=== PATIENT | male | born 1960 | race Caucasian/White ===

== ENCOUNTER 2017-12-02 15:50 | Inpatient (IN) ==
[2017-12-02] MEDS ORDERED: methylPREDNISolone 125 MG/2 ML VIAL IVP ONE (16:17)
[2017-12-02] MEDS ORDERED: Ipratropium/Albuterol Neb 3 ML IH ONE (16:17)
--- NOTE | 2017-12-02 16:20 | Emergency Department Note ---
Disposition Clinical Impression: Acute exacerbation of chronic obstructive airways disease, Bronchitis Disposition: Admitted As Inpatient Condition: Fair Referrals: Heather Proctor MD [Primary Care Provider] - Forms: ED Satisfaction Letter Time of Disposition: 19:40 SOB HPI - General Chief Complaint: ED Shortness of Breath/Dyspnea Stated Complaint: DANNI Time Seen by Provider: 12/02/17 15:59 Source: patient Mode of arrival: ambulatory Limitations: no limitations Nursing Notes Reviewed: Yes Vital Signs Reviewed: Yes - History of Present Illness 57-year-old with a history of oxygen-dependent COPD. Patient continues to smoke. 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 Severity: moderate Consistency/Duration: constant Improves with: nothing Worsens with: exertion Known history of: COPD Associated symptoms: Reports: chest pain, cough Treatment prior to arrival: oxygen, bronchodilator - Related Data Home Medications Medication Instructions Recorded Confirmed Gabapentin [Neurontin] 300 mg PO TID 08/31/17 08/31/17 Isosorbide DInitrate [Isosorbide 30 mg PO DAILY 08/31/17 08/31/17 Dinitrate] Oxycodone HCl/Acetaminophen 10 mg PO TID 08/31/17 08/31/17 [Percocet 10-325 mg Tablet] Oxycodone HCl [Oxycontin] 15 mg PO Q12H 11/29/17 11/29/17 Allergies Allergy/AdvReac Type Severity Reaction Status Date / Time cephalexin [From Keflex] Allergy See Verified 12/02/17 15:56 Comments All systems ED: reviewed and negative except as stated. Cardiovascular: Reports: chest pain Respiratory: Reports: cough, dyspnea, wheezes Gastrointestinal: Denies: abdominal pain, nausea, vomiting, diarrhea, constipation, hematemesis, melena, hematochezia Genitourinary: Denies: urgency, dysuria, frequency, hematuria Musculoskeletal: Denies: back pain, neck pain, arthralgia, myalgia Integumentary: Denies: rash, abrasion, lesions Neurological: Denies: headache, weakness, numbness, paresthesias, confusion, abnormal gait, vertigo Psychiatric: Denies: anxiety, depression, suicidal thoughts, homicidal thoughts , auditory hallucinations, visual hallucinations Endocrine: Denies: fatigue Hematological/Lymphatic: Denies: easy bleeding, easy bruising Allergic/Immunologic: Denies: facial swelling, urticaria Past Medical History - Past Medical History Medical history: Reports: COPD, other - Social History Smoking Status: Current every day smoker Smokeless Tobacco Status: No Alcohol use: Reports: none Drug use: Reports: none Course - Reevaluation(s) Reevaluation #1: 57-year-old with severe COPD comes in with shortness of breath. Diffuse wheezes throughout. CTA of the chest was obtained that showed no pulmonary embolism with some bronchitis. Patient will be admitted. Time: 19:39 - Consultations Consultation #1: Discussed with Dr. Devine, admit. Time: 19:39 Vital Signs Temperature 99.3 F 12/02/17 15:53 Pulse Rate 77 12/02/17 15:53 Respiratory Rate 18 12/02/17 15:53 Blood Pressure 117/73 12/02/17 15:53 O2 Sat by Pulse Oximetry 94 12/02/17 15:53 Temperature 99.3 F 12/02/17 16:30 Pulse Rate 87 12/02/17 18:22 Respiratory Rate 18 12/02/17 18:22 Blood Pressure 139/80 12/02/17 18:22 O2 Sat by Pulse Oximetry 95 12/02/17 18:22 Oxygen Delivery Oxygen Delivery Room Air Shortness of Breath/Dyspnea - Lab Data Result diagrams: 12/02/17 16:53 12/02/17 16:53 Lab Results 12/02/17 12/02/17 12/02/17 Range/Units 16:53 16:53 16:53 WBC 15.9 H (4.3-11.1) K/mcL RBC 4.85 (4.19-5.50) M/mcL Hgb 13.3 (12.9-16.9) g/dL Hct 42.8 (37.5-50.1) % MCV 88.2 (83.0-100.0) fL MCH 27.4 L (28.0-33.3) pg MCHC 31.1 L (31.6-35.5) g/dL RDW 15.7 H (11.5-14.5) % Plt Count 241 (140-400) K/mcL MPV 9.8 (9.4-12.4) fL Immature Gran % 0.6 (0-4) % Seg Neutrophils % 55.4 % Lymphocytes % 35.8 % Monocytes % 6.1 % Eosinophils % 1.7 % Basophils % 0.4 % Neutrophils # 8.8 (1.6-8.9) K/mcL Lymphocytes # 5.7 H (0.6-4.6) K/mcL Monocytes # 1.0 (0.0-1.3) K/mcL Eosinophils # 0.3 (0.0-0.6) K/mcL Basophils # 0.1 (0.0-0.2) K/mcL D-Dimer (0-500) ng/mLFEU Sodium 138 (136-145) mEq/L Potassium 3.7 (3.5-5.1) mEq/L Chloride 99 (98-107) mEq/L Carbon Dioxide 34 H (23-29) mEq/L BUN 18 (6-20) mg/dL Creatinine 0.69 L (0.70-1.30) mg/dL Est GFR ( Amer) > 60 (> 60) Est GFR (Non-Af Amer) > 60 (> 60) BUN/Creatinine Ratio 26 (6-26) Glucose 88 (70-105) mg/dL Calculated Osmolality 287 (280-300) Lactic Acid 1.0 (0.5-2.2) mmol/L Calcium 8.9 (8.6-10.3) mg/dL Troponin I < 0.03 (< 0.04) ng/mL B-Natriuretic Peptide (Less than 100) pg/mL 12/02/17 12/02/17 Range/Units 16:53 16:53 WBC (4.3-11.1) K/mcL RBC (4.19-5.50) M/mcL Hgb (12.9-16.9) g/dL Hct (37.5-50.1) % MCV (83.0-100.0) fL MCH (28.0-33.3) pg MCHC (31.6-35.5) g/dL RDW (11.5-14.5) % Plt Count (140-400) K/mcL MPV (9.4-12.4) fL Immature Gran % (0-4) % Seg Neutrophils % % Lymphocytes % % Monocytes % % Eosinophils % % Basophils % % Neutrophils # (1.6-8.9) K/mcL Lymphocytes # (0.6-4.6) K/mcL Monocytes # (0.0-1.3) K/mcL Eosinophils # (0.0-0.6) K/mcL Basophils # (0.0-0.2) K/mcL D-Dimer 667 H (0-500) ng/mLFEU Sodium (136-145) mEq/L Potassium (3.5-5.1) mEq/L Chloride (98-107) mEq/L Carbon Dioxide (23-29) mEq/L BUN (6-20) mg/dL Creatinine (0.70-1.30) mg/dL Est GFR ( Amer) (> 60) Est GFR (Non-Af Amer) (> 60) BUN/Creatinine Ratio (6-26) Glucose (70-105) mg/dL Calculated Osmolality (280-300) Lactic Acid (0.5-2.2) mmol/L Calcium (8.6-10.3) mg/dL Troponin I (< 0.04) ng/mL B-Natriuretic Peptide 16 (Less than 100) pg/mL - EKG Data EKG attestation: Yes I reviewed and interpreted this EKG. EKG shows normal: Reports: sinus rhythm Rate: Reports: normal Rhythm: Reports: NSR When compared to previous EKG there are: no significant changes Interpretation: Reports: no acute changes
[2017-12-02 17:09] LABS: Basophils # 0.1 K/mcL (0.0-0.2); Basophils % 0.4 %; Eosinophils # 0.3 K/mcL (0.0-0.6); Eosinophils % 1.7 %; Hematocrit 42.8 % (37.5-50.1); Hemoglobin 13.3 g/dL (12.9-16.9); Immature Granulocytes % 0.6 % (0-4); Lymphocytes # 5.7 K/mcL (0.6-4.6); Lymphocytes % 35.8 %; Mean Corpuscular HGB Conc 31.1 g/dL (31.6-35.5); Mean Corpuscular Hemoglobin 27.4 pg (28.0-33.3); Mean Corpuscular Volume 88.2 fL (83.0-100.0); Mean Platelet Volume 9.8 fL (9.4-12.4); Monocytes % 6.1 %; Neutrophils # 8.8 K/mcL (1.6-8.9); Platelet Count 241 K/mcL (140-400); Red Blood Count 4.85 M/mcL (4.19-5.50); Red Cell Distribution Width 15.7 % (11.5-14.5); Segmented Neutrophils % 55.4 %
[2017-12-02 17:30] LABS: BUN/Creatinine Ratio 26 (6-26); Blood Urea Nitrogen 18 mg/dL (6-20); Calcium 8.9 mg/dL (8.6-10.3); Carbon Dioxide 34 mEq/L (23-29); Chloride 99 mEq/L (98-107); Glucose 88 mg/dL (70-105); Osmolality,Calculated 287 (280-300); Potassium 3.7 mEq/L (3.5-5.1); Sodium 138 mEq/L (136-145); Troponin I < 0.03 ng/mL (< 0.04); eGFR For African Americans > 60 (> 60); eGFR For Non-African Americans > 60 (> 60)
[2017-12-02] MEDS ORDERED: Isovue-370 500 ML INFUS..BTL IV ONE (17:55)
[2017-12-02] MEDS ORDERED: Naloxone 0.4 MG/ML INJ IVP PRN ×2 (19:41→19:42)
[2017-12-02] MEDS ORDERED: Acetaminophen 325 MG TABLET PO PRN (19:42)
--- NOTE | 2017-12-02 19:45 | Internal Med History&Physical ---
Date of Encounter: 12/03/17 Time of Encounter: 19:43 Internal Medicine - H&P: HPI Chief complaint: Shortness of breath Admitted From: Emergency Dept Plans for Post Hospital Care: Home History of present illness: Mr. Olguin is a 57 year old male with history of PE he is to be on Coumadin and finish treatment for 2 years and was taken off by hematology, COPD chronically on 3-4 L, CHF, tobacco abuse who presents with shortness of breath and increased cough with occasional sputum for the last 3 days or so. He is becoming dyspneic easily with any exertion. He says he feels like he is "in a bubble and is having a hard time getting her into the bubble". He sees Dr. Fuentes in the outpatient setting and recently finished pulmonary rehabilitation about a week ago. When he presented to the ED he was in significant distress and was noted to be wheezing. Laboratory workup was remarkable for elevated D dimers and given his history of PE a CTA was done which ruled out a PE. It showed bronchitis. WBC count 15.9 He was given IV steroids and nebulizers with mild improvement in his symptoms. The patient had an EKG that was sinus rhythm with no ST or T-wave changes. Chest x-ray with no infiltrates. The patient denies any fever, chills, nausea, vomiting, headache, diarrhea, constipation, abdominal pain, urinary symptoms, or neurological symptoms. Past Med Surg Social Fam HX - Past Medical History Medical history: COPD, other Additional medical history: O2 per n/c - Social History Smoking Status: Current every day smoker Smokeless Tobacco Status: No Alcohol use: none Drug use: none - Family History Father Name: Charli Olguin Living Status: Age at : 57 Cause of : Complications to surgery Hx Family Cardiac Disorders: Yes (x4 bipass surgery) Internal Medicine - H&P: Meds Gabapentin [Neurontin] 300 mg PO TID 08/31/17 [History] Isosorbide DInitrate [Isosorbide Dinitrate] 30 mg PO DAILY 08/31/17 [History] Oxycodone HCl/Acetaminophen [Percocet 10-325 mg Tablet] 10 mg PO TID 08/31/17 [ History] Oxycodone HCl [Oxycontin] 15 mg PO Q12H 11/29/17 [History] Bumetanide 2 mg PO BID 12/02/17 [History] Buspirone HCl [Buspar] 10 mg PO BID 12/02/17 [History] DULoxetine [Cymbalta] 60 mg PO DAILY 12/02/17 [History] 3 Allergy/AdvReac Type Severity Reaction Status Date / Time cephalexin [From Keflex] Allergy See Verified 12/02/17 15:56 Comments All Systems PM: A 10-system review of systems was performed and is negative for pertinent findings except as documented above in the HPI. Review of systems: All systems reviewed are negative except for as mentioned above - Constitutional Vitals: Temp Pulse Resp BP Pulse Ox 99.3 F 90 17 130/61 93 12/02/17 16:30 12/02/17 19:37 12/02/17 19:37 12/02/17 19:37 12/02/17 19:37 Exam: GEN: NAD HEENT: AT, NC, No cyanosis, oral mucosa is moist, No JVD Lymphatics: No lymphadenoapthy Eyes: Extrocular muscles intact, anicteric CVS:RRR. S1, S2, No m/r/g RESP: Severely Diminished with expiratory wheezes posteriorly ABD: Soft, NT, ND, +BS EXT: No edema, No rashes, 2+ DP NEURO: Nonfocal, CN II-XII intact, No focal motor or sensory deficits Psych: Cooperative, Not anxious or depressed Internal Med - H&P Results - Labs CBC & Chem 7: 12/03/17 03:46 12/02/17 16:53 Labs: Short CBC 12/02/17 Range/Units 16:53 WBC 15.9 H (4.3-11.1) K/mcL Hgb 13.3 (12.9-16.9) g/dL Hct 42.8 (37.5-50.1) % Plt Count 241 (140-400) K/mcL Neutrophils # 8.8 (1.6-8.9) K/mcL BMP 12/02/17 16:53 Sodium 138 Potassium 3.7 Chloride 99 Carbon Dioxide 34 H BUN 18 Creatinine 0.69 L Glucose 88 Calcium 8.9 Cardiac Enzymes 12/02/17 Range/Units 16:53 Troponin I < 0.03 (< 0.04) ng/mL - Impressions ITS Impressions Chest X-Ray 12/02/17 16:17 IMPRESSION: Chronic appearing interstitial opacities in the lungs are noted. Acute on chronic lung disease should be considered in the appropriate clinical setting. D/ / Nii Hernandez / Nii Hernandez Interpreting Provider: Nii Hernandez Chest CTA 12/02/17 17:55 IMPRESSION: No evidence of pulmonary embolism. Bronchial wall thickening and bronchiectasis of the bilateral lower lobe bronchi suggesting bronchitis. Moderate to severe centrilobular emphysema. D/ / Shaun Og MD / Shaun Og MD Interpreting Provider: Shaun Og MD - Assessment and plan (1) Acute exacerbation of chronic obstructive airways disease Current Visit: Yes Status: Acute Assessment and plan: Will place the patient on IV solumedrol Q8hrs, scheduled nebs. Wean O2 as tolerated. Levaquin added. (2) Bronchitis Current Visit: Yes Status: Acute Assessment and plan: Started on IV levaquin. check sputum cx. nebs. O2 support. (3) Hx pulmonary embolism Current Visit: Yes Status: Acute Assessment and plan: Used to be on Coumadin. Finished 2 years of it. No longer on anticoag (4) CHF (congestive heart failure) Current Visit: Yes Status: Acute Assessment and plan: Patient is not in exacerbation. We will resume his home cardiac meds was verified. Qualifiers: Heart failure type: unspecified Heart failure chronicity: unspecified Qualified Code(s): I50.9 - Heart failure, unspecified (5) Tobacco abuse Current Visit: Yes Status: Acute Assessment and plan: Nicotine patch (6) DVT prophylaxis Current Visit: Yes Status: Acute Assessment and plan: heparin SQ - Time Spent With Patient Total time spent is greater than 50% in coordination of care (as documented) at patient's floor/unit and/or counseling patient:
[2017-12-02] MEDS: Nicotine 21 MG PATCH.TD24 TD SCH (21:09)
[2017-12-02] MEDS: Levofloxacin 750 MG/150 ML 750 MG/150 ML BAG IVPB SCH (21:11)
[2017-12-02] MEDS: Ipratropium/Albuterol Neb 3 ML IH SCH (21:14)
[2017-12-02] MEDS: *HR* Heparin 5,000 UNIT/ML VIAL SQ SCH (21:18)
[2017-12-02] MEDS ORDERED: Melatonin 3 MG TABLET PO PRN (22:05)
[2017-12-02] MEDS: *HR* OxyCODONE/APAP 10/325 TABLET PO PRN (22:50)
[2017-12-02] MEDS: methylPREDNISolone 125 MG/2 ML VIAL IVP SCH (22:53)
[2017-12-03] MEDS: Ipratropium/Albuterol Neb 3 ML IH SCH ×4 (04:04→22:03)
[2017-12-03 04:37] LABS: Basophils % 0.1 %; Hematocrit 43.2 % (37.5-50.1); Hemoglobin 13.4 g/dL (12.9-16.9); Lymphocytes # 1.1 K/mcL (0.6-4.6); Lymphocytes % 7.8 %; Mean Corpuscular Hemoglobin 27.2 pg (28.0-33.3); Mean Corpuscular Volume 87.8 fL (83.0-100.0); Mean Platelet Volume 10.3 fL (9.4-12.4); Monocytes # 0.1 K/mcL (0.0-1.3); Monocytes % 0.6 %; Platelet Count 270 K/mcL (140-400); Red Blood Count 4.92 M/mcL (4.19-5.50); Red Cell Distribution Width 15.8 % (11.5-14.5); Segmented Neutrophils % 89.5 %
[2017-12-03 04:57] LABS: BUN/Creatinine Ratio 28 (6-26); Blood Urea Nitrogen 22 mg/dL (6-20); Calcium 8.9 mg/dL (8.6-10.3); Carbon Dioxide 30 mEq/L (23-29); Chloride 100 mEq/L (98-107); Glucose 303 mg/dL (70-105); Magnesium 2.1 mg/dL (1.6-2.6); Osmolality,Calculated 301 (280-300); Sodium 138 mEq/L (136-145); eGFR For African Americans > 60 (> 60); eGFR For Non-African Americans > 60 (> 60)
--- NOTE | 2017-12-03 04:58 | Event Note ---
Date of Encounter: 12/03/17 Time of Encounter: 04:51 Patient had runs of wide complex tachycardia, asymptomatic (Vfib, possibly torsades). Vitals are stable. BP 137/77. HR 95. Afebrile. Will c/s cardiology. Awaiting mag and potassium
[2017-12-03] MEDS: *HR* OxyCODONE ER (12 HR) 20 MG TABLET PO SCH ×2 (05:45→17:11)
[2017-12-03] MEDS: *HR* Heparin 5,000 UNIT/ML VIAL SQ SCH ×3 (05:45→21:47)
[2017-12-03] MEDS ORDERED: *HR* OxyCODONE ER (12 HR) 20 MG TABLET PO SCH (08:00)
[2017-12-03] MEDS ORDERED: Bumetanide 1 MG TABLET PO ONE (09:00)
[2017-12-03] MEDS ORDERED: NON-FORMULARY MEDICATION 1 EACH EACH (Buspirone Hcl [Buspar] 10 MG) PO SCH (09:00)
--- NOTE | 2017-12-03 09:02 | Cardiology Consult Note ---
<Wayne Guerrero - Last Filed: 12/03/17 10:33> Date of Encounter: 12/03/17 Time of Encounter: 09:00 Assessment and Plan (1) Irregular heart rhythm Current Visit: Yes Status: Suspected - On telemetry last evening. Appears to be Vtach however suspect more likely artifact as QRS complexes can be seen - Previous cardiac workup obtained from [facility] on 05/09/2016: LHC shows 1) minor luminal irregularities in RCA, otherwise normal right dominant coronary circulation 2) Normal LVEDP (~15). - Echo pending - Pt's symptoms possibly secondary to GERD/PUD and severe emphysema Plan - Will obtain repeat echo to evaluate for structural disease - Unlikely ischemic disease due to atypical presentation and normal LHC <2 years ago - Continue to monitor and further recommendations pending results of echo (2) Chest pain Current Visit: Yes Status: Acute - Reports intermittent chronic chest pain located in epigastric and low substernal that is dull -Unlikely cardiac related. Recent ischemic workup of LHC reviewed from 2016 - Trop <0.03, EKG NSR. Telemetry strips likely artifact as above - More likely GERD/PUD - Obtain echo, monitor Qualifiers: Chest pain type: other chest pain Qualified Code(s): R07.89 - Other chest pain; R07.8 - Other chest pain (3) Acute exacerbation of chronic obstructive airways disease Current Visit: Yes Status: Acute - Per primary team (4) Bronchitis Current Visit: Yes Status: Acute (5) Hx pulmonary embolism Current Visit: Yes Status: Chronic not on AC (6) DVT prophylaxis Current Visit: Yes Status: Acute (7) Tobacco abuse Current Visit: Yes Status: Acute Encouraged cessation (8) CHF (congestive heart failure) Current Visit: Yes Status: Chronic History of, not in current exacerbation Echo pending, no previous in EMR Qualifiers: Heart failure type: unspecified Heart failure chronicity: unspecified Qualified Code(s): I50.9 - Heart failure, unspecified Discussion w patient/family: The assessment and plan as outlined above was discussed with the patient and/or family members who expressed understanding and agreement. All questions were answered. Thank you for involving us in the care of your patient. Please call with any questions. History of Present Illness Consult date: 12/03/17 Requesting physician: Osama M Alhajjar Consult reason: Runs of Vtach Chief complaint: SOB History of present illness: Mr. Olguin is a 57 year old male with a PMHx of COPD, CHF, brain aneurym, pulmonary embolism no longer on AC presented to ED with a complaint of SOB. He is currently being treated for COPD exacerbation. Cardiology was consulted for a run of sustained ventricular tachycardia on telemetry lasting approximately 50 seconds. Patient was asymptomatic at that time and vital signs were otherwise stable. He has no history of heart disease and no cardiac workup in this medical record. He does report previous stress tests, echocardiogram in the past and believes they were normal. He states it was years ago at [facility]. 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 He Is unable to exert himself due to this. He does admit to intermittent chest pain located in the low substernal/ epigastric region and describes it as dull in nature. States it is usually brought on by increased stress at home and sometimes relieved by rolaids. He denies palpitations, nausea , vomiting, fever, chills. Admits to some LE swelling at baseline. Past Med Surg Social Fam HX - Past Medical History Medical history: COPD, other Additional medical history: O2 per n/c Psychiatric history: anxiety, depression - Past Surgical History Surgical History: no surgical history Additional surgical history: "Nose surgery" - Social History Smoking Status: Current every day smoker Smokeless Tobacco Status: No Alcohol use: none Drug use: none - Family History Father Name: Charli Olguin Living Status: Age at : 57 Cause of : Complications to surgery Hx Family Cardiac Disorders: Yes (x4 bipass surgery) Medications and Allergies Gabapentin [Neurontin] 300 mg PO TID 08/31/17 [History] Bumetanide 2 mg PO BID 12/02/17 [History] Buspirone HCl [Buspar] 10 mg PO BID 12/02/17 [History] DULoxetine [Cymbalta] 60 mg PO DAILY 12/02/17 [History] ARIPiprazole [Abilify] 10 mg PO DAILY 12/03/17 [History] Albuterol Sulfate [Proair Hfa] 2 puff IH Q4-6H PRN 12/03/17 [History] Fluticasone/Vilanterol [Breo Ellipta 100-25 Mcg INH] 1 puff IH DAILY 12/03/17 [ History] Isosorbide MONOnitrate (24 HR) [Imdur] 30 mg PO DAILY 12/03/17 [History] [place] Carbonate 300 mg PO TID 12/03/17 [History] OxyCODONE ER (12 HR) [OxyCONTIN] 20 mg PO Q12HR 12/03/17 [History] OxyCODONE Immed Rel [Roxicodone 10 MG] 10 mg PO TID PRN 12/03/17 [History] Tiotropium [Spiriva] 18 mcg IH QPM 12/03/17 [History] 3 Allergy/AdvReac Type Severity Reaction Status Date / Time cephalexin [From Keflex] Allergy See Verified 12/02/17 15:56 Comments All Systems Review: The remainder of the systems were reviewed and are negative - Constitutional Constitutional: no chills, no fatigue, no fever(s), no lethargy - Cardiovascular Cardiovascular: chest pain at rest, dyspnea on exertion, no chest pain with exertion, no diaphoresis, no lightheadedness, no orthopnea, no palpitations, no syncope - Respiratory Respiratory: dyspnea, no cough, no hemoptysis - Gastrointestinal Gastrointestinal: no abdominal pain, no nausea Physical Examination Vital Signs, Last 4 Hours Temp Pulse Resp BP Pulse Ox 12/03/17 07:32 94 12/03/17 06:52 98.1 F 95 17 126/70 94 General: Conversant, No Apparent Distress HEENT: Atraumatic, Normocephaly, Mucus Membranes Moist Neck: No JVD, Normal carotid pulses Cardiac: Reg Rate and Rhythm, Normal S1 and S2, No Murmur Lungs: Normal Breath Sounds, Other (minimal expiratory wheeze) Neuro: Alert and responsive, No focal deficits noted Abdomen: Soft, Non-Tender Skin: No rashes noted on visualized skin Musculoskeletal: No Chest Wall Tenderness Extremities: No Clubbing, No Cyanosis, Normal Pulses, Other (minimal LE edema) Results 12/03/17 03:46 12/03/17 03:46 Lab Results 12/03/17 12/03/17 03:46 03:46 WBC 14.5 H Hgb 13.4 Hct 43.2 Plt Count 270 Sodium 138 Potassium 4.0 Chloride 100 Carbon Dioxide 30 H BUN 22 H Creatinine 0.80 Glucose 303 H Calcium 8.9 Magnesium 2.1 Consult Discharge Plan - Plan Referrals: Heather Proctor MD [Primary Care Provider] - <Dillon Doyle - Last Filed: 12/03/17 19:22> Date of Encounter: 12/03/17 - Attending Attestation I examined this patient and my medical decision-making was reviewed with the Resident Physician. I agree with the documented findings, disposition and treatment plan as described except to the extent set forth below. 57-year-old male with atypical type chest pain complains of shortness of breath likely COPD exacerbation Negative cardiac enzymes and a BNP of 16 Recent left heart catheter April 2016 at outside hospital with luminal irregularities and RCA only ECHO pending , no further cardiac testing likely noncardiac chest pain Assessment and Plan Discussion w patient/family: The assessment and plan as outlined above was discussed with the patient and/or family members who expressed understanding and agreement. All questions were answered. Thank you for involving us in the care of your patient. Please call with any questions. History of Present Illness History of present illness: Mr. Olguin is a 57 year old male All Systems Review: The remainder of the systems were reviewed and are negative Physical Examination Vital Signs, Last 4 Hours Temp Pulse Resp BP Pulse Ox 12/03/17 19:18 97.8 F 96 16 122/69 92 12/03/17 15:45 12 90 Results 12/03/17 03:46 12/03/17 03:46 Lab Results 12/03/17 12/03/17 03:46 03:46 WBC 14.5 H Hgb 13.4 Hct 43.2 Plt Count 270 Sodium 138 Potassium 4.0 Chloride 100 Carbon Dioxide 30 H BUN 22 H Creatinine 0.80 Glucose 303 H Calcium 8.9 Magnesium 2.1
--- NOTE | 2017-12-03 10:03 | Electrocardiograph Report ---
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
--- NOTE | 2017-12-03 10:09 | Electrocardiograph Report ---
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
[2017-12-03] MEDS: methylPREDNISolone 125 MG/2 ML VIAL IVP SCH ×2 (10:23→15:54)
[2017-12-03] MEDS: Gabapentin 300 MG CAPSULE PO SCH ×3 (10:23→21:47)
[2017-12-03] MEDS: *HR* OxyCODONE/APAP 10/325 TABLET PO PRN ×3 (10:24→21:47)
[2017-12-03] MEDS: Bumetanide 1 MG TABLET PO SCH ×2 (10:24→21:47)
[2017-12-03] MEDS: Nicotine 21 MG PATCH.TD24 TD SCH (10:25)
--- NOTE | 2017-12-03 17:22 | Internal Med Progress Note ---
Date of Encounter: 12/03/17 Time of Encounter: 12:15 - Assessment and plan (1) Acute exacerbation of chronic obstructive airways disease Current Visit: Yes Status: Acute Assessment and plan: Mild acute exacerbation. Patient is requiring supplemental oxygen to maintain sats. Patient with diminished lung sounds and wheezing and posterior bases Continue IV steroids, scheduled nebulizers O2 as needed to maintain sats greater than 92% Continue IV Levaquin. (2) Bronchitis Current Visit: Yes Status: Acute Assessment and plan: Plan as above. Chest X-Ray 12/02/17 16:17 IMPRESSION: Chronic appearing interstitial opacities in the lungs are noted. Acute on chronic lung disease should be considered in the appropriate clinical setting. D/ / Nii Hernandez / Nii Hernandez Interpreting Provider: Nii Hernandez Chest CTA 12/02/17 17:55 IMPRESSION: No evidence of pulmonary embolism. Bronchial wall thickening and bronchiectasis of the bilateral lower lobe bronchi suggesting bronchitis. Moderate to severe centrilobular emphysema. D/ / Shaun Og MD / Shaun Og MD Interpreting Provider: Shaun Og MD (3) Hx pulmonary embolism Current Visit: Yes Status: Chronic Assessment and plan: Recently finished 2 year course of warfarin for history of PE. No longer on anticoag (4) DVT prophylaxis Current Visit: Yes Status: Acute Assessment and plan: Heparin SQ BID (5) Tobacco abuse Current Visit: Yes Status: Acute Assessment and plan: Nicotine patch ordered. Pt did not want to discuss smoking cessation. (6) CHF (congestive heart failure) Current Visit: Yes Status: Chronic Assessment and plan: No acute exacerbation. Patient appears to be euvolemic. No Rales heard, wheezing due to COPD exacerbation. Patient has no peripheral edema. Echocardiogram today shows LVEF of 65%, mild LV DD, no significant valvular dysfunction. Chest x-ray shows chronic appearing interstitial pacer disease in the lungs, acute on chronic lung disease should be considered in the appropriate clinical setting. Chest CTA showed bronchial wall thickening and bronchiectasis of the bilateral lower lobe bronchi suggesting bronchitis. And moderate to severe centrilobular emphysema Continue telemetry Continue Bumex 2 mg by mouth twice a day Continue I and 0, Daily weights. Qualifiers: Heart failure type: unspecified Heart failure chronicity: unspecified Qualified Code(s): I50.9 - Heart failure, unspecified (7) Irregular heart rhythm Current Visit: Yes Status: Suspected Assessment and plan: Patient has been evaluated by cardiology. They suspect artifact. They have reviewed old records from [facility] dated 05/09/16 Echo as above Cardiology feels symptoms possibly secondary to GERD/PUD and severe emphysema. Cardiology will follow along and will see patient tomorrow. Continue telemetry (8) Chest pain Current Visit: Yes Status: Acute Assessment and plan: Patient reports intermittent, chronic chest pain and epigastric area. He states it as dull, intermittent. He denies associated shortness of breath, nausea, vomiting, or radiation of pain. Recent ischemic workup negative from [facility] in 2016. Troponins are negative, chest x-ray is negative Per cardiology note this is most likely GERD/PUD She denies chest pain during assessment today pain is not reproducible. Continue telemetry Qualifiers: Chest pain type: other chest pain Qualified Code(s): R07.89 - Other chest pain; R07.8 - Other chest pain - Time Spent With Patient Total time spent is greater than 50% in coordination of care (as documented) at patient's floor/unit and/or counseling patient: less than 15 minutes - Subjective Interval history: Patient was seen and assessed at bedside 12:15. Child and at bedside. All questions were answered. Patient denies any chest pain, does report shortness of breath. He denies abdominal pain, nausea, vomiting, diarrhea or peripheral edema. She is aware that he will beefier for a couple of days to finish treatment, he states that he is not ready to go home at this time. - Constitutional Vitals: Temp Pulse Resp BP Pulse Ox 98.6 F 98 12 136/52 90 12/03/17 14:10 12/03/17 14:10 12/03/17 15:45 12/03/17 14:10 12/03/17 15:45 General appearance: Present: cooperative, A&O X 3, morbidly obese, no acute distress, answers questions appropriately - Head Head exam: Present: atraumatic, normal inspection, normocephalic - Eye Eye exam: Present: normal appearance, conjuntiva pink, sclera anicteric - Neck Neck exam general surgery: Present: supple, trachea midline. Absent: lymphadenopathy, tenderness - Respiratory Respiratory exam: Present: decreased breath sounds, CTAB. Absent: accessory muscle use, chest wall tenderness, rales, respiratory distress, rhonchi, wheezes - Cardiovascular Cardiovascular exam: Present: RRR, +S1, +S2. Absent: diastolic murmur, gallop, rubs, systolic murmur - GI/Abdominal GI/Abdominal exam: Present: distended, normal bowel sounds, soft. Absent: hepatomegaly, tenderness - Extremities Exam Extremities exam: Present: normal capillary refill, normal inspection, warm, radial pulses palpable and symmetrical. Absent: calf tenderness, cyanotic, pedal edema, tenderness - Neurological Exam Neurological exam: Present: alert, oriented X3, no focal deficits. Absent: facial droop, speech deficit - Skin Skin exam: Present: dry, intact, normal color, warm. Absent: rash Internal Medicine: Result - Labs CBC & Chem 7: 12/03/17 03:46 12/03/17 03:46 Labs: Short CBC 12/03/17 Range/Units 03:46 WBC 14.5 H (4.3-11.1) K/mcL Hgb 13.4 (12.9-16.9) g/dL Hct 43.2 (37.5-50.1) % Plt Count 270 (140-400) K/mcL Neutrophils # 13.0 H (1.6-8.9) K/mcL BMP 12/03/17 03:46 Sodium 138 Potassium 4.0 Chloride 100 Carbon Dioxide 30 H BUN 22 H Creatinine 0.80 Glucose 303 H Calcium 8.9 - ABG Interpretation ABG results: PT/INR, D-dimer D-Dimer 667 ng/mLFEU (0-500) H 12/02/17 16:53 - Impressions Impressions Echocardiogram 12/03/17 04:53 Impressions: LVEF 65%. Normal LV chamber size, wall thickness and function. Mild left ventricular diastolic dysfunction. Normal right ventricular structure and function. Unable to estimate RVSP due to lack of TR jet. No significant valvular dysfunction. Left Ventricular Wall Motion: Rest Echo Findings All wall segments showed normal motion. Findings: Study Quality * Technically adequate exam. ECG Findings * Normal sinus rhythm. Left Ventricle * LVEF 65%. * Normal LV chamber size, wall thickness and function. * Mild left ventricular diastolic dysfunction. Right Ventricle * Normal right ventricular structure and function. Left Atrium * Mildly dilated left atrium. Right Atrium * Mildly dilated right atrium. Aortic Valve * Trileaflet aortic valve with normal function. * No aortic regurgitation. * No aortic stenosis. Mitral Valve * Normal mitral valve structure and function. * No mitral regurgitation. * No mitral stenosis. Tricuspid Valve * Normal tricuspid valve structure and function. * No tricuspid regurgitation. * Unable to estimate RVSP due to lack of TR jet. Pulmonic Valve * Pulmonic valve not well visualized. Aorta * Normally sized aortic root. Pericardium * The pericardium appears normal. IVC * Normal IVC dimensions and inspiratory collapse. Pulmonary Artery * Normal visualized portions of the main pulmonary artery. Consult Discharge Plan - Plan Referrals: Heather Proctor MD [Primary Care Provider] -
[2017-12-03] MEDS ORDERED: *HR* OxyCODONE/APAP 10/325 TABLET PO SCH (21:00)
[2017-12-03] MEDS: Levofloxacin 750 MG/150 ML 750 MG/150 ML BAG IVPB SCH (21:48)
[2017-12-03] MEDS: Melatonin 3 MG TABLET PO PRN (21:48)
[2017-12-03] MEDS ORDERED: *HR* OxyCODONE ER (12 HR) 10 MG TABLET PO SCH (22:17)
[2017-12-04] MEDS: methylPREDNISolone 125 MG/2 ML VIAL IVP SCH ×2 (00:38→08:45)
[2017-12-04] MEDS: Ipratropium/Albuterol Neb 3 ML IH SCH ×4 (04:21→22:40)
[2017-12-04 04:53] LABS: Basophils % 0.1 %; Hemoglobin 13.3 g/dL (12.9-16.9); Immature Granulocytes % 2.2 % (0-4); Lymphocytes # 1.5 K/mcL (0.6-4.6); Lymphocytes % 5.4 %; Mean Corpuscular HGB Conc 31.7 g/dL (31.6-35.5); Mean Corpuscular Hemoglobin 27.5 pg (28.0-33.3); Mean Platelet Volume 9.9 fL (9.4-12.4); Monocytes # 0.4 K/mcL (0.0-1.3); Monocytes % 1.6 %; Platelet Count 276 K/mcL (140-400); Red Blood Count 4.83 M/mcL (4.19-5.50); Red Cell Distribution Width 15.9 % (11.5-14.5); Segmented Neutrophils % 90.7 %
[2017-12-04] MEDS: *HR* Heparin 5,000 UNIT/ML VIAL SQ SCH ×3 (05:03→20:48)
[2017-12-04] MEDS: *HR* OxyCODONE ER (12 HR) 20 MG TABLET PO SCH ×2 (05:03→17:04)
[2017-12-04 05:08] LABS: BUN/Creatinine Ratio 28 (6-26); Blood Urea Nitrogen 22 mg/dL (6-20); Calcium 8.8 mg/dL (8.6-10.3); Carbon Dioxide 30 mEq/L (23-29); Chloride 99 mEq/L (98-107); Glucose 156 mg/dL (70-105); Osmolality,Calculated 293 (280-300); Potassium 4.2 mEq/L (3.5-5.1); Sodium 138 mEq/L (136-145); eGFR For African Americans > 60 (> 60); eGFR For Non-African Americans > 60 (> 60)
[2017-12-04 05:20] LABS: Platelet Estimate Normal (Normal); Toxic Granulation Present (Not Present)
[2017-12-04] MEDS: Bumetanide 1 MG TABLET PO SCH ×2 (08:46→20:49)
[2017-12-04] MEDS: Nicotine 21 MG PATCH.TD24 TD SCH (08:46)
[2017-12-04] MEDS: Gabapentin 300 MG CAPSULE PO SCH ×3 (08:46→20:49)
[2017-12-04] MEDS: *HR* OxyCODONE/APAP 10/325 TABLET PO PRN ×2 (09:02→20:49)
--- NOTE | 2017-12-04 09:22 | Cardiology Progress Note ---
<Wayne Guerrero - Last Filed: 12/04/17 09:57> Date of Encounter: 12/04/17 Time of Encounter: 09:22 Assessment and Plan (1) Irregular heart rhythm Current Visit: Yes Status: Suspected - On telemetry last evening. Appears to be Vtach however suspect more likely artifact as QRS complexes can be seen - Previous cardiac workup obtained from [facility] on 05/09/2016: LHC shows 1) minor luminal irregularities in RCA, otherwise normal right dominant coronary circulation 2) Normal LVEDP (~15). - Repeat echocardiogram on 12/03/17 shows ejection fraction of 65% with mild diastolic dysfunction and no significant valvular dysfunction - Pt's symptoms possibly secondary to GERD/PUD and severe emphysema Plan - No significant change on echocardiogram as well as likely artifact on telemetry - Unlikely ischemic disease due to atypical presentation and normal LHC <2 years ago - Thank you for allowing us to participate in this consult. Cardiology will sign off at this time. Please reconsult as needed. Follow up with cardiology has been arranged (2) Chest pain Current Visit: Yes Status: Acute - Reports intermittent chronic chest pain located in epigastric and low substernal that is dull -Unlikely cardiac related. Recent ischemic workup of [facility] reviewed from 2016 - Trop <0.03, EKG NSR. Telemetry strips likely artifact as above - More likely GERD/PUD - as above Qualifiers: Chest pain type: other chest pain Qualified Code(s): R07.89 - Other chest pain; R07.8 - Other chest pain (3) Acute exacerbation of chronic obstructive airways disease Current Visit: Yes Status: Acute - Per primary team (4) Bronchitis Current Visit: Yes Status: Acute (5) Hx pulmonary embolism Current Visit: Yes Status: Chronic not on AC (6) DVT prophylaxis Current Visit: Yes Status: Acute (7) Tobacco abuse Current Visit: Yes Status: Acute Encouraged cessation (8) CHF (congestive heart failure) Current Visit: Yes Status: Chronic History of, not in current exacerbation Qualifiers: Heart failure type: diastolic Heart failure chronicity: chronic Qualified Code(s): I50.32 - Chronic diastolic (congestive) heart failure Discussion w patient/family: The assessment and plan as outlined above was discussed with the patient and/or family members who expressed understanding and agreement. All questions were answered. Thank you for involving us in the care of your patient. Please call with any questions. Subjective Principal diagnosis: COPD exacerbation Interval history: Patient seen and examined at bedside this point. Patient states that he continues to have no symptoms of chest pain, shortness of breath is markedly improved, no palpitations, nausea, vomiting. Patient states that he is nearing baseline and is ready for discharge on this time. No overnight events. No further telemetry events Objective Vital Signs, Last 4 Hours Temp Pulse Resp BP Pulse Ox 12/04/17 07:14 98.0 F 97 18 152/67 93 General: Conversant, No Apparent Distress HEENT: Atraumatic, Normocephaly, Mucus Membranes Moist Neck: No JVD, Normal carotid pulses Cardiac: Reg Rate and Rhythm, Normal S1 and S2, No Murmur Lungs: Normal Breath Sounds, No Wheeze, Rales, Rhonchi Neuro: Alert and responsive, No focal deficits noted Skin: No rashes noted on visualized skin Musculoskeletal: No Chest Wall Tenderness Extremities: No Clubbing, No Cyanosis, No Edema (Minimal), Normal Pulses Results 12/04/17 04:26 12/04/17 04:26 Lab Results 12/04/17 12/04/17 04:26 04:26 WBC 27.6 H D Hgb 13.3 Hct 42.0 Plt Count 276 Sodium 138 Potassium 4.2 Chloride 99 Carbon Dioxide 30 H BUN 22 H Creatinine 0.79 Glucose 156 H Calcium 8.8 Consult Discharge Plan - Plan Referrals: Heather Proctor MD [Primary Care Provider] - 12/10/17 2:00 pm <Dillon Doyle - Last Filed: 12/04/17 13:19> Date of Encounter: 12/04/17 Assessment and Plan (1) Chest pain Current Visit: Yes Status: Resolved - Reports intermittent chronic chest pain located in epigastric and low substernal that is dull -Unlikely cardiac related. Recent ischemic workup of [facility] reviewed from 2016 - Trop <0.03, EKG NSR. Telemetry strips likely artifact as above - More likely GERD/PUD - as above I examined this patient and my medical decision-making was reviewed with the Resident Physician. I agree with the documented findings, disposition and treatment plan as described except to the extent set forth below. 57-year-old male with atypical chest pain negative cardiac markers and recent left heart cath and unremarkable coronary artery disease No EKG changes no further complaints of chest pain. V. tach and V. fib strips likely artifact She would benefit from outpatient stress test Qualifiers: Chest pain type: other chest pain Qualified Code(s): R07.89 - Other chest pain; R07.8 - Other chest pain Discussion w patient/family: The assessment and plan as outlined above was discussed with the patient and/or family members who expressed understanding and agreement. All questions were answered. Thank you for involving us in the care of your patient. Please call with any questions. Objective Vital Signs, Last 4 Hours Temp Pulse Resp BP Pulse Ox 12/04/17 11:15 98.2 F 95 17 120/57 92 12/04/17 09:38 18 90 Results 12/04/17 04:26 12/04/17 04:26 Lab Results 12/04/17 12/04/17 04:26 04:26 WBC 27.6 H D Hgb 13.3 Hct 42.0 Plt Count 276 Sodium 138 Potassium 4.2 Chloride 99 Carbon Dioxide 30 H BUN 22 H Creatinine 0.79 Glucose 156 H Calcium 8.8
--- NOTE | 2017-12-04 10:38 | Discharge Summary ---
- NOTES TO OUTPATIENT PROVIDER Notes to Outpatient Provider: Follow up for COPD exacerbation; treated with Levaquin, steroids; discharged on baseline O2. Orders not resulted at time of discharge: Pending orders 12/05/17 04:00 Basic Metabolic Panel AM 0400 Complete Blood Count [HEME] AM 0400 12/06/17 04:00 Basic Metabolic Panel AM 0400 Complete Blood Count [HEME] AM 0400 Date of Encounter: 12/04/17 Time of Encounter: 08:45 - Discharge Diagnosis (1) Acute exacerbation of chronic obstructive airways disease Priority: Primary Status: Acute (2) Bronchitis Priority: Secondary Status: Acute (3) Hx pulmonary embolism Priority: Secondary Status: Chronic (4) DVT prophylaxis Priority: Secondary Status: Acute (5) Tobacco abuse Priority: Secondary Status: Chronic (6) CHF (congestive heart failure) Priority: Secondary Status: Chronic Qualifiers: Heart failure type: diastolic Heart failure chronicity: chronic Qualified Code(s): I50.32 - Chronic diastolic (congestive) heart failure (7) Irregular heart rhythm Priority: Secondary Status: Ruled-out (8) Chest pain Priority: Secondary Status: Resolved Qualifiers: Chest pain type: other chest pain Qualified Code(s): R07.89 - Other chest pain; R07.8 - Other chest pain Hospital course: Mr. Olguin is a 57 year old male - Time Spent with Patient Total time spent providing and/or coordinating discharge services: - Discharge Medications Home Medications: Gabapentin [Neurontin] 300 mg PO TID 08/31/17 [History] Bumetanide 2 mg PO BID 12/02/17 [History] Buspirone HCl [Buspar] 10 mg PO BID 12/02/17 [History] DULoxetine [Cymbalta] 60 mg PO DAILY 12/02/17 [History] ARIPiprazole [Abilify] 10 mg PO DAILY 12/03/17 [History] Albuterol Sulfate [Proair Hfa] 2 puff IH Q4-6H PRN 12/03/17 [History] Fluticasone/Vilanterol [Breo Ellipta 100-25 Mcg INH] 1 puff IH DAILY 12/03/17 [ History] Isosorbide MONOnitrate (24 HR) [Imdur] 30 mg PO DAILY 12/03/17 [History] [place] Carbonate 300 mg PO TID 12/03/17 [History] OxyCODONE ER (12 HR) [OxyCONTIN] 20 mg PO Q12HR 12/03/17 [History] OxyCODONE Immed Rel [Roxicodone 10 MG] 10 mg PO TID PRN 12/03/17 [History] Tiotropium [Spiriva] 18 mcg IH QPM 12/03/17 [History] Allergies/Adverse Reactions: 3 Allergy/AdvReac Type Severity Reaction Status Date / Time cephalexin [From Keflex] Allergy See Verified 12/02/17 15:56 Comments Date of admission: 12/02/17 20:07 Primary care physician: Heather Proctor MD Consults: 12/03/17 04:52 Consult to Cardiology [CONS] Routine Comment: Consulting Provider: Cardiology [place] Reason for Consult: arrhythmias on monitor. wide complex tachy Call Completed: No Discharging clinician: Uzair Bar Anticipated date of discharge: 12/04/17 - Constitutional Vitals: Temp Pulse Resp BP Pulse Ox 98.0 F 97 18 152/67 90 12/04/17 07:14 12/04/17 07:14 12/04/17 09:38 12/04/17 07:14 12/04/17 09:38 General appearance: Present: cooperative, A&O X 3, morbidly obese, no acute distress, answers questions appropriately - Patient Status Disposition: Home, Self-Care Condition: Fair Functional capacity at discharge: independent ambulation Overall status at discharge: patient is progressing back to baseline - Discharge Instructions Follow Up With: Heather Proctor MD [Primary Care Provider] - 12/10/17 2:00 pm - Diet and Activity Activity: resume usual activities as tolerated, wear oxygen at all times Diet: low salt diet
[2017-12-04] MEDS: Lithium Carbonate 300 MG CAPSULE PO SCH ×2 (14:08→20:49)
[2017-12-04] MEDS: MethylPREDNISolone 40 MG/ML VIAL IVP SCH (17:04)
--- NOTE | 2017-12-04 18:13 | Internal Med Progress Note ---
<Emil Martinez - Last Filed: 12/04/17 18:10> Date of Encounter: 12/04/17 Time of Encounter: 08:45 - Assessment and plan (1) Acute exacerbation of chronic obstructive airways disease Current Visit: Yes Status: Acute Assessment and plan: Acute exacerbation, improving. Supplemental oxygen has returned to baseline of 3L. Decreasing IV steroids dose/frequency today to see how patient does. Continue IV Levaquin. Will likely be discharge to complete PO antibiotics and PO steroids. (2) Bronchitis Current Visit: Yes Status: Acute Assessment and plan: Plan as above. Chest X-Ray 12/02/17 16:17 IMPRESSION: Chronic appearing interstitial opacities in the lungs are noted. Acute on chronic lung disease should be considered in the appropriate clinical setting. D/ / Nii Hernandez / Nii Hernandez Interpreting Provider: Nii Hernandez Chest CTA 12/02/17 17:55 IMPRESSION: No evidence of pulmonary embolism. Bronchial wall thickening and bronchiectasis of the bilateral lower lobe bronchi suggesting bronchitis. Moderate to severe centrilobular emphysema. D/ / Shaun Og MD / Shaun Og MD Interpreting Provider: Shaun Og MD (3) Hx pulmonary embolism Current Visit: Yes Status: Chronic Assessment and plan: Recently finished 2 year course of warfarin for history of PE. No longer on anticoag (4) Tobacco abuse Current Visit: Yes Status: Chronic Assessment and plan: Nicotine patch ordered. Pt did not want to discuss smoking cessation. (5) CHF (congestive heart failure) Current Visit: Yes Status: Chronic Assessment and plan: No acute exacerbation. Patient appears to be euvolemic. No Rales heard, wheezing due to COPD exacerbation. Patient has no peripheral edema. Echocardiogram shows LVEF of 65%, mild LV DD, no significant valvular dysfunction. Chest x-ray shows chronic appearing interstitial pacer disease in the lungs, acute on chronic lung disease should be considered in the appropriate clinical setting. Chest CTA showed bronchial wall thickening and bronchiectasis of the bilateral lower lobe bronchi suggesting bronchitis. And moderate to severe centrilobular emphysema Continue Bumex 2 mg by mouth twice a day Continue I/0, Daily weights. Qualifiers: Heart failure type: diastolic Heart failure chronicity: chronic Qualified Code(s): I50.32 - Chronic diastolic (congestive) heart failure (6) Irregular heart rhythm Current Visit: Yes Status: Ruled-out Assessment and plan: Patient has been evaluated by cardiology. They suspect artifact. They have reviewed old records from [facility] dated 05/09/16 Echo as above Cardiology feels symptoms possibly secondary to GERD/PUD and severe emphysema. Cardiology has signed off. (7) DVT prophylaxis Current Visit: Yes Status: Acute Assessment and plan: Heparin SQ BID (8) Chest pain Current Visit: Yes Status: Resolved Assessment and plan: Patient reports intermittent, chronic chest pain and epigastric area. He states it as dull, intermittent. He denies associated shortness of breath, nausea, vomiting, or radiation of pain. Recent ischemic workup negative from [facility] in 2016. Troponins are negative, chest x-ray is negative Per cardiology note this is most likely GERD/PUD Cardiology signed off. Update: denies chest pain on examination today. Qualifiers: Chest pain type: other chest pain Qualified Code(s): R07.89 - Other chest pain; R07.8 - Other chest pain - Time Spent With Patient Total time spent is greater than 50% in coordination of care (as documented) at patient's floor/unit and/or counseling patient: - Subjective Interval history: Patient seen and examined while sitting in bed, denies acute distress, notes continued wheezing. This AM patient was wanting to go home has the bed and BiPAP he noted made it difficult to sleep in the hospital. Currently saturating well on 3L which is his baseline. Denies chest pain, nausea, vomiting. With further discussion with attending, patient decided to wait another day to return home as we discussed the IV medications we were currently treating him with. - Constitutional Vitals: Temp Pulse Resp BP Pulse Ox 98.1 F 105 16 135/67 92 12/04/17 14:26 12/04/17 14:26 12/04/17 15:34 12/04/17 14:26 12/04/17 15:34 General appearance: Present: cooperative, A&O X 3, morbidly obese, no acute distress, answers questions appropriately - Head Head exam: Present: atraumatic, normal inspection, normocephalic - Eye Eye exam: Present: EOMI, normal appearance, sclera anicteric - ENT ENT exam: Present: mucous membranes moist - Neck Neck exam general surgery: Present: full ROM, normal inspection - Respiratory Respiratory exam: Present: wheezes (coarse breath sounds with wheezing throughout. Good air movement.). Absent: respiratory distress, rhonchi, stridor - Cardiovascular Cardiovascular exam: Present: RRR, +S1, +S2. Absent: gallop, rubs - GI/Abdominal GI/Abdominal exam: Present: normal bowel sounds, soft. Absent: guarding, tenderness - Extremities Exam Extremities exam: Present: warm. Absent: cyanotic, pedal edema, tenderness - Neurological Exam Neurological exam: Present: alert, oriented X3, no focal deficits. Absent: speech deficit - Psychiatric Psychiatric exam: Present: normal affect, normal mood - Skin Skin exam: Present: dry, intact, normal color, warm. Absent: cyanosis, rash Internal Medicine: Result - Labs CBC & Chem 7: 12/04/17 04:26 12/04/17 04:26 Labs: Short CBC 12/04/17 Range/Units 04:26 WBC 27.6 H D (4.3-11.1) K/mcL Hgb 13.3 (12.9-16.9) g/dL Hct 42.0 (37.5-50.1) % Plt Count 276 (140-400) K/mcL Neutrophils # 25.0 H (1.6-8.9) K/mcL BMP 12/04/17 04:26 Sodium 138 Potassium 4.2 Chloride 99 Carbon Dioxide 30 H BUN 22 H Creatinine 0.79 Glucose 156 H Calcium 8.8 - ABG Interpretation ABG results: PT/INR, D-dimer D-Dimer 667 ng/mLFEU (0-500) H 12/02/17 16:53 Consult Discharge Plan - Plan Referrals: Heather Proctor MD [Primary Care Provider] - 12/10/17 2:00 pm <Uzair Bar - Last Filed: 12/04/17 18:34> Date of Encounter: 12/04/17 - Assessment and plan (1) Acute exacerbation of chronic obstructive airways disease Current Visit: Yes Status: Acute (2) Bronchitis Current Visit: Yes Status: Acute (3) Hx pulmonary embolism Current Visit: Yes Status: Chronic (4) DVT prophylaxis Current Visit: Yes Status: Acute (5) Tobacco abuse Current Visit: Yes Status: Chronic (6) CHF (congestive heart failure) Current Visit: Yes Status: Chronic Qualifiers: Heart failure type: diastolic Heart failure chronicity: chronic Qualified Code(s): I50.32 - Chronic diastolic (congestive) heart failure (7) Irregular heart rhythm Current Visit: Yes Status: Ruled-out (8) Chest pain Current Visit: Yes Status: Resolved Qualifiers: Chest pain type: other chest pain Qualified Code(s): R07.89 - Other chest pain; R07.8 - Other chest pain - Time Spent With Patient Total time spent is greater than 50% in coordination of care (as documented) at patient's floor/unit and/or counseling patient: - Constitutional Vitals: Temp Pulse Resp BP Pulse Ox 98.1 F 105 16 135/67 92 12/04/17 14:26 12/04/17 14:26 12/04/17 15:34 12/04/17 14:26 12/04/17 15:34 Internal Medicine: Result - Labs CBC & Chem 7: 12/04/17 04:26 12/04/17 04:26 Labs: Short CBC 12/04/17 Range/Units 04:26 WBC 27.6 H D (4.3-11.1) K/mcL Hgb 13.3 (12.9-16.9) g/dL Hct 42.0 (37.5-50.1) % Plt Count 276 (140-400) K/mcL Neutrophils # 25.0 H (1.6-8.9) K/mcL BMP 12/04/17 04:26 Sodium 138 Potassium 4.2 Chloride 99 Carbon Dioxide 30 H BUN 22 H Creatinine 0.79 Glucose 156 H Calcium 8.8 - ABG Interpretation ABG results: PT/INR, D-dimer D-Dimer 667 ng/mLFEU (0-500) H 12/02/17 16:53 - Attending Attestation I examined this patient and my medical decision-making was reviewed with the Resident Physician Dr. Thomas. I agree with the documented findings, disposition and treatment plan as described except to the extent set forth below. Mr. Olguin is a 57 y/o M admitted with acute COPD exacerbation and bronchitis. Pt states he is feeling little better. Wanted to go home today. Still has moderate SOB and KURTZ. Gen: A, A, O x 3 Chest: Moderate wheezing Heart: S1S2 + RRR a/p 1. Acute COPD exacerbation 2. Acute bronchitis - mostly bacterial cont empirical abx levaquin Cont tapering steroids
[2017-12-04] MEDS: Melatonin 3 MG TABLET PO PRN (20:49)
[2017-12-04] MEDS: Levofloxacin 750 MG/150 ML 750 MG/150 ML BAG IVPB SCH (20:50)
[2017-12-05] MEDS: Ipratropium/Albuterol Neb 3 ML IH SCH ×2 (04:14→10:10)
[2017-12-05 04:36] LABS: Basophils # 0.1 K/mcL (0.0-0.2); Basophils % 0.2 %; Hematocrit 42.3 % (37.5-50.1); Hemoglobin 13.4 g/dL (12.9-16.9); Immature Granulocytes % 2.2 % (0-4); Lymphocytes # 2.4 K/mcL (0.6-4.6); Lymphocytes % 10.1 %; Mean Corpuscular HGB Conc 31.7 g/dL (31.6-35.5); Mean Corpuscular Hemoglobin 27.3 pg (28.0-33.3); Mean Corpuscular Volume 86.2 fL (83.0-100.0); Mean Platelet Volume 9.7 fL (9.4-12.4); Monocytes # 0.8 K/mcL (0.0-1.3); Monocytes % 3.5 %; Neutrophils # 20.2 K/mcL (1.6-8.9); Platelet Count 291 K/mcL (140-400); Red Blood Count 4.91 M/mcL (4.19-5.50); Red Cell Distribution Width 16.3 % (11.5-14.5)
[2017-12-05 04:49] LABS: BUN/Creatinine Ratio 37 (6-26); Blood Urea Nitrogen 26 mg/dL (6-20); Calcium 8.5 mg/dL (8.6-10.3); Carbon Dioxide 33 mEq/L (23-29); Chloride 98 mEq/L (98-107); Glucose 144 mg/dL (70-105); Osmolality,Calculated 291 (280-300); Potassium 4.1 mEq/L (3.5-5.1); Sodium 137 mEq/L (136-145); eGFR For African Americans > 60 (> 60); eGFR For Non-African Americans > 60 (> 60)
[2017-12-05] MEDS: MethylPREDNISolone 40 MG/ML VIAL IVP SCH (05:16)
[2017-12-05] MEDS: *HR* OxyCODONE ER (12 HR) 20 MG TABLET PO SCH (05:17)
[2017-12-05] MEDS: *HR* Heparin 5,000 UNIT/ML VIAL SQ SCH (05:17)
[2017-12-05] MEDS: Lithium Carbonate 300 MG CAPSULE PO SCH (09:00)
[2017-12-05] MEDS ORDERED: Bumetanide 1 MG TABLET PO SCH (09:00)
[2017-12-05] MEDS: Bumetanide 1 MG TABLET PO SCH (09:00)
[2017-12-05] MEDS: Gabapentin 300 MG CAPSULE PO SCH (09:00)
[2017-12-05] MEDS: Nicotine 21 MG PATCH.TD24 TD SCH (09:01)
[2017-12-05] MEDS: *HR* OxyCODONE/APAP 10/325 TABLET PO PRN (09:14)
[2017-12-05] MEDS ORDERED: levoFLOXacin 750 MG TABLET PO ONE (09:51)
[2017-12-05] MEDS ORDERED: predniSONE 20 MG TABLET PO ONE (09:52)
--- NOTE | 2017-12-05 10:31 | Discharge Summary ---
<Gabe Mitchell - Last Filed: 12/05/17 10:28> Orders not resulted at time of discharge: Pending orders 12/06/17 04:00 Basic Metabolic Panel AM 0400 Complete Blood Count [HEME] AM 0400 Date of Encounter: 12/05/17 Time of Encounter: 10:28 - Discharge Diagnosis (1) Acute exacerbation of chronic obstructive airways disease Priority: Primary Status: Acute (2) Bronchitis Priority: Primary Status: Acute (3) Hx pulmonary embolism Priority: Secondary Status: Chronic (4) Tobacco abuse Priority: Secondary Status: Chronic (5) CHF (congestive heart failure) Priority: Secondary Status: Chronic Qualifiers: Heart failure type: diastolic Heart failure chronicity: chronic Qualified Code(s): I50.32 - Chronic diastolic (congestive) heart failure (6) Irregular heart rhythm Priority: Secondary Status: Ruled-out (7) Chest pain Priority: Secondary Status: Resolved Qualifiers: Chest pain type: other chest pain Qualified Code(s): R07.89 - Other chest pain; R07.8 - Other chest pain Hospital course: Mr. Olguin is a 57 year old male with history of COPD, chronic pain, bipolar disorder presented with cough, shortness of breath, increased sputum production. Patient underwent CTA that showed evidence of bronchitis. Patient was placed on IV steroids and antibiotics. Patient gradually improved over his hospital stay. This morning the patient stated that he feels much improved and states he is ready to go home. Patient will be discharged home in stable condition. He will continue his home oxygen at his current dose. Discharge discussed with: patient, nurse - Time Spent with Patient Total time spent providing and/or coordinating discharge services: Greater than 30 minutes - Discharge Medications Prescriptions: levoFLOXacin [Levaquin] 750 mg PO DAILY #1 tablet predniSONE [PredniSONE] 40 mg PO DAILY 1 Days #2 tablet Home Medications: Gabapentin [Neurontin] 300 mg PO TID 08/31/17 [History] Bumetanide 2 mg PO BID 12/02/17 [History] Buspirone HCl [Buspar] 10 mg PO BID 12/02/17 [History] DULoxetine [Cymbalta] 60 mg PO DAILY 12/02/17 [History] ARIPiprazole [Abilify] 10 mg PO DAILY 12/03/17 [History] Albuterol Sulfate [Proair Hfa] 2 puff IH Q4-6H PRN 12/03/17 [History] Fluticasone/Vilanterol [Breo Ellipta 100-25 Mcg INH] 1 puff IH DAILY 12/03/17 [ History] Isosorbide MONOnitrate (24 HR) [Imdur] 30 mg PO DAILY 12/03/17 [History] [place] Carbonate 300 mg PO TID 12/03/17 [History] OxyCODONE ER (12 HR) [OxyCONTIN] 20 mg PO Q12HR 12/03/17 [History] OxyCODONE Immed Rel [Roxicodone 10 MG] 10 mg PO TID PRN 12/03/17 [History] Tiotropium [Spiriva] 18 mcg IH QPM 12/03/17 [History] levoFLOXacin [Levaquin] 750 mg PO DAILY #1 tablet 12/05/17 [Rx] predniSONE [PredniSONE] 40 mg PO DAILY 1 Days #2 tablet 12/05/17 [Rx] Allergies/Adverse Reactions: 3 Allergy/AdvReac Type Severity Reaction Status Date / Time cephalexin [From Keflex] Allergy See Verified 12/02/17 15:56 Comments Date of admission: 12/02/17 20:07 Primary care physician: Heather Proctor MD Consults: 12/03/17 04:52 Consult to Cardiology [CONS] Routine Comment: Consulting Provider: Card[facility] [place] Reason for Consult: arrhythmias on monitor. wide complex tachy Call Completed: No Discharging clinician: Gabe Mitchell Anticipated date of discharge: 12/05/17 - Constitutional Vitals: Temp Pulse Resp BP Pulse Ox 98 F 78 18 118/69 95 12/05/17 07:02 12/05/17 07:02 12/05/17 07:02 12/05/17 07:02 12/05/17 07:02 General appearance: Present: cooperative, A&O X 3, morbidly obese, no acute distress, answers questions appropriately - Respiratory Respiratory exam: Present: wheezes (rare scattered). Absent: rales, rhonchi - GI/Abdominal GI/Abdominal exam: Present: normal bowel sounds, soft. Absent: distended, tenderness - Extremities Exam Extremities exam: Present: pedal edema (trace LE), warm. Absent: tenderness - Neurological Exam Neurological exam: Present: alert, CN II-XII intact, oriented X3, no focal deficits - Patient Status Disposition: Home, Self-Care Condition: Fair - Discharge Instructions Follow Up With: Heather Proctor MD [Primary Care Provider] - 12/10/17 2:00 pm Additional Instructions: Please follow up with you PCP within 1 week. Please complete your antibiotic and prednisone tomorrow December 06 Please resume your home inhalers Please return for new or worsening symptoms - Diet and Activity Activity: increase activity as tolerated Diet: advance to your usual diet <Uzair Bar - Last Filed: 12/05/17 13:56> Date of Encounter: 12/05/17 - Discharge Diagnosis (1) Acute exacerbation of chronic obstructive airways disease Status: Acute (2) Bronchitis Status: Acute (3) Hx pulmonary embolism Status: Chronic (4) Tobacco abuse Status: Chronic (5) CHF (congestive heart failure) Status: Chronic Qualifiers: Heart failure type: diastolic Heart failure chronicity: chronic Qualified Code(s): I50.32 - Chronic diastolic (congestive) heart failure (6) Irregular heart rhythm Status: Ruled-out (7) Chest pain Status: Resolved Qualifiers: Chest pain type: other chest pain Qualified Code(s): R07.89 - Other chest pain; R07.8 - Other chest pain Hospital course: Mr. Olguin is a 57 year old male - Time Spent with Patient Total time spent providing and/or coordinating discharge services: Date of admission: 12/02/17 20:07 Primary care physician: Heather Proctor MD Consults: 12/03/17 04:52 Consult to Cardiology [CONS] Routine Comment: Consulting Provider: [facility] [place] Reason for Consult: arrhythmias on monitor. wide complex tachy Call Completed: No - Constitutional Vitals: Temp Pulse Resp BP Pulse Ox 97.8 F 94 18 124/68 94 12/05/17 10:50 12/05/17 10:50 12/05/17 10:50 12/05/17 10:50 12/05/17 10:50 - Attending Attestation I examined this patient and my medical decision-making was reviewed with the Resident Physician Dr. Thomas. I agree with the documented findings, disposition and treatment plan as described except to the extent set forth below. Mr. Olguin is a 57 y/o M admitted with acute COPD exacerbation and bronchitis. Pt states he is feeling lot better. . When I went to see him he is shaving his lawrence. Denied any SOB / KURTZ. Wanted to go home today a/p 1. Acute COPD exacerbation 2. Acute bronchitis - mostly bacterial WBC trending down Leukocytosis due to steroid induced medically stable to d/c home today with Po abx and Po steroids
[2017-12-05 10:55] VITALS: BP 124/68
== END 2017-12-05 12:01 | disposition home or self-care (01) | DRG 191 ==
LOC: 3ANU 15:50 → EMEROO 15:50 → 3ANU 20:35
PROVIDERS: ADMIT Internal Medicine; ATTEND Internal Medicine

== ENCOUNTER 2018-02-01 16:46 | Inpatient (IN) ==
--- NOTE | 2018-02-01 17:02 | Emergency Department Note ---
Disposition Clinical Impression: Community acquired pneumonia, Acute exacerbation of chronic obstructive airways disease Disposition: Admitted As Inpatient Condition: Fair General Adult HPI - General Chief complaint: ED Shortness of Breath/Dyspnea Stated complaint: DANNI Time Seen by Provider: 02/01/18 16:58 Source: patient, family Limitations: no limitations - History of Present Illness Pain Scale: 7 - Related Data Home Medications Medication Instructions Recorded Confirmed Gabapentin [Neurontin] 300 mg PO TID 08/31/17 02/01/18 Bumetanide 2 mg PO BID 12/02/17 02/01/18 Buspirone HCl [Buspar] 10 mg PO BID 12/02/17 02/01/18 DULoxetine [Cymbalta] 60 mg PO DAILY 12/02/17 02/01/18 ARIPiprazole [Abilify] 10 mg PO DAILY 12/03/17 02/01/18 Albuterol Sulfate [Proair Hfa] 2 puff IH Q4-6H PRN 12/03/17 02/01/18 Fluticasone/Vilanterol [Breo 1 puff IH DAILY 12/03/17 02/01/18 Ellipta 100-25 Mcg INH] Isosorbide MONOnitrate (24 HR) 30 mg PO DAILY 12/03/17 02/01/18 [Imdur] OxyCODONE Immed Rel [Roxicodone 10 10 mg PO TID PRN 12/03/17 02/01/18 MG] Nicotine Patch [Nicoderm] 21 mg TD DAILY 12/31/17 02/01/18 OxyCODONE ER (12 HR) [OxyCONTIN] 20 mg PO BID 02/01/18 02/01/18 Allergies Allergy/AdvReac Type Severity Reaction Status Date / Time cephalexin [From Keflex] Allergy Hives Verified 02/01/18 17:57 Past Medical History - Past Medical History Medical history: Reports: CHF, COPD, pulmonary embolus Surgical history: Reports: no surgical history Psychiatric history: Reports: anxiety, depression - Social History Smoking Status: Current every day smoker Smokeless Tobacco Status: No Alcohol use: Reports: none Drug use: Reports: none Physical Exam - General Limitations: no limitations General appearance: alert, in no apparent distress Course Vital Signs Temperature 97.9 F 02/01/18 16:47 Pulse Rate 76 02/01/18 16:47 Respiratory Rate 20 02/01/18 16:47 Blood Pressure 117/64 02/01/18 16:47 O2 Sat by Pulse Oximetry 95 02/01/18 16:47 Temperature 98.1 F 02/02/18 16:28 Pulse Rate 86 02/02/18 16:28 Respiratory Rate 16 02/02/18 16:28 Blood Pressure 126/73 02/02/18 16:28 O2 Sat by Pulse Oximetry 92 02/02/18 16:28 Oxygen Delivery Oxygen Delivery Nasal Cannula Medical Decision Making - Lab Data Result diagrams: 02/02/18 04:33 02/02/18 04:33 Lab Results 02/01/18 02/01/18 02/01/18 Range/Units 17:14 17:14 17:14 WBC 11.5 H (4.3-11.1) K/mcL RBC 4.66 (4.19-5.50) M/mcL Hgb 13.1 (12.9-16.9) g/dL Hct 41.3 (37.5-50.1) % MCV 88.6 (83.0-100.0) fL MCH 28.1 (28.0-33.3) pg MCHC 31.7 (31.6-35.5) g/dL RDW 16.5 H (11.5-14.5) % Plt Count 235 (140-400) K/mcL MPV 10.0 (9.4-12.4) fL Immature Gran % 0.4 (0-4) % Seg Neutrophils % 71.7 % Lymphocytes % 20.2 % Monocytes % 5.3 % Eosinophils % 2.0 % Basophils % 0.4 % Neutrophils # 8.2 (1.6-8.9) K/mcL Lymphocytes # 2.3 (0.6-4.6) K/mcL Monocytes # 0.6 (0.0-1.3) K/mcL Eosinophils # 0.2 (0.0-0.6) K/mcL Basophils # 0.1 (0.0-0.2) K/mcL Sodium 138 (136-145) mEq/L Potassium 3.9 (3.5-5.1) mEq/L Chloride 101 (98-107) mEq/L Carbon Dioxide 32 H (23-29) mEq/L BUN 16 (6-20) mg/dL Creatinine 0.70 (0.70-1.30) mg/dL Est GFR ( Amer) > 60 (> 60) Est GFR (Non-Af Amer) > 60 (> 60) BUN/Creatinine Ratio 23 (6-26) Glucose 131 H (70-105) mg/dL Calculated Osmolality 289 (280-300) Lactic Acid 1.6 (0.5-2.2) mmol/L Calcium 8.8 (8.6-10.3) mg/dL Magnesium (1.6-2.6) mg/dL Troponin I < 0.03 (< 0.04) ng/mL B-Natriuretic Peptide (Less than 100) pg/mL 02/01/18 02/02/18 02/02/18 Range/Units 17:14 04:33 04:33 WBC 12.4 H (4.3-11.1) K/mcL RBC 4.84 (4.19-5.50) M/mcL Hgb 13.2 (12.9-16.9) g/dL Hct 41.8 (37.5-50.1) % MCV 86.4 (83.0-100.0) fL MCH 27.3 L (28.0-33.3) pg MCHC 31.6 (31.6-35.5) g/dL RDW 16.4 H (11.5-14.5) % Plt Count 263 (140-400) K/mcL MPV 10.1 (9.4-12.4) fL Immature Gran % 2.1 (0-4) % Seg Neutrophils % 87.1 % Lymphocytes % 10.0 % Monocytes % 0.6 % Eosinophils % 0.0 % Basophils % 0.2 % Neutrophils # 10.8 H (1.6-8.9) K/mcL Lymphocytes # 1.2 (0.6-4.6) K/mcL Monocytes # 0.1 (0.0-1.3) K/mcL Eosinophils # 0.0 (0.0-0.6) K/mcL Basophils # 0.0 (0.0-0.2) K/mcL Sodium 138 (136-145) mEq/L Potassium 4.0 (3.5-5.1) mEq/L Chloride 99 (98-107) mEq/L Carbon Dioxide 30 H (23-29) mEq/L BUN 20 (6-20) mg/dL Creatinine 0.86 (0.70-1.30) mg/dL Est GFR ( Amer) > 60 (> 60) Est GFR (Non-Af Amer) > 60 (> 60) BUN/Creatinine Ratio 23 (6-26) Glucose 225 H (70-105) mg/dL Calculated Osmolality 296 (280-300) Lactic Acid (0.5-2.2) mmol/L Calcium 9.0 (8.6-10.3) mg/dL Magnesium 2.0 (1.6-2.6) mg/dL Troponin I (< 0.04) ng/mL B-Natriuretic Peptide 31 (Less than 100) pg/mL Attestation Statement - Attestation Attestation: I examined this patient and my medical decision-making was reviewed with the Resident Physician. I agree with the documented findings, disposition and treatment plan as described except to the extent set forth below. [id number] time provided Patient presents with a nonproductive cough and concern for pneumonia. He does have an active course cough at the time of exam. Appears in no acute respiratory distress. Triage note and vitals reviewed by me. Patient evaluated in conjunction with the resident physician Dr. Taylor.
[2018-02-01] MEDS ORDERED: Levofloxacin 750 MG/150 ML 750 MG/150 ML BAG IVPB ONE (17:03)
[2018-02-01] MEDS ORDERED: Ipratropium/Albuterol Neb 3 ML IH ONE (17:09)
[2018-02-01] MEDS ORDERED: methylPREDNISolone 125 MG/2 ML VIAL IVP ONE (17:09)
--- NOTE | 2018-02-01 17:10 | Emergency Department Note ---
Disposition Clinical Impression: Acute exacerbation of chronic obstructive airways disease Community acquired pneumonia Qualifiers: Laterality: unspecified laterality Qualified Code(s): J18.9 - Pneumonia, unspecified organism Disposition: Admitted As Inpatient Condition: Fair Referrals: Heather Proctor MD [Primary Care Provider] - Forms: ED Satisfaction Letter Time of Disposition: 18:51 SOB HPI - General Chief Complaint: ED Shortness of Breath/Dyspnea Stated Complaint: DANNI Time Seen by Provider: 02/01/18 16:58 Source: patient, family Limitations: no limitations Nursing Notes Reviewed: Yes Vital Signs Reviewed: Yes - History of Present Illness Patient is a 57-year-old male who presents to [facility] ED with a chief complaint of difficulty breathing. States his symptoms started 5 days ago and have worsened. Past medical history significant for COPD. Patient is on 4 L of O2 at baseline but has been turning it up to 6 L to compensate. Patient was seen at the urgent care today where a chest x-ray was done showing a pneumonia. Patient denies any nausea, vomiting, chest pain, abdominal pain, problems with urination or bowel movements. Patient had a fever yesterday of 102 degrees. Pt Subjective Complaint: shortness of breath Onset (ago): day(s) (5) Context: recent illness Severity: moderate Consistency/Duration: gradually worsening Improves with: nothing Worsens with: exertion Known history of: COPD Associated symptoms: Reports: cough, wheezing. Denies: chest pain, fever Treatment prior to arrival: oxygen, bronchodilator Cough present: Yes - Related Data Home oxygen amount: 4 liters Home Medications Medication Instructions Recorded Confirmed Gabapentin [Neurontin] 300 mg PO TID 08/31/17 02/01/18 Bumetanide 2 mg PO BID 12/02/17 02/01/18 Buspirone HCl [Buspar] 10 mg PO BID 12/02/17 02/01/18 DULoxetine [Cymbalta] 60 mg PO DAILY 12/02/17 02/01/18 ARIPiprazole [Abilify] 10 mg PO DAILY 12/03/17 02/01/18 Albuterol Sulfate [Proair Hfa] 2 puff IH Q4-6H PRN 12/03/17 02/01/18 Fluticasone/Vilanterol [Breo 1 puff IH DAILY 12/03/17 02/01/18 Ellipta 100-25 Mcg INH] Isosorbide MONOnitrate (24 HR) 30 mg PO DAILY 12/03/17 02/01/18 [Imdur] OxyCODONE Immed Rel [Roxicodone 10 10 mg PO TID PRN 12/03/17 02/01/18 MG] Nicotine Patch [Nicoderm] 21 mg TD DAILY 12/31/17 02/01/18 OxyCODONE ER (12 HR) [OxyCONTIN] 20 mg PO BID 02/01/18 02/01/18 Allergies Allergy/AdvReac Type Severity Reaction Status Date / Time cephalexin [From Keflex] Allergy Hives Verified 02/01/18 17:57 All systems ED: reviewed and negative except as stated. Past Medical History - Past Medical History Attestation: Yes The following information was validated with the patient. Source: patient Medical history: Reports: CHF, COPD, pulmonary embolus Surgical history: Reports: no surgical history Psychiatric history: Reports: anxiety, depression - Social History Smoking Status: Current every day smoker Smokeless Tobacco Status: No Alcohol use: Reports: none Drug use: Reports: none Physical Exam - General Limitations: no limitations General appearance: alert, in no apparent distress - Head Head exam: atraumatic, normocephalic, normal inspection - Eye Eye exam: Present: EOMI - ENT ENT exam: normal exam, normal oropharynx, mucous membranes moist - Neck Neck exam: Present: normal inspection, full ROM, trachea midline - Chest Chest inspection: Present: normal inspection, symmetric chest wall rise - Respiratory Respiratory exam: Present: wheezes (Diffusely right greater than left) - Cardiovascular Cardiovascular exam: Present: regular rate, normal rhythm, normal heart sounds - Abdominal Exam Abdominal exam: Present: soft, Non-Tender. Absent: tenderness, distention, guarding, rebound, rigidity - Extremities Exam Extremities exam: Present: normal inspection, full ROM. Absent: tenderness, pedal edema - Neurological Exam Neurological exam: Present: alert, oriented X3 - Psychiatric Psychiatric exam: Present: normal affect, normal mood - Skin Skin exam: Present: warm, dry, intact, normal color Course Course Narrative: Patient seen and examined. Difficulty breathing. Two-view chest x-ray at the urgent care showed signs of pneumonia on the lateral view. We will go ahead and treat with Levaquin. He has not been recently hospitalized. Has a history of COPD. We will go ahead and give a triple DuoNeb as well as Solu-Medrol. He has diffuse wheezes bilaterally. Cardiopulmonary workup initiated. - Reevaluation(s) Reevaluation #1: Labwork unremarkable. Patient still sounds very wheezy diffusely. We will admit for COPD exacerbation/community acquired pneumonia. Time: 18:26 Vital Signs Temperature 97.9 F 02/01/18 16:47 Pulse Rate 76 02/01/18 16:47 Respiratory Rate 20 02/01/18 16:47 Blood Pressure 117/64 02/01/18 16:47 O2 Sat by Pulse Oximetry 95 02/01/18 16:47 Temperature 97.9 F 02/01/18 16:52 Pulse Rate 72 02/01/18 17:49 Respiratory Rate 18 02/01/18 17:49 Blood Pressure 127/78 02/01/18 17:49 O2 Sat by Pulse Oximetry 98 02/01/18 17:49 Oxygen Delivery Oxygen Delivery Aerosol Mask Shortness of Breath/Dyspnea - Medical Records Medical records reviewed: Yes I reviewed the patient's medical records. - Lab Data Lab results reviewed: Yes I reviewed the patient's lab results. Result diagrams: 02/01/18 17:14 02/01/18 17:14 Lab Results 02/01/18 02/01/18 02/01/18 Range/Units 17:14 17:14 17:14 WBC 11.5 H (4.3-11.1) K/mcL RBC 4.66 (4.19-5.50) M/mcL Hgb 13.1 (12.9-16.9) g/dL Hct 41.3 (37.5-50.1) % MCV 88.6 (83.0-100.0) fL MCH 28.1 (28.0-33.3) pg MCHC 31.7 (31.6-35.5) g/dL RDW 16.5 H (11.5-14.5) % Plt Count 235 (140-400) K/mcL MPV 10.0 (9.4-12.4) fL Immature Gran % 0.4 (0-4) % Seg Neutrophils % 71.7 % Lymphocytes % 20.2 % Monocytes % 5.3 % Eosinophils % 2.0 % Basophils % 0.4 % Neutrophils # 8.2 (1.6-8.9) K/mcL Lymphocytes # 2.3 (0.6-4.6) K/mcL Monocytes # 0.6 (0.0-1.3) K/mcL Eosinophils # 0.2 (0.0-0.6) K/mcL Basophils # 0.1 (0.0-0.2) K/mcL Sodium 138 (136-145) mEq/L Potassium 3.9 (3.5-5.1) mEq/L Chloride 101 (98-107) mEq/L Carbon Dioxide 32 H (23-29) mEq/L BUN 16 (6-20) mg/dL Creatinine 0.70 (0.70-1.30) mg/dL Est GFR ( Amer) > 60 (> 60) Est GFR (Non-Af Amer) > 60 (> 60) BUN/Creatinine Ratio 23 (6-26) Glucose 131 H (70-105) mg/dL Calculated Osmolality 289 (280-300) Lactic Acid 1.6 (0.5-2.2) mmol/L Calcium 8.8 (8.6-10.3) mg/dL Troponin I < 0.03 (< 0.04) ng/mL B-Natriuretic Peptide (Less than 100) pg/mL 02/01/18 Range/Units 17:14 WBC (4.3-11.1) K/mcL RBC (4.19-5.50) M/mcL Hgb (12.9-16.9) g/dL Hct (37.5-50.1) % MCV (83.0-100.0) fL MCH (28.0-33.3) pg MCHC (31.6-35.5) g/dL RDW (11.5-14.5) % Plt Count (140-400) K/mcL MPV (9.4-12.4) fL Immature Gran % (0-4) % Seg Neutrophils % % Lymphocytes % % Monocytes % % Eosinophils % % Basophils % % Neutrophils # (1.6-8.9) K/mcL Lymphocytes # (0.6-4.6) K/mcL Monocytes # (0.0-1.3) K/mcL Eosinophils # (0.0-0.6) K/mcL Basophils # (0.0-0.2) K/mcL Sodium (136-145) mEq/L Potassium (3.5-5.1) mEq/L Chloride (98-107) mEq/L Carbon Dioxide (23-29) mEq/L BUN (6-20) mg/dL Creatinine (0.70-1.30) mg/dL Est GFR ( Amer) (> 60) Est GFR (Non-Af Amer) (> 60) BUN/Creatinine Ratio (6-26) Glucose (70-105) mg/dL Calculated Osmolality (280-300) Lactic Acid (0.5-2.2) mmol/L Calcium (8.6-10.3) mg/dL Troponin I (< 0.04) ng/mL B-Natriuretic Peptide 31 (Less than 100) pg/mL - Radiology Data Radiology results reviewed: Yes I reviewed the patient's radiology results. Chest X-Ray 02/01/18 14:52 IMPRESSION: 1. Emphysema. 2. Bandlike density overlying the lower spine on the lateral view. In the proper clinical setting, finding is compatible with pneumonia. Recommend follow-up chest radiograph 6-8 weeks post completion of treatment to ensure resolution. If finding persists at that time, CT of the chest would be recommended. Chest X-Ray 02/01/18 17:03 IMPRESSION: No acute findings. Chronic lung disease. D/ / Ashok Garcia MD / Ashok Garcia MD Interpreting Provider: Ashok Garcia MD - EKG Data EKG attestation: Yes I reviewed and interpreted this EKG. EKG results narrative: EKG done at 1656 shows normal sinus rhythm with a rate of [address] elevation or depression. Normal axis.
[2018-02-01 17:25] LABS: Basophils # 0.1 K/mcL (0.0-0.2); Basophils % 0.4 %; Eosinophils # 0.2 K/mcL (0.0-0.6); Hematocrit 41.3 % (37.5-50.1); Hemoglobin 13.1 g/dL (12.9-16.9); Immature Granulocytes % 0.4 % (0-4); Lymphocytes # 2.3 K/mcL (0.6-4.6); Lymphocytes % 20.2 %; Mean Corpuscular HGB Conc 31.7 g/dL (31.6-35.5); Mean Corpuscular Hemoglobin 28.1 pg (28.0-33.3); Mean Corpuscular Volume 88.6 fL (83.0-100.0); Monocytes # 0.6 K/mcL (0.0-1.3); Monocytes % 5.3 %; Neutrophils # 8.2 K/mcL (1.6-8.9); Platelet Count 235 K/mcL (140-400); Red Blood Count 4.66 M/mcL (4.19-5.50); Red Cell Distribution Width 16.5 % (11.5-14.5); Segmented Neutrophils % 71.7 %
[2018-02-01 17:50] LABS: Troponin I < 0.03 ng/mL (< 0.04)
[2018-02-01 17:51] LABS: BUN/Creatinine Ratio 23 (6-26); Blood Urea Nitrogen 16 mg/dL (6-20); Calcium 8.8 mg/dL (8.6-10.3); Carbon Dioxide 32 mEq/L (23-29); Chloride 101 mEq/L (98-107); Glucose 131 mg/dL (70-105); Osmolality,Calculated 289 (280-300); Potassium 3.9 mEq/L (3.5-5.1); Sodium 138 mEq/L (136-145); eGFR For Non-African Americans > 60 (> 60)
--- NOTE | 2018-02-01 20:00 | Internal Med History&Physical ---
<Dennis Charles P - Last Filed: 02/01/18 19:51> Date of Encounter: 02/01/18 Time of Encounter: 19:45 Internal Medicine - H&P: HPI Chief complaint: Shortness of breath Admitted From: Home Plans for Post Hospital Care: Home History of present illness: Mr. Olguin is a 57 year old male presents today from urgent care following 5 day history of shortness of breath and cough getting progressively worse. Chest xray was performed at urgent care which showed possible pneumonia and was advised to come to ER. States cough was originally non productive but over last two days has been productive with yellow sputum. States his shortness of breath is exacerbated with activity and relieved with home breathing treatments and with rest. Normally wears 4lpm oxygen at home, but recently has intermittently increased to 6lpm. Past Med Surg Social Fam HX - Past Medical History Medical history: CHF, COPD, pulmonary embolus Additional medical history: O2 per n/c Psychiatric history: anxiety, depression - Past Surgical History Surgical History: no surgical history Additional surgical history: "Nose surgery". Left Knee - Social History Smoking Status: Current every day smoker Smokeless Tobacco Status: No Alcohol use: none Drug use: none - Family History Father Living Status: Hx Family Cardiac Disorders: Yes (x4 bipass surgery) Internal Medicine - H&P: Meds Gabapentin [Neurontin] 300 mg PO TID 08/31/17 [History] Bumetanide 2 mg PO BID 12/02/17 [History] Buspirone HCl [Buspar] 10 mg PO BID 12/02/17 [History] DULoxetine [Cymbalta] 60 mg PO DAILY 12/02/17 [History] ARIPiprazole [Abilify] 10 mg PO DAILY 12/03/17 [History] Albuterol Sulfate [Proair Hfa] 2 puff IH Q4-6H PRN 12/03/17 [History] Fluticasone/Vilanterol [Breo Ellipta 100-25 Mcg INH] 1 puff IH DAILY 12/03/17 [ History] Isosorbide MONOnitrate (24 HR) [Imdur] 30 mg PO DAILY 12/03/17 [History] OxyCODONE Immed Rel [Roxicodone 10 MG] 10 mg PO TID PRN 12/03/17 [History] Nicotine Patch [Nicoderm] 21 mg TD DAILY 12/31/17 [History] OxyCODONE ER (12 HR) [OxyCONTIN] 20 mg PO BID 02/01/18 [History] 3 Allergy/AdvReac Type Severity Reaction Status Date / Time cephalexin [From Keflex] Allergy Hives Verified 02/01/18 17:57 All Systems PM: A 10-system review of systems was performed and is negative for pertinent findings except as documented above in the HPI. Review of systems: A 10 system review of systems was performed and is negative for pertinent findings except as documented above in HPI. - Constitutional Vitals: Temp Pulse Resp BP Pulse Ox 97.9 F 72 18 119/69 98 02/01/18 16:52 02/01/18 17:49 02/01/18 19:46 02/01/18 19:46 02/01/18 17:49 Exam: General: Alert and oriented, appears to be in no acute distress. Skin:Normal color, no rash, no lesions. HEENT:EOM, pupils equal, round and reactive. Cardiovascular:Normal S1 & S2, no rubs, murmurs or gallops. No JVD. Pulse regular. Lungs:Breath sounds diminished throughout with wheezing noted. Abdomen:Soft, non-tender, no rigidity. Extremities:Bilateral non pitting lower extremity edema noted. Neurological:Normal cognition and motor skills. Pulses:Carotid and radial pulses normal +2. Rest of the physical exam is non contributory Internal Med - H&P Results - Labs CBC & Chem 7: 02/01/18 17:14 02/01/18 17:14 - Assessment and plan (1) Acute exacerbation of chronic obstructive airways disease Current Visit: Yes Status: Acute Assessment and plan: Will schedule IV steroids. Continue 6lpm nasal canula, wean to home oxygen 4lpm nasal canula. (2) Community acquired pneumonia Current Visit: Yes Status: Acute Assessment and plan: Continue IV antibiotics. Qualifiers: Laterality: unspecified laterality Qualified Code(s): J18.9 - Pneumonia, unspecified organism (3) Acute and chronic respiratory failure Current Visit: Yes Status: Acute Assessment and plan: Will continue breathing treatments. Will continue 6lpm nasal canula. - Time Spent With Patient Total time spent is greater than 50% in coordination of care (as documented) at patient's floor/unit and/or counseling patient: <Jarret Jimenez S - Last Filed: 02/01/18 20:29> Date of Encounter: 02/01/18 Internal Medicine - H&P: HPI History of present illness: Mr. Olguin is a 57 year old male All Systems PM: A 10-system review of systems was performed and is negative for pertinent findings except as documented above in the HPI. - Constitutional Vitals: Temp Pulse Resp BP Pulse Ox 98.7 F 85 18 148/80 90 02/01/18 20:11 02/01/18 20:11 02/01/18 20:11 02/01/18 20:11 02/01/18 20:11 Internal Med - H&P Results - Labs CBC & Chem 7: 02/01/18 17:14 02/01/18 17:14 - Attending Attestation I have seen and examined the patient with Lukasz Charles CNP and agree with his/ her assessment and plan. 57-year-old male with oxygen dependent COPD, who was recently treated for the same complaint back in November 2017, presented to the emergency department for shortness of breath and fever. Initially went to urgent care where CXR was found to show questionable pneumonia. He was sent to the ER where the repeat x-ray was done and did not show any evidence of pneumonia at this time. However he was febrile on presentation and was requiring 6 L of oxygen which was increased from his baseline 4L. Otherwise he was hemodynamically stable. Had leukocytosis of 11.5 with negative troponin and lactic acid. Part of this problem seems to be related to his anxiety as well as during the time of interview he was not having any trouble speaking in long sentences without feeling short of breath. We will treat with IV Levaquin , steroids, and bronchodilators. Smoking cessation again emphasized and will start NRT. Jarret Jimenez MD - Assessment and plan (1) Acute exacerbation of chronic obstructive airways disease Current Visit: Yes Status: Acute (2) Community acquired pneumonia Current Visit: Yes Status: Acute Qualifiers: Laterality: unspecified laterality Qualified Code(s): J18.9 - Pneumonia, unspecified organism (3) Acute and chronic respiratory failure Current Visit: Yes Status: Acute - Time Spent With Patient Total time spent is greater than 50% in coordination of care (as documented) at patient's floor/unit and/or counseling patient:
[2018-02-01] MEDS ORDERED: Ipratropium/Albuterol Neb 3 ML IH PRN (20:31)
[2018-02-01] MEDS ORDERED: Naloxone 0.4 MG/ML INJ IVP PRN (20:35)
[2018-02-01] MEDS: Gabapentin 300 MG CAPSULE PO SCH (21:20)
[2018-02-01] MEDS: *HR* OxyCODONE ER (12 HR) 10 MG TABLET PO SCH (21:21)
[2018-02-01] MEDS: Bumetanide 1 MG TABLET PO SCH (21:21)
[2018-02-01] MEDS: *HR* OxyCODONE Immed Rel 5 MG TABLET PO PRN (23:57)
[2018-02-01] MEDS: MethylPREDNISolone 40 MG/ML VIAL IVP SCH (23:57)
[2018-02-02] MEDS: Ipratropium/Albuterol Neb 3 ML IH SCH ×7 (00:29→23:21)
[2018-02-02 05:04] LABS: Basophils % 0.2 %; Hematocrit 41.8 % (37.5-50.1); Hemoglobin 13.2 g/dL (12.9-16.9); Immature Granulocytes % 2.1 % (0-4); Lymphocytes # 1.2 K/mcL (0.6-4.6); Mean Corpuscular HGB Conc 31.6 g/dL (31.6-35.5); Mean Corpuscular Hemoglobin 27.3 pg (28.0-33.3); Mean Corpuscular Volume 86.4 fL (83.0-100.0); Mean Platelet Volume 10.1 fL (9.4-12.4); Monocytes # 0.1 K/mcL (0.0-1.3); Monocytes % 0.6 %; Neutrophils # 10.8 K/mcL (1.6-8.9); Platelet Count 263 K/mcL (140-400); Red Blood Count 4.84 M/mcL (4.19-5.50); Red Cell Distribution Width 16.4 % (11.5-14.5); Segmented Neutrophils % 87.1 %
[2018-02-02] MEDS: MethylPREDNISolone 40 MG/ML VIAL IVP SCH ×3 (05:09→17:17)
[2018-02-02 05:24] LABS: BUN/Creatinine Ratio 23 (6-26); Blood Urea Nitrogen 20 mg/dL (6-20); Carbon Dioxide 30 mEq/L (23-29); Chloride 99 mEq/L (98-107); Glucose 225 mg/dL (70-105); Osmolality,Calculated 296 (280-300); Sodium 138 mEq/L (136-145); eGFR For Non-African Americans > 60 (> 60)
[2018-02-02] MEDS: GuaiFENesin/Codeine Oral Soln 5 ML UDC PO PRN ×3 (05:36→23:24)
[2018-02-02] MEDS: Budesonide/Formoterol 80/4.5 MDI IH SCH (07:42)
[2018-02-02] MEDS: Isosorbide MONOnitrate (24 HR) 30 MG TAB.ER.24H PO SCH (08:31)
[2018-02-02] MEDS: *HR* OxyCODONE ER (12 HR) 10 MG TABLET PO SCH ×2 (08:31→20:53)
[2018-02-02] MEDS: Bumetanide 1 MG TABLET PO SCH ×2 (08:31→17:17)
[2018-02-02] MEDS: Gabapentin 300 MG CAPSULE PO SCH ×3 (08:31→20:53)
[2018-02-02] MEDS: ARIPiprazole 10 MG TABLET PO SCH (08:32)
[2018-02-02] MEDS: Nicotine 21 MG PATCH.TD24 TD SCH (08:32)
[2018-02-02] MEDS: *HR* OxyCODONE Immed Rel 5 MG TABLET PO PRN ×3 (11:29→23:24)
--- NOTE | 2018-02-02 12:00 | Internal Med Progress Note ---
Hospitalist Progress Note - Encounter Date of Encounter: 02/02/18 Time of Encounter: 11:56 - Subjective Interval History: Patient seen and examined at bedside. Patient had no overnight events. Patient states that he feels slightly improved since admission but still coughing significantly and now starting to produce a significant amount of sputum. Patient states that he has not had any fevers or chills. Patient denies any chest pain but states that he is having discomfort with deep inhalation. Denies any nausea, vomiting, diarrhea. Patient states that his lower extremity swelling is improved from his baseline. Patient chronically on 4 L of oxygen continuously at home. Patient with history of pulmonary embolism 3 years ago treated with anticoagulation for 3-6 months per patient. - Exam Vitals: Temp Pulse Resp BP Pulse Ox 98.7 F 84 18 121/61 91 02/02/18 11:21 02/02/18 11:21 02/02/18 11:21 02/02/18 11:21 02/02/18 11:21 Exam: Constitutional: No acute distress, Alert, lying in bed and appears comfortable Psych: AAO x 3 HEENT: NCAT, EOMI Neck: supple, no JVD Cardio: regular rate and rhythm, +s1s2, no murmurs/rubs/gallops, no JVD Resp: Patient with decreased breath sounds with faint expiratory wheezes , slightly rhonchorous in bases Abd: soft, non tender/non distended, positive bowel sounds Extremities: 1+ pitting edema in the lower extremities Neuro: no focal deficits appreciated - Assessment and Plan (1) Acute exacerbation of chronic obstructive airways disease Current Visit: Yes Status: Acute Assessment and Plan: Patient with acute exacerbation of COPD with superimposed pneumonia -Continue IV steroids wean Solu-Medrol from 40 mg every 6 hours to 40 mg twice a day -Continue duo nebs -Ordered incentive spirometer and I instructed patient on how to use incentive spirometer -Sputum culture ordered -Continue IV Levaquin for pneumonia -Maintain pulse ox between 88-92% via nasal cannula supplementation (2) Community acquired pneumonia Current Visit: Yes Status: Acute Assessment and Plan: Patient with community-acquired pneumonia with COPD exacerbation -Continue IV Levaquin increase to 750 mg daily -Insulin spirometer ordered and patient educated on its use -Blood cultures pending and sputum culture ordered (3) Chronic respiratory failure Current Visit: Yes Status: Acute Assessment and Plan: Patient with chronic respiratory failure secondary to COPD requiring 4 L of continuous oxygen use via nasal cannula at home -Continue oxygen supplementation and treat COPD exacerbation and pneumonia as above (4) Congestive heart disease Current Visit: Yes Status: Acute Assessment and Plan: Patient with chronic compensated congestive heart failure with preserved ejection fraction/diastolic dysfunction -No acute exacerbation -Maintain home diuretic Bumex 2 mg twice a day -Continue current Medications (5) Tobacco abuse Current Visit: No Status: Chronic Assessment and Plan: Counseled on tobacco cessation (6) Pulmonary embolus Current Visit: No Status: Chronic Assessment and Plan: Patient with a history of pulmonary embolism 3 years ago treated with anticoagulation for 3-6 months per patient -Do not suspect pulmonary embolism at this time - Time Spent with Patient Total time spent is greater than 50% in coordination of care (as documented) at patient's floor/unit and/or counseling patient: 25 - 35 minutes Plan of Care Discussed with: patient Internal Medicine: Result - Labs CBC & Chem 7: 02/02/18 04:33 02/02/18 04:33 Labs: Short CBC 02/02/18 Range/Units 04:33 WBC 12.4 H (4.3-11.1) K/mcL Hgb 13.2 (12.9-16.9) g/dL Hct 41.8 (37.5-50.1) % Plt Count 263 (140-400) K/mcL Neutrophils # 10.8 H (1.6-8.9) K/mcL BMP 02/02/18 04:33 Sodium 138 Potassium 4.0 Chloride 99 Carbon Dioxide 30 H BUN 20 Creatinine 0.86 Glucose 225 H Calcium 9.0 Consult Discharge Plan - Plan Referrals: Heather Proctor MD [Primary Care Provider] - (2) Community acquired pneumonia Qualifiers: Laterality: unspecified laterality Qualified Code(s): J18.9 - Pneumonia, unspecified organism (3) Chronic respiratory failure Qualifiers: Respiratory failure complication: hypoxia and hypercapnia Qualified Code(s): J96.11 - Chronic respiratory failure with hypoxia; J96.12 - Chronic respiratory failure with hypercapnia (4) Congestive heart disease Qualifiers: Heart failure type: diastolic Heart failure chronicity: chronic Qualified Code(s): I50.32 - Chronic diastolic (congestive) heart failure (6) Pulmonary embolus Qualifiers: Pulmonary embolism type: other Chronicity: unspecified Acute cor pulmonale presence: without acute cor pulmonale Qualified Code(s): I26.99 - Other pulmonary embolism without acute cor pulmonale
[2018-02-02] MEDS ORDERED: Levofloxacin 500 MG/100 ML 500 MG/100 ML BAG IVPB SCH (17:00)
[2018-02-02] MEDS: Levofloxacin 750 MG/150 ML 750 MG/150 ML BAG IVPB SCH (17:17)
[2018-02-02] MEDS: *HR* Heparin 5,000 UNIT/ML VIAL SQ SCH (20:54)
[2018-02-03] MEDS: Ipratropium/Albuterol Neb 3 ML IH SCH ×5 (04:01→20:26)
[2018-02-03] MEDS: MethylPREDNISolone 40 MG/ML VIAL IVP SCH ×2 (05:14→17:00)
[2018-02-03] MEDS: *HR* Heparin 5,000 UNIT/ML VIAL SQ SCH ×3 (05:16→21:16)
[2018-02-03 05:25] LABS: Mean Corpuscular HGB Conc 31.7 g/dL (31.6-35.5); Mean Platelet Volume 9.9 fL (9.4-12.4); Segmented Neutrophils % 84.4 %
[2018-02-03 05:27] LABS: Basophils % 0.1 %; Hematocrit 39.1 % (37.5-50.1); Hemoglobin 12.4 g/dL (12.9-16.9); Immature Granulocytes % 1.9 % (0-4); Lymphocytes # 2.5 K/mcL (0.6-4.6); Lymphocytes % 9.7 %; Mean Corpuscular Hemoglobin 27.7 pg (28.0-33.3); Mean Corpuscular Volume 87.3 fL (83.0-100.0); Monocytes % 3.9 %; Platelet Count 257 K/mcL (140-400); Red Blood Count 4.48 M/mcL (4.19-5.50); Red Cell Distribution Width 16.2 % (11.5-14.5)
[2018-02-03 05:46] LABS: BUN/Creatinine Ratio 30 (6-26); Blood Urea Nitrogen 23 mg/dL (6-20); Calcium 8.4 mg/dL (8.6-10.3); Carbon Dioxide 38 mEq/L (23-29); Chloride 96 mEq/L (98-107); Glucose 143 mg/dL (70-105); Osmolality,Calculated 292 (280-300); Potassium 3.9 mEq/L (3.5-5.1); Sodium 138 mEq/L (136-145); eGFR For Non-African Americans > 60 (> 60)
[2018-02-03 05:49] LABS: Platelet Estimate Normal (Normal)
[2018-02-03] MEDS: *HR* OxyCODONE Immed Rel 5 MG TABLET PO PRN ×3 (07:22→23:19)
[2018-02-03] MEDS: Budesonide/Formoterol 80/4.5 MDI IH SCH (07:37)
--- NOTE | 2018-02-03 08:40 | Internal Med Progress Note ---
Hospitalist Progress Note - Encounter Date of Encounter: 02/03/18 Time of Encounter: 08:38 - Subjective Interval History: Patient seen and examined at bedside. Patient had no acute overnight events. He states that he feels similar to yesterday. Patient still having significant coughing episodes. Patient states his sputum continues to be dark and thick. Encouraged patient to put sputum and sample cup that is at bedside. Patient denies any chest pain but continues to have shortness of breath and coughing. Denies any abdominal pain, nausea, vomiting. Patient states his edema in his lower extremities is similar to baseline. Patient chronically on 4 L of oxygen continuously at home. Patient with history of pulmonary embolism 3 years ago treated with anticoagulation for 3-6 months per patient. - Exam Vitals: Temp Pulse Resp BP Pulse Ox 97.8 F 84 18 135/82 90 02/03/18 07:17 02/03/18 07:17 02/03/18 07:17 02/03/18 07:17 02/03/18 07:31 Exam: Constitutional: No acute distress, Alert Psych: AAO x 3 Neck: supple Cardio: regular rate and rhythm, +s1s2 Resp: Continues to have diminished breath sounds throughout with inspiratory and expiratory wheezing and rhonchorous breath sounds in bases; unchanged from yesterday Abd: soft, non tender/non distended, positive bowel sounds, no gaurding/reboud/ ridgitity Extremities: 1+ edema in lower extremities Neuro: no focal deficits appreciated - Assessment and Plan (1) Acute exacerbation of chronic obstructive airways disease Current Visit: Yes Status: Acute Assessment and Plan: Patient with acute exacerbation of COPD with superimposed pneumonia -Continue IV steroids Solu-Medrol 40 mg twice a day -Continue duo nebs -Continue inspirometer use -Sputum culture ordered; coverage patient to produce a sample -Continue IV Levaquin for pneumonia -Maintain pulse ox between 88-92% via nasal cannula supplementation (2) Community acquired pneumonia Current Visit: Yes Status: Acute Assessment and Plan: Patient with community-acquired pneumonia with COPD exacerbation -Continue IV Levaquin 750 mg daily -Insulin spirometer ordered and patient educated on its use -Blood cultures pending -sputum culture ordered -Leukocytosis increased from 12.4-26.1 today; suspect some component from steroids; however it continues to increase and the patient does not improve may need to expand antibiotic coverage soon (3) Chronic respiratory failure Current Visit: Yes Status: Acute Assessment and Plan: Patient with chronic respiratory failure secondary to COPD requiring 4 L of continuous oxygen use via nasal cannula at home -Continue oxygen supplementation and treat COPD exacerbation and pneumonia as above (4) Congestive heart disease Current Visit: Yes Status: Acute Assessment and Plan: Patient with chronic compensated congestive heart failure with preserved ejection fraction/diastolic dysfunction -No acute exacerbation -Maintain home diuretic Bumex 2 mg twice a day -Continue current Medications (5) Tobacco abuse Current Visit: No Status: Chronic Assessment and Plan: Counseled on tobacco cessation (6) Pulmonary embolus Current Visit: No Status: Chronic Assessment and Plan: Patient with a history of pulmonary embolism 3 years ago treated with anticoagulation for 3-6 months per patient -Do not suspect pulmonary embolism at this time DVT Prophylaxis: Heparin sq4 - Summary of Assessment and Plan Summary of Assessment and Plan: Patient continues to have worsening shortness of breath from baseline severe coughing episodes. Leukocytosis worsened today. Continue IV Levaquin and IV steroids. May need to expand antibiotic coverage soon if no improvement. Trying to obtain sputum sample. - Time Spent with Patient Total time spent is greater than 50% in coordination of care (as documented) at patient's floor/unit and/or counseling patient: less than 15 minutes Plan of Care Discussed with: patient Internal Medicine: Result - Labs CBC & Chem 7: 02/03/18 04:56 02/03/18 04:56 Labs: Short CBC 02/03/18 Range/Units 04:56 WBC 26.1 H D (4.3-11.1) K/mcL Hgb 12.4 L (12.9-16.9) g/dL Hct 39.1 (37.5-50.1) % Plt Count 257 (140-400) K/mcL Neutrophils # 22.0 H (1.6-8.9) K/mcL BMP 02/03/18 04:56 Sodium 138 Potassium 3.9 Chloride 96 L Carbon Dioxide 38 H BUN 23 H Creatinine 0.77 Glucose 143 H Calcium 8.4 L Consult Discharge Plan - Plan Referrals: Heather Proctor MD [Primary Care Provider] - (2) Community acquired pneumonia Qualifiers: Laterality: unspecified laterality Qualified Code(s): J18.9 - Pneumonia, unspecified organism (3) Chronic respiratory failure Qualifiers: Respiratory failure complication: hypoxia and hypercapnia Qualified Code(s): J96.11 - Chronic respiratory failure with hypoxia; J96.12 - Chronic respiratory failure with hypercapnia (4) Congestive heart disease Qualifiers: Heart failure type: diastolic Heart failure chronicity: chronic Qualified Code(s): I50.32 - Chronic diastolic (congestive) heart failure (6) Pulmonary embolus Qualifiers: Pulmonary embolism type: other Chronicity: unspecified Acute cor pulmonale presence: without acute cor pulmonale Qualified Code(s): I26.99 - Other pulmonary embolism without acute cor pulmonale
[2018-02-03] MEDS: Bumetanide 1 MG TABLET PO SCH ×2 (08:56→17:00)
[2018-02-03] MEDS: ARIPiprazole 10 MG TABLET PO SCH (08:57)
[2018-02-03] MEDS: *HR* OxyCODONE ER (12 HR) 10 MG TABLET PO SCH ×2 (08:57→21:14)
[2018-02-03] MEDS: Nicotine 21 MG PATCH.TD24 TD SCH (08:57)
[2018-02-03] MEDS: Isosorbide MONOnitrate (24 HR) 30 MG TAB.ER.24H PO SCH (08:57)
[2018-02-03] MEDS: Gabapentin 300 MG CAPSULE PO SCH ×3 (08:57→21:14)
[2018-02-03] MEDS: Levofloxacin 750 MG/150 ML 750 MG/150 ML BAG IVPB SCH (17:00)
[2018-02-03] MEDS: GuaiFENesin/Codeine Oral Soln 5 ML UDC PO PRN (23:19)
[2018-02-04] MEDS: Ipratropium/Albuterol Neb 3 ML IH SCH ×8 (00:01→23:30)
[2018-02-04 05:17] LABS: Basophils # 0.1 K/mcL (0.0-0.2); Basophils % 0.3 %; Hematocrit 40.8 % (37.5-50.1); Hemoglobin 12.9 g/dL (12.9-16.9); Immature Granulocytes % 2.4 % (0-4); Lymphocytes # 2.8 K/mcL (0.6-4.6); Lymphocytes % 14.1 %; Mean Corpuscular HGB Conc 31.6 g/dL (31.6-35.5); Mean Corpuscular Hemoglobin 27.7 pg (28.0-33.3); Mean Corpuscular Volume 87.7 fL (83.0-100.0); Mean Platelet Volume 9.7 fL (9.4-12.4); Monocytes # 0.9 K/mcL (0.0-1.3); Monocytes % 4.5 %; Neutrophils # 15.7 K/mcL (1.6-8.9); Platelet Count 258 K/mcL (140-400); Red Blood Count 4.65 M/mcL (4.19-5.50); Red Cell Distribution Width 16.5 % (11.5-14.5); Segmented Neutrophils % 78.7 %
[2018-02-04] MEDS: *HR* Heparin 5,000 UNIT/ML VIAL SQ SCH ×3 (05:32→22:41)
[2018-02-04] MEDS: MethylPREDNISolone 40 MG/ML VIAL IVP SCH ×2 (05:33→17:16)
[2018-02-04 05:44] LABS: BUN/Creatinine Ratio 33 (6-26); Blood Urea Nitrogen 27 mg/dL (6-20); Carbon Dioxide 37 mEq/L (23-29); Chloride 95 mEq/L (98-107); Glucose 141 mg/dL (70-105); Osmolality,Calculated 291 (280-300); Potassium 3.6 mEq/L (3.5-5.1); Sodium 137 mEq/L (136-145); eGFR For Non-African Americans > 60 (> 60)
[2018-02-04] MEDS: Budesonide/Formoterol 80/4.5 MDI IH SCH (07:36)
[2018-02-04] MEDS: Bumetanide 1 MG TABLET PO SCH ×2 (09:52→15:36)
[2018-02-04] MEDS: Isosorbide MONOnitrate (24 HR) 30 MG TAB.ER.24H PO SCH (09:52)
[2018-02-04] MEDS: *HR* OxyCODONE ER (12 HR) 10 MG TABLET PO SCH ×2 (09:52→20:13)
[2018-02-04] MEDS: Gabapentin 300 MG CAPSULE PO SCH ×3 (09:52→20:13)
[2018-02-04] MEDS: Nicotine 21 MG PATCH.TD24 TD SCH (09:52)
[2018-02-04] MEDS: ARIPiprazole 10 MG TABLET PO SCH (09:52)
--- NOTE | 2018-02-04 10:19 | Internal Med Progress Note ---
<Leonides Velez R - Last Filed: 02/04/18 13:05> Hospitalist Progress Note - Encounter Date of Encounter: 02/04/18 Time of Encounter: 09:30 - Subjective Interval History: Pt seen and examined. No overnight events. Reports that his breathing is mildly improved but not back to normal yet. On home O2 dose (4L) at rest. Continues to cough and feel congested in his chest, but the pain and tightness has resolved. Still denies producing much sputum. Denies fevers, chills, chest pain, abdominal pain, change in bowels, or dysuria. LE edema is at baseline. - Exam Vitals: Temp Pulse Resp BP Pulse Ox 97.9 F 76 18 133/75 97 02/04/18 07:09 02/04/18 07:09 02/04/18 07:39 02/04/18 07:09 02/04/18 07:39 Exam: GEN: No acute distress, A&O3 HEAD: Atraumatic, normocephalic EYES: Pupils symmetric, sclera white, conjunctiva pink HEART: RRR, normal S1 and S2, no murmurs LUNGS: Diminished bilaterally, expiratory wheezes and rhonchi bilaterally ABD: Soft, nontender, nondistended, bowel sounds present EXT: +1 pitting edema bilaterally, pulses 2/4 NEURO: No focal deficits, cooperative with exam - Assessment and Plan (1) Acute exacerbation of chronic obstructive airways disease Current Visit: Yes Status: Acute Assessment and Plan: Acute COPD exacerabtion with pneumonia Continue IV solu-medrol 40mg BID today - decrease as able Continue duonebs, incentive spirometer Sputum sample did not meet criteria for culture Continue IV Levaquin (day #3) - continue for 5 day course Maintain O2 sat 88-92% Encourage ambulation today (2) Community acquired pneumonia Current Visit: Yes Status: Acute Assessment and Plan: Continue IV levaquin (day #3) and respiratory support - complete 5 day course of antibiotics Sputum sample did not meet criteria for culture Blood cultures 02/01/18 with NGTD Leukocytosis improving - down to 19.9 from 26.1 - steroids likely contributing to some degree, continue to monitor (3) Chronic respiratory failure Current Visit: Yes Status: Acute Assessment and Plan: Chronic supplemental O2 at 4L at home secondary to COPD (4) Congestive heart disease Current Visit: Yes Status: Acute Assessment and Plan: CHF with preserved EF without acute exacerbation Continue home Bumex and current medications (5) Tobacco abuse Current Visit: No Status: Chronic Assessment and Plan: Encouraged smoking cessation - continue nicotine replacement (6) Pulmonary embolus Current Visit: No Status: Chronic Assessment and Plan: Hx of PE 3 years ago and treated with anticoagulation for 3-6 months at that time Do not suspect PE currently DVT Prophylaxis: Subq heparin - Time Spent with Patient Total time spent is greater than 50% in coordination of care (as documented) at patient's floor/unit and/or counseling patient: Internal Medicine: Result - Labs CBC & Chem 7: 02/04/18 04:38 02/04/18 04:38 Labs: Short CBC 02/04/18 Range/Units 04:38 WBC 19.9 H (4.3-11.1) K/mcL Hgb 12.9 (12.9-16.9) g/dL Hct 40.8 (37.5-50.1) % Plt Count 258 (140-400) K/mcL Neutrophils # 15.7 H (1.6-8.9) K/mcL BMP 02/04/18 04:38 Sodium 137 Potassium 3.6 Chloride 95 L Carbon Dioxide 37 H BUN 27 H Creatinine 0.83 Glucose 141 H Calcium 8.0 L Consult Discharge Plan - Plan Referrals: Heather Proctor MD [Primary Care Provider] - <Uzair Bar - Last Filed: 02/04/18 16:11> Hospitalist Progress Note - Encounter Date of Encounter: 02/04/18 - Exam Vitals: Temp Pulse Resp BP Pulse Ox 98.5 F 79 18 126/74 94 02/04/18 11:05 02/04/18 11:05 02/04/18 15:50 02/04/18 11:05 02/04/18 15:50 - Assessment and Plan (1) Pulmonary embolus Current Visit: No Status: Chronic (2) Acute exacerbation of chronic obstructive airways disease Current Visit: Yes Status: Acute (3) Tobacco abuse Current Visit: No Status: Chronic (4) Community acquired pneumonia Current Visit: Yes Status: Acute (5) Chronic respiratory failure Current Visit: Yes Status: Acute (6) Congestive heart disease Current Visit: Yes Status: Acute - Time Spent with Patient Total time spent is greater than 50% in coordination of care (as documented) at patient's floor/unit and/or counseling patient: Internal Medicine: Result - Labs CBC & Chem 7: 02/04/18 04:38 02/04/18 04:38 Labs: Short CBC 02/04/18 Range/Units 04:38 WBC 19.9 H (4.3-11.1) K/mcL Hgb 12.9 (12.9-16.9) g/dL Hct 40.8 (37.5-50.1) % Plt Count 258 (140-400) K/mcL Neutrophils # 15.7 H (1.6-8.9) K/mcL BMP 02/04/18 04:38 Sodium 137 Potassium 3.6 Chloride 95 L Carbon Dioxide 37 H BUN 27 H Creatinine 0.83 Glucose 141 H Calcium 8.0 L - Attending Attestation I examined this patient and my medical decision-making was reviewed with the Resident Physician Dr. Velez. I agree with the documented findings, disposition and treatment plan as described except to the extent set forth below. Mr. Olguin is a 57 y/o M known COPD, JOANA, chronic hypoxic resp failure, morbidly obese pt admitted here for pneumonia and COPD exacerbation. Pt is currnetly on 4 lit O2. Still has moderate SOB and KURTZ. Denied any fever / chills. gen: A, A, O x 3 Chest: Diminished BS B/l, No crackles, moderate wheezing Heart: S1S2+ RRR No murmurs a/p 1. Acute CAP 2. Acute COPD exacerbation 3. Acute on chronic hypoxic resp failure 4. JOANA WBC trending down cont Duoneb start tapering steroids cont broad spec abx ok to use home CAPAP <Leonides Velez R - Last Filed: 02/04/18 13:05> (2) Community acquired pneumonia Qualifiers: Laterality: unspecified laterality Qualified Code(s): J18.9 - Pneumonia, unspecified organism (3) Chronic respiratory failure Qualifiers: Respiratory failure complication: hypoxia and hypercapnia Qualified Code(s): J96.11 - Chronic respiratory failure with hypoxia; J96.12 - Chronic respiratory failure with hypercapnia (4) Congestive heart disease Qualifiers: Heart failure type: diastolic Heart failure chronicity: chronic Qualified Code(s): I50.32 - Chronic diastolic (congestive) heart failure (6) Pulmonary embolus Qualifiers: Pulmonary embolism type: other Chronicity: unspecified Acute cor pulmonale presence: without acute cor pulmonale Qualified Code(s): I26.99 - Other pulmonary embolism without acute cor pulmonale <Uzair Bar - Last Filed: 02/04/18 16:11> (1) Pulmonary embolus Qualifiers: Pulmonary embolism type: other Chronicity: unspecified Acute cor pulmonale presence: without acute cor pulmonale Qualified Code(s): I26.99 - Other pulmonary embolism without acute cor pulmonale (4) Community acquired pneumonia Qualifiers: Laterality: unspecified laterality Qualified Code(s): J18.9 - Pneumonia, unspecified organism (5) Chronic respiratory failure Qualifiers: Respiratory failure complication: hypoxia and hypercapnia Qualified Code(s): J96.11 - Chronic respiratory failure with hypoxia; J96.12 - Chronic respiratory failure with hypercapnia (6) Congestive heart disease Qualifiers: Heart failure type: diastolic Heart failure chronicity: chronic Qualified Code(s): I50.32 - Chronic diastolic (congestive) heart failure
[2018-02-04] MEDS: Budesonide/Formoterol 160/4.5 MDI IH SCH ×2 (11:39→19:30)
[2018-02-04] MEDS ORDERED: *HR* Acetylcysteine 20% 600 MG/3 ML ORAL SYRINGE PO SCH (13:00)
[2018-02-04] MEDS: *HR* OxyCODONE Immed Rel 5 MG TABLET PO PRN ×2 (15:35→22:41)
[2018-02-04] MEDS: Levofloxacin 750 MG/150 ML 750 MG/150 ML BAG IVPB SCH (15:36)
--- NOTE | 2018-02-04 16:35 | Electrocardiograph Report ---
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
[2018-02-04] MEDS: Acetylcysteine 10% 2 ML INHSOL IH SCH (19:30)
[2018-02-05] MEDS: Ipratropium/Albuterol Neb 3 ML IH SCH ×4 (03:42→15:57)
[2018-02-05] MEDS: Acetylcysteine 10% 2 ML INHSOL IH SCH ×2 (03:42→07:44)
[2018-02-05] MEDS: *HR* OxyCODONE Immed Rel 5 MG TABLET PO PRN ×2 (04:17→14:22)
[2018-02-05 04:52] LABS: Basophils # 0.1 K/mcL (0.0-0.2); Basophils % 0.4 %; Eosinophils % 0.1 %; Hematocrit 41.9 % (37.5-50.1); Hemoglobin 13.5 g/dL (12.9-16.9); Lymphocytes % 16.9 %; Mean Corpuscular HGB Conc 32.2 g/dL (31.6-35.5); Mean Corpuscular Hemoglobin 28.2 pg (28.0-33.3); Mean Corpuscular Volume 87.5 fL (83.0-100.0); Mean Platelet Volume 9.9 fL (9.4-12.4); Monocytes % 5.9 %; Platelet Count 275 K/mcL (140-400); Red Blood Count 4.79 M/mcL (4.19-5.50); Red Cell Distribution Width 16.4 % (11.5-14.5); Segmented Neutrophils % 73.7 %
[2018-02-05] MEDS: *HR* Heparin 5,000 UNIT/ML VIAL SQ SCH ×2 (05:07→14:18)
[2018-02-05] MEDS: MethylPREDNISolone 40 MG/ML VIAL IVP SCH (05:07)
[2018-02-05 05:16] LABS: BUN/Creatinine Ratio 25 (6-26); Blood Urea Nitrogen 22 mg/dL (6-20); Calcium 7.8 mg/dL (8.6-10.3); Carbon Dioxide 36 mEq/L (23-29); Chloride 94 mEq/L (98-107); Glucose 126 mg/dL (70-105); Osmolality,Calculated 287 (280-300); Potassium 3.6 mEq/L (3.5-5.1); Sodium 136 mEq/L (136-145); eGFR For Non-African Americans > 60 (> 60)
[2018-02-05] MEDS: Budesonide/Formoterol 160/4.5 MDI IH SCH (07:44)
[2018-02-05] MEDS: ARIPiprazole 10 MG TABLET PO SCH (08:29)
[2018-02-05] MEDS: Bumetanide 1 MG TABLET PO SCH (08:29)
[2018-02-05] MEDS: Gabapentin 300 MG CAPSULE PO SCH ×2 (08:29→14:22)
[2018-02-05] MEDS: *HR* OxyCODONE ER (12 HR) 10 MG TABLET PO SCH (08:29)
[2018-02-05] MEDS: Nicotine 21 MG PATCH.TD24 TD SCH (08:29)
[2018-02-05] MEDS: Isosorbide MONOnitrate (24 HR) 30 MG TAB.ER.24H PO SCH (08:29)
--- NOTE | 2018-02-05 08:43 | Internal Med Progress Note ---
<Leonides Velez R - Last Filed: 02/05/18 11:40> Hospitalist Progress Note - Encounter Date of Encounter: 02/05/18 Time of Encounter: 08:40 - Subjective Interval History: Here for COPD exacerbation and pneumonia. Pt seen and examined. No overnight events. Again his breathing is mildly improved but not back to normal yet. On home O2 dose (4L) at rest. Continues to cough and feel congested in his chest. He has not ambulated much, and only has gotten up around his room and to go to the bathroom. Still denies producing much sputum. Denies fevers, chills, chest pain, abdominal pain, change in bowels , or dysuria. LE edema is at baseline. - Exam Vitals: Temp Pulse Resp BP Pulse Ox 98.2 F 82 18 129/73 94 02/05/18 07:03 02/05/18 07:03 02/05/18 07:03 02/05/18 07:03 02/05/18 07:03 Exam: GEN: No acute distress, A&O3 HEAD: Atraumatic, normocephalic EYES: Pupils symmetric, sclera white, conjunctiva pink HEART: RRR, normal S1 and S2, no murmurs LUNGS: Diminished bilaterally, expiratory wheezes and rhonchi bilaterally improving compared to yesterday ABD: Soft, nontender, nondistended, bowel sounds present EXT: +1 pitting edema bilaterally, pulses 2/4 NEURO: No focal deficits, cooperative with exam - Assessment and Plan (1) Acute exacerbation of chronic obstructive airways disease Status: Acute Assessment and Plan: Acute COPD exacerbation with pneumonia Taper steroids, discontinue Solu-Medrol - start 40 mg prednisone daily Continue duo nebs and incentive spirometer Sputum sample to number not criteria for culture Continue IV Levaquin - day #4 of 5 day course Maintain O2 sat 88-92% Spot mucomyst Encourage ambulation today Consult PT/OT (2) Community acquired pneumonia Status: Acute Assessment and Plan: Continue IV Levaquin - day #4 of 5 day course Continue respiratory support Sputum sample does not make criteria for culture Blood cultures 02/01/18 with NGTD Leukocytosis improving, down to 17.6 (3) Chronic respiratory failure Status: Acute Assessment and Plan: Currently on home O2 to dose 3-4L at rest Secondary to COPD Encourage ambulation today (4) Congestive heart disease Status: Acute Assessment and Plan: CHF with preserved EF without acute exacerbation Continue home Bumex and current medication (5) Tobacco abuse Status: Chronic Assessment and Plan: Encourage smoking cessation. Continue nicotine replacement (6) Pulmonary embolus Status: Chronic Assessment and Plan: History of PE 3 years ago and treated with anticoagulation for 3-6 months Do not suspect PE this time DVT Prophylaxis: Subq heparin - Summary of Assessment and Plan Summary of Assessment and Plan: Patient continues to make mild improvements. Continue IV Levaquin. Taper steroids. Encourage ambulation. Pt does not feel ready to go home today. - Time Spent with Patient Total time spent is greater than 50% in coordination of care (as documented) at patient's floor/unit and/or counseling patient: Internal Medicine: Result - Labs CBC & Chem 7: 02/05/18 04:10 02/05/18 04:10 Labs: Short CBC 02/05/18 Range/Units 04:10 WBC 17.6 H (4.3-11.1) K/mcL Hgb 13.5 (12.9-16.9) g/dL Hct 41.9 (37.5-50.1) % Plt Count 275 (140-400) K/mcL Neutrophils # 13.0 H (1.6-8.9) K/mcL BMP 02/05/18 04:10 Sodium 136 Potassium 3.6 Chloride 94 L Carbon Dioxide 36 H BUN 22 H Creatinine 0.88 Glucose 126 H Calcium 7.8 L Consult Discharge Plan - Plan Additional Instructions: Continue Levaquin for 1 more day Continue to use oxygen Taper Steroids: 60 mg for 2 days, 40 mg for 2 days, then 20 mg for 2 days, then stop Follow-up with primary care provider Please return to the hospital appear symptoms return or worsen Referrals: Heather Proctor MD [Primary Care Provider] - 02/12/18 10:00 am (Please follow up as schedule...) Prescriptions: Levofloxacin [Levaquin] 750 mg PO DAILY #1 tablet predniSONE [PredniSONE] See Taper PO DAILY #12 tablet <Michoacano Juares - Last Filed: 02/09/18 16:38> Hospitalist Progress Note - Encounter Date of Encounter: 02/09/18 - Exam Vitals: Temp Pulse Resp BP Pulse Ox 98.0 F 90 18 127/75 93 02/05/18 15:52 02/05/18 15:52 02/05/18 15:52 02/05/18 15:52 02/05/18 15:52 - Assessment and Plan (1) Pulmonary embolus Status: Chronic (2) Acute exacerbation of chronic obstructive airways disease Status: Acute (3) Tobacco abuse Status: Chronic (4) Community acquired pneumonia Status: Acute (5) Chronic respiratory failure Status: Acute (6) Congestive heart disease Status: Acute - Time Spent with Patient Total time spent is greater than 50% in coordination of care (as documented) at patient's floor/unit and/or counseling patient: Internal Medicine: Result - Labs CBC & Chem 7: 02/05/18 04:10 02/05/18 04:10 - Attending Attestation I examined this patient and my medical decision-making was reviewed with the Resident Physician Dr. Velez. I agree with the documented findings, disposition and treatment plan as described except to the extent set forth below. <Leonides Velez - Last Filed: 02/05/18 11:40> (2) Community acquired pneumonia Qualifiers: Laterality: unspecified laterality Qualified Code(s): J18.9 - Pneumonia, unspecified organism (3) Chronic respiratory failure Qualifiers: Respiratory failure complication: hypoxia and hypercapnia Qualified Code(s): J96.11 - Chronic respiratory failure with hypoxia; J96.12 - Chronic respiratory failure with hypercapnia (4) Congestive heart disease Qualifiers: Heart failure type: diastolic Heart failure chronicity: chronic Qualified Code(s): I50.32 - Chronic diastolic (congestive) heart failure (6) Pulmonary embolus Qualifiers: Pulmonary embolism type: other Chronicity: unspecified Acute cor pulmonale presence: without acute cor pulmonale Qualified Code(s): I26.99 - Other pulmonary embolism without acute cor pulmonale <Michoacano Juares - Last Filed: 02/09/18 16:38> (1) Pulmonary embolus Qualifiers: Pulmonary embolism type: other Chronicity: unspecified Acute cor pulmonale presence: without acute cor pulmonale Qualified Code(s): I26.99 - Other pulmonary embolism without acute cor pulmonale (4) Community acquired pneumonia Qualifiers: Laterality: unspecified laterality Qualified Code(s): J18.9 - Pneumonia, unspecified organism (5) Chronic respiratory failure Qualifiers: Respiratory failure complication: hypoxia and hypercapnia Qualified Code(s): J96.11 - Chronic respiratory failure with hypoxia; J96.12 - Chronic respiratory failure with hypercapnia (6) Congestive heart disease Qualifiers: Heart failure type: diastolic Heart failure chronicity: chronic Qualified Code(s): I50.32 - Chronic diastolic (congestive) heart failure
--- NOTE | 2018-02-05 14:51 | Discharge Summary ---
<Leonides Velez R - Last Filed: 02/05/18 15:57> - NOTES TO OUTPATIENT PROVIDER Notes to Outpatient Provider: To continue Levaquin for 1 more day upon discharge. Taper prednisone: 60 mg for 2 days, 40 mg for 2 days, then 20 mg for 2 days Orders not resulted at time of discharge: Pending orders 02/06/18 04:00 BMP [Basic Metabolic Panel] AM 0400 Complete Blood Count [HEME] AM 0400 Date of Encounter: 02/05/18 Time of Encounter: 14:46 - Discharge Diagnosis (1) Acute exacerbation of chronic obstructive airways disease Priority: Primary Status: Acute (2) Community acquired pneumonia Priority: Secondary Status: Acute Qualifiers: Laterality: unspecified laterality Qualified Code(s): J18.9 - Pneumonia, unspecified organism (3) Chronic respiratory failure Priority: Secondary Status: Acute Qualifiers: Respiratory failure complication: hypoxia and hypercapnia Qualified Code(s) : J96.11 - Chronic respiratory failure with hypoxia; J96.12 - Chronic respiratory failure with hypercapnia (4) Congestive heart disease Priority: Secondary Status: Acute Qualifiers: Heart failure type: diastolic Heart failure chronicity: chronic Qualified Code(s): I50.32 - Chronic diastolic (congestive) heart failure (5) Tobacco abuse Priority: Secondary Status: Chronic (6) Pulmonary embolus Priority: Secondary Status: Chronic Qualifiers: Pulmonary embolism type: other Chronicity: unspecified Acute cor pulmonale presence: without acute cor pulmonale Qualified Code(s): I26.99 - Other pulmonary embolism without acute cor pulmonale Hospital course: Mr. Olguin is a 57 year old male with PMH of CHF, COPD, chronic respiratory failure on home O2, PE, and tobacco use, admitted on 02/01/18 with COPD exacerbation and pneumonia. He received a two-view chest x-ray at urgent care prior to coming to our facility that showed signs of pneumonia on the lateral view. He was treated with steroids, respiratory support, and Levaquin. Sputum sample did not meet criteria for culture, and blood cultures were negative. Throughout the course of his stay his breathing continued to improve. His leukocytosis was trending downward. Per patient he is usually on 3-4 L of oxygen, and he has been on this dose for the past 2 days in the hospital. Upon day of discharge his breathing is much improved. He was able to ambulate the hallways on 4 L of O2. He is to finish a steroid taper. He is hemodynamically stable be discharged home. - Time Spent with Patient Total time spent providing and/or coordinating discharge services: - Discharge Medications Prescriptions: Levofloxacin [Levaquin] 750 mg PO DAILY #1 tablet predniSONE [PredniSONE] See Taper PO DAILY #12 tablet Home Medications: Gabapentin [Neurontin] 300 mg PO TID 08/31/17 [History] Bumetanide 2 mg PO BID 12/02/17 [History] Buspirone HCl [Buspar] 10 mg PO BID 12/02/17 [History] DULoxetine [Cymbalta] 60 mg PO DAILY 12/02/17 [History] ARIPiprazole [Abilify] 10 mg PO DAILY 12/03/17 [History] Albuterol Sulfate [Proair Hfa] 2 puff IH Q4-6H PRN 12/03/17 [History] Fluticasone/Vilanterol [Breo Ellipta 100-25 Mcg INH] 1 puff IH DAILY 12/03/17 [ History] Isosorbide MONOnitrate (24 HR) [Imdur] 30 mg PO DAILY 12/03/17 [History] OxyCODONE Immed Rel [Roxicodone 10 MG] 10 mg PO TID PRN 12/03/17 [History] Nicotine Patch [Nicoderm] 21 mg TD DAILY 12/31/17 [History] OxyCODONE ER (12 HR) [OxyCONTIN] 20 mg PO BID 02/01/18 [History] Levofloxacin [Levaquin] 750 mg PO DAILY #1 tablet 02/05/18 [Rx] predniSONE [PredniSONE] See Taper PO DAILY #12 tablet 02/05/18 [Rx] Allergies/Adverse Reactions: 3 Allergy/AdvReac Type Severity Reaction Status Date / Time cephalexin [From Keflex] Allergy Hives Verified 02/01/18 17:57 Date of admission: 02/02/18 17:55 Primary care physician: Heather Proctor MD Consults: 02/05/18 08:31 Consult to Physical Therapy [CONS] Routine Comment: Evaluate, develop and implement POC Reason for Consult: Pt with COPD exacerbation on home O2. Has not ambulated much since his admission 4 days ago. Does patient have active BEDREST order?: No Is patient medically & hemodynamically stable?: Yes Discharging clinician: Leonides Velez Anticipated date of discharge: 02/05/18 - Constitutional Vitals: Temp Pulse Resp BP Pulse Ox 97.6 F 91 18 104/61 92 02/05/18 11:16 02/05/18 11:16 02/05/18 11:18 02/05/18 11:16 02/05/18 14:08 Exam: GEN: No acute distress, A&O3 HEAD: Atraumatic, normocephalic EYES: Pupils symmetric, sclera white, conjunctiva pink HEART: RRR, normal S1 and S2, no murmurs LUNGS: Diminished bilaterally, improving compared to yesterday ABD: Soft, nontender, nondistended, bowel sounds present EXT: +1 pitting edema bilaterally, pulses 2/4 NEURO: No focal deficits, cooperative with exam - Patient Status Disposition: Home, Self-Care Condition: Fair Functional capacity at discharge: independent ambulation Overall status at discharge: patient is progressing back to baseline - Discharge Instructions Follow Up With: Heather Proctor MD [Primary Care Provider] - 02/12/18 10:00 am (Please follow up as schedule...) Additional Instructions: Continue Levaquin for 1 more day Continue to use oxygen Taper Steroids: 60 mg for 2 days, 40 mg for 2 days, then 20 mg for 2 days, then stop Follow-up with primary care provider Please return to the hospital appear symptoms return or worsen - Diet and Activity Activity: increase activity as tolerated Diet: low salt diet <Michoacano Juares - Last Filed: 02/05/18 17:15> Date of Encounter: 02/05/18 - Discharge Diagnosis (1) Pulmonary embolus Status: Chronic Qualifiers: Pulmonary embolism type: other Chronicity: unspecified Acute cor pulmonale presence: without acute cor pulmonale Qualified Code(s): I26.99 - Other pulmonary embolism without acute cor pulmonale (2) Acute exacerbation of chronic obstructive airways disease Status: Acute (3) Tobacco abuse Status: Chronic (4) Community acquired pneumonia Status: Acute Qualifiers: Laterality: unspecified laterality Qualified Code(s): J18.9 - Pneumonia, unspecified organism (5) Chronic respiratory failure Status: Acute Qualifiers: Respiratory failure complication: hypoxia and hypercapnia Qualified Code(s) : J96.11 - Chronic respiratory failure with hypoxia; J96.12 - Chronic respiratory failure with hypercapnia (6) Congestive heart disease Status: Acute Qualifiers: Heart failure type: diastolic Heart failure chronicity: chronic Qualified Code(s): I50.32 - Chronic diastolic (congestive) heart failure Hospital course: Mr. Olguin is a 57 year old male - Time Spent with Patient Total time spent providing and/or coordinating discharge services: Date of admission: 02/02/18 17:55 Primary care physician: Heather Proctor MD Consults: 02/05/18 08:31 Consult to Physical Therapy [CONS] Routine Comment: Evaluate, develop and implement POC Reason for Consult: Pt with COPD exacerbation on home O2. Has not ambulated much since his admission 4 days ago. Does patient have active BEDREST order?: No Is patient medically & hemodynamically stable?: Yes - Constitutional Vitals: Temp Pulse Resp BP Pulse Ox 98.0 F 90 18 127/75 93 02/05/18 15:52 02/05/18 15:52 02/05/18 15:52 02/05/18 15:52 02/05/18 15:52 - Attending Attestation I examined this patient and my medical decision-making was reviewed with the Resident Physician Dr. Velez. I agree with the documented findings, disposition and treatment plan as described except to the extent set forth below.
[2018-02-05 15:53] VITALS: BP 127/75
[2018-02-06] MEDS ORDERED: predniSONE 20 MG TABLET PO SCH (09:00)
== END 2018-02-05 16:41 | disposition home or self-care (01) | DRG 190 ==
LOC: 2ANU 16:46 → EMEROO 16:46 → 2ANU 20:00
PROVIDERS: ADMIT Family Medicine; ATTEND Family Medicine

== ENCOUNTER 2018-06-08 10:18 | Inpatient (IN) ==
[2018-06-08] MEDS ORDERED: Isovue-370 500 ML INFUS..BTL IV ONE (10:42)
[2018-06-08] MEDS ORDERED: Ipratropium/Albuterol Neb 3 ML IH ONE ×2 (10:43→12:00)
--- NOTE | 2018-06-08 10:50 | Emergency Department Note ---
Disposition Clinical Impression: Hypoxia, Respiratory distress Pulmonary embolism Qualifiers: Pulmonary embolism type: unspecified Chronicity: unspecified Acute cor pulmonale presence: without acute cor pulmonale Qualified Code(s): I26.99 - Other pulmonary embolism without acute cor pulmonale Pneumonia Qualifiers: Pneumonia type: due to unspecified organism Laterality: bilateral Lung location: unspecified part of lung Qualified Code(s): J18.9 - Pneumonia, unspecified organism Disposition: Admitted As Inpatient Condition: Serious Referrals: Heather Proctor MD [Primary Care Provider] - Forms: ED Satisfaction Letter Time of Disposition: 12:44 General Adult HPI - General Chief complaint: ED Upper Respiratory Infection Stated complaint: cough, lung pain Time Seen by Provider: 06/08/18 10:30 Source: patient, family Limitations: no limitations Vital Signs Reviewed: Yes - History of Present Illness HPI Narrative: Patient is a 57-year-old male with a history of COPD, CHF, and prior PE presenting for 1 day history of left-sided chest pain. The pain is sharp in nature and worse with inhalation. Patient does state that it feels as though the pain is radiating to the right side. Patient has also had a 4 week history of cough, that is sometimes productive of yellow sputum. Patient states this cough is worse than his normal COPD. states that he is saturating in the low 90s on 4 L of oxygen at home. On presentation to the emergency department patient was saturating around 88% on room air. This increased to 92% on 6 L of oxygen. Patient also has a history of pneumonia in the past but has required hospitalization. He also has CHF as well and takes his Lasix intermittently. Patient was reportedly evaluated in the emergency department last week, diagnosed with bronchitis, and [facility] Patient has been taking his antibiotic as prescribed and states that his symptoms initially improved but last 2 days has cough and short of breath worsened. Patient denies any recent fevers or chills, but states that he was diaphoretic when he woke up this morning. Denies any substernal chest pain. Pain Scale: 7 - Related Data Home Medications Medication Instructions Recorded Confirmed Bumetanide 2 mg PO BID 12/02/17 02/01/18 DULoxetine [Cymbalta] 60 mg PO DAILY 12/02/17 02/01/18 ARIPiprazole [Abilify] 10 mg PO DAILY 12/03/17 02/01/18 Albuterol Sulfate [Proair Hfa] 2 puff IH Q4-6H PRN 12/03/17 02/01/18 Fluticasone/Vilanterol [Breo 1 puff IH DAILY 12/03/17 02/01/18 Ellipta 100-25 Mcg INH] Isosorbide MONOnitrate (24 HR) 30 mg PO DAILY 12/03/17 02/01/18 [Imdur] OxyCODONE Immed Rel [Roxicodone 10 10 mg PO TID PRN 12/03/17 02/01/18 MG] Nicotine Patch [Nicoderm] 21 mg TD DAILY 12/31/17 02/01/18 OxyCODONE ER (12 HR) [OxyCONTIN] 20 mg PO BID 02/01/18 02/01/18 Buspirone HCl [Buspar] 30 mg PO BID 06/08/18 Gabapentin [Neurontin] 600 mg PO TID 06/08/18 Allergies Allergy/AdvReac Type Severity Reaction Status Date / Time cephalexin [From Keflex] Allergy Hives Verified 06/08/18 10:25 Constitutional: Denies: fever, chills Cardiovascular: Reports: chest pain Respiratory: Reports: dyspnea, wheezes, sputum production Gastrointestinal: Denies: abdominal pain, nausea, vomiting Genitourinary: Denies: dysuria Integumentary: Denies: rash Past Medical History - Past Medical History Medical history: Reports: CHF, COPD, pulmonary embolus Surgical history: Reports: no surgical history Psychiatric history: Reports: anxiety, depression - Social History Smoking Status: Current every day smoker Smokeless Tobacco Status: No Alcohol use: Reports: none Drug use: Reports: none Physical Exam - General Limitations: no limitations General appearance: alert, in no apparent distress - Head Head exam: atraumatic, normocephalic - Eye Eye exam: Present: normal appearance - ENT ENT exam: normal exam - Neck Neck exam: Present: normal inspection, trachea midline - Chest Chest inspection: Present: symmetric chest wall rise, other (Labored breathing, borderline tachypneic, shallow breaths). Absent: tenderness - Respiratory Respiratory exam: Present: other (Diffuse mild wheezes present bilaterally in all lung granados.) - Cardiovascular Cardiovascular exam: Present: regular rate, normal rhythm, +S1, +S2 - Abdominal Exam Abdominal exam: Present: soft, Non-Tender. Absent: guarding, rigidity - Extremities Exam Extremities exam: Present: pedal edema - Neurological Exam Neurological exam: Present: alert, oriented X3 - Psychiatric Psychiatric exam: Present: normal affect, normal mood - Skin Skin exam: Present: warm, dry, intact Course Course Narrative: 10:52 We will perform complete chest pain workup including CBC, BMP, troponin, BNP, chest x-ray, and EKG. Due to patient's history of COPD and pneumonia as well also obtain lactic acid and blood cultures. Patient has a history of PE and has pleuritic chest pain, hypoxia, tachypnea on presentation, will obtain a CT angiogram of the chest. 12:30 Received call from radiology, they stated that the CT scan was a poor study however there may be some evidence for bilateral lower lobe PEs and evidence for pneumonia as well. Given patient's prior history of PE, increased short of breath, tachypnea, pain in deep inspiration, and portal and tachycardia we will start him on heparin. Called hospitalist and the hospitalist accepted the ad mission. Recommend repeating CT angiogram to confirm PE during patient's hospital stay. Also start patient on vancomycin, patient has allergy to cephalexin therefore will hold Zosyn at this time. Vital Signs Temperature 98.1 F 06/08/18 10:23 Pulse Rate 98 06/08/18 10:23 Respiratory Rate 20 06/08/18 10:23 Blood Pressure 110/67 06/08/18 10:23 O2 Sat by Pulse Oximetry 87 06/08/18 10:23 Temperature 98.1 F 06/08/18 10:28 Pulse Rate 92 06/08/18 12:37 Respiratory Rate 18 06/08/18 12:37 Blood Pressure 129/75 06/08/18 12:37 O2 Sat by Pulse Oximetry 91 06/08/18 12:37 Oxygen Delivery Oxygen Delivery Nasal Cannula Medical Decision Making - Lab Data Result diagrams: 06/08/18 10:37 06/08/18 10:37 Lab Results 06/08/18 06/08/18 06/08/18 Range/Units 10:37 10:37 10:37 WBC 20.8 H (4.3-11.1) K/mcL RBC 4.82 (4.19-5.50) M/mcL Hgb 13.0 (12.9-16.9) g/dL Hct 41.9 (37.5-50.1) % MCV 86.9 (83.0-100.0) fL MCH 27.0 L (28.0-33.3) pg MCHC 31.0 L (31.6-35.5) g/dL RDW 16.1 H (11.5-14.5) % Plt Count 225 (140-400) K/mcL MPV 9.8 (9.4-12.4) fL Immature Gran % 0.8 (0-4) % Seg Neutrophils % 79.2 % Lymphocytes % 13.8 % Monocytes % 5.3 % Eosinophils % 0.7 % Basophils % 0.2 % Neutrophils # 16.5 H (1.6-8.9) K/mcL Lymphocytes # 2.9 (0.6-4.6) K/mcL Monocytes # 1.1 (0.0-1.3) K/mcL Eosinophils # 0.2 (0.0-0.6) K/mcL Basophils # 0.0 (0.0-0.2) K/mcL Sodium 136 (136-145) mEq/L Potassium 3.4 L (3.5-5.1) mEq/L Chloride 93 L (98-107) mEq/L Carbon Dioxide 40 H* (23-29) mEq/L BUN 16 (6-20) mg/dL Creatinine 0.76 (0.70-1.30) mg/dL Est GFR ( Amer) > 60 (> 60) Est GFR (Non-Af Amer) > 60 (> 60) BUN/Creatinine Ratio 21 (6-26) Glucose 111 H (70-105) mg/dL Calculated Osmolality 284 (280-300) Lactic Acid (0.5-2.2) mmol/L Calcium 8.8 (8.6-10.3) mg/dL Troponin I < 0.03 (< 0.04) ng/mL B-Natriuretic Peptide 45 (Less than 100) pg/mL 06/08/18 Range/Units 10:37 WBC (4.3-11.1) K/mcL RBC (4.19-5.50) M/mcL Hgb (12.9-16.9) g/dL Hct (37.5-50.1) % MCV (83.0-100.0) fL MCH (28.0-33.3) pg MCHC (31.6-35.5) g/dL RDW (11.5-14.5) % Plt Count (140-400) K/mcL MPV (9.4-12.4) fL Immature Gran % (0-4) % Seg Neutrophils % % Lymphocytes % % Monocytes % % Eosinophils % % Basophils % % Neutrophils # (1.6-8.9) K/mcL Lymphocytes # (0.6-4.6) K/mcL Monocytes # (0.0-1.3) K/mcL Eosinophils # (0.0-0.6) K/mcL Basophils # (0.0-0.2) K/mcL Sodium (136-145) mEq/L Potassium (3.5-5.1) mEq/L Chloride (98-107) mEq/L Carbon Dioxide (23-29) mEq/L BUN (6-20) mg/dL Creatinine (0.70-1.30) mg/dL Est GFR ( Amer) (> 60) Est GFR (Non-Af Amer) (> 60) BUN/Creatinine Ratio (6-26) Glucose (70-105) mg/dL Calculated Osmolality (280-300) Lactic Acid 1.3 (0.5-2.2) mmol/L Calcium (8.6-10.3) mg/dL Troponin I (< 0.04) ng/mL B-Natriuretic Peptide (Less than 100) pg/mL - EKG Data EKG #1 EKG attestation: Yes I reviewed and interpreted this EKG. EKG results narrative: EKG shows sinus rhythm with heart rate 92. Normal axis, early artery progressi on. Normal WI and QT intervals. No acute ST elevations or depressions present. Sinus rhythm and normal EKG. Critical Care Time Critical Care Time: Yes Total Critical Care Time: 35 Attestation: Critical care time 35 minutes managing patient's PE and pneumonia. Attestation Statement - Attestation Attestation: Patient was seen with resident physician. I reviewed the history, physical, assessment and plan, and agree with the findings. I also personally evaluated this patient and had [id number] time with this patient. 57-year-old male presents emergency Department chief complaint of chest pain or short of breath. Patient is a history of COPD CHF and recent bronchitis or pneumonia for which she is been treated with Levaquin. He says he was feeling better for a while but then over the last 24-48 hours is progressively got worse he developed this left-sided sharp chest pain and some sputum production with h is cough. His shortness of breath is also increased. Ultimately this prompted his visit to the emergency department. He denies long car trips but his acknowledges that he stays in bed almost 24 hours a day with very little physical activity, and that he only takes 2 of his for prescribed breathing treatments per day. Review of systems as above remainder negative. Physical exam vital signs are stable. ENT is unremarkable. Heart regular rhythm and rate. Lungs diffuse wheezing with increased work of breathing. Abdomen is soft and nontender. Extremities are unremarkable without swelling or posterior calf pain. Neurologically intact. Skin no rashes. Psych normal. ED course I we will do a workup for cardiac and pulmonary causes. We will scan his chest because of the history of PEs. I anticipate patient will be admitted to the hospitalist service for chest pain and shortness of breath. CT scan confirmed atypical pneumonia with possible PE as well. Patient was started on heparin and IV antibiotics. Hospitalist service was notified and agreed to accept the patient for additional inpatient management. Patient remained hemodynamically stable while in the emergency department. I agree with resident physician assessment and plan.
[2018-06-08 10:52] LABS: Basophils % 0.2 %; Eosinophils # 0.2 K/mcL (0.0-0.6); Eosinophils % 0.7 %; Hematocrit 41.9 % (37.5-50.1); Immature Granulocytes % 0.8 % (0-4); Lymphocytes # 2.9 K/mcL (0.6-4.6); Lymphocytes % 13.8 %; Mean Corpuscular Volume 86.9 fL (83.0-100.0); Mean Platelet Volume 9.8 fL (9.4-12.4); Monocytes # 1.1 K/mcL (0.0-1.3); Monocytes % 5.3 %; Neutrophils # 16.5 K/mcL (1.6-8.9); Platelet Count 225 K/mcL (140-400); Red Blood Count 4.82 M/mcL (4.19-5.50); Red Cell Distribution Width 16.1 % (11.5-14.5); Segmented Neutrophils % 79.2 %
[2018-06-08 11:18] LABS: BUN/Creatinine Ratio 21 (6-26); Blood Urea Nitrogen 16 mg/dL (6-20); Calcium 8.8 mg/dL (8.6-10.3); Carbon Dioxide 40 mEq/L (23-29); Chloride 93 mEq/L (98-107); Glucose 111 mg/dL (70-105); Osmolality,Calculated 284 (280-300); Potassium 3.4 mEq/L (3.5-5.1); Sodium 136 mEq/L (136-145); Troponin I < 0.03 ng/mL (< 0.04); eGFR For Non-African Americans > 60 (> 60)
[2018-06-08] MEDS ORDERED: *HR* Heparin 5,000 UNIT/ML VIAL IVP ONE (12:29)
[2018-06-08] MEDS ORDERED: *HR* Heparin 5,000 UNIT/ML VIAL IVP PRN ×2 (12:29)
[2018-06-08 13:30] LABS: Heparin anti-factor XA UFH 0.02 IU/mL (0.30-0.70)
[2018-06-08 13:31] LABS: Prothrombin Time 11.5 Seconds (9.4-12.1)
[2018-06-08 13:32] LABS: Activated Partial Thrombo Time 31.5 Seconds (26.0-36.0)
[2018-06-08] MEDS ORDERED: Naloxone 0.4 MG/ML INJ IVP PRN ×2 (13:56→13:57)
[2018-06-08] MEDS ORDERED: traMADol 50 MG TABLET PO PRN (13:57)
[2018-06-08] MEDS ORDERED: Acetaminophen 325 MG TABLET PO PRN (13:57)
[2018-06-08] MEDS ORDERED: Ipratropium/Albuterol Neb 3 ML IH PRN (14:00)
--- NOTE | 2018-06-08 14:05 | Internal Med History&Physical ---
Date of Encounter: 06/08/18 Time of Encounter: 14:03 Internal Medicine - H&P: HPI Admitted From: Home Plans for Post Hospital Care: Home History of present illness: Mr. Olguin is a 57 year old male with a history of COPD, CHF, and prior PE presenting for 1 day history of left-sided chest pain. The pain is sharp in nature and worse with inhalation. Patient does state that it feels as though the pain is radiating to the right side. Patient has also had a 4 week history of cough, that is sometimes productive of yellow sputum. Patient states this cough is worse than his normal COPD. states that he is saturating in the low 90s on 4 L of oxygen at home. On presentation to the emergency department patient was saturating around 88% on room air. This increased to 92% on 6 L of oxygen. Patient also has a history of pneumonia in the past but has required hospitalization. He also has CHF as well and takes his Lasix intermittently. Patient was reportedly evaluated in the emergency department last week, diagnosed with bronchitis, and discharged home with Levaquin. Patient has been taking his antibiotic as prescribed and states that his symptoms initially improved but last 2 days has cough and short of breath worsened. Patient denies any recent fevers or chills, but states that he was diaphoretic when he woke up this morning. Denies any substernal chest pain. At the ED, Pt vital signs were stable. Labs showed elevated WBC, D-dimer, and serum CO2. CTA chest showed PNA and possible PE. He will be admitted for further management. Past Med Surg Social Fam HX - Past Medical History Medical history: CHF, COPD, pulmonary embolus Additional medical history: herinated disks x6 Psychiatric history: anxiety, depression - Past Surgical History Surgical History: no surgical history Additional surgical history: nose surgery, hernia repair, left knee surgery - Social History Smoking Status: Current every day smoker Smokeless Tobacco Status: No Alcohol use: none Drug use: none - Family History Father Living Status: Hx Family Cardiac Disorders: Yes (x4 bipass surgery) Brother Hx Family Cardiac Disorders: Yes Internal Medicine - H&P: Meds Bumetanide 2 mg PO BID 12/02/17 [History] DULoxetine [Cymbalta] 60 mg PO DAILY 12/02/17 [History] ARIPiprazole [Abilify] 10 mg PO DAILY 12/03/17 [History] Albuterol Sulfate [Proair Hfa] 2 puff IH Q4-6H PRN 12/03/17 [History] Fluticasone/Vilanterol [Breo Ellipta 100-25 Mcg INH] 1 puff IH DAILY 12/03/17 [History] Isosorbide MONOnitrate (24 HR) [Imdur] 30 mg PO DAILY 12/03/17 [History] OxyCODONE Immed Rel [Roxicodone 10 MG] 10 mg PO TID PRN 12/03/17 [History] Nicotine Patch [Nicoderm] 21 mg TD DAILY 12/31/17 [History] OxyCODONE ER (12 HR) [OxyCONTIN] 20 mg PO BID 02/01/18 [History] Buspirone HCl [Buspar] 30 mg PO BID 06/08/18 [History] Gabapentin [Neurontin] 600 mg PO TID 06/08/18 [History] Allergy/AdvReac Type Severity Reaction Status Date / Time cephalexin [From Keflex] Allergy Hives Verified 06/08/18 10:25 All Systems PM: A 10-system review of systems was performed and is negative for pertinent findings except as documented above in the HPI. Review of systems: REVIEW OF SYSTEMS: CONSTITUTIONAL: No weight loss, fever, chills, weakness or fatigue. HEENT: Eyes: No visual loss, blurred vision, double vision or yellow sclerae. Ears, Nose, Throat: No hearing loss, sneezing, congestion, runny nose or sore throat. SKIN: No rash or itching. CARDIOVASCULAR: No chest pain, chest pressure or chest discomfort. No palpitati ons or edema. RESPIRATORY: see HPI. GASTROINTESTINAL: No anorexia, nausea, vomiting or diarrhea. No abdominal pain or blood. GENITOURINARY: No dysuria, urgency, or frequency. NEUROLOGICAL: No headache, dizziness, syncope, paralysis, ataxia, numbness or tingling in the extremities. No change in bowel or bladder control. MUSCULOSKELETAL: No muscle, back pain, joint pain or stiffness. HEMATOLOGIC: No anemia, bleeding or bruising. LYMPHATICS: No enlarged nodes. No history of splenectomy. PSYCHIATRIC: No history of depression or anxiety. ENDOCRINOLOGIC: No reports of sweating, cold or heat intolerance. No polyuria or polydipsia. - Constitutional Vitals: Temp Pulse Resp BP Pulse Ox 98.1 F 92 18 129/75 91 06/08/18 10:28 06/08/18 12:37 06/08/18 12:37 06/08/18 12:37 06/08/18 12:37 General appearance: Present: cooperative, A&O X 3, answers questions appropriately Exam: PHYSICAL EXAMINATION: GENERAL APPEARANCE: The patient is alert, oriented and in no acute distress. HEENT: Head is normocephalic. The sinuses are nontender. Pupils are equal and reactive. The nares are patent. Oropharynx clear without lesions. NECK: Supple without lymphadenopathy. HEART: Regular rate and rhythm. LUNGS: bilateral wheezes are heard. ABDOMEN: Soft, nontender, nondistended with good bowel sounds heard. Inguinal area is normal. EXTREMITIES: Without cyanosis, clubbing or edema. NEUROLOGICAL: Gross nonfocal. SKIN: Warm and dry without any rash. Internal Med - H&P Results - Labs CBC & Chem 7: 06/08/18 10:37 06/08/18 10:37 Labs: Short CBC 06/08/18 Range/Units 10:37 WBC 20.8 H (4.3-11.1) K/mcL Hgb 13.0 (12.9-16.9) g/dL Hct 41.9 (37.5-50.1) % Plt Count 225 (140-400) K/mcL Neutrophils # 16.5 H (1.6-8.9) K/mcL BMP 06/08/18 10:37 Sodium 136 Potassium 3.4 L Chloride 93 L Carbon Dioxide 40 H* BUN 16 Creatinine 0.76 Glucose 111 H Calcium 8.8 Cardiac Enzymes 06/08/18 Range/Units 10:37 Troponin I < 0.03 (< 0.04) ng/mL - Impressions ITS Impressions Chest X-Ray 06/08/18 10:32 IMPRESSION: Worsening, bilateral interstitial thickening and patchy bibasilar airspace opacities may reflect interstitial edema or atypical pneumonia, superimposed on chronic lung disease. Possible, trace bilateral pleural effusions. D/ / 06/08/2018 12:49:19 Almaz Villanueva MD / [email or web address] Interpreting Provider: Almaz Villanueva MD Chest CTA 06/08/18 10:42 IMPRESSION: 1. The exam is nondiagnostic for acute pulmonary embolism due to very poor enhancement of pulmonary arteries at time of scanning, nonetheless there are findings in bilateral lower lobes which are concerning for possible pulmonary emboli. I would recommend repeating the exam with better scanning technique unless there are contraindications to have an additional contrast. 2. Bilateral posterior lower lobe airspace disease left greater than right suggestive of pneumonia. 3. Nonspecific scattered mediastinal lymph nodes some of the larger ones which include a cluster of subcarinal nodes measuring 1.6 x 2.5 cm and a low right paratracheal 1.4 cm lymph node. 4. Centrilobular emphysema with some fibrotic changes at the lung bases. Findings were discussed with Rosio Rhoades at 12:25 pm on 06/08/2018. D/ / Rafael Caal MD / Rafael Caal MD Interpreting Provider: Rafael Caal MD - Assessment and plan (1) Pneumonia Current Visit: Yes Status: Acute Assessment and plan: 57-year-old male with past medical history of CHF, COPD, and PE presented with left-sided chest pain, associated with cough and shortness of breath. Labs revealed leukocytosis, elevated d-dimer, and elevated CO2. CTA chest revealed bilateral pneumonia, PE was also suspicious. - He recently was seen at the ED, we will treat the pneumonia as healthcare associated with IV vancomycin and Zosyn. - Pending blood and sputum culture. Qualifiers: Pneumonia type: due to unspecified organism Laterality: bilateral Lung l ocation: unspecified part of lung Qualified Code(s): J18.9 - Pneumonia, unspecified organism (2) Pulmonary embolus Current Visit: Yes Status: Chronic Assessment and plan: Patient has a history of PE, d-dimer was also elevated, however CTA chest is non-diagnostic due to the suboptimal timing of the IV contrast. Because a definite diagnosis of PE is critical for the treatment plan, is a lifelong anticoagulation or no anticoagulation, we will repeat CTA tomorrow. Continue heparin drip for now. Qualifiers: Pulmonary embolism type: unspecified Chronicity: unspecified Acute cor pulmonale presence: without acute cor pulmonale Qualified Code(s): I26.99 - Other pulmonary embolism without acute cor pulmonale (3) COPD exacerbation Current Visit: Yes Status: Acute Assessment and plan: Patient also has hypoxia and elevated CO2, we will treated as COPD exacerbation with bronchodilators and IV steroids. (4) CHF (congestive heart failure) Current Visit: No Status: Chronic Assessment and plan: Continue home medications including diuretics. Qualifiers: Heart failure type: diastolic Heart failure chronicity: chronic Qualified Code(s): I50.32 - Chronic diastolic (congestive) heart failure (5) Hx pulmonary embolism Current Visit: No Status: Chronic Assessment and plan: Same as above. (6) DVT prophylaxis Current Visit: Yes Status: Acute Assessment and plan: Heparin drip. - Time Spent With Patient Total time spent is greater than 50% in coordination of care (as documented) at patient's floor/unit and/or counseling patient: Greater than 35 minutes
[2018-06-08] MEDS: Heparin 25,000 UNIT/500 ML D5W 25,000 UNIT/500 ML BAG IVC SCH (14:49)
[2018-06-08] MEDS: Ipratropium/Albuterol Neb 3 ML IH SCH ×3 (16:23→23:09)
[2018-06-08] MEDS: Piperacillin/Tazobactam 3.375 GM in 0.9 % Sodium Chloride Mini Bag 100 ML IVPB SCH ×2 (16:44→22:35)
[2018-06-08] MEDS: Bumetanide 1 MG TABLET PO SCH ×2 (16:45→16:55)
[2018-06-08] MEDS: MethylPREDNISolone 40 MG/ML VIAL IVP SCH (16:45)
[2018-06-08] MEDS: *HR* OxyCODONE Immed Rel 5 MG TABLET PO PRN (18:43)
[2018-06-08] MEDS: Budesonide/Formoterol 160/4.5 1 PUFF INH IH SCH (19:56)
[2018-06-08] MEDS: *HR* OxyCODONE ER (12 HR) 10 MG TABLET PO SCH (22:33)
[2018-06-09] MEDS: MethylPREDNISolone 40 MG/ML VIAL IVP SCH ×3 (00:28→16:56)
[2018-06-09] MEDS: Ipratropium/Albuterol Neb 3 ML IH SCH ×6 (03:56→23:19)
[2018-06-09] MEDS: Piperacillin/Tazobactam 3.375 GM in 0.9 % Sodium Chloride Mini Bag 100 ML IVPB SCH ×3 (05:43→21:22)
[2018-06-09 05:51] LABS: Basophils % 0.2 %; Eosinophils % 0.1 %; Hematocrit 40.5 % (37.5-50.1); Hemoglobin 12.3 g/dL (12.9-16.9); Immature Granulocytes % 1.2 % (0-4); Lymphocytes # 1.1 K/mcL (0.6-4.6); Lymphocytes % 6.5 %; Mean Corpuscular HGB Conc 30.4 g/dL (31.6-35.5); Mean Corpuscular Hemoglobin 26.3 pg (28.0-33.3); Mean Corpuscular Volume 86.7 fL (83.0-100.0); Monocytes # 0.2 K/mcL (0.0-1.3); Neutrophils # 15.2 K/mcL (1.6-8.9); Platelet Count 236 K/mcL (140-400); Red Blood Count 4.67 M/mcL (4.19-5.50); Red Cell Distribution Width 15.9 % (11.5-14.5)
[2018-06-09 06:10] LABS: BUN/Creatinine Ratio 19 (6-26); Blood Urea Nitrogen 13 mg/dL (6-20); Calcium 8.5 mg/dL (8.6-10.3); Carbon Dioxide 35 mEq/L (23-29); Chloride 95 mEq/L (98-107); Glucose 220 mg/dL (70-105); Osmolality,Calculated 285 (280-300); Potassium 4.1 mEq/L (3.5-5.1); Sodium 134 mEq/L (136-145); eGFR For Non-African Americans > 60 (> 60)
[2018-06-09] MEDS: Budesonide/Formoterol 160/4.5 1 PUFF INH IH SCH ×2 (07:38→19:32)
[2018-06-09] MEDS: *HR* OxyCODONE ER (12 HR) 10 MG TABLET PO SCH ×2 (09:09→21:21)
[2018-06-09] MEDS: Bumetanide 1 MG TABLET PO SCH ×2 (09:09→16:55)
[2018-06-09] MEDS: Gabapentin 300 MG CAPSULE PO SCH ×3 (09:10→21:21)
[2018-06-09] MEDS: Isosorbide MONOnitrate (24 HR) 30 MG TAB.ER.24H PO SCH (09:10)
[2018-06-09] MEDS: Heparin 25,000 UNIT/500 ML D5W 25,000 UNIT/500 ML BAG IVC SCH (09:25)
--- NOTE | 2018-06-09 11:29 | Internal Med Progress Note ---
Hospitalist Progress Note - Encounter Date of Encounter: 06/09/18 Time of Encounter: 11:26 - Subjective Interval History: Cough and chest pain improved. - Exam Vitals: Temp Pulse Resp BP Pulse Ox 97.4 F L 72 16 108/55 91 06/09/18 07:34 06/09/18 07:34 06/09/18 11:21 06/09/18 07:34 06/09/18 11:21 Exam: PHYSICAL EXAMINATION: GENERAL APPEARANCE: The patient is alert, oriented and in no acute distress. HEENT: Head is normocephalic. The sinuses are nontender. Pupils are equal and reactive. The nares are patent. Oropharynx clear without lesions. NECK: Supple without lymphadenopathy. HEART: Regular rate and rhythm. LUNGS: bilateral wheezes are heard. ABDOMEN: Soft, nontender, nondistended with good bowel sounds heard. Inguinal area is normal. EXTREMITIES: Without cyanosis, clubbing or edema. NEUROLOGICAL: Gross nonfocal. SKIN: Warm and dry without any rash. - Assessment and Plan (1) Pneumonia Current Visit: Yes Status: Acute Assessment and Plan: 06/08 57-year-old male with past medical history of CHF, COPD, and PE presented with left-sided chest pain, associated with cough and shortness of breath. Labs revealed leukocytosis, elevated d-dimer, and elevated CO2. CTA chest revealed bilateral pneumonia, PE was also suspicious. - He recently was seen at the ED, we will treat the pneumonia as healthcare associated with IV vancomycin and Zosyn. - Pending blood and sputum culture. 06/09 pending cx, continue current treatment with abx. (2) Pulmonary embolus Current Visit: Yes Status: Suspected Assessment and Plan: 06/08 Patient has a history of PE, d-dimer was also elevated, however CTA chest is non-diagnostic due to the suboptimal timing of the IV contrast. Because a definite diagnosis of PE is critical for the treatment plan, is a lifelong anticoagulation or no anticoagulation, we will repeat CTA tomorrow. Continue heparin drip for now. 06/09 Continue heparin gtt for now. CTA today to confirm PE. (3) COPD exacerbation Current Visit: Yes Status: Acute Assessment and Plan: 06/08 Patient also has hypoxia and elevated CO2, we will treated as COPD exacerbation with bronchodilators and IV steroids. 06/09 improved breathing, continue current treatment. (4) CHF (congestive heart failure) Current Visit: No Status: Chronic Assessment and Plan: Continue home medications including diuretics. (5) Hx pulmonary embolism Current Visit: No Status: Chronic Assessment and Plan: Same as above. (6) DVT prophylaxis Current Visit: Yes Status: Acute Assessment and Plan: Heparin drip. - Time Spent with Patient Total time spent is greater than 50% in coordination of care (as documented) at patient's floor/unit and/or counseling patient: Greater than 35 minutes Plan of Care Discussed with: patient Internal Medicine: Result - Labs CBC & Chem 7: 06/09/18 04:54 06/09/18 04:54 Labs: Short CBC 06/09/18 Range/Units 04:54 WBC 16.7 H (4.3-11.1) K/mcL Hgb 12.3 L (12.9-16.9) g/dL Hct 40.5 (37.5-50.1) % Plt Count 236 (140-400) K/mcL Neutrophils # 15.2 H (1.6-8.9) K/mcL BMP 06/09/18 04:54 Sodium 134 L Potassium 4.1 Chloride 95 L Carbon Dioxide 35 H BUN 13 Creatinine 0.70 Glucose 220 H Calcium 8.5 L Cardiac Enzymes 06/08/18 06/08/18 Range/Units 16:20 22:09 Troponin I < 0.03 < 0.03 (< 0.04) ng/mL - ABG Interpretation ABG results: PT/INR, D-dimer PT 11.5 Seconds (9.4-12.1) 06/08/18 13:08 D-Dimer 997 ng/mLFEU (0-500) H 06/08/18 13:08 - Impressions Impressions Chest X-Ray 06/08/18 10:32 IMPRESSION: Worsening, bilateral interstitial thickening and patchy bibasilar airspace opacities may reflect interstitial edema or atypical pneumonia, superimposed on chronic lung disease. Possible, trace bilateral pleural effusions. D/ / 06/08/2018 12:49:19 Almaz Villanueva MD / [email or web address] Interpreting Provider: Almaz Villanueva MD Chest CTA 06/08/18 10:42 IMPRESSION: 1. The exam is nondiagnostic for acute pulmonary embolism due to very poor enhancement of pulmonary arteries at time of scanning, nonetheless there are findings in bilateral lower lobes which are concerning for possible pulmonary emboli. I would recommend repeating the exam with better scanning technique unless there are contraindications to have an additional contrast. 2. Bilateral posterior lower lobe airspace disease left greater than right suggestive of pneumonia. 3. Nonspecific scattered mediastinal lymph nodes some of the larger ones which include a cluster of subcarinal nodes measuring 1.6 x 2.5 cm and a low right paratracheal 1.4 cm lymph node. 4. Centrilobular emphysema with some fibrotic changes at the lung bases. Findings were discussed with Rosio Rhoades at 12:25 pm on 06/08/2018. D/ / Rafael Caal MD / Rafael Caal MD Interpreting Provider: Rafael Caal MD Consult Discharge Plan - Plan Referrals: Heather Proctor MD [Primary Care Provider] - ____ (1) Pneumonia Qualifiers: Pneumonia type: due to unspecified organism Laterality: bilateral Lung location: unspecified part of lung Qualified Code(s): J18.9 - Pneumonia, unspecified organism (2) Pulmonary embolus Qualifiers: Pulmonary embolism type: unspecified Chronicity: unspecified Acute cor pulmonale presence: without acute cor pulmonale Qualified Code(s): I26.99 - Other pulmonary embolism without acute cor pulmonale (4) CHF (congestive heart failure) Qualifiers: Heart failure type: diastolic Heart failure chronicity: chronic Qualified Code(s): I50.32 - Chronic diastolic (congestive) heart failure
[2018-06-09] MEDS ORDERED: Isovue-370 500 ML INFUS..BTL IV ONE (11:30)
[2018-06-09] MEDS: Nicotine 21 MG PATCH.TD24 TD SCH (12:06)
[2018-06-09] MEDS: *HR* OxyCODONE Immed Rel 5 MG TABLET PO PRN (14:27)
[2018-06-09] MEDS ORDERED: Isovue-370 500 ML INFUS..BTL IVP ONE (15:05)
[2018-06-09] MEDS: Melatonin 3 MG TABLET PO SCH (21:21)
[2018-06-10] MEDS: MethylPREDNISolone 40 MG/ML VIAL IVP SCH ×4 (00:07→23:14)
[2018-06-10] MEDS: Ipratropium/Albuterol Neb 3 ML IH SCH ×6 (03:41→23:36)
[2018-06-10 04:32] LABS: Basophils % 0.1 %; Mean Corpuscular Hemoglobin 26.8 pg (28.0-33.3); Mean Platelet Volume 10.2 fL (9.4-12.4); Red Cell Distribution Width 15.9 % (11.5-14.5)
[2018-06-10 04:33] LABS: Hematocrit 39.8 % (37.5-50.1); Hemoglobin 12.4 g/dL (12.9-16.9); Immature Granulocytes % 1.9 % (0-4); Lymphocytes # 1.5 K/mcL (0.6-4.6); Mean Corpuscular HGB Conc 31.2 g/dL (31.6-35.5); Mean Corpuscular Volume 86.1 fL (83.0-100.0); Monocytes # 0.8 K/mcL (0.0-1.3); Monocytes % 2.7 %; Neutrophils # 26.4 K/mcL (1.6-8.9); Platelet Count 272 K/mcL (140-400); Red Blood Count 4.62 M/mcL (4.19-5.50); Segmented Neutrophils % 90.3 %
[2018-06-10 04:49] LABS: BUN/Creatinine Ratio 22 (6-26); Blood Urea Nitrogen 19 mg/dL (6-20); Calcium 8.2 mg/dL (8.6-10.3); Carbon Dioxide 39 mEq/L (23-29); Chloride 91 mEq/L (98-107); Glucose 268 mg/dL (70-105); Osmolality,Calculated 292 (280-300); Potassium 3.7 mEq/L (3.5-5.1); Sodium 135 mEq/L (136-145); eGFR For Non-African Americans > 60 (> 60)
[2018-06-10 05:09] LABS: Platelet Estimate Normal (Normal)
[2018-06-10] MEDS: *HR* Heparin 5,000 UNIT/ML VIAL SQ SCH ×2 (05:45→18:03)
[2018-06-10] MEDS: Piperacillin/Tazobactam 3.375 GM in 0.9 % Sodium Chloride Mini Bag 100 ML IVPB SCH ×3 (05:46→23:03)
[2018-06-10] MEDS: *HR* OxyCODONE Immed Rel 5 MG TABLET PO PRN (05:46)
[2018-06-10] MEDS: Budesonide/Formoterol 160/4.5 1 PUFF INH IH SCH ×3 (07:41→23:36)
[2018-06-10] MEDS: Nicotine 21 MG PATCH.TD24 TD SCH (09:01)
[2018-06-10] MEDS: Gabapentin 300 MG CAPSULE PO SCH ×3 (09:02→20:19)
[2018-06-10] MEDS: Isosorbide MONOnitrate (24 HR) 30 MG TAB.ER.24H PO SCH (09:02)
[2018-06-10] MEDS: *HR* OxyCODONE ER (12 HR) 10 MG TABLET PO SCH ×2 (09:02→20:19)
[2018-06-10] MEDS: Bumetanide 1 MG TABLET PO SCH ×2 (09:02→18:03)
--- NOTE | 2018-06-10 10:18 | Internal Med Progress Note ---
Hospitalist Progress Note - Encounter Date of Encounter: 06/10/18 Time of Encounter: 10:14 - Subjective Interval History: Cough and chest pain improved. - Exam Vitals: Temp Pulse Resp BP Pulse Ox 97.7 F 83 15 107/78 91 06/10/18 08:22 06/10/18 08:22 06/10/18 04:33 06/10/18 08:22 06/10/18 08:22 Exam: PHYSICAL EXAMINATION: GENERAL APPEARANCE: The patient is alert, oriented and in no acute distress. HEENT: Head is normocephalic. The sinuses are nontender. Pupils are equal and reactive. The nares are patent. Oropharynx clear without lesions. NECK: Supple without lymphadenopathy. HEART: Regular rate and rhythm. LUNGS: bilateral wheezes are heard. ABDOMEN: Soft, nontender, nondistended with good bowel sounds heard. Inguinal area is normal. EXTREMITIES: Without cyanosis, clubbing or edema. NEUROLOGICAL: Gross nonfocal. SKIN: Warm and dry without any rash. - Assessment and Plan (1) Pneumonia Current Visit: Yes Status: Acute Assessment and Plan: 06/08 57-year-old male with past medical history of CHF, COPD, and PE presented with left-sided chest pain, associated with cough and shortness of breath. Labs revealed leukocytosis, elevated d-dimer, and elevated CO2. CTA chest revealed bilateral pneumonia, PE was also suspicious. - He recently was seen at the ED, we will treat the pneumonia as healthcare associated with IV vancomycin and Zosyn. - Pending blood and sputum culture. 06/09 pending cx, continue current treatment with abx. 06/10 Respiratory symptoms improved. WBC trended up, likely due to steroid use. Repeat CTA has no PE. continue current treatment. (2) Pulmonary embolus Current Visit: Yes Status: Ruled-out Assessment and Plan: 06/08 Patient has a history of PE, d-dimer was also elevated, however CTA chest is non-diagnostic due to the suboptimal timing of the IV contrast. Because a definite diagnosis of PE is critical for the treatment plan, is a lifelong anticoagulation or no anticoagulation, we will repeat CTA tomorrow. Continue heparin drip for now. 06/09 Continue heparin gtt for now. CTA today to confirm PE. 06/10 Repeat CTA o PE. Heparin gtt mn'ed. (3) COPD exacerbation Current Visit: Yes Status: Acute Assessment and Plan: 06/08 Patient also has hypoxia and elevated CO2, we will treated as COPD exacerbation with bronchodilators and IV steroids. 06/09 improved breathing, continue current treatment. 06/10 Respiratory symptoms improved. Worsening leukocytosis likely due to recent started on IV steroid. Continue current treatment, may taper steroid tomorrow. (4) CHF (congestive heart failure) Current Visit: No Status: Chronic Assessment and Plan: Continue home medications including diuretics. (5) Hx pulmonary embolism Current Visit: No Status: Chronic Assessment and Plan: Same as above. (6) DVT prophylaxis Current Visit: Yes Status: Acute Assessment and Plan: SCDs and ambulate. - Time Spent with Patient Total time spent is greater than 50% in coordination of care (as documented) at patient's floor/unit and/or counseling patient: Greater than 35 minutes Plan of Care Discussed with: patient Internal Medicine: Result - Labs CBC & Chem 7: 06/10/18 05:26 06/10/18 03:37 Labs: Short CBC 06/10/18 06/10/18 Range/Units 03:37 05:26 WBC 29.2 H D 28.8 H (4.3-11.1) K/mcL Hgb 12.4 L (12.9-16.9) g/dL Hct 39.8 (37.5-50.1) % Plt Count 272 (140-400) K/mcL Neutrophils # 26.4 H (1.6-8.9) K/mcL BMP 06/10/18 03:37 Sodium 135 L Potassium 3.7 Chloride 91 L Carbon Dioxide 39 H BUN 19 Creatinine 0.85 Glucose 268 H Calcium 8.2 L - ABG Interpretation ABG results: PT/INR, D-dimer PT 11.5 Seconds (9.4-12.1) 06/08/18 13:08 D-Dimer 997 ng/mLFEU (0-500) H 06/08/18 13:08 - Impressions Impressions Chest CTA 06/09/18 11:30 IMPRESSION: Suboptimal study. No convincing evidence for central or proximal segmental embolism. Bilateral lower lobe airspace opacities, favoring infectious/inflammatory process versus atelectasis. Small bilateral pleural effusions. Centrilobular and paraseptal emphysematous changes. Enlarged right hilar lymph node measuring 1.6 cm in short axis. D/ / Nikos Lamb MD / Nikos Lamb MD Interpreting Provider: Nikos Lamb MD Consult Discharge Plan - Plan Referrals: Heather Proctor MD [Primary Care Provider] - (1) Pneumonia Qualifiers: Pneumonia type: due to unspecified organism Laterality: bilateral Lung location: unspecified part of lung Qualified Code(s): J18.9 - Pneumonia, unspecified organism (2) Pulmonary embolus Qualifiers: Pulmonary embolism type: unspecified Chronicity: unspecified Acute cor pulmonale presence: without acute cor pulmonale Qualified Code(s): I26.99 - Other pulmonary embolism without acute cor pulmonale (4) CHF (congestive heart failure) Qualifiers: Heart failure type: diastolic Heart failure chronicity: chronic Qualified Code(s): I50.32 - Chronic diastolic (congestive) heart failure
[2018-06-10] MEDS: Melatonin 3 MG TABLET PO SCH (20:20)
[2018-06-11] MEDS: Ipratropium/Albuterol Neb 3 ML IH SCH ×6 (04:07→23:05)
[2018-06-11 04:35] LABS: Basophils # 0.1 K/mcL (0.0-0.2); Basophils % 0.2 %; Hematocrit 39.9 % (37.5-50.1); Hemoglobin 12.6 g/dL (12.9-16.9); Immature Granulocytes % 3.2 % (0-4); Lymphocytes # 1.5 K/mcL (0.6-4.6); Mean Corpuscular HGB Conc 31.6 g/dL (31.6-35.5); Mean Corpuscular Hemoglobin 26.7 pg (28.0-33.3); Mean Corpuscular Volume 84.5 fL (83.0-100.0); Mean Platelet Volume 9.9 fL (9.4-12.4); Monocytes # 0.6 K/mcL (0.0-1.3); Monocytes % 2.3 %; Neutrophils # 21.4 K/mcL (1.6-8.9); Platelet Count 293 K/mcL (140-400); Red Blood Count 4.72 M/mcL (4.19-5.50); Red Cell Distribution Width 15.9 % (11.5-14.5); Segmented Neutrophils % 88.3 %
[2018-06-11 04:42] LABS: BUN/Creatinine Ratio 29 (6-26); Blood Urea Nitrogen 22 mg/dL (6-20); Calcium 8.3 mg/dL (8.6-10.3); Carbon Dioxide 37 mEq/L (23-29); Chloride 93 mEq/L (98-107); Glucose 212 mg/dL (70-105); Osmolality,Calculated 290 (280-300); Potassium 4.1 mEq/L (3.5-5.1); Sodium 135 mEq/L (136-145); eGFR For Non-African Americans > 60 (> 60)
[2018-06-11 06:16] LABS: Platelet Estimate Normal (Normal)
[2018-06-11] MEDS: *HR* Heparin 5,000 UNIT/ML VIAL SQ SCH ×2 (06:16→17:22)
[2018-06-11] MEDS: *HR* OxyCODONE Immed Rel 5 MG TABLET PO PRN (06:25)
[2018-06-11] MEDS: Budesonide/Formoterol 160/4.5 1 PUFF INH IH SCH ×2 (07:36→19:18)
[2018-06-11] MEDS: Piperacillin/Tazobactam 3.375 GM in 0.9 % Sodium Chloride Mini Bag 100 ML IVPB SCH ×2 (09:57→16:07)
[2018-06-11] MEDS: Gabapentin 300 MG CAPSULE PO SCH ×3 (09:59→21:56)
[2018-06-11] MEDS: Isosorbide MONOnitrate (24 HR) 30 MG TAB.ER.24H PO SCH (09:59)
[2018-06-11] MEDS: MethylPREDNISolone 40 MG/ML VIAL IVP SCH ×2 (09:59→16:04)
[2018-06-11] MEDS: Nicotine 21 MG PATCH.TD24 TD SCH (10:00)
[2018-06-11] MEDS: Bumetanide 1 MG TABLET PO SCH ×2 (10:00→16:04)
[2018-06-11] MEDS: *HR* OxyCODONE ER (12 HR) 10 MG TABLET PO SCH ×2 (10:00→21:57)
[2018-06-11] MEDS: Melatonin 3 MG TABLET PO SCH (21:56)
--- NOTE | 2018-06-11 22:31 | Internal Med Progress Note ---
Hospitalist Progress Note - Encounter Date of Encounter: 06/11/18 Time of Encounter: 19:00 - Subjective Interval History: SUBJECTIVE: The patient feels progressively better. He denies resting dyspnea; on 4 L/min nasal cannula oxygen (his baseline). He does have mild cough but not wheezing. Denies chest pain. Denies abdominal pain, nausea and vomiting. He makes fair amounts of urine. OBJECTIVE: Skin: Free of rash and discoloration. ENMT: Oral/pharyngeal mucosa is normal in appearance. Eyes: Sclera is white. There is no discharge from eyes. Respiratory: Normal breath sounds; no crackles or wheezes. CV: Heart is regular; no gallop or murmur. GI: Abdomen is soft and not tender. There is no palpable mass or visceromegaly. Neuro: There is no focal deficits. ADDITIONAL DATA: Hemoglobin is 12.6 with a WBC of 24.2 thousand; 28.8 thousand yesterday. He has normal sodium and potassium. His bicarb is 37; 40 at admission. Creatinine is 0.76. Fasting glucose by BMP is 212. I am ordering chest x-ray. ASSESSMENT AND PLAN: Pneumonia. COPD exacerbation. Chronic diastolic heart failure. Chronic hypoxic and hypercapnic respiratory failure. To continue IV Zosyn. We will switch him from IV Solu-Medrol to oral prednisone. He is on nebulizer treatments with DuoNeb. He is on twice a day Bumex. Deconditioning. The patient has not been moving out of bed for the last 4 days. We will ask physical therapy for help with ambulation. We ruled out pulmonary embolism. He has history of PE. DISPOSITION: I am hoping to discharge him home in 1-2 days. He may also need to go to [facility] to get rehabilitation. - Exam Vitals: Temp Pulse Resp BP Pulse Ox 97.8 F 88 14 118/76 92 06/11/18 15:42 06/11/18 15:42 06/11/18 19:20 06/11/18 15:42 06/11/18 19:20 Exam: xx - Assessment and Plan (1) Pneumonia Current Visit: Yes Status: Acute (2) COPD exacerbation Current Visit: Yes Status: Acute (3) CHF (congestive heart failure) Current Visit: No Status: Chronic (4) Chronic respiratory failure with hypoxia and hypercapnia Current Visit: Yes Status: Acute (5) Physical deconditioning Current Visit: Yes Status: Acute (6) Pulmonary embolus Current Visit: Yes Status: Ruled-out (7) Hx pulmonary embolism Current Visit: No Status: Chronic - Time Spent with Patient Total time spent is greater than 50% in coordination of care (as documented) at patient's floor/unit and/or counseling patient: 25 - 35 minutes Plan of Care Discussed with: patient Internal Medicine: Result - Labs CBC & Chem 7: 06/11/18 03:14 06/11/18 03:14 Labs: Short CBC 06/11/18 Range/Units 03:14 WBC 24.2 H (4.3-11.1) K/mcL Hgb 12.6 L (12.9-16.9) g/dL Hct 39.9 (37.5-50.1) % Plt Count 293 (140-400) K/mcL Neutrophils # 21.4 H (1.6-8.9) K/mcL BMP 06/11/18 03:14 Sodium 135 L Potassium 4.1 Chloride 93 L Carbon Dioxide 37 H BUN 22 H Creatinine 0.76 Glucose 212 H Calcium 8.3 L - ABG Interpretation ABG results: PT/INR, D-dimer PT 11.5 Seconds (9.4-12.1) 06/08/18 13:08 D-Dimer 997 ng/mLFEU (0-500) H 06/08/18 13:08 - Impressions Impressions Chest X-Ray 06/11/18 15:34 IMPRESSION: Persistent lower lobe consolidation with small pleural effusions. D/ / Ashok Garcia MD / Ashok Garcia MD Interpreting Provider: Ashok Garcia MD Consult Discharge Plan - Plan Referrals: Heather Proctor MD [Primary Care Provider] - (1) Pneumonia Qualifiers: Pneumonia type: due to unspecified organism Laterality: bilateral Lung location: unspecified part of lung Qualified Code(s): J18.9 - Pneumonia, unspecified organism (3) CHF (congestive heart failure) Qualifiers: Heart failure type: diastolic Heart failure chronicity: chronic Qualified Code(s): I50.32 - Chronic diastolic (congestive) heart failure (6) Pulmonary embolus Qualifiers: Pulmonary embolism type: unspecified Chronicity: unspecified Acute cor pulmonale presence: without acute cor pulmonale Qualified Code(s): I26.99 - Other pulmonary embolism without acute cor pulmonale
[2018-06-12] MEDS: Piperacillin/Tazobactam 3.375 GM in 0.9 % Sodium Chloride Mini Bag 100 ML IVPB SCH ×2 (00:27→08:53)
[2018-06-12] MEDS: Ipratropium/Albuterol Neb 3 ML IH SCH ×4 (04:16→15:31)
[2018-06-12] MEDS: *HR* Heparin 5,000 UNIT/ML VIAL SQ SCH (06:40)
[2018-06-12 07:54] VITALS: BP 133/87
[2018-06-12] MEDS: Gabapentin 300 MG CAPSULE PO SCH ×2 (08:51→16:08)
[2018-06-12] MEDS: *HR* OxyCODONE ER (12 HR) 10 MG TABLET PO SCH (08:52)
[2018-06-12] MEDS: Bumetanide 1 MG TABLET PO SCH (08:52)
[2018-06-12] MEDS: Nicotine 21 MG PATCH.TD24 TD SCH (08:52)
[2018-06-12] MEDS: Isosorbide MONOnitrate (24 HR) 30 MG TAB.ER.24H PO SCH (08:55)
[2018-06-12] MEDS ORDERED: predniSONE 20 MG TABLET PO SCH (09:00)
[2018-06-12] MEDS: Budesonide/Formoterol 160/4.5 1 PUFF INH IH SCH (10:41)
--- NOTE | 2018-06-12 16:18 | Discharge Summary ---
Orders not resulted at time of discharge: Pending orders 06/08/18 10:32 ECG 12 lead ECG [ECG] Stat 06/08/18 10:50 Culture,Blood [BC] Stat Date of Encounter: 06/12/18 Time of Encounter: 16:16 - Discharge Diagnosis (1) Pneumonia Priority: Primary Status: Acute Qualifiers: Pneumonia type: due to unspecified organism Laterality: bilateral Lung location: unspecified part of lung Qualified Code(s): J18.9 - Pneumonia, unspecified organism (2) COPD exacerbation Priority: Primary Status: Acute (3) CHF (congestive heart failure) Priority: Secondary Status: Chronic Qualifiers: Heart failure type: diastolic Heart failure chronicity: chronic Qualified Code(s): I50.32 - Chronic diastolic (congestive) heart failure (4) Chronic respiratory failure with hypoxia and hypercapnia Priority: Primary Status: Acute (5) Physical deconditioning Priority: Secondary Status: Acute (6) Pulmonary embolus Priority: Secondary Status: Ruled-out Qualifiers: Pulmonary embolism type: unspecified Chronicity: unspecified Acute cor pulmonale presence: without acute cor pulmonale Qualified Code(s): I26.99 - Other pulmonary embolism without acute cor pulmonale (7) Hx pulmonary embolism Priority: Secondary Status: Chronic Hospital course: Mr. Olguin is a 57 year old male Discharge discussed with: patient, family, case management - Time Spent with Patient Total time spent providing and/or coordinating discharge services: Greater than 30 minutes (45 minutes..) - Discharge Medications Prescriptions: Amoxicillin/Clavulanate [Augmentin] 875 mg PO BIDWM 5 Days #10 tablet predniSONE [PredniSONE] 20 mg PO QAM 5 Days #5 tablet Home Medications: Bumetanide 2 mg PO BID PRN 12/02/17 [History] DULoxetine [Cymbalta] 60 mg PO DAILY 12/02/17 [History] Albuterol Sulfate [Proair Hfa] 2 puff IH Q4-6H PRN 12/03/17 [History] Fluticasone/Vilanterol [Breo Ellipta 100-25 Mcg INH] 1 puff IH DAILY 12/03/17 [History] Isosorbide MONOnitrate (24 HR) [Imdur] 30 mg PO DAILY 12/03/17 [History] OxyCODONE Immed Rel [Roxicodone 10 MG] 10 mg PO TID PRN 12/03/17 [History] OxyCODONE ER (12 HR) [OxyCONTIN] 20 mg PO BID 02/01/18 [History] Atorvastatin [Lipitor] 40 mg PO HS 06/08/18 [History] Buspirone HCl [Buspar] 15 mg PO BID 06/08/18 [History] Gabapentin [Neurontin] 600 mg PO TID 06/08/18 [History] Lisinopril [Zestril] 10 mg PO DAILY 06/08/18 [History] Melatonin 5 mg PO HS 06/08/18 [History] Amoxicillin/Clavulanate [Augmentin] 875 mg PO BIDWM 5 Days #10 tablet 06/12/18 [Rx] predniSONE [PredniSONE] 20 mg PO QAM 5 Days #5 tablet 06/12/18 [Rx] Allergies/Adverse Reactions: Allergy/AdvReac Type Severity Reaction Status Date / Time cephalexin [From Keflex] Allergy Hives Verified 06/08/18 10:25 Date of admission: 06/09/18 16:53 Primary care physician: Heather Proctor MD Consults: 06/11/18 15:30 Consult to Physical Therapy [CONS] Routine Comment: Evaluate, develop and implement POC Reason for Consult: PNA/deconditioning. Hasn't walked for the last 4 days.. Does patient have active BEDREST order?: No Is patient medically & hemodynamically stable?: Yes Patient assessed for mobility or mobilized this visit?: No Discharging clinician: Teddy Hernandez Anticipated date of discharge: 06/12/18 - Constitutional Vitals: Temp Pulse Resp BP Pulse Ox 96.6 F L 80 19 133/87 93 06/12/18 06:50 06/12/18 06:50 06/12/18 06:50 06/12/18 06:50 06/12/18 06:50 General appearance: Present: cooperative, A&O X 3, answers questions appropriately Exam: xx - Patient Status Disposition: Home, Self-Care Condition: Fair Functional capacity at discharge: independent ambulation Overall status at discharge: patient is progressing back to baseline - Discharge Instructions Instructions: Chronic Obstructive Pulmonary Disease (DC), Hypoxia (GEN), Pneumonia (DC) Follow Up With: Heather Proctor MD [Primary Care Provider] - 06/26/18 10:40 am (Dr Proctor is out all next week the earliest appt time was follow up time listed) Additional Instructions: THE PT IS TO USE OXYGEN AT 4 L/MIN -- ALL THE TIME.. CPAP -- WHEN SLEEPING.. - Diet and Activity Activity: increase activity as tolerated Diet: low fat, low cholesterol - VTE Deep Vein Thrombosis/Pulmonary Embolism Present on Admission: No
== END 2018-06-12 17:05 | disposition home or self-care (01) | DRG 190 ==
LOC: EMEROOARM 10:18 → 2NENU 10:18 → SUATTDRO 06-09 16:53
PROVIDERS: ADMIT Internal Medicine; ATTEND Internal Medicine

== ENCOUNTER 2019-01-23 15:58 | Inpatient (IN) ==
[2019-01-23 17:03] LABS: Basophils # 0.1 K/mcL (0.0-0.2); Basophils % 0.3 %; Hematocrit 39.6 % (37.5-50.1); Hemoglobin 12.5 g/dL (12.9-16.9); Lymphocytes # 2.2 K/mcL (0.6-4.6); Lymphocytes % 8.8 %; Mean Corpuscular HGB Conc 31.6 g/dL (31.6-35.5); Mean Corpuscular Volume 88.8 fL (83.0-100.0); Mean Platelet Volume 10.5 fL (9.4-12.4); Monocytes # 1.6 K/mcL (0.0-1.3); Monocytes % 6.3 %; Neutrophils # 20.8 K/mcL (1.6-8.9); Platelet Count 262 K/mcL (140-400); Red Blood Count 4.46 M/mcL (4.19-5.50); Red Cell Distribution Width 15.2 % (11.5-14.5); Segmented Neutrophils % 83.6 %; White Blood Count 24.9 K/mcL (4.3-11.1)
[2019-01-23 17:14] LABS: INR 1.3; Prothrombin Time 14.4 Seconds (9.4-12.1)
[2019-01-23 17:17] LABS: Activated Partial Thrombo Time 33.8 Seconds (26.0-36.0)
[2019-01-23 17:36] LABS: BUN/Creatinine Ratio 12 (6-26); Blood Urea Nitrogen 9 mg/dL (6-20); Calcium 8.6 mg/dL (8.6-10.3); Carbon Dioxide 33 mEq/L (23-29); Chloride 93 mEq/L (98-107); Glucose 134 mg/dL (70-105); Osmolality,Calculated 285 (280-300); Potassium 3.9 mEq/L (3.5-5.1); Sodium 137 mEq/L (136-145); Troponin I < 0.03 ng/mL (< 0.04); eGFR For African Americans > 60 (> 60); eGFR For Non-African Americans > 60 (> 60)
[2019-01-23] MEDS: Isovue-370 500 ML BOTTLE IVP ONE (18:10)
[2019-01-23] MEDS ORDERED: Azithromycin 500 MG in D5% in Water 250 ML IVPB ONE (18:12)
[2019-01-23] MEDS ORDERED: Bumetanide 1 MG TABLET PO PRN (21:22)
[2019-01-23] MEDS ORDERED: Vancomycin (wt based) 1,000 MG VIAL IVPB SCH (22:00)
[2019-01-24] MEDS ORDERED: Melatonin 3 MG TABLET PO ONE (00:14)
[2019-01-24] MEDS ORDERED: Acetaminophen 325 MG TABLET PO PRN (00:16)
[2019-01-24] MEDS: Piperacillin/Tazobactam 3.375 GM in 0.9 % Sodium Chloride Mini Bag 100 ML IVPB SCH ×4 (00:46→21:28)
[2019-01-24 00:47] LABS: Basophils # 0.1 K/mcL (0.0-0.2); Basophils % 0.3 %; Eosinophils # 0.1 K/mcL (0.0-0.6); Eosinophils % 0.3 %; Hematocrit 37.9 % (37.5-50.1); Hemoglobin 11.8 g/dL (12.9-16.9); Immature Granulocytes % 1.1 % (0-4); Lymphocytes # 2.9 K/mcL (0.6-4.6); Lymphocytes % 12.3 %; Mean Corpuscular HGB Conc 31.1 g/dL (31.6-35.5); Mean Corpuscular Volume 89.8 fL (83.0-100.0); Mean Platelet Volume 10.5 fL (9.4-12.4); Monocytes # 1.5 K/mcL (0.0-1.3); Monocytes % 6.5 %; Neutrophils # 18.7 K/mcL (1.6-8.9); Platelet Count 260 K/mcL (140-400); Red Blood Count 4.22 M/mcL (4.19-5.50); Red Cell Distribution Width 15.5 % (11.5-14.5); Segmented Neutrophils % 79.5 %; White Blood Count 23.5 K/mcL (4.3-11.1)
[2019-01-24] MEDS: *HR* Heparin 5,000 UNIT/ML VIAL SQ SCH ×4 (00:50→21:36)
[2019-01-24 01:05] LABS: Alanine Aminotransferase 19 Units/L (7-52); Albumin 3.3 g/dL (3.5-5.7); Albumin/Globulin Ratio 0.9 (1.1-2.2); Alkaline Phosphatase 88 Units/L (34-104); Aspartate Amino Transferase 18 Units/L (13-39); BUN/Creatinine Ratio 13 (6-26); Bilirubin,Total 0.3 mg/dL (0.3-1.0); Blood Urea Nitrogen 10 mg/dL (6-20); Calcium 8.1 mg/dL (8.6-10.3); Carbon Dioxide 34 mEq/L (23-29); Chloride 97 mEq/L (98-107); Globulin 3.5 g/dL (2.4-3.5); Glucose 112 mg/dL (70-105); Osmolality,Calculated 280 (280-300); Potassium 3.9 mEq/L (3.5-5.1); Sodium 135 mEq/L (136-145); Total Protein 6.8 g/dL (6.4-8.9); eGFR For African Americans > 60 (> 60); eGFR For Non-African Americans > 60 (> 60)
[2019-01-24] MEDS: Ipratropium/Albuterol Neb 3 ML IH SCH ×7 (03:56→23:13)
[2019-01-24] MEDS: Melatonin 3 MG TABLET PO SCH ×2 (05:13→21:35)
[2019-01-24] MEDS: Gabapentin 300 MG CAPSULE PO SCH ×3 (09:12→21:36)
[2019-01-24] MEDS: *HR* OxyCODONE ER (12 HR) 20 MG TABLET PO SCH ×2 (09:12→21:35)
[2019-01-24] MEDS: Budesonide/Formoterol 160/4.5 1 PUFF INH IH SCH ×2 (11:39→19:59)
[2019-01-24] MEDS: *HR* OxyCODONE Immed Rel 5 MG TABLET PO PRN (14:20)
[2019-01-24] MEDS: Azithromycin 500 MG in D5% in Water 250 ML IVPB SCH (18:36)
[2019-01-24] MEDS: QUEtiapine Fumarate 25 MG TABLET PO SCH (21:35)
[2019-01-25] MEDS: Ipratropium/Albuterol Neb 3 ML IH SCH ×5 (03:15→19:59)
[2019-01-25 04:51] LABS: ABG Base Excess 4 mEq/L (-2 to 3); ABG HCO3 33 mEq/L (21-27); ABG Oxygen Saturation 88 % (95-98); ABG PCO2 68 mmHg (35-45); ABG PO2 63 mmHg (85-104); ABG TCO2 35 mEq/L (20-26)
[2019-01-25 06:20] LABS: Basophils # 0.1 K/mcL (0.0-0.2); Basophils % 0.3 %; Eosinophils # 0.3 K/mcL (0.0-0.6); Eosinophils % 1.5 %; Hematocrit 36.6 % (37.5-50.1); Hemoglobin 11.2 g/dL (12.9-16.9); Immature Granulocytes % 1.4 % (0-4); Lymphocytes # 2.3 K/mcL (0.6-4.6); Lymphocytes % 12.4 %; Mean Corpuscular HGB Conc 30.6 g/dL (31.6-35.5); Mean Corpuscular Hemoglobin 28.1 pg (28.0-33.3); Mean Corpuscular Volume 91.7 fL (83.0-100.0); Mean Platelet Volume 10.3 fL (9.4-12.4); Monocytes # 1.4 K/mcL (0.0-1.3); Monocytes % 7.4 %; Platelet Count 259 K/mcL (140-400); Red Blood Count 3.99 M/mcL (4.19-5.50); Red Cell Distribution Width 15.9 % (11.5-14.5); White Blood Count 18.2 K/mcL (4.3-11.1)
[2019-01-25] MEDS: Piperacillin/Tazobactam 3.375 GM in 0.9 % Sodium Chloride Mini Bag 100 ML IVPB SCH ×2 (06:30→17:09)
[2019-01-25] MEDS: *HR* Heparin 5,000 UNIT/ML VIAL SQ SCH ×3 (06:34→20:23)
[2019-01-25 06:35] LABS: Calcium 7.8 mg/dL (8.6-10.3); Potassium 3.6 mEq/L (3.5-5.1)
[2019-01-25] MEDS: Budesonide/Formoterol 160/4.5 1 PUFF INH IH SCH ×2 (08:08→19:58)
[2019-01-25] MEDS: Gabapentin 300 MG CAPSULE PO SCH ×3 (09:40→19:13)
[2019-01-25] MEDS: *HR* OxyCODONE ER (12 HR) 20 MG TABLET PO SCH ×2 (09:41→19:54)
[2019-01-25] MEDS: *HR* OxyCODONE Immed Rel 5 MG TABLET PO PRN (11:11)
[2019-01-25] MEDS: QUEtiapine Fumarate 25 MG TABLET PO SCH (19:56)
[2019-01-25] MEDS: Melatonin 3 MG TABLET PO SCH (19:56)
[2019-01-25] MEDS: Azithromycin 500 MG in D5% in Water 250 ML IVPB SCH (21:04)
[2019-01-25] MEDS ORDERED: 0.9 % Sodium Chloride 500 ML IVC ONE (22:45)
[2019-01-25] MEDS ORDERED: 0.9 % Sodium Chloride 500 ML ONE (22:46)
[2019-01-25 23:09] LABS: ABG Base Excess 1 mEq/L (-2 to 3); ABG HCO3 30 mEq/L (21-27); ABG Oxygen Saturation 94 % (95-98); ABG PCO2 72 mmHg (35-45); ABG PH 7.24 pH Units (7.32-7.45); ABG PO2 84 mmHg (85-104); ABG TCO2 33 mEq/L (20-26); Blood Gas Modality ST; Blood Gas Pressure Support 8 cm H2O
[2019-01-26] MEDS: Ipratropium/Albuterol Neb 3 ML IH SCH ×7 (00:02→23:22)
[2019-01-26 00:40] LABS: Calcium 7.4 mg/dL (8.6-10.3); Potassium 4.6 mEq/L (3.5-5.1)
[2019-01-26 01:11] LABS: ABG Base Excess 1 mEq/L (-2 to 3); ABG HCO3 31 mEq/L (21-27); ABG Oxygen Saturation 94 % (95-98); ABG PCO2 77 mmHg (35-45); ABG PH 7.21 pH Units (7.32-7.45); ABG PO2 87 mmHg (85-104); ABG TCO2 33 mEq/L (20-26); Blood Gas Modality AVAPS; Blood Gas Pressure Support 5 cm H2O; Blood Gas VT 550 cc
[2019-01-26] MEDS: Naloxone 0.4 MG/ML INJ IVP PRN ×2 (01:33→08:37)
[2019-01-26 02:10] LABS: Basophils # 0.1 K/mcL (0.0-0.2); Basophils % 0.5 %; Eosinophils # 0.3 K/mcL (0.0-0.6); Eosinophils % 1.9 %; Hemoglobin 10.3 g/dL (12.9-16.9); Immature Granulocytes % 2.3 % (0-4); Lymphocytes # 2.2 K/mcL (0.6-4.6); Lymphocytes % 13.5 %; Mean Corpuscular HGB Conc 29.4 g/dL (31.6-35.5); Mean Corpuscular Hemoglobin 27.4 pg (28.0-33.3); Mean Corpuscular Volume 93.1 fL (83.0-100.0); Mean Platelet Volume 10.3 fL (9.4-12.4); Monocytes # 1.2 K/mcL (0.0-1.3); Monocytes % 7.1 %; Neutrophils # 12.3 K/mcL (1.6-8.9); Platelet Count 279 K/mcL (140-400); Red Blood Count 3.76 M/mcL (4.19-5.50); Red Cell Distribution Width 16.7 % (11.5-14.5); Segmented Neutrophils % 74.7 %; White Blood Count 16.4 K/mcL (4.3-11.1)
[2019-01-26 02:18] LABS: Calcium 7.4 mg/dL (8.6-10.3); Potassium 4.5 mEq/L (3.5-5.1)
[2019-01-26] MEDS: Piperacillin/Tazobactam 3.375 GM in 0.9 % Sodium Chloride Mini Bag 100 ML IVPB SCH ×2 (05:11→16:45)
[2019-01-26] MEDS: *HR* Heparin 5,000 UNIT/ML VIAL SQ SCH ×3 (05:11→21:06)
[2019-01-26 06:32] LABS: ABG Base Excess 0 mEq/L (-2 to 3); ABG HCO3 32 mEq/L (21-27); ABG Oxygen Saturation 93 % (95-98); ABG PCO2 98 mmHg (35-45); ABG PH 7.12 pH Units (7.32-7.45); ABG PO2 93 mmHg (85-104); ABG TCO2 35 mEq/L (20-26); Blood Gas Modality avaps; Blood Gas Pressure Support 12 cm H2O; Blood Gas VT 550 cc
[2019-01-26 07:57] LABS: ABG Base Excess 0 mEq/L (-2 to 3); ABG HCO3 30 mEq/L (21-27); ABG Oxygen Saturation 90 % (95-98); ABG PCO2 85 mmHg (35-45); ABG PH 7.16 pH Units (7.32-7.45); ABG PO2 77 mmHg (85-104); ABG TCO2 33 mEq/L (20-26); Blood Gas Modality NIV; Blood Gas VT 550 cc
[2019-01-26] MEDS: Budesonide/Formoterol 160/4.5 1 PUFF INH IH SCH ×2 (08:05→19:42)
[2019-01-26] MEDS: Gabapentin 300 MG CAPSULE PO SCH ×3 (09:25→21:00)
[2019-01-26] MEDS ORDERED: Propofol 500 MG/50 ML INFUS..BTL ONE (10:04)
[2019-01-26] MEDS ORDERED: *HR* Etomidate 40 MG/20 ML VIAL IVP ONE (10:38)
[2019-01-26] MEDS ORDERED: *HR* Propofol 200 MG/20 ML VIAL IVP ONE (10:38)
[2019-01-26] MEDS ORDERED: *HR* Midazolam HCl 5 MG/5 ML VIAL IVP ONE (10:38)
[2019-01-26] MEDS ORDERED: *HR* Midazolam HCl 2 MG/2 ML VIAL IV ONE (10:38)
[2019-01-26] MEDS: Norepinephrine 4 MG in D5% in Water 250 ML IVC SCH (10:40)
[2019-01-26] MEDS ORDERED: *HR* FentaNYL (PF) 100 MCG/2 ML VIAL ONE (10:45)
[2019-01-26] MEDS ORDERED: Artificial Tears SOLN 15 ML BOTTLE BOTH EYES PRN (11:07)
[2019-01-26] MEDS ORDERED: *HR* Metoprolol 5 MG/5 ML VIAL IVP ONE ×2 (11:10→11:11)
[2019-01-26] MEDS: FentaNYL (PF) 1,000 MCG in 0.9 % Sodium Chloride 80 ML IVC SCH ×2 (11:30→21:58)
[2019-01-26 11:46] LABS: ABG Base Excess -1 mEq/L (-2 to 3); ABG HCO3 29 mEq/L (21-27); ABG Oxygen Saturation 98 % (95-98); ABG PCO2 75 mmHg (35-45); ABG PH 7.19 pH Units (7.32-7.45); ABG PO2 129 mmHg (85-104); ABG TCO2 31 mEq/L (20-26); Blood Gas VT 500 cc
[2019-01-26] MEDS: Phenylephrine 10 MG in D5% in Water 250 ML IVC SCH ×2 (12:05→14:05)
[2019-01-26] MEDS ORDERED: Amiodarone Premix 360 MG/200 ML BAG IVC ONE (12:15)
[2019-01-26] MEDS ORDERED: Amiodarone Premix 150 MG/100 ML BAG IVPB ONE (12:15)
[2019-01-26 12:37] LABS: ABG Base Excess -1 mEq/L (-2 to 3); ABG HCO3 26 mEq/L (21-27); ABG Oxygen Saturation 99 % (95-98); ABG PCO2 51 mmHg (35-45); ABG PH 7.31 pH Units (7.32-7.45); ABG PO2 159 mmHg (85-104); ABG TCO2 27 mEq/L (20-26); Blood Gas VT 500 cc
[2019-01-26] MEDS: Chlorhexidine Rinse 15 ML MOUTHWASH MM SCH ×2 (13:21→21:06)
[2019-01-26] MEDS: Artificial Tears SOLN 15 ML BOTTLE BOTH EYES SCH ×3 (13:21→20:59)
[2019-01-26] MEDS: Phenylephrine 50 MG in D5% in Water 250 ML IVC SCH ×2 (15:59→20:50)
[2019-01-26] MEDS: methylPREDNISolone 125 MG/2 ML VIAL IVP SCH (16:46)
[2019-01-26] MEDS: Azithromycin 500 MG in D5% in Water 250 ML IVPB SCH (16:46)
[2019-01-26 18:41] LABS: Albumin 2.8 g/dL (3.5-5.7); Calcium 7.5 mg/dL (8.6-10.3); Phosphorous 4.9 mg/dL (2.7-4.5); Potassium 4.1 mEq/L (3.5-5.1)
[2019-01-26] MEDS: Amiodarone Premix 360 MG/200 ML BAG IVC SCH (19:45)
[2019-01-26] MEDS: Melatonin 3 MG TABLET PO SCH (21:00)
[2019-01-27] MEDS: Artificial Tears SOLN 15 ML BOTTLE BOTH EYES SCH ×7 (00:28→23:17)
[2019-01-27] MEDS: Phenylephrine 50 MG in D5% in Water 250 ML IVC SCH ×2 (02:10→16:22)
[2019-01-27] MEDS: Ipratropium/Albuterol Neb 3 ML IH SCH ×6 (03:39→23:06)
[2019-01-27 03:57] LABS: Hematocrit 35.6 % (37.5-50.1); Mean Corpuscular HGB Conc 30.9 g/dL (31.6-35.5); Mean Corpuscular Hemoglobin 28.4 pg (28.0-33.3); Mean Corpuscular Volume 91.8 fL (83.0-100.0); Platelet Count 366 K/mcL (140-400); Red Blood Count 3.88 M/mcL (4.19-5.50); Red Cell Distribution Width 16.3 % (11.5-14.5); White Blood Count 19.3 K/mcL (4.3-11.1)
[2019-01-27 04:08] LABS: Albumin 2.8 g/dL (3.5-5.7); Albumin/Globulin Ratio 0.8 (1.1-2.2); Bilirubin,Total 0.2 mg/dL (0.3-1.0); Calcium 7.3 mg/dL (8.6-10.3); Globulin 3.7 g/dL (2.4-3.5); Magnesium 1.9 mg/dL (1.6-2.6); Phosphorous 5.3 mg/dL (2.7-4.5); Potassium 4.6 mEq/L (3.5-5.1); Total Protein 6.5 g/dL (6.4-8.9)
[2019-01-27 04:37] LABS: ABG Base Excess -2 mEq/L (-2 to 3); ABG HCO3 25 mEq/L (21-27); ABG Oxygen Saturation 93 % (95-98); ABG PCO2 56 mmHg (35-45); ABG PH 7.26 pH Units (7.32-7.45); ABG PO2 80 mmHg (85-104); ABG TCO2 27 mEq/L (20-26); Blood Gas Modality VC; Blood Gas VT 500 cc
[2019-01-27] MEDS: Piperacillin/Tazobactam 3.375 GM in 0.9 % Sodium Chloride Mini Bag 100 ML IVPB SCH ×3 (05:02→22:02)
[2019-01-27] MEDS: *HR* Heparin 5,000 UNIT/ML VIAL SQ SCH ×2 (05:03→14:29)
[2019-01-27] MEDS: methylPREDNISolone 125 MG/2 ML VIAL IVP SCH ×2 (05:04→18:23)
[2019-01-27] MEDS: Amiodarone Premix 360 MG/200 ML BAG IVC SCH ×2 (06:09→19:38)
[2019-01-27] MEDS: Budesonide/Formoterol 160/4.5 1 PUFF INH IH SCH ×2 (07:45→20:22)
[2019-01-27] MEDS: Gabapentin 300 MG CAPSULE PO SCH ×2 (07:54→22:02)
[2019-01-27] MEDS: Chlorhexidine Rinse 15 ML MOUTHWASH MM SCH ×2 (07:54→21:34)
[2019-01-27] MEDS: Pantoprazole 40 MG VIAL IVP SCH (07:54)
[2019-01-27] MEDS ORDERED: Aminoglycoside Consult 1 EACH MC ONE (09:29)
[2019-01-27] MEDS: FentaNYL (PF) 1,000 MCG in 0.9 % Sodium Chloride 80 ML IVC SCH (10:15)
[2019-01-27] MEDS ORDERED: *HR* Heparin 5,000 UNIT/ML VIAL ONE ×2 (11:41→20:31)
[2019-01-27] MEDS: Norepinephrine 4 MG in D5% in Water 250 ML IVC SCH (12:22)
[2019-01-27] MEDS ORDERED: *HR* Heparin 5,000 UNIT/ML VIAL IV PRN (12:26)
[2019-01-27] MEDS ORDERED: *HR* Alteplase (Cathflo) 2 MG VIAL IVP PRN (12:26)
[2019-01-27] MEDS ORDERED: 0.9 % Sodium Chloride 1,000 ML PRIME ONE (12:26)
[2019-01-27] MEDS ORDERED: 0.9 % Sodium Chloride 1,000 ML PRIME SCH (12:30)
[2019-01-27] MEDS: 0.9 % Sodium Chloride 1,000 ML PRIME ONE ×2 (14:27→21:26)
[2019-01-27] MEDS: PrismaSATE BGK 4/2.5 5,000 ML CRRT SCH ×9 (14:28→22:22)
[2019-01-27] MEDS ORDERED: *HR* Heparin 5,000 UNIT/ML VIAL IVP PRN ×2 (19:19)
[2019-01-27 20:36] LABS: Hematocrit 35.4 % (37.5-50.1); Hemoglobin 11.3 g/dL (12.9-16.9); Mean Corpuscular HGB Conc 31.9 g/dL (31.6-35.5); Mean Corpuscular Hemoglobin 27.8 pg (28.0-33.3); Mean Corpuscular Volume 87.2 fL (83.0-100.0); Mean Platelet Volume 10.1 fL (9.4-12.4); Platelet Count 303 K/mcL (140-400); Red Blood Count 4.06 M/mcL (4.19-5.50); Red Cell Distribution Width 16.3 % (11.5-14.5); White Blood Count 22.5 K/mcL (4.3-11.1)
[2019-01-27] MEDS ORDERED: 0.9 % Sodium Chloride 1,000 ML ONE (20:42)
[2019-01-27 20:54] LABS: Heparin anti-factor XA UFH 0.02 IU/mL (0.30-0.70)
[2019-01-27 20:55] LABS: Prothrombin Time 11.2 Seconds (9.4-12.1)
[2019-01-27] MEDS: Heparin 25,000 UNIT/250 ML D5W 25,000 UNIT/250 ML IV.SOLN IVC SCH (21:06)
[2019-01-27] MEDS: Melatonin 3 MG TABLET PO SCH (22:02)
[2019-01-28] MEDS: *HR* OxyCODONE Immed Rel 5 MG TABLET PO PRN ×3 (01:06→23:28)
[2019-01-28] MEDS ORDERED: *HR* Heparin 5,000 UNIT/ML VIAL ONE (01:34)
[2019-01-28] MEDS: Artificial Tears SOLN 15 ML BOTTLE BOTH EYES SCH ×2 (03:46→08:15)
[2019-01-28] MEDS: Ipratropium/Albuterol Neb 3 ML IH SCH ×5 (03:47→20:16)
[2019-01-28 05:38] LABS: Basophils % 0.2 %; Hematocrit 31.4 % (37.5-50.1); Immature Granulocytes % 2.6 % (0-4); Lymphocytes # 1.1 K/mcL (0.6-4.6); Lymphocytes % 5.2 %; Mean Corpuscular HGB Conc 31.8 g/dL (31.6-35.5); Mean Corpuscular Hemoglobin 27.5 pg (28.0-33.3); Mean Corpuscular Volume 86.5 fL (83.0-100.0); Monocytes # 0.9 K/mcL (0.0-1.3); Neutrophils # 19.5 K/mcL (1.6-8.9); Platelet Count 277 K/mcL (140-400); Red Blood Count 3.63 M/mcL (4.19-5.50); Red Cell Distribution Width 16.1 % (11.5-14.5); White Blood Count 22.1 K/mcL (4.3-11.1)
[2019-01-28 05:47] LABS: Potassium 4.5 mEq/L (3.5-5.1)
[2019-01-28] MEDS: methylPREDNISolone 125 MG/2 ML VIAL IVP SCH ×2 (06:49→16:56)
[2019-01-28] MEDS: Piperacillin/Tazobactam 3.375 GM in 0.9 % Sodium Chloride Mini Bag 100 ML IVPB SCH (06:49)
[2019-01-28] MEDS: Amiodarone Premix 360 MG/200 ML BAG IVC SCH (08:13)
[2019-01-28] MEDS: Pantoprazole 40 MG VIAL IVP SCH (08:15)
[2019-01-28] MEDS: Chlorhexidine Rinse 15 ML MOUTHWASH MM SCH (08:15)
[2019-01-28] MEDS: Gabapentin 300 MG CAPSULE PO SCH ×2 (08:15→20:17)
[2019-01-28] MEDS: Budesonide/Formoterol 160/4.5 1 PUFF INH IH SCH ×2 (11:19→20:16)
[2019-01-28] MEDS: Norepinephrine 4 MG in D5% in Water 250 ML IVC SCH (13:11)
[2019-01-28] MEDS ORDERED: *HR* Heparin 10,000 UNIT/10 ML VIAL IV PRN (14:14)
[2019-01-28] MEDS ORDERED: 0.9 % Sodium Chloride 250 ML IVC PRN ×2 (14:14→19:15)
[2019-01-28] MEDS ORDERED: 0.9 % Sodium Chloride 1,000 ML PRIME SCH (14:15)
[2019-01-28 15:47] LABS: Hepatitis B Surface Antibody 7.48 mIU/mL
[2019-01-28 15:58] LABS: Hepatitis B Surface Antigen Nonreactive (Nonreactive)
[2019-01-28] MEDS ORDERED: Piperacillin/Tazobactam 3.375 GM in 0.9 % Sodium Chloride Mini Bag 100 ML IVPB SCH (16:00)
[2019-01-28] MEDS: Heparin 25,000 UNIT/250 ML D5W 25,000 UNIT/250 ML IV.SOLN IVC SCH (17:10)
[2019-01-28] MEDS ORDERED: *HR* Alteplase (Cathflo) 2 MG VIAL IVP PRN (19:15)
[2019-01-28] MEDS ORDERED: Bumetanide 1 MG TABLET PO PRN (19:15)
[2019-01-28] MEDS ORDERED: Naloxone 0.4 MG/ML INJ IVP PRN (19:15)
[2019-01-28] MEDS ORDERED: Ipratropium/Albuterol Neb 3 ML ONE (19:46)
[2019-01-28] MEDS: Melatonin 3 MG TABLET PO SCH (20:17)
[2019-01-29] MEDS: Ipratropium/Albuterol Neb 3 ML IH SCH ×6 (00:31→20:19)
[2019-01-29] MEDS: Piperacillin/Tazobactam 3.375 GM in 0.9 % Sodium Chloride Mini Bag 100 ML IVPB SCH ×2 (05:19→17:01)
[2019-01-29] MEDS: methylPREDNISolone 125 MG/2 ML VIAL IVP SCH ×2 (05:21→17:05)
[2019-01-29] MEDS: Budesonide/Formoterol 160/4.5 1 PUFF INH IH SCH ×2 (07:23→20:19)
[2019-01-29] MEDS ORDERED: Pantoprazole 40 MG VIAL IVP SCH (09:00)
[2019-01-29] MEDS: Gabapentin 300 MG CAPSULE PO SCH ×2 (09:51→20:15)
[2019-01-29] MEDS: *HR* OxyCODONE Immed Rel 5 MG TABLET PO PRN ×2 (09:52→17:55)
[2019-01-29 12:50] LABS: Hematocrit 33.7 % (37.5-50.1); Hemoglobin 11.2 g/dL (12.9-16.9); Mean Corpuscular HGB Conc 33.2 g/dL (31.6-35.5); Mean Corpuscular Hemoglobin 27.7 pg (28.0-33.3); Mean Corpuscular Volume 83.2 fL (83.0-100.0); Platelet Count 324 K/mcL (140-400); Red Blood Count 4.05 M/mcL (4.19-5.50); White Blood Count 18.3 K/mcL (4.3-11.1)
[2019-01-29 13:08] LABS: Calcium 7.4 mg/dL (8.6-10.3); Potassium 5.2 mEq/L (3.5-5.1)
[2019-01-29 13:21] LABS: Lymphocytes # 2.6 K/mcL (0.6-4.6); Monocytes # 0.4 K/mcL (0.0-1.3); Neutrophils # 15.4 K/mcL (1.6-8.9)
[2019-01-29 13:23] LABS: Platelet Estimate Increased (Normal)
[2019-01-29] MEDS: Melatonin 3 MG TABLET PO SCH (20:15)
[2019-01-29] MEDS: *HR* Heparin 5,000 UNIT/ML VIAL SQ SCH (20:16)
[2019-01-30] MEDS: Ipratropium/Albuterol Neb 3 ML IH SCH ×7 (00:04→23:31)
[2019-01-30] MEDS: Piperacillin/Tazobactam 3.375 GM in 0.9 % Sodium Chloride Mini Bag 100 ML IVPB SCH ×2 (03:48→18:47)
[2019-01-30 04:13] LABS: Hematocrit 33.2 % (37.5-50.1); Hemoglobin 11.2 g/dL (12.9-16.9); Mean Corpuscular HGB Conc 33.7 g/dL (31.6-35.5); Mean Corpuscular Hemoglobin 28.4 pg (28.0-33.3); Mean Corpuscular Volume 84.1 fL (83.0-100.0); Mean Platelet Volume 9.9 fL (9.4-12.4); Nucleated Red Blood Cells 0.1 /100 WBC (0); Platelet Count 308 K/mcL (140-400); Red Blood Count 3.95 M/mcL (4.19-5.50); Red Cell Distribution Width 16.3 % (11.5-14.5); White Blood Count 22.6 K/mcL (4.3-11.1)
[2019-01-30 04:32] LABS: Potassium 5.2 mEq/L (3.5-5.1)
[2019-01-30 04:38] LABS: Platelet Estimate Normal (Normal)
[2019-01-30 04:40] LABS: Anisocytosis 1+ (Not Present); Hypochromasia Present (Not Present); Lymphocytes # 3.2 K/mcL (0.6-4.6); Monocytes # 1.4 K/mcL (0.0-1.3); Neutrophils # 17.6 K/mcL (1.6-8.9); Reactive Lymphocytes Present (Not Present)
[2019-01-30] MEDS: methylPREDNISolone 125 MG/2 ML VIAL IVP SCH ×2 (05:15→18:47)
[2019-01-30] MEDS: *HR* OxyCODONE Immed Rel 5 MG TABLET PO PRN (05:15)
[2019-01-30] MEDS: *HR* Heparin 5,000 UNIT/ML VIAL SQ SCH ×3 (05:16→20:03)
[2019-01-30] MEDS: Budesonide/Formoterol 160/4.5 1 PUFF INH IH SCH ×2 (07:27→20:28)
[2019-01-30] MEDS: Gabapentin 300 MG CAPSULE PO SCH ×2 (09:26→20:02)
[2019-01-30] MEDS: *HR* OxyCODONE ER (12 HR) 10 MG TABLET PO SCH ×2 (11:08→18:47)
[2019-01-30] MEDS ORDERED: 0.9 % Sodium Chloride 1,000 ML PRIME SCH (11:45)
[2019-01-30] MEDS ORDERED: *HR* Heparin 10,000 UNIT/10 ML VIAL IV PRN (11:45)
[2019-01-30] MEDS ORDERED: 0.9 % Sodium Chloride 250 ML IVC PRN (11:45)
[2019-01-30] MEDS: Melatonin 3 MG TABLET PO SCH (20:02)
[2019-01-31] MEDS: *HR* OxyCODONE Immed Rel 5 MG TABLET PO PRN ×2 (03:07→13:50)
[2019-01-31] MEDS: Piperacillin/Tazobactam 3.375 GM in 0.9 % Sodium Chloride Mini Bag 100 ML IVPB SCH ×2 (03:13→17:19)
[2019-01-31 03:32] LABS: Hematocrit 34.2 % (37.5-50.1); Mean Corpuscular HGB Conc 32.2 g/dL (31.6-35.5); Mean Corpuscular Hemoglobin 27.4 pg (28.0-33.3); Mean Corpuscular Volume 85.1 fL (83.0-100.0); Mean Platelet Volume 9.9 fL (9.4-12.4); Nucleated Red Blood Cells 0.1 /100 WBC (0); Platelet Count 312 K/mcL (140-400); Red Blood Count 4.02 M/mcL (4.19-5.50); Red Cell Distribution Width 16.5 % (11.5-14.5); White Blood Count 18.2 K/mcL (4.3-11.1)
[2019-01-31 03:50] LABS: Calcium 7.3 mg/dL (8.6-10.3); Potassium 5.4 mEq/L (3.5-5.1)
[2019-01-31] MEDS: Ipratropium/Albuterol Neb 3 ML IH SCH ×6 (04:22→20:22)
[2019-01-31 05:02] LABS: Lymphocytes # 0.4 K/mcL (0.6-4.6); Monocytes # 1.5 K/mcL (0.0-1.3); Neutrophils # 16.4 K/mcL (1.6-8.9); Platelet Estimate Normal (Normal)
[2019-01-31] MEDS: methylPREDNISolone 125 MG/2 ML VIAL IVP SCH ×2 (05:49→17:21)
[2019-01-31] MEDS: *HR* OxyCODONE ER (12 HR) 10 MG TABLET PO SCH ×2 (05:49→17:21)
[2019-01-31] MEDS: *HR* Heparin 5,000 UNIT/ML VIAL SQ SCH ×4 (05:49→20:47)
[2019-01-31] MEDS: Budesonide/Formoterol 160/4.5 1 PUFF INH IH SCH ×3 (07:21→20:22)
[2019-01-31] MEDS ORDERED: *HR* Heparin 10,000 UNIT/10 ML VIAL IV PRN (07:37)
[2019-01-31] MEDS ORDERED: 0.9 % Sodium Chloride 250 ML IVC PRN (07:37)
[2019-01-31] MEDS ORDERED: 0.9 % Sodium Chloride 1,000 ML PRIME SCH (07:45)
[2019-01-31] MEDS: Gabapentin 300 MG CAPSULE PO SCH ×2 (07:55→20:39)
[2019-01-31 15:55] LABS: Bilirubin,Urine Negative (Negative); Blood,Urine Large (Negative); Clarity,Urine Cloudy (Clear); Color,Urine Yellow (Yellow); Glucose,Urine (UA) 100 mg/dL (Normal); Ketones,Urine Negative (Negative); Leukocyte Esterase,Urine Moderate (Negative); Nitrite,Urine Negative (Negative); PH,Urine 5.5 pH Units (5.0-8.0); Protein,Urine 100 mg/dL (Neg-Trace); Specific Gravity,Urine 1.014 (1.010-1.025); Urobilinogen,Urine Normal (Normal)
[2019-01-31 16:00] LABS: Bacteria,Urine None Seen per hpf (None-Few); Squamous Epithelial Cell,Urine Many per lpf (None-Few); WBC,Urine 30-50 per hpf (0-3)
[2019-01-31 16:28] LABS: Protein/Creatinine Ratio,Urine 3.37 mg/mg (0.00-0.20); Sodium, Urine 47.6 mEq/L
[2019-01-31] MEDS ORDERED: methylPREDNISolone 4 MG TABLET PO SCH (17:00)
[2019-01-31 17:23] LABS: Hyaline Casts,Urine Few per lpf (None-Few); RBC,Urine 15-30 per hpf (0-3)
[2019-01-31] MEDS: Melatonin 3 MG TABLET PO SCH (20:39)
[2019-02-01] MEDS: Ipratropium/Albuterol Neb 3 ML IH SCH ×4 (00:05→11:10)
[2019-02-01 03:09] LABS: Hematocrit 34.9 % (37.5-50.1); Mean Corpuscular Hemoglobin 27.8 pg (28.0-33.3)
[2019-02-01 03:10] LABS: Hemoglobin 11.4 g/dL (12.9-16.9); Mean Corpuscular HGB Conc 32.7 g/dL (31.6-35.5); Mean Corpuscular Volume 85.1 fL (83.0-100.0); Mean Platelet Volume 9.6 fL (9.4-12.4); Platelet Count 287 K/mcL (140-400); Red Cell Distribution Width 16.4 % (11.5-14.5); White Blood Count 25.8 K/mcL (4.3-11.1)
[2019-02-01 03:30] LABS: Calcium 7.3 mg/dL (8.6-10.3); Potassium 4.9 mEq/L (3.5-5.1)
[2019-02-01 03:56] LABS: Lymphocytes # 4.6 K/mcL (0.6-4.6); Neutrophils # 19.1 K/mcL (1.6-8.9); Platelet Estimate Normal (Normal); Smudge Cells Present (Not Present)
[2019-02-01 03:57] LABS: Large Platelets Present (Not Present); Polychromasia 1+ (Not Present)
[2019-02-01] MEDS: *HR* OxyCODONE ER (12 HR) 10 MG TABLET PO SCH ×2 (05:09→18:10)
[2019-02-01] MEDS: *HR* Heparin 5,000 UNIT/ML VIAL SQ SCH ×2 (05:16→13:56)
[2019-02-01] MEDS: Piperacillin/Tazobactam 3.375 GM in 0.9 % Sodium Chloride Mini Bag 100 ML IVPB SCH ×2 (05:16→17:07)
[2019-02-01] MEDS: methylPREDNISolone 4 MG TABLET PO SCH ×4 (09:34→20:21)
[2019-02-01] MEDS: Gabapentin 300 MG CAPSULE PO SCH ×2 (09:34→20:21)
[2019-02-01] MEDS: Budesonide/Formoterol 160/4.5 1 PUFF INH IH SCH ×2 (11:10→21:56)
[2019-02-01] MEDS ORDERED: Ipratropium/Albuterol Neb 3 ML IH PRN (11:21)
[2019-02-01] MEDS: *HR* OxyCODONE Immed Rel 5 MG TABLET PO PRN (14:01)
[2019-02-01] MEDS: Melatonin 3 MG TABLET PO SCH (20:20)
[2019-02-02] MEDS: *HR* OxyCODONE Immed Rel 5 MG TABLET PO PRN ×2 (03:23→20:10)
[2019-02-02] MEDS: Piperacillin/Tazobactam 3.375 GM in 0.9 % Sodium Chloride Mini Bag 100 ML IVPB SCH ×2 (03:25→16:49)
[2019-02-02 04:12] LABS: Mean Platelet Volume 10.1 fL (9.4-12.4)
[2019-02-02 04:14] LABS: Hematocrit 35.2 % (37.5-50.1); Hemoglobin 11.3 g/dL (12.9-16.9); Mean Corpuscular HGB Conc 32.1 g/dL (31.6-35.5); Mean Corpuscular Volume 87.1 fL (83.0-100.0); Platelet Count 276 K/mcL (140-400); Red Blood Count 4.04 M/mcL (4.19-5.50); Red Cell Distribution Width 17.1 % (11.5-14.5); White Blood Count 24.5 K/mcL (4.3-11.1)
[2019-02-02 04:23] LABS: Calcium 7.1 mg/dL (8.6-10.3); Potassium 5.2 mEq/L (3.5-5.1)
[2019-02-02 04:50] LABS: Lymphocytes # 5.9 K/mcL (0.6-4.6); Monocytes # 1.5 K/mcL (0.0-1.3); Neutrophils # 17.2 K/mcL (1.6-8.9)
[2019-02-02 04:51] LABS: Anisocytosis 1+ (Not Present); Platelet Estimate Normal (Normal)
[2019-02-02] MEDS: *HR* OxyCODONE ER (12 HR) 10 MG TABLET PO SCH ×2 (05:08→17:00)
[2019-02-02] MEDS: *HR* Heparin 5,000 UNIT/ML VIAL SQ SCH ×3 (05:08→20:14)
[2019-02-02] MEDS: Budesonide/Formoterol 160/4.5 1 PUFF INH IH SCH ×2 (07:32→19:59)
[2019-02-02] MEDS: methylPREDNISolone 4 MG TABLET PO SCH ×3 (09:10→16:50)
[2019-02-02] MEDS: Gabapentin 300 MG CAPSULE PO SCH ×2 (09:11→20:10)
[2019-02-02] MEDS: Melatonin 3 MG TABLET PO SCH (20:09)
[2019-02-02] MEDS ORDERED: methylPREDNISolone 4 MG TABLET PO SCH (21:00)
[2019-02-03 03:22] LABS: Platelet Count 257 K/mcL (140-400)
[2019-02-03 03:23] LABS: Eosinophils # 0.3 K/mcL (0.0-0.6); Mean Corpuscular HGB Conc 31.4 g/dL (31.6-35.5); Mean Corpuscular Volume 89.1 fL (83.0-100.0); Mean Platelet Volume 10.1 fL (9.4-12.4); Red Blood Count 3.93 M/mcL (4.19-5.50); Red Cell Distribution Width 17.3 % (11.5-14.5); White Blood Count 27.5 K/mcL (4.3-11.1)
[2019-02-03 03:25] LABS: Calcium 7.1 mg/dL (8.6-10.3); Potassium 5.6 mEq/L (3.5-5.1)
[2019-02-03 04:49] LABS: Lymphocytes # 5.2 K/mcL (0.6-4.6); Monocytes # 1.1 K/mcL (0.0-1.3); Neutrophils # 20.6 K/mcL (1.6-8.9)
[2019-02-03 04:50] LABS: Platelet Estimate Normal (Normal); Reactive Lymphocytes Present (Not Present)
[2019-02-03] MEDS: *HR* Heparin 5,000 UNIT/ML VIAL SQ SCH ×3 (05:53→20:51)
[2019-02-03] MEDS: *HR* OxyCODONE ER (12 HR) 10 MG TABLET PO SCH ×2 (05:54→17:33)
[2019-02-03] MEDS ORDERED: 0.9 % Sodium Chloride 250 ML IVC PRN (06:50)
[2019-02-03] MEDS: Budesonide/Formoterol 160/4.5 1 PUFF INH IH SCH ×2 (07:29→20:38)
[2019-02-03] MEDS: methylPREDNISolone 4 MG TABLET PO SCH ×4 (08:12→20:51)
[2019-02-03] MEDS: Gabapentin 300 MG CAPSULE PO SCH ×2 (08:12→20:50)
[2019-02-03] MEDS: *HR* OxyCODONE Immed Rel 5 MG TABLET PO PRN (13:18)
[2019-02-03] MEDS ORDERED: *HR* Midazolam HCl 2 MG/2 ML VIAL IVP ONE (14:42)
[2019-02-03] MEDS ORDERED: *HR* FentaNYL (PF) 100 MCG/2 ML VIAL IVP PRN (14:42)
[2019-02-03] MEDS ORDERED: Clindamycin 600 MG/50 ML 600 MG/50 ML IV.SOLN IVPB STA (14:43)
[2019-02-03] MEDS ORDERED: Heparin 1,000 UNITS/500 mL 500 ML ONE (14:46)
[2019-02-03] MEDS ORDERED: 0.9 % Sodium Chloride 500 ML ONE (15:06)
[2019-02-03] MEDS ORDERED: *HR* FentaNYL (PF) 100 MCG/2 ML VIAL IVP ONE (15:11)
[2019-02-03] MEDS ORDERED: *HR* FentaNYL (PF) 100 MCG/2 ML VIAL ONE (15:15)
[2019-02-03] MEDS ORDERED: *HR* Heparin 5,000 UNIT/ML VIAL ONE (15:22)
[2019-02-03] MEDS: Melatonin 3 MG TABLET PO SCH (20:50)
[2019-02-04] MEDS: *HR* OxyCODONE Immed Rel 5 MG TABLET PO PRN ×2 (01:41→12:35)
[2019-02-04 02:52] LABS: Hematocrit 34.3 % (37.5-50.1); Hemoglobin 10.6 g/dL (12.9-16.9); Mean Corpuscular HGB Conc 30.9 g/dL (31.6-35.5); Mean Corpuscular Hemoglobin 27.9 pg (28.0-33.3); Mean Corpuscular Volume 90.3 fL (83.0-100.0); Mean Platelet Volume 10.4 fL (9.4-12.4); Platelet Count 237 K/mcL (140-400); Red Cell Distribution Width 17.5 % (11.5-14.5)
[2019-02-04 03:00] LABS: Calcium 7.2 mg/dL (8.6-10.3); Potassium 4.9 mEq/L (3.5-5.1)
[2019-02-04 03:31] LABS: Lymphocytes # 1.9 K/mcL (0.6-4.6); Monocytes # 1.4 K/mcL (0.0-1.3); Neutrophils # 18.7 K/mcL (1.6-8.9); Platelet Estimate Normal (Normal); Toxic Granulation Present (Not Present)
[2019-02-04 03:32] LABS: Reactive Lymphocytes Present (Not Present)
[2019-02-04] MEDS: *HR* OxyCODONE ER (12 HR) 10 MG TABLET PO SCH ×2 (05:28→17:18)
[2019-02-04] MEDS: *HR* Heparin 5,000 UNIT/ML VIAL SQ SCH ×3 (05:29→21:49)
[2019-02-04] MEDS: Budesonide/Formoterol 160/4.5 1 PUFF INH IH SCH ×2 (07:45→19:46)
[2019-02-04] MEDS: methylPREDNISolone 4 MG TABLET PO SCH ×3 (07:49→17:18)
[2019-02-04] MEDS: Gabapentin 300 MG CAPSULE PO SCH ×2 (07:49→21:49)
[2019-02-04] MEDS ORDERED: methylPREDNISolone 4 MG TABLET PO SCH (11:30)
[2019-02-04] MEDS ORDERED: levoFLOXacin 750 MG TABLET PO ONE (12:16)
[2019-02-04] MEDS: Melatonin 3 MG TABLET PO SCH (21:49)
[2019-02-05 05:56] LABS: Hematocrit 31.8 % (37.5-50.1); Hemoglobin 9.9 g/dL (12.9-16.9); Mean Corpuscular HGB Conc 31.1 g/dL (31.6-35.5)
[2019-02-05 05:57] LABS: Mean Corpuscular Volume 90.1 fL (83.0-100.0); Mean Platelet Volume 10.1 fL (9.4-12.4); Platelet Count 196 K/mcL (140-400); Red Blood Count 3.53 M/mcL (4.19-5.50); Red Cell Distribution Width 17.3 % (11.5-14.5); White Blood Count 24.8 K/mcL (4.3-11.1)
[2019-02-05 06:14] LABS: Calcium 7.1 mg/dL (8.6-10.3); Potassium 5.4 mEq/L (3.5-5.1)
[2019-02-05 06:23] LABS: Anisocytosis 1+ (Not Present); Basophilic Stippling 1+ (Not Present); Eosinophils # 0.5 K/mcL (0.0-0.6); Monocytes # 0.5 K/mcL (0.0-1.3); Neutrophils # 16.9 K/mcL (1.6-8.9); Platelet Estimate Normal (Normal); Polychromasia 1+ (Not Present)
[2019-02-05] MEDS: *HR* Heparin 5,000 UNIT/ML VIAL SQ SCH ×3 (06:24→21:21)
[2019-02-05] MEDS: *HR* OxyCODONE ER (12 HR) 10 MG TABLET PO SCH ×2 (06:24→18:25)
[2019-02-05] MEDS ORDERED: 0.9 % Sodium Chloride 250 ML IVC PRN (06:54)
[2019-02-05] MEDS: Budesonide/Formoterol 160/4.5 1 PUFF INH IH SCH ×2 (07:46→19:38)
[2019-02-05] MEDS ORDERED: levoFLOXacin 500 MG TABLET PO SCH (09:00)
[2019-02-05] MEDS ORDERED: *HR* Heparin 10,000 UNIT/10 ML VIAL IV PRN (09:47)
[2019-02-05] MEDS: *HR* OxyCODONE Immed Rel 5 MG TABLET PO PRN (12:24)
[2019-02-05] MEDS: methylPREDNISolone 4 MG TABLET PO SCH ×2 (13:47→18:25)
[2019-02-05] MEDS: Gabapentin 300 MG CAPSULE PO SCH ×2 (13:47→21:21)
[2019-02-05] MEDS: Acetaminophen 325 MG TABLET PO PRN (17:07)
[2019-02-05] MEDS ORDERED: Ondansetron 4 MG/2 ML VIAL IVP PRN (17:30)
[2019-02-05] MEDS: Melatonin 3 MG TABLET PO SCH (21:21)
[2019-02-06] MEDS: *HR* Heparin 5,000 UNIT/ML VIAL SQ SCH ×2 (05:40→15:12)
[2019-02-06] MEDS: *HR* OxyCODONE ER (12 HR) 10 MG TABLET PO SCH ×2 (05:40→16:59)
[2019-02-06 05:55] LABS: Hematocrit 31.6 % (37.5-50.1); Hemoglobin 9.9 g/dL (12.9-16.9); Mean Corpuscular HGB Conc 31.3 g/dL (31.6-35.5); Mean Corpuscular Hemoglobin 27.7 pg (28.0-33.3); Mean Corpuscular Volume 88.5 fL (83.0-100.0); Platelet Count 169 K/mcL (140-400); Red Blood Count 3.57 M/mcL (4.19-5.50); Red Cell Distribution Width 17.2 % (11.5-14.5); White Blood Count 18.5 K/mcL (4.3-11.1)
[2019-02-06 06:26] LABS: Anisocytosis 1+ (Not Present); Lymphocytes # 2.6 K/mcL (0.6-4.6); Monocytes # 0.4 K/mcL (0.0-1.3); Neutrophils # 15.2 K/mcL (1.6-8.9); Platelet Estimate Normal (Normal)
[2019-02-06 06:54] LABS: Calcium 7.7 mg/dL (8.6-10.3); Potassium 5.5 mEq/L (3.5-5.1)
[2019-02-06 06:57] LABS: % Iron Saturation 35 % (20-55); Iron 75 mcg/dL (65-175); Transferrin 155 mg/dL (203-362)
[2019-02-06] MEDS: Gabapentin 300 MG CAPSULE PO SCH (08:37)
[2019-02-06] MEDS ORDERED: methylPREDNISolone 4 MG TABLET PO SCH (09:00)
[2019-02-06] MEDS: Budesonide/Formoterol 160/4.5 1 PUFF INH IH SCH (10:55)
[2019-02-06] MEDS ORDERED: 0.9 % Sodium Chloride 250 ML IVC PRN (11:30)
[2019-02-06] MEDS ORDERED: Ondansetron ODT 4 MG TAB.RAPDIS SL PRN (11:42)
[2019-02-06] MEDS: Acetaminophen 325 MG TABLET PO PRN (11:56)
[2019-02-06] MEDS ORDERED: *HR* Heparin 10,000 UNIT/10 ML VIAL IV PRN (13:08)
[2019-02-06] MEDS: *HR* OxyCODONE Immed Rel 5 MG TABLET PO PRN (15:12)
[2019-02-06 15:51] VITALS: BP 124/57
== END 2019-02-06 17:56 | DRG 871 ==
LOC: 2NENU 15:58 → EMEROOARM 15:58 → SUATTDRO 21:18 → 2NENU 21:51 → ICNU 01-26 06:52 → SUATTDRO 01-26 14:24 → 2ANU 01-28 21:53
PROVIDERS: ADMIT Internal Medicine; ATTEND Internal Medicine
PROC: IRPERMA (2019-02-03 14:00)

== ENCOUNTER 2019-02-10 00:58 | Inpatient (IN) ==
[2019-02-10] MEDS ORDERED: Piperacillin/Tazobactam 3.375 GM in 0.9 % Sodium Chloride Mini Bag 100 ML IVPB ONE (01:09)
[2019-02-10] MEDS ORDERED: 0.9 % Sodium Chloride 500 ML IVC ONE (01:13)
[2019-02-10] MEDS ORDERED: Isovue-370 500 ML BOTTLE IVP ONE ×2 (01:30→02:04)
[2019-02-10 01:37] LABS: ABG Base Excess 1 mEq/L (-2 to 3); ABG HCO3 29 mEq/L (21-27); ABG Oxygen Saturation 95 % (95-98); ABG PCO2 59 mmHg (35-45); ABG PH 7.29 pH Units (7.32-7.45); ABG PO2 88 mmHg (85-104); ABG TCO2 30 mEq/L (20-26); Blood Gas Modality BiLevel
[2019-02-10 01:45] LABS: Basophils % 0.2 %; Eosinophils # 0.2 K/mcL (0.0-0.6); Hematocrit 28.7 % (37.5-50.1); Hemoglobin 8.6 g/dL (12.9-16.9); Immature Granulocytes % 2.5 % (0-4); Lymphocytes # 1.6 K/mcL (0.6-4.6); Lymphocytes % 8.6 %; Mean Corpuscular Hemoglobin 27.6 pg (28.0-33.3); Mean Platelet Volume 9.5 fL (9.4-12.4); Monocytes # 1.2 K/mcL (0.0-1.3); Monocytes % 6.5 %; Neutrophils # 15.5 K/mcL (1.6-8.9); Platelet Count 151 K/mcL (140-400); Red Blood Count 3.12 M/mcL (4.19-5.50); Red Cell Distribution Width 17.4 % (11.5-14.5); Segmented Neutrophils % 81.2 %; White Blood Count 19.1 K/mcL (4.3-11.1)
[2019-02-10 02:06] LABS: Alanine Aminotransferase 14 Units/L (7-52); Albumin 2.9 g/dL (3.5-5.7); Albumin/Globulin Ratio 0.9 (1.1-2.2); Alkaline Phosphatase 62 Units/L (34-104); Aspartate Amino Transferase 11 Units/L (13-39); BUN/Creatinine Ratio 5 (6-26); Bilirubin,Direct 0.2 mg/dL (0.0-0.2); Bilirubin,Indirect 0.1 mg/dL (0.0-1.2); Bilirubin,Total 0.3 mg/dL (0.3-1.0); Blood Urea Nitrogen 41 mg/dL (6-20); Calcium 8.6 mg/dL (8.6-10.3); Carbon Dioxide 30 mEq/L (23-29); Chloride 95 mEq/L (98-107); Globulin 3.1 g/dL (2.4-3.5); Glucose 119 mg/dL (70-105); Osmolality,Calculated 289 (280-300); Potassium 4.9 mEq/L (3.5-5.1); Sodium 134 mEq/L (136-145); Troponin I < 0.03 ng/mL (< 0.04); Uric Acid 5.6 mg/dL (2.3-7.6); eGFR For African Americans 9 (> 60); eGFR For Non-African Americans 7 (> 60)
[2019-02-10] MEDS ORDERED: *HR* Heparin 5,000 UNIT/ML VIAL IVP ONE (04:00)
[2019-02-10] MEDS ORDERED: *HR* Heparin 5,000 UNIT/ML VIAL IVP PRN ×2 (04:00)
[2019-02-10] MEDS ORDERED: Azithromycin 500 MG in 0.9 % Sodium Chloride 250 ML IVPB ONE (04:08)
[2019-02-10 04:10] LABS: Bilirubin,Urine Negative (Negative); Blood,Urine Moderate (Negative); Clarity,Urine Clear (Clear); Color,Urine Yellow (Yellow); Glucose,Urine (UA) Normal (Normal); Ketones,Urine Negative (Negative); Leukocyte Esterase,Urine Negative (Negative); Nitrite,Urine Negative (Negative); PH,Urine 5.5 pH Units (5.0-8.0); Protein,Urine 100 mg/dL (Neg-Trace); Urobilinogen,Urine Normal (Normal)
[2019-02-10 04:13] LABS: Bacteria,Urine None Seen per hpf (None-Few); Hyaline Casts,Urine None Seen per lpf (None-Few); Squamous Epithelial Cell,Urine Many per lpf (None-Few)
[2019-02-10 04:23] LABS: Yeast,Urine Few per hpf (None Seen)
[2019-02-10 04:39] LABS: Heparin anti-factor XA UFH 0.01 IU/mL (0.30-0.70); Prothrombin Time 11.6 Seconds (9.4-12.1)
[2019-02-10] MEDS: Heparin 25,000 UNIT/250 ML D5W 25,000 UNIT/250 ML IV.SOLN IVC SCH ×2 (04:55→17:00)
[2019-02-10] MEDS ORDERED: Ondansetron 4 MG/2 ML VIAL IVP PRN (05:17)
[2019-02-10] MEDS ORDERED: Naloxone 0.4 MG/ML INJ IVP PRN (05:17)
[2019-02-10 06:47] LABS: Basophils # 0.1 K/mcL (0.0-0.2); Basophils % 0.3 %; Eosinophils # 0.2 K/mcL (0.0-0.6); Eosinophils % 1.2 %; Hematocrit 26.7 % (37.5-50.1); Hemoglobin 8.2 g/dL (12.9-16.9); Immature Granulocytes % 2.4 % (0-4); Lymphocytes # 2.2 K/mcL (0.6-4.6); Mean Corpuscular HGB Conc 30.7 g/dL (31.6-35.5); Mean Corpuscular Volume 91.1 fL (83.0-100.0); Mean Platelet Volume 10.1 fL (9.4-12.4); Monocytes # 1.2 K/mcL (0.0-1.3); Neutrophils # 15.8 K/mcL (1.6-8.9); Platelet Count 149 K/mcL (140-400); Red Blood Count 2.93 M/mcL (4.19-5.50); Red Cell Distribution Width 17.5 % (11.5-14.5); Segmented Neutrophils % 79.1 %
[2019-02-10 06:49] LABS: ABG Base Excess 0 mEq/L (-2 to 3); ABG HCO3 28 mEq/L (21-27); ABG Oxygen Saturation 71 % (95-98); ABG PCO2 63 mmHg (35-45); ABG PH 7.25 pH Units (7.32-7.45); ABG PO2 45 mmHg (85-104); ABG TCO2 29 mEq/L (20-26)
[2019-02-10 06:59] LABS: ABG Base Excess -3 mEq/L (-2 to 3); ABG HCO3 25 mEq/L (21-27); ABG Oxygen Saturation 91 % (95-98); ABG PCO2 62 mmHg (35-45); ABG PH 7.22 pH Units (7.32-7.45); ABG PO2 76 mmHg (85-104); ABG TCO2 27 mEq/L (20-26)
[2019-02-10] MEDS ORDERED: Azithromycin 500 MG in 0.9 % Sodium Chloride 250 ML IVPB SCH (07:00)
[2019-02-10] MEDS ORDERED: Vancomycin 1 EACH in 0.9 % Sodium Chloride 250 ML IVPB SCH (07:00)
[2019-02-10 07:07] LABS: Albumin 2.5 g/dL (3.5-5.7); Bilirubin,Total 0.2 mg/dL (0.3-1.0); Calcium 7.9 mg/dL (8.6-10.3); Globulin 2.6 g/dL (2.4-3.5); Phosphorous 7.8 mg/dL (2.7-4.5); Potassium 4.8 mEq/L (3.5-5.1); Total Protein 5.1 g/dL (6.4-8.9)
[2019-02-10] MEDS ORDERED: Piperacillin/Tazobactam 3.375 GM in 0.9 % Sodium Chloride Mini Bag 100 ML IVPB SCH (08:00)
[2019-02-10] MEDS ORDERED: *HR* Heparin 10,000 UNIT/10 ML VIAL IV PRN (09:09)
[2019-02-10] MEDS ORDERED: 0.9 % Sodium Chloride 250 ML IVC PRN (09:09)
[2019-02-10] MEDS ORDERED: 0.9 % Sodium Chloride 1,000 ML PRIME SCH ×2 (09:15→13:00)
[2019-02-10] MEDS ORDERED: Albumin 25% 25gram/100mL 25 GM/100 ML IV.SOLN IVPB PRN (09:55)
[2019-02-10] MEDS: Piperacillin/Tazobactam 3.375 GM in 0.9 % Sodium Chloride Mini Bag 100 ML IVPB SCH ×2 (10:06→17:45)
[2019-02-10] MEDS ORDERED: Darbepoetin 100 MCG/0.5 ML SYRINGE SQ SCH (10:15)
[2019-02-10] MEDS ORDERED: Vancomycin 1 EACH in 0.9 % Sodium Chloride 250 ML IVPB PRN (10:30)
[2019-02-10] MEDS ORDERED: Acetaminophen 650 MG RECTAL SUPP RC PRN (12:36)
[2019-02-10] MEDS ORDERED: Acetaminophen 325 MG TABLET PO PRN (12:36)
[2019-02-10 12:42] LABS: ABG Base Excess 0 mEq/L (-2 to 3); ABG HCO3 30 mEq/L (21-27); ABG Oxygen Saturation 90 % (95-98); ABG PCO2 84 mmHg (35-45); ABG PH 7.16 pH Units (7.32-7.45); ABG PO2 79 mmHg (85-104); ABG TCO2 32 mEq/L (20-26); Blood Gas Modality NIV; Blood Gas VT 500 cc
[2019-02-10] MEDS ORDERED: *HR* Heparin 5,000 UNIT/ML VIAL IV PRN (12:47)
[2019-02-10] MEDS ORDERED: 0.9 % Sodium Chloride 1,000 ML PRIME ONE ×2 (12:47)
[2019-02-10] MEDS ORDERED: *HR* Alteplase (Cathflo) 2 MG VIAL IVP PRN (12:47)
[2019-02-10] MEDS: PrismaSATE BGK 4/2.5 5,000 ML CRRT SCH ×6 (14:00→21:05)
[2019-02-10] MEDS: Pantoprazole 40 MG VIAL IVP SCH (15:27)
[2019-02-11] MEDS: PrismaSATE BGK 4/2.5 5,000 ML CRRT SCH ×10 (00:05→18:17)
[2019-02-11 04:24] LABS: Basophils % 0.4 %; Eosinophils # 0.5 K/mcL (0.0-0.6); Eosinophils % 4.3 %; Hematocrit 24.8 % (37.5-50.1); Hemoglobin 7.5 g/dL (12.9-16.9); Immature Granulocytes % 2.5 % (0-4); Lymphocytes # 1.3 K/mcL (0.6-4.6); Lymphocytes % 11.6 %; Mean Corpuscular HGB Conc 30.2 g/dL (31.6-35.5); Mean Corpuscular Hemoglobin 27.6 pg (28.0-33.3); Mean Corpuscular Volume 91.2 fL (83.0-100.0); Mean Platelet Volume 9.8 fL (9.4-12.4); Monocytes # 0.8 K/mcL (0.0-1.3); Monocytes % 6.7 %; Neutrophils # 8.4 K/mcL (1.6-8.9); Platelet Count 119 K/mcL (140-400); Red Blood Count 2.72 M/mcL (4.19-5.50); Red Cell Distribution Width 17.3 % (11.5-14.5); Segmented Neutrophils % 74.5 %; White Blood Count 11.3 K/mcL (4.3-11.1)
[2019-02-11] MEDS: Heparin 25,000 UNIT/250 ML D5W 25,000 UNIT/250 ML IV.SOLN IVC SCH ×3 (04:26→23:56)
[2019-02-11] MEDS: Norepinephrine 4 MG in 0.9 % Sodium Chloride 250 ML IVC SCH (04:26)
[2019-02-11 04:29] LABS: Calcium 7.7 mg/dL (8.6-10.3); Potassium 4.6 mEq/L (3.5-5.1)
[2019-02-11 04:59] LABS: ABG Base Excess 1 mEq/L (-2 to 3); ABG HCO3 29 mEq/L (21-27); ABG Oxygen Saturation 95 % (95-98); ABG PCO2 63 mmHg (35-45); ABG PH 7.26 pH Units (7.32-7.45); ABG PO2 86 mmHg (85-104); ABG TCO2 30 mEq/L (20-26); Blood Gas Modality BiLevel; Blood Gas VT 550 cc
[2019-02-11] MEDS: Piperacillin/Tazobactam 3.375 GM in 0.9 % Sodium Chloride Mini Bag 100 ML IVPB SCH ×3 (05:02→19:58)
[2019-02-11] MEDS ORDERED: Azithromycin 500 MG in 0.9 % Sodium Chloride 250 ML IVPB SCH (06:00)
[2019-02-11] MEDS: Pantoprazole 40 MG VIAL IVP SCH (08:22)
[2019-02-11] MEDS: *HR* OxyCODONE Immed Rel 5 MG TABLET PO SCH ×3 (10:43→22:01)
[2019-02-11] MEDS ORDERED: Sennosides/Docusate Sodium TABLET PO PRN (11:02)
[2019-02-11] MEDS: Gabapentin 300 MG CAPSULE PO SCH (16:01)
[2019-02-11] MEDS ORDERED: *HR* OxyCODONE ER (12 HR) 10 MG TABLET PO SCH (18:00)
[2019-02-11] MEDS ORDERED: Warfarin perPT PO PRN (18:00)
[2019-02-11] MEDS ORDERED: *HR* Warfarin 5 MG TABLET PO ONE (18:00)
[2019-02-11] MEDS ORDERED: hydrOXYzine pamoate 25 MG CAPSULE PO PRN (22:14)
[2019-02-12] MEDS: Piperacillin/Tazobactam 3.375 GM in 0.9 % Sodium Chloride Mini Bag 100 ML IVPB SCH (04:19)
[2019-02-12] MEDS: *HR* OxyCODONE Immed Rel 5 MG TABLET PO SCH ×4 (04:19→21:38)
[2019-02-12] MEDS: Norepinephrine 4 MG in 0.9 % Sodium Chloride 250 ML IVC SCH (04:20)
[2019-02-12 04:23] LABS: Basophils % 0.2 %; Eosinophils # 0.6 K/mcL (0.0-0.6); Eosinophils % 5.3 %; Hematocrit 24.2 % (37.5-50.1); Hemoglobin 7.3 g/dL (12.9-16.9); Lymphocytes # 1.7 K/mcL (0.6-4.6); Lymphocytes % 15.7 %; Mean Corpuscular HGB Conc 30.2 g/dL (31.6-35.5); Mean Corpuscular Hemoglobin 28.2 pg (28.0-33.3); Mean Corpuscular Volume 93.4 fL (83.0-100.0); Mean Platelet Volume 9.8 fL (9.4-12.4); Neutrophils # 7.3 K/mcL (1.6-8.9); Platelet Count 121 K/mcL (140-400); Red Blood Count 2.59 M/mcL (4.19-5.50); Red Cell Distribution Width 17.2 % (11.5-14.5); Segmented Neutrophils % 67.8 %; White Blood Count 10.8 K/mcL (4.3-11.1)
[2019-02-12 04:38] LABS: Calcium 7.7 mg/dL (8.6-10.3); Potassium 4.6 mEq/L (3.5-5.1)
[2019-02-12 04:57] LABS: ABG Base Excess 2 mEq/L (-2 to 3); ABG HCO3 30 mEq/L (21-27); ABG Oxygen Saturation 95 % (95-98); ABG PCO2 63 mmHg (35-45); ABG PH 7.29 pH Units (7.32-7.45); ABG PO2 90 mmHg (85-104); ABG TCO2 32 mEq/L (20-26); Blood Gas Modality BiLevel
[2019-02-12 05:13] LABS: INR 1.2; Prothrombin Time 13.6 Seconds (9.4-12.1)
[2019-02-12] MEDS: Pantoprazole 40 MG VIAL IVP SCH (08:08)
[2019-02-12] MEDS: Gabapentin 300 MG CAPSULE PO SCH (08:09)
[2019-02-12] MEDS ORDERED: 0.9 % Sodium Chloride 250 ML IVC PRN ×2 (09:19→19:30)
[2019-02-12] MEDS ORDERED: *HR* Heparin 10,000 UNIT/10 ML VIAL IV PRN (09:19)
[2019-02-12] MEDS ORDERED: 0.9 % Sodium Chloride 1,000 ML PRIME SCH ×2 (09:30→19:30)
[2019-02-12] MEDS ORDERED: Piperacillin/Tazobactam 3.375 GM in 0.9 % Sodium Chloride Mini Bag 100 ML IVPB SCH ×2 (16:00→21:00)
[2019-02-12] MEDS: Heparin 25,000 UNIT/250 ML D5W 25,000 UNIT/250 ML IV.SOLN IVC SCH (16:20)
[2019-02-12] MEDS ORDERED: *HR* Warfarin 2.5 MG TABLET PO ONE (18:00)
[2019-02-12] MEDS ORDERED: *HR* Heparin 5,000 UNIT/ML VIAL IV PRN (19:30)
[2019-02-12] MEDS ORDERED: Sennosides/Docusate Sodium TABLET PO PRN (19:30)
[2019-02-12] MEDS ORDERED: Ondansetron 4 MG/2 ML VIAL IVP PRN (19:30)
[2019-02-12] MEDS ORDERED: Warfarin perPT PO PRN (19:30)
[2019-02-12] MEDS ORDERED: Acetaminophen 650 MG RECTAL SUPP RC PRN (19:30)
[2019-02-12] MEDS ORDERED: *HR* Alteplase (Cathflo) 2 MG VIAL IVP PRN (19:30)
[2019-02-12] MEDS ORDERED: *HR* Heparin 5,000 UNIT/ML VIAL IVP PRN (19:30)
[2019-02-12] MEDS ORDERED: Norepinephrine 4 MG in 0.9 % Sodium Chloride 250 ML IVC SCH (19:30)
[2019-02-12] MEDS ORDERED: Acetaminophen 325 MG TABLET PO PRN (19:30)
[2019-02-12] MEDS ORDERED: Vancomycin 1 EACH in 0.9 % Sodium Chloride 250 ML IVPB PRN (19:30)
[2019-02-12] MEDS ORDERED: Naloxone 0.4 MG/ML INJ IVP PRN (19:30)
[2019-02-12] MEDS: Albuterol 2.5 MG/3 ML NEBULIZER IH SCH (22:39)
[2019-02-13] MEDS: Piperacillin/Tazobactam 3.375 GM in 0.9 % Sodium Chloride Mini Bag 100 ML IVPB SCH ×2 (03:09→16:58)
[2019-02-13] MEDS: *HR* OxyCODONE Immed Rel 5 MG TABLET PO SCH ×2 (04:05→09:57)
[2019-02-13 05:04] LABS: INR 1.2; Prothrombin Time 13.3 Seconds (9.4-12.1)
[2019-02-13] MEDS ORDERED: Pantoprazole 40 MG VIAL IVP SCH (06:30)
[2019-02-13] MEDS: Heparin 25,000 UNIT/250 ML D5W 25,000 UNIT/250 ML IV.SOLN IVC SCH ×3 (06:30→20:24)
[2019-02-13] MEDS: *HR* Heparin 5,000 UNIT/ML VIAL IVP PRN ×2 (06:33→22:30)
[2019-02-13 07:49] LABS: Hematocrit 26.7 % (37.5-50.1); Hemoglobin 7.9 g/dL (12.9-16.9); Mean Corpuscular HGB Conc 29.6 g/dL (31.6-35.5); Mean Corpuscular Volume 94.7 fL (83.0-100.0); Platelet Count 139 K/mcL (140-400); Red Blood Count 2.82 M/mcL (4.19-5.50); Red Cell Distribution Width 17.2 % (11.5-14.5); White Blood Count 9.6 K/mcL (4.3-11.1)
[2019-02-13 07:51] LABS: Calcium 8.3 mg/dL (8.6-10.3); Potassium 4.9 mEq/L (3.5-5.1)
[2019-02-13] MEDS ORDERED: Budesonide/Formoterol 80/4.5 1 PUFF INH IH SCH (09:00)
[2019-02-13] MEDS ORDERED: Gabapentin 300 MG CAPSULE PO SCH (09:00)
[2019-02-13] MEDS ORDERED: *HR* Heparin 10,000 UNIT/10 ML VIAL IV PRN (09:35)
[2019-02-13] MEDS ORDERED: 0.9 % Sodium Chloride 250 ML IVC PRN (09:35)
[2019-02-13] MEDS ORDERED: 0.9 % Sodium Chloride 1,000 ML PRIME SCH (09:45)
[2019-02-13] MEDS ORDERED: Gabapentin 300 MG CAPSULE PO ONE (09:46)
[2019-02-13] MEDS: Albuterol 2.5 MG/3 ML NEBULIZER IH SCH ×2 (10:18→20:33)
[2019-02-13] MEDS: Budesonide/Formoterol 160/4.5 1 PUFF INH IH SCH ×2 (10:18→20:32)
[2019-02-13] MEDS ORDERED: Warfarin perPT PO PRN (10:45)
[2019-02-13] MEDS ORDERED: Aminoglycoside Consult 1 EACH MC ONE (14:03)
[2019-02-13] MEDS: *HR* OxyCODONE Immed Rel 5 MG TABLET PO PRN ×2 (16:57→22:59)
[2019-02-13] MEDS ORDERED: *HR* Warfarin 5 MG TABLET PO ONE (18:00)
[2019-02-13] MEDS: Gabapentin 300 MG CAPSULE PO SCH (19:57)
[2019-02-14] MEDS: Piperacillin/Tazobactam 3.375 GM in 0.9 % Sodium Chloride Mini Bag 100 ML IVPB SCH ×2 (03:36→15:48)
[2019-02-14] MEDS: hydrOXYzine pamoate 25 MG CAPSULE PO PRN ×2 (03:38→22:08)
[2019-02-14 05:47] LABS: Hematocrit 24.4 % (37.5-50.1); Hemoglobin 7.4 g/dL (12.9-16.9); Mean Corpuscular HGB Conc 30.3 g/dL (31.6-35.5); Mean Corpuscular Hemoglobin 27.1 pg (28.0-33.3); Mean Corpuscular Volume 89.4 fL (83.0-100.0); Mean Platelet Volume 9.5 fL (9.4-12.4); Platelet Count 111 K/mcL (140-400); Red Blood Count 2.73 M/mcL (4.19-5.50); Red Cell Distribution Width 17.2 % (11.5-14.5); White Blood Count 10.1 K/mcL (4.3-11.1)
[2019-02-14 05:54] LABS: INR 1.3; Prothrombin Time 14.3 Seconds (9.4-12.1)
[2019-02-14 06:08] LABS: Calcium 8.2 mg/dL (8.6-10.3); Potassium 4.2 mEq/L (3.5-5.1)
[2019-02-14] MEDS: Heparin 25,000 UNIT/250 ML D5W 25,000 UNIT/250 ML IV.SOLN IVC SCH ×2 (07:55→19:27)
[2019-02-14] MEDS: *HR* OxyCODONE Immed Rel 5 MG TABLET PO PRN ×3 (07:56→22:08)
[2019-02-14] MEDS ORDERED: *HR* Heparin 10,000 UNIT/10 ML VIAL IV PRN (08:37)
[2019-02-14] MEDS ORDERED: 0.9 % Sodium Chloride 250 ML IVC PRN (08:37)
[2019-02-14] MEDS ORDERED: 0.9 % Sodium Chloride 1,000 ML PRIME SCH (08:45)
[2019-02-14] MEDS: Budesonide/Formoterol 160/4.5 1 PUFF INH IH SCH ×2 (10:02→20:21)
[2019-02-14] MEDS: Albuterol 2.5 MG/3 ML NEBULIZER IH SCH ×2 (10:02→20:21)
[2019-02-14] MEDS ORDERED: *HR* Warfarin 5 MG TABLET PO ONE (18:00)
[2019-02-14] MEDS: Gabapentin 300 MG CAPSULE PO SCH (22:08)
[2019-02-15] MEDS: Piperacillin/Tazobactam 3.375 GM in 0.9 % Sodium Chloride Mini Bag 100 ML IVPB SCH ×2 (05:08→16:58)
[2019-02-15] MEDS: *HR* OxyCODONE Immed Rel 5 MG TABLET PO PRN ×4 (05:08→23:23)
[2019-02-15] MEDS: Heparin 25,000 UNIT/250 ML D5W 25,000 UNIT/250 ML IV.SOLN IVC SCH (06:43)
[2019-02-15 07:18] LABS: Hematocrit 27.7 % (37.5-50.1); Hemoglobin 8.6 g/dL (12.9-16.9); Mean Corpuscular Volume 90.2 fL (83.0-100.0); Mean Platelet Volume 9.2 fL (9.4-12.4); Platelet Count 118 K/mcL (140-400); Red Blood Count 3.07 M/mcL (4.19-5.50); Red Cell Distribution Width 16.6 % (11.5-14.5); White Blood Count 10.3 K/mcL (4.3-11.1)
[2019-02-15 07:39] LABS: Calcium 8.5 mg/dL (8.6-10.3); Potassium 4.5 mEq/L (3.5-5.1)
[2019-02-15 07:49] LABS: INR 1.3; Prothrombin Time 14.2 Seconds (9.4-12.1)
[2019-02-15] MEDS ORDERED: 0.9 % Sodium Chloride 250 ML IVC PRN (08:42)
[2019-02-15] MEDS ORDERED: *HR* Heparin 10,000 UNIT/10 ML VIAL IV PRN (08:42)
[2019-02-15] MEDS: Albuterol 2.5 MG/3 ML NEBULIZER IH SCH ×2 (10:58→22:19)
[2019-02-15] MEDS: Budesonide/Formoterol 160/4.5 1 PUFF INH IH SCH ×2 (10:58→22:19)
[2019-02-15] MEDS ORDERED: *HR* Warfarin 5 MG TABLET PO ONE (18:00)
[2019-02-15] MEDS: Gabapentin 300 MG CAPSULE PO SCH (20:50)
[2019-02-15] MEDS: hydrOXYzine pamoate 25 MG CAPSULE PO PRN (23:24)
[2019-02-16] MEDS: Piperacillin/Tazobactam 3.375 GM in 0.9 % Sodium Chloride Mini Bag 100 ML IVPB SCH ×2 (03:50→16:34)
[2019-02-16 05:41] LABS: Hematocrit 31.3 % (37.5-50.1); Hemoglobin 9.6 g/dL (12.9-16.9); Mean Corpuscular HGB Conc 30.7 g/dL (31.6-35.5); Mean Corpuscular Hemoglobin 27.8 pg (28.0-33.3); Mean Corpuscular Volume 90.7 fL (83.0-100.0); Mean Platelet Volume 9.9 fL (9.4-12.4); Platelet Count 107 K/mcL (140-400); Red Blood Count 3.45 M/mcL (4.19-5.50); Red Cell Distribution Width 16.7 % (11.5-14.5)
[2019-02-16 05:50] LABS: INR 1.4; Prothrombin Time 15.5 Seconds (9.4-12.1)
[2019-02-16 06:00] LABS: Calcium 8.6 mg/dL (8.6-10.3); Potassium 4.2 mEq/L (3.5-5.1)
[2019-02-16] MEDS: *HR* OxyCODONE Immed Rel 5 MG TABLET PO PRN ×3 (07:39→20:05)
[2019-02-16] MEDS: Heparin 25,000 UNIT/250 ML D5W 25,000 UNIT/250 ML IV.SOLN IVC SCH ×3 (07:40→19:13)
[2019-02-16] MEDS: Budesonide/Formoterol 160/4.5 1 PUFF INH IH SCH ×2 (11:39→22:38)
[2019-02-16] MEDS: Albuterol 2.5 MG/3 ML NEBULIZER IH SCH ×2 (11:40→22:38)
[2019-02-16] MEDS ORDERED: *HR* Warfarin 7.5 MG TABLET PO ONE (18:00)
[2019-02-16] MEDS: Gabapentin 300 MG CAPSULE PO SCH (20:05)
[2019-02-16] MEDS: hydrOXYzine pamoate 25 MG CAPSULE PO PRN (20:05)
[2019-02-17] MEDS: Piperacillin/Tazobactam 3.375 GM in 0.9 % Sodium Chloride Mini Bag 100 ML IVPB SCH ×2 (03:25→15:49)
[2019-02-17] MEDS: *HR* OxyCODONE Immed Rel 5 MG TABLET PO PRN ×4 (03:25→21:51)
[2019-02-17] MEDS: Heparin 25,000 UNIT/250 ML D5W 25,000 UNIT/250 ML IV.SOLN IVC SCH ×2 (06:00→17:15)
[2019-02-17 06:15] LABS: Hematocrit 26.8 % (37.5-50.1); Hemoglobin 8.5 g/dL (12.9-16.9); Mean Corpuscular HGB Conc 31.7 g/dL (31.6-35.5); Mean Corpuscular Hemoglobin 28.1 pg (28.0-33.3); Mean Corpuscular Volume 88.4 fL (83.0-100.0); Mean Platelet Volume 9.1 fL (9.4-12.4); Platelet Count 144 K/mcL (140-400); Red Blood Count 3.03 M/mcL (4.19-5.50); Red Cell Distribution Width 16.6 % (11.5-14.5); White Blood Count 8.4 K/mcL (4.3-11.1)
[2019-02-17 06:33] LABS: INR 1.6; Prothrombin Time 18.7 Seconds (9.4-12.1)
[2019-02-17 06:36] LABS: Calcium 8.4 mg/dL (8.6-10.3); Potassium 4.4 mEq/L (3.5-5.1)
[2019-02-17] MEDS ORDERED: Darbepoetin 100 MCG/0.5 ML SYRINGE SQ SCH (09:00)
[2019-02-17] MEDS ORDERED: *HR* Heparin 10,000 UNIT/10 ML VIAL IV PRN (09:13)
[2019-02-17] MEDS ORDERED: 0.9 % Sodium Chloride 250 ML IVC PRN (09:13)
[2019-02-17] MEDS: Budesonide/Formoterol 160/4.5 1 PUFF INH IH SCH ×2 (10:31→22:07)
[2019-02-17] MEDS: Albuterol 2.5 MG/3 ML NEBULIZER IH SCH ×2 (10:31→22:07)
[2019-02-17] MEDS ORDERED: *HR* Warfarin 7.5 MG TABLET PO ONE (18:00)
[2019-02-17] MEDS: Gabapentin 300 MG CAPSULE PO SCH (20:10)
[2019-02-18] MEDS: Heparin 25,000 UNIT/250 ML D5W 25,000 UNIT/250 ML IV.SOLN IVC SCH (04:44)
[2019-02-18 05:49] LABS: Hemoglobin 8.8 g/dL (12.9-16.9); Mean Corpuscular HGB Conc 31.4 g/dL (31.6-35.5); Mean Corpuscular Volume 89.2 fL (83.0-100.0); Mean Platelet Volume 9.2 fL (9.4-12.4); Platelet Count 175 K/mcL (140-400); Red Blood Count 3.14 M/mcL (4.19-5.50); Red Cell Distribution Width 16.5 % (11.5-14.5); White Blood Count 7.5 K/mcL (4.3-11.1)
[2019-02-18 05:56] LABS: INR 2.2; Prothrombin Time 24.9 Seconds (9.4-12.1)
[2019-02-18 06:09] LABS: Calcium 8.4 mg/dL (8.6-10.3); Potassium 4.3 mEq/L (3.5-5.1)
[2019-02-18] MEDS: *HR* OxyCODONE Immed Rel 5 MG TABLET PO PRN ×3 (07:37→22:03)
[2019-02-18] MEDS: Budesonide/Formoterol 160/4.5 1 PUFF INH IH SCH ×3 (10:17→21:46)
[2019-02-18] MEDS: Albuterol 2.5 MG/3 ML NEBULIZER IH SCH ×3 (10:17→21:46)
[2019-02-18] MEDS ORDERED: 0.9 % Sodium Chloride 250 ML IVC PRN (11:47)
[2019-02-18] MEDS ORDERED: *HR* Warfarin 5 MG TABLET PO ONE (18:00)
[2019-02-18] MEDS: Gabapentin 300 MG CAPSULE PO SCH (20:10)
[2019-02-18] MEDS ORDERED: *HR* OxyCODONE Immed Rel 5 MG TABLET PO PRN (20:57)
[2019-02-19 05:55] LABS: Hematocrit 29.6 % (37.5-50.1); Hemoglobin 9.1 g/dL (12.9-16.9); Mean Corpuscular HGB Conc 30.7 g/dL (31.6-35.5); Mean Corpuscular Hemoglobin 27.2 pg (28.0-33.3); Mean Corpuscular Volume 88.4 fL (83.0-100.0); Mean Platelet Volume 9.3 fL (9.4-12.4); Platelet Count 221 K/mcL (140-400); Red Blood Count 3.35 M/mcL (4.19-5.50); Red Cell Distribution Width 16.5 % (11.5-14.5)
[2019-02-19 05:59] LABS: INR 2.3; Prothrombin Time 26.4 Seconds (9.4-12.1)
[2019-02-19 06:17] LABS: Calcium 8.8 mg/dL (8.6-10.3)
[2019-02-19] MEDS: Budesonide/Formoterol 160/4.5 1 PUFF INH IH SCH (07:24)
[2019-02-19] MEDS: Albuterol 2.5 MG/3 ML NEBULIZER IH SCH (07:24)
[2019-02-19] MEDS: *HR* OxyCODONE Immed Rel 5 MG TABLET PO PRN ×2 (07:34→16:50)
[2019-02-19] MEDS ORDERED: 0.9 % Sodium Chloride 250 ML IVC PRN (10:10)
[2019-02-19] MEDS ORDERED: *HR* Heparin 10,000 UNIT/10 ML VIAL IV PRN ×2 (10:10)
[2019-02-19 16:36] VITALS: BP 100/65
[2019-02-19] MEDS ORDERED: *HR* Warfarin 7.5 MG TABLET PO ONE (18:00)
== END 2019-02-19 18:26 | DRG 871 ==
LOC: EMEROOARM 00:58 → 2NNU 04:14 → SUATTDRO 04:14 → 2ANU 04:36 → ICNU 12:32 → 2ANU 02-12 14:30
PROVIDERS: ADMIT Internal Medicine; ATTEND Internal Medicine

== ENCOUNTER 2019-02-23 13:11 | Inpatient (IN) ==
[2019-02-23] MEDS ORDERED: Albuterol 2.5 MG/3 ML NEBULIZER IH ONE (13:28)
[2019-02-23] MEDS ORDERED: Ipratropium/Albuterol Neb 3 ML IH ONE (13:28)
[2019-02-23] MEDS ORDERED: Isovue-370 500 ML BOTTLE IVP ONE (13:28)
[2019-02-23] MEDS ORDERED: methylPREDNISolone 125 MG/2 ML VIAL IVP ONE (13:30)
[2019-02-23 13:46] LABS: Basophils # 0.1 K/mcL (0.0-0.2); Basophils % 0.8 %; Eosinophils # 0.8 K/mcL (0.0-0.6); Eosinophils % 8.4 %; Hematocrit 27.7 % (37.5-50.1); Hemoglobin 8.5 g/dL (12.9-16.9); Immature Granulocytes % 2.3 % (0-4); Lymphocytes % 33.5 %; Mean Corpuscular HGB Conc 30.7 g/dL (31.6-35.5); Mean Corpuscular Hemoglobin 27.2 pg (28.0-33.3); Mean Corpuscular Volume 88.8 fL (83.0-100.0); Mean Platelet Volume 9.2 fL (9.4-12.4); Monocytes # 0.9 K/mcL (0.0-1.3); Monocytes % 9.9 %; Neutrophils # 4.1 K/mcL (1.6-8.9); Platelet Count 360 K/mcL (140-400); Red Blood Count 3.12 M/mcL (4.19-5.50); Red Cell Distribution Width 16.6 % (11.5-14.5); Segmented Neutrophils % 45.1 %
[2019-02-23 13:53] LABS: INR 2.5; Prothrombin Time 28.5 Seconds (9.4-12.1)
[2019-02-23] MEDS ORDERED: 0.9 % Sodium Chloride 500 ML ONE (13:55)
[2019-02-23 14:02] LABS: ABG Base Excess 0 mEq/L (-2 to 3); ABG HCO3 27 mEq/L (21-27); ABG Oxygen Saturation 93 % (95-98); ABG PCO2 62 mmHg (35-45); ABG PH 7.26 pH Units (7.32-7.45); ABG PO2 81 mmHg (85-104); ABG TCO2 29 mEq/L (20-26)
[2019-02-23 14:07] LABS: BUN/Creatinine Ratio 5 (6-26); Blood Urea Nitrogen 39 mg/dL (6-20); Calcium 8.3 mg/dL (8.6-10.3); Carbon Dioxide 25 mEq/L (23-29); Chloride 94 mEq/L (98-107); Glucose 108 mg/dL (70-105); Osmolality,Calculated 276 (280-300); Potassium 4.5 mEq/L (3.5-5.1); Sodium 128 mEq/L (136-145); eGFR For African Americans 9 (> 60); eGFR For Non-African Americans 8 (> 60)
[2019-02-23 14:09] LABS: Troponin I < 0.03 ng/mL (< 0.04)
[2019-02-23] MEDS ORDERED: *HR* LORazepam 2 MG/ML VIAL ONE (14:18)
[2019-02-23 14:43] LABS: Bilirubin,Urine Negative (Negative); Blood,Urine Trace (Negative); Clarity,Urine Turbid (Clear); Color,Urine Dark Yellow (Yellow); Glucose,Urine (UA) Normal (Normal); Ketones,Urine Negative (Negative); Leukocyte Esterase,Urine Moderate (Negative); Nitrite,Urine Negative (Negative); Protein,Urine 30 mg/dL (Neg-Trace); Specific Gravity,Urine 1.016 (1.010-1.025); Urobilinogen,Urine Normal (Normal)
[2019-02-23 14:49] LABS: Squamous Epithelial Cell,Urine Many per lpf (None-Few); WBC,Urine 15-30 per hpf (0-3)
[2019-02-23 15:08] LABS: Renal Epithelial Cells,Urine Moderate per hpf (None-Few)
[2019-02-23 15:09] LABS: Bacteria,Urine Many per hpf (None-Few); RBC,Urine 0-3 per hpf (0-3)
--- NOTE | 2019-02-23 15:29 | Emergency Department Note ---
Disposition Clinical Impression: Complicated UTI (urinary tract infection) Hypotension Qualifiers: Hypotension type: unspecified hypotension type Qualified Code(s): I95.9 - Hypotension, unspecified Altered mental status Qualifiers: Altered mental status type: unspecified Qualified Code(s): R41.82 - Altered mental status, unspecified Pneumonia Qualifiers: Pneumonia type: due to unspecified organism Laterality: bilateral Lung location: lower lobe of lung Qualified Code(s): J18.1 - Lobar pneumonia, unspecified organism Disposition: Admitted As Inpatient Condition: Serious Time of Disposition: 16:10 Dizziness HPI - General Chief Complaint: ED Shortness of Breath/Dyspnea Stated Complaint: low bp Time Seen by Provider: 02/23/19 13:13 Source: EMS Mode of arrival: ambulatory Limitations: no limitations Nursing Notes Reviewed: Yes Vital Signs Reviewed: Yes - History of Present Illness HPI Narrative: 58-year-old male brought to the emergency Department by EMS from the intermediate facility for further evaluation of hypotension. Patient was recently admitted to the hospital for a PE/pneumonia. Patient is currently on Coumadin and his medications are provided by the intermediate facility. Patient is confused during the initial evaluation and has difficulty giving a history regarding his case and presentation however family members present at bedside who gives a detailed history. She states that his medications have been adjusted multiple times since he is been at the intermediate facility. Patient and denies fever, chills, cough, abdominal pain, diarrhea, rash. - Related Data Home Medications Medication Instructions Recorded Confirmed Bumetanide 2 mg PO BID PRN 12/02/17 02/23/19 Fluticasone/Vilanterol [Breo 1 puff IH DAILY 12/03/17 02/23/19 Ellipta 100-25 Mcg INH] Isosorbide MONOnitrate (24 HR) 30 mg PO DAILY 12/03/17 02/23/19 [Imdur] Atorvastatin [Lipitor] 40 mg PO QPM 06/08/18 02/23/19 Gabapentin [Neurontin] 600 mg PO TID 06/08/18 02/23/19 Lisinopril [Zestril] 10 mg PO DAILY 06/08/18 02/23/19 Melatonin 5 mg PO HS 06/08/18 02/23/19 Quetiapine Fumarate [Seroquel] 25 mg PO HS 01/23/19 02/23/19 Albuterol Neb [Proventil Neb] 2.5 mg IH Q8H PRN 01/24/19 02/23/19 Escitalopram [Lexapro] 20 mg PO DAILY 01/24/19 02/23/19 Renal Vitamin [Renal Caps Softgel] 1 mg PO DAILY 02/10/19 02/23/19 Ipratropium/Albuterol Neb [Duoneb] 3 ml IH BID PRN 02/23/19 02/23/19 OxyCODONE Immed Rel [Roxicodone 10 10 mg PO Q8H PRN 02/23/19 02/23/19 MG] Warfarin [Coumadin] 5 mg PO SUMOWEFR 02/23/19 02/23/19 Warfarin [Coumadin] 7.5 mg PO TUTHSA 02/23/19 02/23/19 Previous Rx's Medication Instructions Recorded Albuterol Sulfate [Proventil 2 puff IH Q4HR #1 hfa.aer.ad 08/25/18 Inhaler] Omeprazole [PriLOSEC] 40 mg PO DAILY@0730 #30 capsule.dr 02/19/19 OxyCODONE ER (12 HR) [OxyCONTIN] 10 mg PO Q12HR 2 Days #4 tab.er.12h 02/19/19 Allergies Allergy/AdvReac Type Severity Reaction Status Date / Time cephalexin [From Keflex] Allergy Hives Verified 02/10/19 10:22 All systems ED: reviewed and negative except as stated. Review of Systems: As Per HPI Past Medical History - Past Medical History Attestation: Yes The following information was validated with the patient. Source: patient Medical history: Reports: CHF, COPD, dialysis, pulmonary embolus, other Surgical history: Reports: herniorrhaphy Psychiatric history: Reports: anxiety, depression - Social History Smoking Status: Never smoker Smokeless Tobacco Status: No Alcohol use: Reports: none Drug use: Reports: none Physical Exam General: Alert and in no acute distress Skin: Warm, dry, intact Head: Normocephalic and atraumatic Neck: Supple, trachea midline and no tenderness Cardiovascular: RRR, no murmur, normal perfusion Respiratory: CTAB, expiratory wheezing present bilaterally, cough, or respiratory distress Musculoskeletal: Normal strength, no tenderness, swelling or deformity GI: Soft, nontender, nondistended. Bowel sounds present Neuro: Oriented to person and place but not situation. Moving all extremities. No focal neurologic deficits on exam - General Limitations: no limitations General appearance: alert Course Vital Signs Temperature 98.5 F 02/23/19 13:19 Pulse Rate 79 02/23/19 13:19 Respiratory Rate 17 02/23/19 13:19 Blood Pressure 161/115 02/23/19 13:19 O2 Sat by Pulse Oximetry 89 02/23/19 13:19 Temperature 97.7 F 02/23/19 16:59 Pulse Rate 74 02/23/19 21:00 Respiratory Rate 17 02/23/19 21:00 Blood Pressure 102/67 02/23/19 21:00 O2 Sat by Pulse Oximetry 97 02/23/19 21:00 Oxygen Delivery Oxygen Delivery Bipap Dizziness - MDM Narrative Medical decision making narrative: Patient had multiple episodes of hypotension which improved with IV fluids. I will point he became altered and tried tearing off his BiPAP and EKG leads. He was given 1 mg Ativan for treatment of his anxiety which helped significantly. CTA of the chest did not show a obvious saddle embolus. He does have a history of PE and is currently taking Coumadin. I have concerns about possible infection causing the patient's altered mental status. CT showed possible atelectasis versus pneumonia. He was started on antibiotics to cover HCAP and possible urinary tract infection. I spoke with nephrology who recommended that ultimate mental status was likely not likely secondary to his renal failure. Patient will receive dialysis within the next 24 hours after receiving his CTA scan. Patient will be admitted to the hospitalist for further care and evaluation. The high probability of a clinically significant, sudden or life threatening deterioration of the cardiovascular and respiratory system(s) required my full and direct attention, intervention and personal management. The aggregate critical care time was 100 minutes. This time is in addition to time spent performing reported procedures but includes the following: x Data Review and interpretation x Patient assessment and monitoring of vital signs x Documentation x Medication orders and management - Medical Records Medical records reviewed: Yes I reviewed the patient's medical records. - Lab Data Lab results reviewed: Yes I reviewed the patient's lab results. Result diagrams: 02/23/19 13:35 02/23/19 13:35 Lab Results 02/23/19 02/23/19 02/23/19 Range/Units 13:35 13:35 13:35 WBC 9.0 (4.3-11.1) K/mcL RBC 3.12 L (4.19-5.50) M/mcL Hgb 8.5 L (12.9-16.9) g/dL Hct 27.7 L (37.5-50.1) % MCV 88.8 (83.0-100.0) fL MCH 27.2 L (28.0-33.3) pg MCHC 30.7 L (31.6-35.5) g/dL RDW 16.6 H (11.5-14.5) % Plt Count 360 D (140-400) K/mcL MPV 9.2 L (9.4-12.4) fL Immature Gran % 2.3 (0-4) % Seg Neutrophils % 45.1 % Lymphocytes % 33.5 % Monocytes % 9.9 % Eosinophils % 8.4 % Basophils % 0.8 % Neutrophils # 4.1 (1.6-8.9) K/mcL Lymphocytes # 3.0 (0.6-4.6) K/mcL Monocytes # 0.9 (0.0-1.3) K/mcL Eosinophils # 0.8 H (0.0-0.6) K/mcL Basophils # 0.1 (0.0-0.2) K/mcL PT 28.5 H (9.4-12.1) Seconds INR 2.5 APTT 53.0 H (26.0-36.0) Seconds Sample Site ABG pH (7.32-7.45) pH Units ABG pCO2 (35-45) mmHg ABG pO2 (85-104) mmHg ABG HCO3 (21-27) mEq/L ABG Total CO2 (20-26) mEq/L ABG O2 Saturation (95-98) % ABG Base Excess (-2 to 3) mEq/L Paras Test O2 Delivery Device Blood Gas Modality Inspired O2 (1-15=lpm [id number]=%) Sodium 128 L (136-145) mEq/L Potassium 4.5 (3.5-5.1) mEq/L Chloride 94 L (98-107) mEq/L Carbon Dioxide 25 (23-29) mEq/L BUN 39 H (6-20) mg/dL Creatinine 7.33 H (0.70-1.30) mg/dL Est GFR ( Amer) 9 L (> 60) Est GFR (Non-Af Amer) 8 L (> 60) BUN/Creatinine Ratio 5 L (6-26) Glucose 108 H (70-105) mg/dL Calculated Osmolality 276 L (280-300) Lactic Acid (0.5-2.2) mmol/L Calcium 8.3 L (8.6-10.3) mg/dL Troponin I < 0.03 (< 0.04) ng/mL B-Natriuretic Peptide (Less than 100) pg/mL Urine Color (Yellow) Urine Clarity (Clear) Urine pH (5.0-8.0) pH Units Ur Specific [place] (1.010-1.025) Urine Protein (Neg-Trace) mg/dL Urine Glucose (UA) (Normal) mg/dL Urine Ketones (Negative) mg/dL Urine Blood (Negative) Urine Nitrite (Negative) Urine Bilirubin (Negative) Urine Urobilinogen (Normal) mg/dL Ur Leukocyte Esterase (Negative) Urine Microscopic RBC (0-3) per hpf Urine Microscopic WBC (0-3) per hpf Ur Squamous Epith Cells (None-Few) per lpf Ur Renal Epithelial Cell (None-Few) per hpf Urine Bacteria (None-Few) per hpf Ur Culture Indicated? (NO) 02/23/19 02/23/19 02/23/19 Range/Units 13:35 13:44 13:58 WBC (4.3-11.1) K/mcL RBC (4.19-5.50) M/mcL Hgb (12.9-16.9) g/dL Hct (37.5-50.1) % MCV (83.0-100.0) fL MCH (28.0-33.3) pg MCHC (31.6-35.5) g/dL RDW (11.5-14.5) % Plt Count (140-400) K/mcL MPV (9.4-12.4) fL Immature Gran % (0-4) % Seg Neutrophils % % Lymphocytes % % Monocytes % % Eosinophils % % Basophils % % Neutrophils # (1.6-8.9) K/mcL Lymphocytes # (0.6-4.6) K/mcL Monocytes # (0.0-1.3) K/mcL Eosinophils # (0.0-0.6) K/mcL Basophils # (0.0-0.2) K/mcL PT (9.4-12.1) Seconds INR APTT (26.0-36.0) Seconds Sample Site R Radial ABG pH 7.26 L (7.32-7.45) pH Units ABG pCO2 62 H (35-45) mmHg ABG pO2 81 L (85-104) mmHg ABG HCO3 27 (21-27) mEq/L ABG Total CO2 29 H (20-26) mEq/L ABG O2 Saturation 93 L (95-98) % ABG Base Excess 0 (-2 to 3) mEq/L Paras Test Positive O2 Delivery Device BiPAP Blood Gas Modality st Inspired O2 40.0 (1-15=lpm [id number]=%) Sodium (136-145) mEq/L Potassium (3.5-5.1) mEq/L Chloride (98-107) mEq/L Carbon Dioxide (23-29) mEq/L BUN (6-20) mg/dL Creatinine (0.70-1.30) mg/dL Est GFR ( Amer) (> 60) Est GFR (Non-Af Amer) (> 60) BUN/Creatinine Ratio (6-26) Glucose (70-105) mg/dL Calculated Osmolality (280-300) Lactic Acid 0.8 (0.5-2.2) mmol/L Calcium (8.6-10.3) mg/dL Troponin I (< 0.04) ng/mL B-Natriuretic Peptide 143 H (Less than 100) pg/mL Urine Color (Yellow) Urine Clarity (Clear) Urine pH (5.0-8.0) pH Units Ur Specific [place] (1.010-1.025) Urine Protein (Neg-Trace) mg/dL Urine Glucose (UA) (Normal) mg/dL Urine Ketones (Negative) mg/dL Urine Blood (Negative) Urine Nitrite (Negative) Urine Bilirubin (Negative) Urine Urobilinogen (Normal) mg/dL Ur Leukocyte Esterase (Negative) Urine Microscopic RBC (0-3) per hpf Urine Microscopic WBC (0-3) per hpf Ur Squamous Epith Cells (None-Few) per lpf Ur Renal Epithelial Cell (None-Few) per hpf Urine Bacteria (None-Few) per hpf Ur Culture Indicated? (NO) 02/23/19 02/23/19 Range/Units 14:30 15:35 WBC (4.3-11.1) K/mcL RBC (4.19-5.50) M/mcL Hgb (12.9-16.9) g/dL Hct (37.5-50.1) % MCV (83.0-100.0) fL MCH (28.0-33.3) pg MCHC (31.6-35.5) g/dL RDW (11.5-14.5) % Plt Count (140-400) K/mcL MPV (9.4-12.4) fL Immature Gran % (0-4) % Seg Neutrophils % % Lymphocytes % % Monocytes % % Eosinophils % % Basophils % % Neutrophils # (1.6-8.9) K/mcL Lymphocytes # (0.6-4.6) K/mcL Monocytes # (0.0-1.3) K/mcL Eosinophils # (0.0-0.6) K/mcL Basophils # (0.0-0.2) K/mcL PT (9.4-12.1) Seconds INR APTT (26.0-36.0) Seconds Sample Site ABG pH (7.32-7.45) pH Units ABG pCO2 (35-45) mmHg ABG pO2 (85-104) mmHg ABG HCO3 (21-27) mEq/L ABG Total CO2 (20-26) mEq/L ABG O2 Saturation (95-98) % ABG Base Excess (-2 to 3) mEq/L Paras Test O2 Delivery Device Blood Gas Modality Inspired O2 (1-15=lpm [id number]=%) Sodium (136-145) mEq/L Potassium (3.5-5.1) mEq/L Chloride (98-107) mEq/L Carbon Dioxide (23-29) mEq/L BUN (6-20) mg/dL Creatinine (0.70-1.30) mg/dL Est GFR ( Amer) (> 60) Est GFR (Non-Af Amer) (> 60) BUN/Creatinine Ratio (6-26) Glucose (70-105) mg/dL Calculated Osmolality (280-300) Lactic Acid 1.0 (0.5-2.2) mmol/L Calcium (8.6-10.3) mg/dL Troponin I (< 0.04) ng/mL B-Natriuretic Peptide (Less than 100) pg/mL Urine Color Dark Yellow (Yellow) Urine Clarity Turbid A (Clear) Urine pH 5.0 (5.0-8.0) pH Units Ur Specific [place] 1.016 (1.010-1.025) Urine Protein 30 H (Neg-Trace) mg/dL Urine Glucose (UA) Normal (Normal) mg/dL Urine Ketones Negative (Negative) mg/dL Urine Blood Trace H (Negative) Urine Nitrite Negative (Negative) Urine Bilirubin Negative (Negative) Urine Urobilinogen Normal (Normal) mg/dL Ur Leukocyte Esterase Moderate H (Negative) Urine Microscopic RBC 0-3 (0-3) per hpf Urine Microscopic WBC 15-30 H (0-3) per hpf Ur Squamous Epith Cells Many H (None-Few) per lpf Ur Renal Epithelial Cell Moderate H (None-Few) per hpf Urine Bacteria Many H (None-Few) per hpf Ur Culture Indicated? YES A (NO) - Radiology Data Radiology results reviewed: Yes I reviewed the patient's radiology results. - EKG Data EKG attestation: Yes I reviewed and interpreted this EKG.
[2019-02-23] MEDS ORDERED: *HR* LORazepam 2 MG/ML VIAL IVP STA (15:30)
[2019-02-23] MEDS ORDERED: Azithromycin 500 MG in D5% in Water 250 ML IVPB STA (15:33)
[2019-02-23] MEDS ORDERED: Piperacillin/Tazobactam 3.375 GM in 0.9 % Sodium Chloride Mini Bag 100 ML IVPB ONE (15:33)
--- NOTE | 2019-02-23 16:36 | Pulmonology History & Physical ---
<Freeman Olivera N - Last Filed: 02/23/19 18:59> Date of Encounter: 02/23/19 Time of Encounter: 16:30 Assessment and Plan (1) Acute on chronic respiratory failure with hypoxia and hypercapnia Current visit: No Status: Acute Pt found to be in respiratory distress in the ED with O2 saturation of 89% on 5L via NC and started on BiPAP Could be related to infectious cause or respiratory depression due to polypharmacy Recent PE on warfarin with INR of 2.5 PMH significant for COPD and CHF CT Chest suspicious for PNA without sign of PE or extensive pulmonary edema. -Vancomycin, Zosyn, and azithromycin for empirical antibiotic coverage -Duonebs Q4hr PRN -Narcan given in the ED, we will have low threshold for use if patient becomes lethargic -Hold sedating agents at this time. -Continue BiPAP at this time with repeat ABG ordered (2) Toxic metabolic encephalopathy Current visit: No Status: Acute Infectious vs. pharmaceutical cause. UA with leukoesterase and bacteria present with cultures pending CT with possible pneumonia Patient on several sedating medications including oxycodone ER 10 mg BID, Roxicodone 10 mg Q8H, Seroquel 25 mg HS, and Gabapentin 600 mg TID -Currently patient is a and O 3, but does appear tired and falls asleep easily awoken with voice commands. -Continue to hold sedating agents at this time to monitor for improvement in patient's mentation -Continue empiric Antibiotic therapy as stated above -Repeat ABG ordered (3) Hypotension Current visit: Yes Status: Acute Patient with hypertension on presentation at 161/115, but on repeat 30 minutes later BP had dropped to 70/48 and was persistently low over the next hour. Infectious versus polypharmacy UA and chest CT suspicious of infections without elevated WBCs or fever Patient on several sedating medications as stated above the patient given Narcan in ED Unsure of when patient last received his opioids -Latest BP of 101/77 -Continue to hold sedating medications -Empiric antibody therapy as stated above for treatment of possible infections -Due to patient with ESRD on dialysis and improvement in BP will hold off on IV hydration -Limited Echo ordered will follow for results Qualifiers: Hypotension type: unspecified hypotension type Qualified Code(s): I95.9 - Hypotension, unspecified (4) Complicated UTI (urinary tract infection) Current visit: Yes Status: Acute UA from ED with leukocyte esterase and bacteria present in the male who does not consistently make urine due to ESRD No elevated lactic acid, fever, tachycardia, or white count -Urine cultures pending -Continue empiric antibiotic therapy as stated above we will de-escalate as cultures come back (5) ESRD (end stage renal disease) Current visit: No Status: Acute Patient with ESRD on dialysis Sunday schedule Last session was completed Sunday -Continue to monitor electrolytes -Nephrology consulted (6) Ankle fracture, right Current visit: No Status: Acute Patient seen for fracture by report though on last admission Currently in cast Qualifiers: Qualified Code(s): S82.891A - Other fracture of right lower leg, initial encounter for closed fracture History of Present Illness HPI: Mr. Olguin is a 58 year old male with significant PMH for COPD, CHF, ESRD on dialysis M/W/F and recent admission for PE/PNA presented to the ED from a nursing facility for evaluation of hypotension. Pt currently on BiPAP making history difficult to gather from him. Discussed with family. Patient was d ischarged to a assisted from the hospital on after being treated for a pneumonia/PE and right ankle fracture. PT d/c on coumadin. On Sunday while at dialysis the nursing staff noticed that the patient had some hypotension and the doctor was called to decide if patient would be able to continue to have dialysis. Patient completed this session on Sunday, but continued to be hypotensive on Sunday. Patient's states that he was slightly confused when she talked to him on the phone Sunday, but this continued to worsen on Sunday morning upon speaking to him. Patient's vital signs were taken by nursing at the assisted Sunday and patient's blood pressure was found to be ~70-80/50-60 and patient was sent to the ED. On presentation to the ED patient was actually found to be hypertensive with initial blood pressure of 161/115, pulse of 79, respiratory rate of 17, oxygen saturations of 89% on 5 L of O2 nasal cannula. Patient was seen to have shallow breathing and to be short of breath and thus was placed on BiPAP with an FiO2 of 40% and oxygen saturation improved. Patient was then noted to be hypotensive with blood pressure of 70/48 30 minutes later. Patient on Roxicodone 10 mg every 8 hours when necessary as well as oxycodone ER 10 mg every 12 hours, gabap entin 600 mg 3 times a day, and Seroquel 25 mg as a home medication. Patient was given Narcan in the ED with positive response. In ED pt also received duoneb, single dose of Azithromycin 500 mg, Solumedrol 125 mg IV, Zosyn, and Linezolid. Patient brought to the ICU on BiPAP with oxygen saturations around 90%. Laboratory findings significant for an H&H of 8.5 & 27.7 which appears to be chronic. WBC of 9.0. Creatinine of 7.33. INR of 2.5. UA positive for leukocyte esterase and bacteria with cultures pending. CT head with no evidence of intracranial abnormality. Chest x-ray. Cardiomegaly and persistent pulmonary edema. CT Chest reveals bilateral pleural effusions with mild dependent con solidation bilaterally atelectasis versus pneumonia. Past Med Surg Social Fam HX - Past Medical History Medical history: CHF, COPD, dialysis, pulmonary embolus, other Additional medical history: lymph node enlargement, lung nodule, pneumonia, absess right lung Psychiatric history: anxiety, depression - Past Surgical History Surgical History: herniorrhaphy Additional surgical history: nasal surgery, left knee surgery, cardiac cath - Social History Smoking Status: Never smoker Smokeless Tobacco Status: No Alcohol use: none Drug use: none - Family History Father Living Status: Hx Family Cardiac Disorders: Yes (x4 bipass surgery) Brother Hx Family Cardiac Disorders: Yes Medications and Allergies Bumetanide 2 mg PO BID PRN 12/02/17 [History] Fluticasone/Vilanterol [Breo Ellipta 100-25 Mcg INH] 1 puff IH DAILY 12/03/17 [History] Isosorbide MONOnitrate (24 HR) [Imdur] 30 mg PO DAILY 12/03/17 [History] Atorvastatin [Lipitor] 40 mg PO QPM 06/08/18 [History] Gabapentin [Neurontin] 600 mg PO TID 06/08/18 [History] Lisinopril [Zestril] 10 mg PO DAILY 06/08/18 [History] Melatonin 5 mg PO HS 06/08/18 [History] Albuterol Sulfate [Proventil Inhaler] 2 puff IH Q4HR #1 hfa.aer.ad 08/25/18 [Rx] Quetiapine Fumarate [Seroquel] 25 mg PO HS 01/23/19 [History] Albuterol Neb [Proventil Neb] 2.5 mg IH Q8H PRN 01/24/19 [History] Escitalopram [Lexapro] 20 mg PO DAILY 01/24/19 [History] Renal Vitamin [Renal Caps Softgel] 1 mg PO DAILY 02/10/19 [History] Omeprazole [PriLOSEC] 40 mg PO DAILY@0730 #30 capsule.dr 02/19/19 [Rx] OxyCODONE ER (12 HR) [OxyCONTIN] 10 mg PO Q12HR 2 Days #4 tab.er.12h 02/19/19 [Rx] Ipratropium/Albuterol Neb [Duoneb] 3 ml IH BID PRN 02/23/19 [History] OxyCODONE Immed Rel [Roxicodone 10 MG] 10 mg PO Q8H PRN 02/23/19 [History] Warfarin [Coumadin] 5 mg PO SUMOWEFR 02/23/19 [History] Warfarin [Coumadin] 7.5 mg PO TUTHSA 02/23/19 [History] Allergy/AdvReac Type Severity Reaction Status Date / Time cephalexin [From Keflex] Allergy Hives Verified 02/10/19 10:22 All Systems: The remainder of the systems were reviewed and are negative - Constitutional Constitutional: no chills, no fever(s) - EENT Nose, mouth and throat: dizziness, headache(s) - Cardiovascular Cardiovascular: leg edema, no chest pain, no dyspnea - Respiratory Respiratory: no cough, no dyspnea - Gastrointestinal Gastrointestinal: no abdominal pain, no diarrhea, no nausea, no vomiting - Musculoskeletal Musculoskeletal: no joint pain, no weakness - Neurological Neurological: weakness, no focal weakness, no loss of vision, no syncope - Psychiatric Psychiatric: no anxiety, no depression - Endocrine Endocrine: fatigue, no excessive sweating - Hematologic/Lymphatic Hematologic/Lymphatic: no easy bleeding, no easy bruising Physical Examination Vital Signs: Vital Signs, Last 4 Hours Temp Pulse Resp BP Pulse Ox 02/23/19 16:19 82 17 91/65 91 02/23/19 16:00 81 14 92/65 91 02/23/19 15:46 83 12 94/63 92 02/23/19 15:39 83 11 95/65 91 02/23/19 15:30 82 11 91/64 91 02/23/19 15:20 82 11 95/66 92 02/23/19 15:15 83 12 100/66 92 02/23/19 15:09 83 14 100/68 93 02/23/19 15:00 81 16 108/73 94 02/23/19 14:58 81 20 86/64 93 02/23/19 14:41 82 18 121/70 94 02/23/19 14:25 82 21 119/73 95 02/23/19 14:19 87 18 112/65 97 02/23/19 14:02 91 17 123/62 98 02/23/19 13:59 88 18 97/60 94 02/23/19 13:53 78/50 93 02/23/19 13:51 74/48 98 02/23/19 13:50 68/52 98 02/23/19 13:48 70/48 97 02/23/19 13:38 12 91 02/23/19 13:19 98.5 F 79 17 161/115 89 General appearance: no acute distress, other (Currently on BiPAP.) Eyes: nonicteric ENT: other (BiPAP in place) Neck: supple, no JVD Effort: normal Inspection: normal Auscultation: bilateral: wheezes Cardiovascular: regular rate and rhythm (No murmur) Gastrointestinal: normoactive bowel sounds, soft, non-tender Integumentary: normal Extremities: other (1+ pitting edema in the LLE. RLE with casting from previous admission) Musculoskeletal: ROM normal normal mental status, non-focal exam, pupils equal and round, CN II-XII normal mood appropriate, affect normal Results - Laboratory Findings CBC and BMP: 02/23/19 13:35 02/23/19 13:35 ABG ABG pH 7.26 pH Units (7.32-7.45) L 02/23/19 13:58 ABG pCO2 62 mmHg (35-45) H 02/23/19 13:58 ABG pO2 81 mmHg (85-104) L 02/23/19 13:58 ABG O2 Saturation 93 % (95-98) L 02/23/19 13:58 PT/INR, D-dimer PT 28.5 Seconds (9.4-12.1) H 02/23/19 13:35 Abnormal lab findings: Abnormal lab results RBC 3.12 M/mcL (4.19-5.50) L 02/23/19 13:35 Hgb 8.5 g/dL (12.9-16.9) L 02/23/19 13:35 Hct 27.7 % (37.5-50.1) L 02/23/19 13:35 MCH 27.2 pg (28.0-33.3) L 02/23/19 13:35 MCHC 30.7 g/dL (31.6-35.5) L 02/23/19 13:35 RDW 16.6 % (11.5-14.5) H 02/23/19 13:35 MPV 9.2 fL (9.4-12.4) L 02/23/19 13:35 Eosinophils # 0.8 K/mcL (0.0-0.6) H 02/23/19 13:35 PT 28.5 Seconds (9.4-12.1) H 02/23/19 13:35 APTT 53.0 Seconds (26.0-36.0) H 02/23/19 13:35 ABG pH 7.26 pH Units (7.32-7.45) L 02/23/19 13:58 ABG pCO2 62 mmHg (35-45) H 02/23/19 13:58 ABG pO2 81 mmHg (85-104) L 02/23/19 13:58 ABG Total CO2 29 mEq/L (20-26) H 02/23/19 13:58 ABG O2 Saturation 93 % (95-98) L 02/23/19 13:58 Sodium 128 mEq/L (136-145) L 02/23/19 13:35 Chloride 94 mEq/L (98-107) L 02/23/19 13:35 BUN 39 mg/dL (6-20) H 02/23/19 13:35 Creatinine 7.33 mg/dL (0.70-1.30) H 02/23/19 13:35 Est GFR ( Amer) 9 (> 60) L 02/23/19 13:35 Est GFR (Non-Af Amer) 8 (> 60) L 02/23/19 13:35 BUN/Creatinine Ratio 5 (6-26) L 02/23/19 13:35 Glucose 108 mg/dL (70-105) H 02/23/19 13:35 Calculated Osmolality 276 (280-300) L 02/23/19 13:35 Calcium 8.3 mg/dL (8.6-10.3) L 02/23/19 13:35 B-Natriuretic Peptide 143 pg/mL (Less than 100) H 02/23/19 13:35 Urine Clarity Turbid (Clear) A 02/23/19 14:30 Urine Protein 30 mg/dL (Neg-Trace) H 02/23/19 14:30 Urine Blood Trace (Negative) H 02/23/19 14:30 Ur Leukocyte Esterase Moderate (Negative) H 02/23/19 14:30 Urine Microscopic WBC 15-30 per hpf (0-3) H 02/23/19 14:30 Ur Squamous Epith Cells Many per lpf (None-Few) H 02/23/19 14:30 Ur Renal Epithelial Cell Moderate per hpf (None-Few) H 02/23/19 14:30 Urine Bacteria Many per hpf (None-Few) H 02/23/19 14:30 Ur Culture Indicated? YES (NO) A 02/23/19 14:30 <Jarret Jimenez S - Last Filed: 02/24/19 07:10> Date of Encounter: 02/24/19 History of Present Illness HPI: Mr. Olguin is a 58 year old male All Systems: The remainder of the systems were reviewed and are negative Physical Examination Vital Signs: Vital Signs, Last 4 Hours Temp Pulse Resp BP Pulse Ox 02/24/19 06:00 77 16 124/78 91 02/24/19 05:00 66 10 116/73 94 02/24/19 04:18 9 105/70 94 02/24/19 04:00 97.5 F L 70 17 110/75 94 Results - Laboratory Findings CBC and BMP: 02/24/19 05:41 02/24/19 05:41 ABG ABG pH 7.24 pH Units (7.32-7.45) L 02/23/19 18:45 ABG pCO2 59 mmHg (35-45) H 02/23/19 18:45 ABG pO2 84 mmHg (85-104) L 02/23/19 18:45 ABG O2 Saturation 94 % (95-98) L 02/23/19 18:45 PT/INR, D-dimer PT 29.1 Seconds (9.4-12.1) H 02/24/19 05:41 Abnormal lab findings: Abnormal lab results RBC 3.26 M/mcL (4.19-5.50) L 02/24/19 05:41 Hgb 8.8 g/dL (12.9-16.9) L 02/24/19 05:41 Hct 28.4 % (37.5-50.1) L 02/24/19 05:41 MCH 27.0 pg (28.0-33.3) L 02/24/19 05:41 MCHC 31.0 g/dL (31.6-35.5) L 02/24/19 05:41 RDW 15.9 % (11.5-14.5) H 02/24/19 05:41 Plt Count 407 K/mcL (140-400) H 02/24/19 05:41 MPV 9.2 fL (9.4-12.4) L 02/23/19 13:35 Eosinophils # 0.8 K/mcL (0.0-0.6) H 02/23/19 13:35 PT 29.1 Seconds (9.4-12.1) H 02/24/19 05:41 APTT 53.0 Seconds (26.0-36.0) H 02/23/19 13:35 ABG pH 7.24 pH Units (7.32-7.45) L 02/23/19 18:45 ABG pCO2 59 mmHg (35-45) H 02/23/19 18:45 ABG pO2 84 mmHg (85-104) L 02/23/19 18:45 ABG Total CO2 27 mEq/L (20-26) H 02/23/19 18:45 ABG O2 Saturation 94 % (95-98) L 02/23/19 18:45 ABG Base Excess -3 mEq/L (-2 to 3) L 02/23/19 18:45 Sodium 128 mEq/L (136-145) L 02/24/19 05:41 Potassium 5.3 mEq/L (3.5-5.1) H 02/24/19 05:41 Chloride 93 mEq/L (98-107) L 02/24/19 05:41 Carbon Dioxide 22 mEq/L (23-29) L 02/24/19 05:41 BUN 52 mg/dL (6-20) H 02/24/19 05:41 Creatinine 7.94 mg/dL (0.70-1.30) H 02/24/19 05:41 Est GFR ( Amer) 9 (> 60) L 02/24/19 05:41 Est GFR (Non-Af Amer) 7 (> 60) L 02/24/19 05:41 BUN/Creatinine Ratio 5 (6-26) L 02/23/19 13:35 Glucose 174 mg/dL (70-105) H 02/24/19 05:41 Calculated Osmolality 276 (280-300) L 02/23/19 13:35 Calcium 8.5 mg/dL (8.6-10.3) L 02/24/19 05:41 Phosphorus 6.8 mg/dL (2.7-4.5) H 02/24/19 05:41 AST 12 Units/L (13-39) L 02/24/19 05:41 B-Natriuretic Peptide 143 pg/mL (Less than 100) H 02/23/19 13:35 Albumin 3.2 g/dL (3.5-5.7) L 02/24/19 05:41 Globulin 3.8 g/dL (2.4-3.5) H 02/24/19 05:41 Albumin/Globulin Ratio 0.8 (1.1-2.2) L 02/24/19 05:41 Urine Clarity Turbid (Clear) A 02/23/19 14:30 Urine Protein 30 mg/dL (Neg-Trace) H 02/23/19 14:30 Urine Blood Trace (Negative) H 02/23/19 14:30 Ur Leukocyte Esterase Moderate (Negative) H 02/23/19 14:30 Urine Microscopic WBC 15-30 per hpf (0-3) H 02/23/19 14:30 Ur Squamous Epith Cells Many per lpf (None-Few) H 02/23/19 14:30 Ur Renal Epithelial Cell Moderate per hpf (None-Few) H 02/23/19 14:30 Urine Bacteria Many per hpf (None-Few) H 02/23/19 14:30 Ur Culture Indicated? YES (NO) A 02/23/19 14:30 - Attending Attestation I have seen and examined the patient with Dr. Guerrero and agree with his/her assessment and plan. 58-year-old male with history of heart failure with preserved EF, ESRD on hemodialysis Sunday, O2 dependent COPD, was admitted due to acute on chronic hypoxic respiratory failure, metabolic encephalopathy, and hypotension. SIRS / however concerning for early sepsis as etiology for hypotension ?complicated UTI +/- PNA. Required continuous BiPAP to maintain his saturation > 90%. Exam was significant for bilateral wheezes/rales in both lung granados. Will cover with broad-spectrum antibiotics, continue BiPAP, and consult to nephrology for ultrafiltration. Hold off on sedatives and antihypertensives. Jarret Jimenez MD
[2019-02-23] MEDS ORDERED: Azithromycin 500 MG in 0.9 % Sodium Chloride 250 ML IVPB SCH (18:00)
[2019-02-23] MEDS ORDERED: *HR* Warfarin 5 MG TABLET PO SCH (18:00)
[2019-02-23] MEDS ORDERED: *HR* HYDROcodone/Acet 5/325 mg TABLET PO PRN (18:15)
[2019-02-23] MEDS ORDERED: Acetaminophen 325 MG TABLET PO PRN (18:15)
[2019-02-23] MEDS ORDERED: Naloxone 0.4 MG/ML INJ IVP PRN (18:15)
[2019-02-23 18:49] LABS: ABG Base Excess -3 mEq/L (-2 to 3); ABG HCO3 25 mEq/L (21-27); ABG Oxygen Saturation 94 % (95-98); ABG PCO2 59 mmHg (35-45); ABG PH 7.24 pH Units (7.32-7.45); ABG PO2 84 mmHg (85-104); ABG TCO2 27 mEq/L (20-26); Blood Gas PEEP 8 cm H2O; Blood Gas VT 16 cc
[2019-02-23] MEDS ORDERED: Warfarin perPT PO PRN (18:53)
[2019-02-23] MEDS: MethylPREDNISolone 40 MG/ML VIAL IVP SCH ×2 (19:14→23:34)
[2019-02-23] MEDS ORDERED: *HR* Warfarin 5 MG TABLET PO ONE (19:15)
[2019-02-23] MEDS ORDERED: Melatonin 3 MG TABLET PO SCH (21:00)
[2019-02-23] MEDS: Ipratropium/Albuterol Neb 3 ML IH SCH (22:19)
[2019-02-23] MEDS: Budesonide/Formoterol 160/4.5 1 PUFF INH IH SCH (22:19)
[2019-02-24] MEDS: Ipratropium/Albuterol Neb 3 ML IH SCH ×5 (04:10→22:58)
[2019-02-24] MEDS: MethylPREDNISolone 40 MG/ML VIAL IVP SCH ×2 (05:12→18:55)
[2019-02-24 06:22] LABS: Basophils % 0.3 %; Hematocrit 28.4 % (37.5-50.1); Hemoglobin 8.8 g/dL (12.9-16.9); Immature Granulocytes % 2.5 % (0-4); Lymphocytes # 1.3 K/mcL (0.6-4.6); Lymphocytes % 16.3 %; Mean Corpuscular Volume 87.1 fL (83.0-100.0); Mean Platelet Volume 9.6 fL (9.4-12.4); Monocytes # 0.1 K/mcL (0.0-1.3); Monocytes % 1.7 %; Neutrophils # 6.1 K/mcL (1.6-8.9); Platelet Count 407 K/mcL (140-400); Red Blood Count 3.26 M/mcL (4.19-5.50); Red Cell Distribution Width 15.9 % (11.5-14.5); Segmented Neutrophils % 79.2 %; White Blood Count 7.7 K/mcL (4.3-11.1)
[2019-02-24 06:32] LABS: INR 2.6; Prothrombin Time 29.1 Seconds (9.4-12.1)
[2019-02-24 06:47] LABS: Albumin 3.2 g/dL (3.5-5.7); Albumin/Globulin Ratio 0.8 (1.1-2.2); Bilirubin,Total 0.3 mg/dL (0.3-1.0); Calcium 8.5 mg/dL (8.6-10.3); Globulin 3.8 g/dL (2.4-3.5); Magnesium 1.8 mg/dL (1.6-2.6); Phosphorous 6.8 mg/dL (2.7-4.5); Potassium 5.3 mEq/L (3.5-5.1)
[2019-02-24] MEDS: Budesonide/Formoterol 160/4.5 1 PUFF INH IH SCH ×2 (07:32→22:58)
--- NOTE | 2019-02-24 08:17 | Pulmonology Progress Note ---
<Freeman Olivera - Last Filed: 02/24/19 08:38> Date of Encounter: 02/24/19 Time of Encounter: 08:17 Assessment and Plan (1) Acute on chronic respiratory failure with hypoxia and hypercapnia Current Visit: No Status: Acute Pt found to be in respiratory distress in the ED with O2 saturation of 89% on 5L via NC and started on BiPAP Could be related to infectious cause or respiratory depression due to polypharmacy as pt responded to narcan in the ED Recent PE on warfarin with INR of 2.5 PMH significant for COPD and CHF CT Chest suspicious for PNA without sign of PE or extensive pulmonary edema. -Patient clinically improved and much more alert. -BiPAP stopped over night, currently on 5L simple oxygen mask with oxygen saturations of 90% -Vancomycin, Zosyn, and azithromycin day 2, awaiting cultures and will de- escalate as needed -Duonebs Q4hr PRN, Symbicort twice a day, and Solu-Medrol 40 mg every 6 hours -We will continue to monitor patient for signs of withdrawal and have low threshold for adding low-dose opiate medication to regimen. (2) Toxic metabolic encephalopathy Current Visit: No Status: Acute Infectious vs. pharmaceutical cause. UA with leukoesterase and bacteria present with cultures pending CT with possible pneumonia Patient on several sedating medications including oxycodone ER 10 mg BID, Roxicodone 10 mg Q8H, Seroquel 25 mg HS, and Gabapentin 600 mg TID -Patient clinically improved and much more alert. -We will continue to monitor patient for signs of withdrawal and have low threshold for adding low-dose opiate medication to regimen -Continue empiric Antibiotic therapy as stated above (3) Hypotension Current Visit: Yes Status: Acute Patient with hypertension on presentation at 161/115, but on repeat 30 minutes later BP had dropped to 70/48 and was persistently low over the next hour. Infectious versus polypharmacy UA and chest CT suspicious of infections without elevated WBCs or fever Patient on several sedating medications as stated above the patient given Narcan in ED Unsure of when patient last received his opioids -Latest BP of 124/78 with pt much more alert at this time -Low threshold to restart on low dose opioid if pt begins to become aggitated or hypertensive -Empiric antibody therapy as stated above for treatment of possible infections -Pt M/W/F dialysis, nephrology consulted will follow recommendations Qualifiers: Hypotension type: unspecified hypotension type Qualified Code(s): I95.9 - Hypotension, unspecified (4) Complicated UTI (urinary tract infection) Current Visit: Yes Status: Acute UA from ED with leukocyte esterase and bacteria present in the male who does not consistently make urine due to ESRD No elevated lactic acid, fever, tachycardia, or white count -Urine cultures pending -Continue empiric antibiotic therapy as stated above we will de-escalate as cultures come back (5) ESRD (end stage renal disease) Current Visit: No Status: Acute Patient with ESRD on dialysis Sunday schedule Last session was completed Sunday -No signs of fluid overload, stable -Slightly hyperkalemic and hyponatremic, but due for dialysis -Continue to monitor electrolytes following dialysis -Nephrology consulted, will follow recommendations (6) Ankle fracture, right Current Visit: No Status: Acute Patient seen for fracture by report though on last admission Currently in cast Qualifiers: Qualified Code(s): S82.891A - Other fracture of right lower leg, initial encounter for closed fracture Subjective Interval history: Patient states he is feeling fine today. Patient is able to talk without difficulty in breathing. Patient much more awake and alert when compared to night before. Patient denies chest pain, cough, fever, chills, abdominal pain, nausea, vomiting, diarrhea, or blurry vision. Patient does complain of back pain which is chronic and right leg pain due to recent fracture. Objective PUL Vital signs: Last Vital Signs Temp 97.6 F 02/24/19 07:15 Pulse 77 02/24/19 06:00 Resp 16 02/24/19 07:32 BP 124/78 02/24/19 06:00 Pulse Ox 89 02/24/19 07:32 General appearance: no acute distress Eyes: nonicteric ENT: oropharynx moist Neck: supple, no lymphadenopathy Effort: normal Auscultation: bilateral: clear Cardiovascular: regular rate and rhythm Gastrointestinal: normoactive bowel sounds, soft, non-distended Integumentary: normal Extremities: no cyanosis, pulses normal Musculoskeletal: other (1+ pitting edema in the LLE. RLE with casting from previous admission) normal mental status, non-focal exam mood appropriate, affect normal Results - Laboratory Findings CBC and BMP: 02/24/19 05:41 02/24/19 05:41 ABG ABG pH 7.24 pH Units (7.32-7.45) L 02/23/19 18:45 ABG pCO2 59 mmHg (35-45) H 02/23/19 18:45 ABG pO2 84 mmHg (85-104) L 02/23/19 18:45 ABG O2 Saturation 94 % (95-98) L 02/23/19 18:45 PT/INR, D-dimer PT 29.1 Seconds (9.4-12.1) H 02/24/19 05:41 Abnormal lab findings: Abnormal lab results RBC 3.26 M/mcL (4.19-5.50) L 02/24/19 05:41 Hgb 8.8 g/dL (12.9-16.9) L 02/24/19 05:41 Hct 28.4 % (37.5-50.1) L 02/24/19 05:41 MCH 27.0 pg (28.0-33.3) L 02/24/19 05:41 MCHC 31.0 g/dL (31.6-35.5) L 02/24/19 05:41 RDW 15.9 % (11.5-14.5) H 02/24/19 05:41 Plt Count 407 K/mcL (140-400) H 02/24/19 05:41 MPV 9.2 fL (9.4-12.4) L 02/23/19 13:35 Eosinophils # 0.8 K/mcL (0.0-0.6) H 02/23/19 13:35 PT 29.1 Seconds (9.4-12.1) H 02/24/19 05:41 APTT 53.0 Seconds (26.0-36.0) H 02/23/19 13:35 ABG pH 7.24 pH Units (7.32-7.45) L 02/23/19 18:45 ABG pCO2 59 mmHg (35-45) H 02/23/19 18:45 ABG pO2 84 mmHg (85-104) L 02/23/19 18:45 ABG Total CO2 27 mEq/L (20-26) H 02/23/19 18:45 ABG O2 Saturation 94 % (95-98) L 02/23/19 18:45 ABG Base Excess -3 mEq/L (-2 to 3) L 02/23/19 18:45 Sodium 128 mEq/L (136-145) L 02/24/19 05:41 Potassium 5.3 mEq/L (3.5-5.1) H 02/24/19 05:41 Chloride 93 mEq/L (98-107) L 02/24/19 05:41 Carbon Dioxide 22 mEq/L (23-29) L 02/24/19 05:41 BUN 52 mg/dL (6-20) H 02/24/19 05:41 Creatinine 7.94 mg/dL (0.70-1.30) H 02/24/19 05:41 Est GFR ( Amer) 9 (> 60) L 02/24/19 05:41 Est GFR (Non-Af Amer) 7 (> 60) L 02/24/19 05:41 BUN/Creatinine Ratio 5 (6-26) L 02/23/19 13:35 Glucose 174 mg/dL (70-105) H 02/24/19 05:41 Calculated Osmolality 276 (280-300) L 02/23/19 13:35 Calcium 8.5 mg/dL (8.6-10.3) L 02/24/19 05:41 Phosphorus 6.8 mg/dL (2.7-4.5) H 02/24/19 05:41 AST 12 Units/L (13-39) L 02/24/19 05:41 B-Natriuretic Peptide 143 pg/mL (Less than 100) H 02/23/19 13:35 Albumin 3.2 g/dL (3.5-5.7) L 02/24/19 05:41 Globulin 3.8 g/dL (2.4-3.5) H 02/24/19 05:41 Albumin/Globulin Ratio 0.8 (1.1-2.2) L 02/24/19 05:41 Urine Clarity Turbid (Clear) A 02/23/19 14:30 Urine Protein 30 mg/dL (Neg-Trace) H 02/23/19 14:30 Urine Blood Trace (Negative) H 02/23/19 14:30 Ur Leukocyte Esterase Moderate (Negative) H 02/23/19 14:30 Urine Microscopic WBC 15-30 per hpf (0-3) H 02/23/19 14:30 Ur Squamous Epith Cells Many per lpf (None-Few) H 02/23/19 14:30 Ur Renal Epithelial Cell Moderate per hpf (None-Few) H 02/23/19 14:30 Urine Bacteria Many per hpf (None-Few) H 02/23/19 14:30 Ur Culture Indicated? YES (NO) A 02/23/19 14:30 - Microbiology Findings Microbiology Findings: Microbiology, Last 48 Hours 02/23/19 16:34 Blood Culture - Preliminary Peripheral Venipuncture Culture is incubating and being continuously monitored for growth. Final report to follow. 02/23/19 16:34 Blood Culture - Preliminary Peripheral Venipuncture Culture is incubating and being continuously monitored for growth. Final report to follow. 02/23/19 14:30 Urine Culture - Preliminary Urine,Catheterized (Straight) Culture is incubating. - Clinical Findings Intake & Output: Intake & Output 02/23/19 02/24/19 02/24/19 23:59 07:59 15:59 Intake Total 1350 / 1350 Output Total 400 / 400 Balance 950 / 950 Consult Discharge Plan - Plan Referrals: Heather Proctor MD [Primary Care Provider] - <Winsome Good - Last Filed: 02/24/19 09:22> Date of Encounter: 02/24/19 Objective PUL Vital signs: Last Vital Signs Temp 97.6 F 02/24/19 07:15 Pulse 77 02/24/19 06:00 Resp 16 02/24/19 07:32 BP 124/78 02/24/19 06:00 Pulse Ox 89 02/24/19 07:32 Results - Laboratory Findings CBC and BMP: 02/24/19 05:41 02/24/19 05:41 ABG ABG pH 7.24 pH Units (7.32-7.45) L 02/23/19 18:45 ABG pCO2 59 mmHg (35-45) H 02/23/19 18:45 ABG pO2 84 mmHg (85-104) L 02/23/19 18:45 ABG O2 Saturation 94 % (95-98) L 02/23/19 18:45 PT/INR, D-dimer PT 29.1 Seconds (9.4-12.1) H 02/24/19 05:41 Abnormal lab findings: Abnormal lab results RBC 3.26 M/mcL (4.19-5.50) L 02/24/19 05:41 Hgb 8.8 g/dL (12.9-16.9) L 02/24/19 05:41 Hct 28.4 % (37.5-50.1) L 02/24/19 05:41 MCH 27.0 pg (28.0-33.3) L 02/24/19 05:41 MCHC 31.0 g/dL (31.6-35.5) L 02/24/19 05:41 RDW 15.9 % (11.5-14.5) H 02/24/19 05:41 Plt Count 407 K/mcL (140-400) H 02/24/19 05:41 MPV 9.2 fL (9.4-12.4) L 02/23/19 13:35 Eosinophils # 0.8 K/mcL (0.0-0.6) H 02/23/19 13:35 PT 29.1 Seconds (9.4-12.1) H 02/24/19 05:41 APTT 53.0 Seconds (26.0-36.0) H 02/23/19 13:35 ABG pH 7.24 pH Units (7.32-7.45) L 02/23/19 18:45 ABG pCO2 59 mmHg (35-45) H 02/23/19 18:45 ABG pO2 84 mmHg (85-104) L 02/23/19 18:45 ABG Total CO2 27 mEq/L (20-26) H 02/23/19 18:45 ABG O2 Saturation 94 % (95-98) L 02/23/19 18:45 ABG Base Excess -3 mEq/L (-2 to 3) L 02/23/19 18:45 Sodium 128 mEq/L (136-145) L 02/24/19 05:41 Potassium 5.3 mEq/L (3.5-5.1) H 02/24/19 05:41 Chloride 93 mEq/L (98-107) L 02/24/19 05:41 Carbon Dioxide 22 mEq/L (23-29) L 02/24/19 05:41 BUN 52 mg/dL (6-20) H 02/24/19 05:41 Creatinine 7.94 mg/dL (0.70-1.30) H 02/24/19 05:41 Est GFR ( Amer) 9 (> 60) L 02/24/19 05:41 Est GFR (Non-Af Amer) 7 (> 60) L 02/24/19 05:41 BUN/Creatinine Ratio 5 (6-26) L 02/23/19 13:35 Glucose 174 mg/dL (70-105) H 02/24/19 05:41 Calculated Osmolality 276 (280-300) L 02/23/19 13:35 Calcium 8.5 mg/dL (8.6-10.3) L 02/24/19 05:41 Phosphorus 6.8 mg/dL (2.7-4.5) H 02/24/19 05:41 AST 12 Units/L (13-39) L 02/24/19 05:41 B-Natriuretic Peptide 143 pg/mL (Less than 100) H 02/23/19 13:35 Albumin 3.2 g/dL (3.5-5.7) L 02/24/19 05:41 Globulin 3.8 g/dL (2.4-3.5) H 02/24/19 05:41 Albumin/Globulin Ratio 0.8 (1.1-2.2) L 02/24/19 05:41 Urine Clarity Turbid (Clear) A 02/23/19 14:30 Urine Protein 30 mg/dL (Neg-Trace) H 02/23/19 14:30 Urine Blood Trace (Negative) H 02/23/19 14:30 Ur Leukocyte Esterase Moderate (Negative) H 02/23/19 14:30 Urine Microscopic WBC 15-30 per hpf (0-3) H 02/23/19 14:30 Ur Squamous Epith Cells Many per lpf (None-Few) H 02/23/19 14:30 Ur Renal Epithelial Cell Moderate per hpf (None-Few) H 02/23/19 14:30 Urine Bacteria Many per hpf (None-Few) H 02/23/19 14:30 Ur Culture Indicated? YES (NO) A 02/23/19 14:30 - Microbiology Findings Microbiology Findings: Microbiology, Last 48 Hours 02/23/19 16:34 Blood Culture - Preliminary Peripheral Venipuncture Culture is incubating and being continuously monitored for growth. Final report to follow. 02/23/19 16:34 Blood Culture - Preliminary Peripheral Venipuncture Culture is incubating and being continuously monito red for growth. Final report to follow. 02/23/19 14:30 Urine Culture - Preliminary Urine,Catheterized (Straight) Culture is incubating. - Clinical Findings Intake & Output: Intake & Output 02/23/19 02/24/19 02/24/19 23:59 07:59 15:59 Intake Total 1350 / 1350 Output Total 400 / 400 Balance 950 / 950 - Attending Attestation I examined this patient and my medical decision-making was reviewed with the Resident Physician. I agree with the documented findings, disposition and t reatment plan as described except to the extent set forth below. Patient seen and examined. Labs, radiology, chart personally reviewed. Agree with resident's history and physical, assessment, plan with following comments: HABITAT BIOLOGIST: Patient follows commands. I have explained to the patient about side ef fects of narcotics and polypharmacy and it is especially important for him due to his end-stage renal disease. Try to avoid any excessive use of narcotics is important in this patient. Pulmonary: Acceptable oxygenation and ventilation. Patient is doing very well and denies any problem breathing could this time. Titrate FiO2 to keep oxygen saturation around 90% and can use noninvasive ventilation as needed. Patient stable to be transferred to the floor. Cardiovascular: stable GI: Nutrition per dietary and GI prophylaxis per routine Heme: DVT prophylaxis per routine ID: Continue antibiotics and plan to de-escalation. We will de-escalation as long as cultures are negative. Renal; urine out put and renal function reviewed. Patient is hemodialysis and nephrology follow-up. Endorcine: blood glucose is monitored Lines: all lines checked and no evidence of infections Skin: skin care to prevent pressure ulcers per nursing routine care Dispo: Patient can be transferred to the floor. Code: Full. Prognosis. Fair Please call for any questions.
--- NOTE | 2019-02-24 09:39 | Internal Med Progress Note ---
Hospitalist Progress Note - Encounter Date of Encounter: 02/24/19 Time of Encounter: 07:30 - Subjective Interval History: Discussed on rounds with Dr. Good and ICU charge nurse. Patient doing well now, mentating well, and is minimally short of breath now. Upon review of meds and clinical history, it appears this encephalopathy is likely due to polyp harmacy. I agree with continuing his antibiotics for now until blood and urine cultures resulted. - Exam Vitals: Temp Pulse Resp BP Pulse Ox 97.6 F 77 16 124/78 89 02/24/19 07:15 02/24/19 06:00 02/24/19 07:32 02/24/19 06:00 02/24/19 07:32 Exam: General: Awake, alert, no acute distress other than mild dyspnea. HEENT: moist mucosa, neck supple Lungs: Scattered rhonchi, good air movement in all lung granados, no retractions or distress. CV: RRR; no appreciable MTR Abdomen: soft, NT, NO HSMG, + BS Ext; equal pulses; 1-2+ edema; no myalgias Neuro: A&O x3; no focal deficits noted - Assessment and Plan (1) Acute on chronic respiratory failure with hypoxia and hypercapnia Current Visit: Yes Status: Acute Assessment and Plan: 1. Likely exacerbated by polypharmacy. 2. BiPap PRN now and wean oxygen to maintain SPO2 > 88%. 3. Transfer out of ICU today to as discussed with ICU team. (2) Toxic metabolic encephalopathy Current Visit: Yes Status: Acute Assessment and Plan: 1. Clinically much improved. 2. Likely due to a combination of polypharmacy and hypercapnia. 3. Will need to resume home opioids judiciously when fully awake and alert. Other sedating home meds to be resumed on a [id number] and cautious basis. 4. Recommend close review and consider weaning/stopping some sedating home meds (if able) upon discharge. 5. De-escalate antibiotics if cultures remain negative. Do not suspect sepsis as etiology. (3) ESRD (end stage renal disease) Current Visit: Yes Status: Chronic Assessment and Plan: 1. Nephrology consulted for HD needs. (4) Complicated UTI (urinary tract infection) Current Visit: Yes Status: Acute Assessment and Plan: 1. Follow cultures and de-escalate antibiotics pending culture results. DVT Prophylaxis: 1. He remains on Coumadin per pharmacy dosing. - Time Spent with Patient Total time spent is greater than 50% in coordination of care (as documented) at patient's floor/unit and/or counseling patient: less than 15 minutes Plan of Care Discussed with: patient Internal Medicine: Result - Labs CBC & Chem 7: 02/24/19 05:41 02/24/19 05:41 Labs: Short CBC 02/23/19 02/24/19 Range/Units 13:35 05:41 WBC 9.0 7.7 (4.3-11.1) K/mcL Hgb 8.5 L 8.8 L (12.9-16.9) g/dL Hct 27.7 L 28.4 L (37.5-50.1) % Plt Count 360 D 407 H (140-400) K/mcL Neutrophils # 4.1 6.1 (1.6-8.9) K/mcL BMP 02/23/19 02/24/19 13:35 05:41 Sodium 128 L 128 L Potassium 4.5 5.3 H Chloride 94 L 93 L Carbon Dioxide 25 22 L BUN 39 H 52 H Creatinine 7.33 H 7.94 H Glucose 108 H 174 H Calcium 8.3 L 8.5 L Cardiac Enzymes 02/23/19 Range/Units 13:35 Troponin I < 0.03 (< 0.04) ng/mL Liver Function 02/24/19 Range/Units 05:41 Total Bilirubin 0.3 (0.3-1.0) mg/dL AST 12 L (13-39) Units/L ALT 10 (7-52) Units/L Alkaline Phosphatase 68 (34-104) Units/L Albumin 3.2 L (3.5-5.7) g/dL Urine 02/23/19 Range/Units 14:30 Urine Color Dark Yellow (Yellow) Urine Clarity Turbid A (Clear) Urine pH 5.0 (5.0-8.0) pH Units Ur Specific [place] 1.016 (1.010-1.025) Urine Protein 30 H (Neg-Trace) mg/dL Urine Glucose (UA) Normal (Normal) mg/dL - ABG Interpretation ABG results: ABG ABG pH 7.24 pH Units (7.32-7.45) L 02/23/19 18:45 ABG pCO2 59 mmHg (35-45) H 02/23/19 18:45 ABG pO2 84 mmHg (85-104) L 02/23/19 18:45 ABG O2 Saturation 94 % (95-98) L 02/23/19 18:45 PT/INR, D-dimer PT 29.1 Seconds (9.4-12.1) H 02/24/19 05:41 - Impressions Impressions Chest X-Ray 02/23/19 13:28 IMPRESSION: Cardiomegaly with persistent pulmonary edema. D/ / Jewel Cabral MD / Jewel Cabral MD Interpreting Provider: Jewel Cabral MD Chest CTA 02/23/19 13:29 IMPRESSION: Nondiagnostic exam due to suboptimal pulmonary arterial opacification. Consider nuclear medicine imaging if concern for pulmonary embolus persists. Small bilateral pleural effusions. Mild dependent consolidation bilaterally, atelectasis versus pneumonia. Radiographic follow-up to resolution is suggested. D/ / 02/23/2019 15:27:26 Kevin Sanchez MD / [place] Interpreting Provider: Kevin Sanchez MD Head CT 02/23/19 13:29 IMPRESSION: No evidence of acute intracranial abnormality on a study limited as described above. D/ / 02/23/2019 15:28:13 Gerson Ritchie MD / [place] Interpreting Provider: Gerson Ritchie MD Consult Discharge Plan - Plan Referrals: Heather Proctor MD [Primary Care Provider] -
[2019-02-24] MEDS ORDERED: *HR* HYDROcodone/Acet 5/325 mg TABLET PO PRN (10:45)
--- NOTE | 2019-02-24 11:27 | Nephrology Consult Note ---
Date of Encounter: 02/24/19 Time of Encounter: 11:25 Assessment and Plan (1) ESRD (end stage renal disease) Current Visit: Yes Status: Chronic HD MWF. Renal vitamins. Renal dose medications. Renal diet. Additional dialysis and ultrafiltration as needed. Plan for dialysis today. (2) Acute on chronic respiratory failure with hypoxia and hypercapnia Current Visit: Yes Status: Acute The patient is currently on submental oxygen with no complaints of dyspnea and satting well on supplemental O2. We will defer overall management to the primary team. He has mild pleural effusions on his CT we will remove fluid with dialysis today. (3) Altered mental status Current Visit: Yes Status: Acute Patient name and hospital with what sounds like a metabolic encephalopathy that is improved. Overall management to primary team. Qualifiers: Altered mental status type: unspecified Qualified Code(s): R41.82 - Altered mental status, unspecified (4) Hypotension Current Visit: Yes Status: Acute This has resolved. His blood pressures much better. Clinically likely related to polypharmacy. Qualifiers: Hypotension type: unspecified hypotension type Qualified Code(s): I95.9 - Hypotension, unspecified (5) Toxic metabolic encephalopathy Current Visit: Yes Status: Acute History of Present Illness - Reason for Consult Consult date: 02/24/19 end stage renal disease - Chief Complaint esrd - History of Present Illness Mr. Olguin is a 58-year-old gentleman with a history of end-stage renal disease who receives dialysis on a Sunday schedule presents with altered mental status and was found to have acute on chronic respiratory failure and hypotension. Per the notes from the ED he responded to Narcan. [facility] was consult for ongoing dialysis need. At the time my evaluation the patient's biggest complaint was that he wanted his pain medications restarted. He denies chest pain and states his breathing is improved. He denies nausea, vomiting, or diarrhea. He has a complaint of chronic back pain. His review of systems otherwise is negative or stable. Past Med Surg Social Fam HX - Past Medical History Medical history: CHF, COPD, dialysis, pulmonary embolus, other Additional medical history: lymph node enlargement, lung nodule, pneumonia, absess right lung Psychiatric history: anxiety, depression - Past Surgical History Surgical History: herniorrhaphy Additional surgical history: nasal surgery, left knee surgery, cardiac cath - Social History Smoking Status: Former smoker Packs per day: less than a pack Smokeless Tobacco Status: No Alcohol use: none Drug use: none - Family History Father Living Status: Hx Family Cardiac Disorders: Yes (x4 bipass surgery) Brother Hx Family Cardiac Disorders: Yes Medications and Allergies Bumetanide 2 mg PO BID PRN 12/02/17 [History] Fluticasone/Vilanterol [Breo Ellipta 100-25 Mcg INH] 1 puff IH DAILY 12/03/17 [History] Isosorbide MONOnitrate (24 HR) [Imdur] 30 mg PO DAILY 12/03/17 [History] Atorvastatin [Lipitor] 40 mg PO QPM 06/08/18 [History] Gabapentin [Neurontin] 600 mg PO TID 06/08/18 [History] Lisinopril [Zestril] 10 mg PO DAILY 06/08/18 [History] Melatonin 5 mg PO HS 06/08/18 [History] Albuterol Sulfate [Proventil Inhaler] 2 puff IH Q4HR #1 hfa.aer.[id number] 08/25/18 [Rx] Quetiapine Fumarate [Seroquel] 25 mg PO HS 01/23/19 [History] Albuterol Neb [Proventil Neb] 2.5 mg IH Q8H PRN 01/24/19 [History] Escitalopram [Lexapro] 20 mg PO DAILY 01/24/19 [History] Renal Vitamin [Renal Caps Softgel] 1 mg PO DAILY 02/10/19 [History] Omeprazole [PriLOSEC] 40 mg PO DAILY@0730 #30 capsule. 02/19/19 [Rx] OxyCODONE ER (12 HR) [OxyCONTIN] 10 mg PO Q12HR 2 Days #4 tab.er.12h 02/19/19 [Rx] Ipratropium/Albuterol Neb [Duoneb] 3 ml IH BID PRN 02/23/19 [History] OxyCODONE Immed Rel [Roxicodone 10 MG] 10 mg PO Q8H PRN 02/23/19 [History] Warfarin [Coumadin] 5 mg PO SUMOWEFR 02/23/19 [History] Warfarin [Coumadin] 7.5 mg PO TUTHSA 02/23/19 [History] Allergy/AdvReac Type Severity Reaction Status Date / Time cephalexin [From Keflex] Allergy Hives Verified 02/10/19 10:22 Review of Systems All Systems: reviewed and no additional remarkable complaints except as stated (As documented in the history of present illness) Exam - Vital Signs Vital signs: Initial Vital Signs Temp Pulse Resp BP Pulse Ox 98.5 F 79 17 161/115 89 02/23/19 13:19 02/23/19 13:19 02/23/19 13:19 02/23/19 13:19 02/23/19 13:19 Vital Signs - Last 8 Hours Temp Pulse Resp BP Pulse Ox 02/24/19 11:00 77 12 118/75 88 02/24/19 10:00 83 19 123/77 88 02/24/19 09:00 86 18 119/70 88 02/24/19 08:00 77 17 109/74 89 02/24/19 07:32 16 89 02/24/19 07:15 97.6 F 02/24/19 07:00 89 02/24/19 06:00 77 16 124/78 91 02/24/19 05:00 66 10 116/73 94 02/24/19 04:18 9 105/70 94 02/24/19 04:00 97.5 F L 70 17 110/75 94 Intake and Output 02/23/19 02/24/19 02/24/19 23:59 07:59 15:59 Intake Total 1350 / 1350 150 / 150 Output Total 400 / 400 475 / 475 Balance 950 / 950 -325 / -325 Intake: IV Fluids 1350 / 1350 0.9 % Sodium Chloride 500 ML @ 500 / 500 0 mls/hr .ROUTE .STK-MED ONE Rx #:[id number] Zithromax 500 MG In 0.9 % 250 / 250 Sodium Chloride 250 ML @ 252 mls/hr IVPB Q24H REPLACED BY [facility] Rx#: [id number] Zosyn 3.375 GM In 0.9 % Sodium 100 / 100 Chloride (Mini-Bag +) 100 ML @ 100 mls/hr IVPB ONCE ONE Rx#: [id number] Vancocin 2,000 MG In 0.9 % 500 / 500 Sodium Chloride 500 ML @ 250 mls/hr IVPB ONCE ONE Rx#: [id number] Oral 0 / 0 150 / 150 Output: Urine 0 / 0 Straight Cath 400 / 400 475 / 475 Other: Meal Breakfast Percent of Meal Consumed 80% Blood Glucose* 131 - General Appearance General appearance: well-developed, well-nourished, obese EENT: ATNC Neck: supple Respiratory: clear Cardiology: no edema, regular rate Gastrointestinal: obese Integumentary: warm and dry Neurologic: alert and oriented x3 Musculoskeletal: no cyanosis Psychiatric: mood/affect appropriate Results - Lab Results 02/24/19 05:41 02/24/19 05:41 Most recent lab results 02/24/19 02/24/19 05:41 05:41 Calcium 8.5 L Phosphorus 6.8 H Magnesium 1.8 Consult Discharge Plan - Plan Referrals: Heather Proctor MD [Primary Care Provider] -
[2019-02-24] MEDS ORDERED: 0.9 % Sodium Chloride 250 ML IVC PRN (11:38)
[2019-02-24] MEDS ORDERED: *HR* Heparin 10,000 UNIT/10 ML VIAL IV PRN (11:38)
[2019-02-24] MEDS ORDERED: 0.9 % Sodium Chloride 1,000 ML PRIME SCH (11:45)
[2019-02-24] MEDS ORDERED: Acetaminophen 325 MG TABLET PO PRN (12:22)
[2019-02-24] MEDS ORDERED: Warfarin perPT PO PRN (12:22)
[2019-02-24] MEDS ORDERED: Naloxone 0.4 MG/ML INJ IVP PRN (12:22)
[2019-02-24] MEDS ORDERED: 0.9 % Sodium Chloride 1,000 ML ONE (13:53)
[2019-02-24] MEDS ORDERED: Aminoglycoside Consult 1 EACH MC ONE (15:40)
[2019-02-24] MEDS ORDERED: Azithromycin 500 MG in 0.9 % Sodium Chloride 250 ML IVPB SCH (18:00)
[2019-02-24] MEDS ORDERED: *HR* Warfarin 5 MG TABLET PO ONE (18:00)
[2019-02-24] MEDS: *HR* HYDROcodone/Acet 5/325 mg TABLET PO PRN (19:16)
[2019-02-24] MEDS: Melatonin 3 MG TABLET PO SCH (21:38)
[2019-02-25] MEDS: MethylPREDNISolone 40 MG/ML VIAL IVP SCH ×4 (00:24→19:42)
[2019-02-25 02:24] LABS: INR 3.2; Prothrombin Time 36.9 Seconds (9.4-12.1)
[2019-02-25] MEDS: Ipratropium/Albuterol Neb 3 ML IH SCH ×4 (04:14→23:42)
--- NOTE | 2019-02-25 05:42 | Event Note ---
Date of Encounter: 02/24/19 Time of Encounter: 19:32 Alerted by patient's nurse ANA Hargrove that patient was stating he was having trouble urinating. Patient is being straight cathetered every shift with about 475 MLS output. Family concerned and stated they mentioned this in ICU but it was not addressed. I placed to urology consult and discuss the patient with Dr. Mancia who will see the pt. in the a.m. and recommended starting him on Flomax tonight which I did. Nurse instructed to continue monitoring the pt. and output and alert me immediately of any adverse changes.
[2019-02-25] MEDS ORDERED: Bumetanide 1 MG TABLET PO PRN (07:21)
[2019-02-25] MEDS: *HR* HYDROcodone/Acet 5/325 mg TABLET PO PRN ×2 (08:00→23:04)
[2019-02-25 08:55] LABS: Basophils % 0.1 %; Hematocrit 28.5 % (37.5-50.1); Hemoglobin 9.2 g/dL (12.9-16.9); Immature Granulocytes % 1.9 % (0-4); Lymphocytes # 1.4 K/mcL (0.6-4.6); Lymphocytes % 8.9 %; Mean Corpuscular HGB Conc 32.3 g/dL (31.6-35.5); Mean Corpuscular Volume 86.9 fL (83.0-100.0); Mean Platelet Volume 9.5 fL (9.4-12.4); Monocytes # 0.5 K/mcL (0.0-1.3); Monocytes % 2.9 %; Neutrophils # 13.5 K/mcL (1.6-8.9); Platelet Count 422 K/mcL (140-400); Red Blood Count 3.28 M/mcL (4.19-5.50); Red Cell Distribution Width 16.4 % (11.5-14.5); Segmented Neutrophils % 86.2 %
[2019-02-25 08:56] LABS: White Blood Count 15.7 K/mcL (4.3-11.1)
[2019-02-25] MEDS ORDERED: NON-FORMULARY MEDICATION 1 EACH EACH (Fluticasone/Vilanterol [Breo Ellipta 100-25 Mcg Inh] IH SCH (09:00)
[2019-02-25 09:17] LABS: Albumin 3.3 g/dL (3.5-5.7); Calcium 8.7 mg/dL (8.6-10.3); Phosphorous 5.3 mg/dL (2.7-4.5); Potassium 4.9 mEq/L (3.5-5.1)
--- NOTE | 2019-02-25 09:21 | Urology Progress Note ---
Date of Encounter: 02/25/19 Time of Encounter: 08:30 Progress Note Subjective: feels better Narrative: POD #1. Patient seen and examined sitting upright in bed in no apparent distress. Patient is tolerating normal diet without nausea or vomiting. Patient reports she is voiding well without difficulty, and she is experiencing only minor stent discomfort. Patient denies any fever, chills or flank pain. Objective Initial Vital Signs Temp Pulse Resp BP Pulse Ox 98.5 F 79 17 161/115 89 02/23/19 13:02/23/19 13:02/23/19 13:02/23/19 13:02/23/19 13: - General physical appearance Present: no distress, no pain, obese - Respiratory Present: normal expansion, normal respiratory effort - Abdomen Present: soft, non tender. Absent: distended - Integumentary Present: no rash, no abnormal pigmentation - Musculoskeletal Present: normal posture - Psychiatric Present: oriented to time, oriented to person, oriented to place, speech is nor mal, memory intact - Labs 02/25/19 08:29 02/25/19 08:29 Diabetes panel 02/25/19 Range/Units 08:29 Sodium 132 L (136-145) mEq/L Potassium 4.9 (3.5-5.1) mEq/L Chloride 95 L (98-107) mEq/L Carbon Dioxide 26 (23-29) mEq/L BUN 46 H (6-20) mg/dL Creatinine 4.99 H (0.70-1.30) mg/dL Glucose 172 H (70-105) mg/dL Calcium 8.7 (8.6-10.3) mg/dL Albumin 3.3 L (3.5-5.7) g/dL Calcium panel 02/25/19 Range/Units 08:29 Calcium 8.7 (8.6-10.3) mg/dL Phosphorus 5.3 H (2.7-4.5) mg/dL Albumin 3.3 L (3.5-5.7) g/dL Pituitary panel 02/25/19 Range/Units 08:29 Sodium 132 L (136-145) mEq/L Potassium 4.9 (3.5-5.1) mEq/L Chloride 95 L (98-107) mEq/L Carbon Dioxide 26 (23-29) mEq/L BUN 46 H (6-20) mg/dL Creatinine 4.99 H (0.70-1.30) mg/dL Glucose 172 H (70-105) mg/dL Calcium 8.7 (8.6-10.3) mg/dL Adrenal panel 02/25/19 Range/Units 08:29 Sodium 132 L (136-145) mEq/L Potassium 4.9 (3.5-5.1) mEq/L Chloride 95 L (98-107) mEq/L Carbon Dioxide 26 (23-29) mEq/L BUN 46 H (6-20) mg/dL Creatinine 4.99 H (0.70-1.30) mg/dL Glucose 172 H (70-105) mg/dL Calcium 8.7 (8.6-10.3) mg/dL Albumin 3.3 L (3.5-5.7) g/dL Consult Discharge Plan - Plan Referrals: Heather Proctor MD [Primary Care Provider] -
--- NOTE | 2019-02-25 09:43 | Urology - Consult Note ---
<Radha Bueno N - Last Filed: 02/25/19 09:35> Date of Encounter: 02/25/19 Time of Encounter: 09:00 - Assessment and Plan (1) Urinary retention Current Visit: Yes Status: Acute Assessment and plan: Patient is a 58-year-old male who presents the history of urinary retention. This is the first time patient has ever experienced urinary retention, and he has no prior history of catheterization. Patient has been placed on Flomax daily. We discussed PSA screening as an outpatient. We also discussed placing an indwelling Redmond catheter and proceeding with an outpatient voiding trial versus continuing with intermittent straight catheterization. At this time, patient wishes to continue with in and out catheterization until he is able to further discuss with Dr. Hatfield. Dr. Hatfield will be in to reevaluate patient later this afternoon. Urology CN:HPI Consult date: 02/25/19 Reason for consult Urology: Other (urinary retention) Requesting physician: Oleg Barreto History of present illness: Patient is a 58-year-old male who presents with a history of urinary retention. Patient has a past medical history significant for end-stage renal disease requiring hemodialysis 3 times weekly, COPD, CHF, and recent history of PE and pneumonia. Patient was transferred from [facility] due to concern for hypotension. Patient was admitted through the emergency department for hypotension, acute on chronic respiratory failure with hypoxia and hypercapnia, and toxic metabolic encephalopathy. During this hospital stay, patient reports increased urinary hesitancy, urgency and difficulty with emptying his bladder. Urine culture is negative. Patient has been undergoing intermittent straight catheterization 3-4 times daily, and he declines placement of indwelling Redmond c atheter. Patient admits to baseline urinary hesitancy, weak urinary stream and nocturia 2-3 times per night. He denies any daytime urgency, frequency, postvoid dribbling, dysuria, gross hematuria or incontinence. Patient has not undergone PSA screening, and he denies any known family history of prostate cancer or other malignancy. Past Med Surg Social Fam HX - Past Medical History Medical history: CHF, COPD, dialysis, pulmonary embolus, other Additional medical history: lymph node enlargement, lung nodule, pneumonia, absess right lung Psychiatric history: anxiety, depression - Past Surgical History Surgical History: herniorrhaphy Additional surgical history: nasal surgery, left knee surgery, cardiac cath - Social History Smoking Status: Former smoker Packs per day: less than a pack Smokeless Tobacco Status: No Alcohol use: none Drug use: none - Family History Father Living Status: Hx Family Cardiac Disorders: Yes (x4 bipass surgery) Brother Hx Family Cardiac Disorders: Yes Medications and Allergies Bumetanide 2 mg PO BID PRN 12/02/17 [History] Fluticasone/Vilanterol [Breo Ellipta 100-25 Mcg INH] 1 puff IH DAILY 12/03/17 [History] Isosorbide MONOnitrate (24 HR) [Imdur] 30 mg PO DAILY 12/03/17 [History] Atorvastatin [Lipitor] 40 mg PO QPM 06/08/18 [History] Gabapentin [Neurontin] 600 mg PO TID 06/08/18 [History] Lisinopril [Zestril] 10 mg PO DAILY 06/08/18 [History] Melatonin 5 mg PO HS 06/08/18 [History] Albuterol Sulfate [Proventil Inhaler] 2 puff IH Q4HR #1 hfa.aer.ad 08/25/18 [Rx] Quetiapine Fumarate [Seroquel] 25 mg PO HS 01/23/19 [History] Albuterol Neb [Proventil Neb] 2.5 mg IH Q8H PRN 01/24/19 [History] Escitalopram [Lexapro] 20 mg PO DAILY 01/24/19 [History] Renal Vitamin [Renal Caps Softgel] 1 mg PO DAILY 02/10/19 [History] Omeprazole [PriLOSEC] 40 mg PO DAILY@0730 #30 capsule. 02/19/19 [Rx] OxyCODONE ER (12 HR) [OxyCONTIN] 10 mg PO Q12HR 2 Days #4 tab.er.12h 02/19/19 [Rx] Ipratropium/Albuterol Neb [Duoneb] 3 ml IH BID PRN 02/23/19 [History] OxyCODONE Immed Rel [Roxicodone 10 MG] 10 mg PO Q8H PRN 02/23/19 [History] Warfarin [Coumadin] 5 mg PO SUMOWEFR 02/23/19 [History] Warfarin [Coumadin] 7.5 mg PO TUTHSA 02/23/19 [History] Allergy/AdvReac Type Severity Reaction Status Date / Time cephalexin [From Keflex] Allergy Hives Verified 02/10/19 10:22 Review of Systems - Constitutional no chills, no fatigue, no fever(s) - EENT Nose, mouth and throat: no dizziness, no headache(s) - Cardiovascular dyspnea, no chest pain, no diaphoresis - Respiratory cough, dyspnea - Gastrointestinal no abdominal pain, no nausea, no vomiting - Genitourinary change in urinary stream, difficulty urinating, nocturia, urinary hesitancy, no dysuria, no flank pain, no hematuria, no urinary frequency, no urinary incontinence, no urinary urgency - Musculoskeletal no back pain, no muscle weakness - Integumentary no erythema, no rash - Neurological no confusion, no syncope - Psychiatric no anxiety, no confusion - Hematologic/Lymphatic no easy bleeding, no easy bruising - Allergic/Immunologic no throat swelling, no wheezing Exam Initial Vital Signs Temp Pulse Resp BP Pulse Ox 98.5 F 79 17 161/115 89 02/23/19 13:02/23/19 13:02/23/19 13:02/23/19 13:02/23/19 13:19 - General physical appearance Present: no distress, no pain - Eyes Present: PERRL, normal ocular movement - ENT Present: normal nares, no hearing loss, no congestion - Neck Present: no masses, trachea midline, no lymphadenopathy - Respiratory Present: normal respiratory effort - Cardiovascular Cardiovascular exam IM: RRR - Abdomen Abdomen: Present: soft, non tender. Absent: distended - Genitourinary other (no CVAT) - Integumentary Present: no rash, no abnormal pigmentation - Neurologic Present: normal coordination - Musculoskeletal Present: other (normal posture ) Urology Results - Labs 02/25/19 08:29 02/25/19 08:29 Abnormal lab results WBC 15.7 K/mcL (4.3-11.1) H D 02/25/19 08:29 RBC 3.28 M/mcL (4.19-5.50) L 02/25/19 08:29 Hgb 9.2 g/dL (12.9-16.9) L 02/25/19 08:29 Hct 28.5 % (37.5-50.1) L 02/25/19 08:29 MCH 27.0 pg (28.0-33.3) L 02/24/19 05:41 MCHC 31.0 g/dL (31.6-35.5) L 02/24/19 05:41 RDW 16.4 % (11.5-14.5) H 02/25/19 08:29 Plt Count 422 K/mcL (140-400) H 02/25/19 08:29 MPV 9.2 fL (9.4-12.4) L 02/23/19 13:35 Neutrophils # 13.5 K/mcL (1.6-8.9) H 02/25/19 08:29 Eosinophils # 0.8 K/mcL (0.0-0.6) H 02/23/19 13:35 PT 36.9 Seconds (9.4-12.1) H 02/25/19 01:29 APTT 53.0 Seconds (26.0-36.0) H 02/23/19 13:35 ABG pH 7.24 pH Units (7.32-7.45) L 02/23/19 18:45 ABG pCO2 59 mmHg (35-45) H 02/23/19 18:45 ABG pO2 84 mmHg (85-104) L 02/23/19 18:45 ABG Total CO2 27 mEq/L (20-26) H 02/23/19 18:45 ABG O2 Saturation 94 % (95-98) L 02/23/19 18:45 ABG Base Excess -3 mEq/L (-2 to 3) L 02/23/19 18:45 Sodium 132 mEq/L (136-145) L 02/25/19 08:29 Potassium 5.3 mEq/L (3.5-5.1) H 02/24/19 05:41 Chloride 95 mEq/L (98-107) L 02/25/19 08:29 Carbon Dioxide 22 mEq/L (23-29) L 02/24/19 05:41 BUN 46 mg/dL (6-20) H 02/25/19 08:29 Creatinine 4.99 mg/dL (0.70-1.30) H 02/25/19 08:29 Est GFR ( Amer) 15 (> 60) L 02/25/19 08:29 Est GFR (Non-Af Amer) 12 (> 60) L 02/25/19 08:29 BUN/Creatinine Ratio 5 (6-26) L 02/23/19 13:35 Glucose 172 mg/dL (70-105) H 02/25/19 08:29 POC Glucose 131 mg/dL (70-99) H 02/23/19 16:55 Calculated Osmolality 276 (280-300) L 02/23/19 13:35 Calcium 8.5 mg/dL (8.6-10.3) L 02/24/19 05:41 Phosphorus 5.3 mg/dL (2.7-4.5) H 02/25/19 08:29 AST 12 Units/L (13-39) L 02/24/19 05:41 B-Natriuretic Peptide 143 pg/mL (Less than 100) H 02/23/19 13:35 Albumin 3.3 g/dL (3.5-5.7) L 02/25/19 08:29 Globulin 3.8 g/dL (2.4-3.5) H 02/24/19 05:41 Albumin/Globulin Ratio 0.8 (1.1-2.2) L 02/24/19 05:41 Urine Clarity Turbid (Clear) A 02/23/19 14:30 Urine Protein 30 mg/dL (Neg-Trace) H 02/23/19 14:30 Urine Blood Trace (Negative) H 02/23/19 14:30 Ur Leukocyte Esterase Moderate (Negative) H 02/23/19 14:30 Urine Microscopic WBC 15-30 per hpf (0-3) H 02/23/19 14:30 Ur Squamous Epith Cells Many per lpf (None-Few) H 02/23/19 14:30 Ur Renal Epithelial Cell Moderate per hpf (None-Few) H 02/23/19 14:30 Urine Bacteria Many per hpf (None-Few) H 02/23/19 14:30 Ur Culture Indicated? YES (NO) A 02/23/19 14:30 Diabetes panel 02/25/19 Range/Units 08:29 Sodium 132 L (136-145) mEq/L Potassium 4.9 (3.5-5.1) mEq/L Chloride 95 L (98-107) mEq/L Carbon Dioxide 26 (23-29) mEq/L BUN 46 H (6-20) mg/dL Creatinine 4.99 H (0.70-1.30) mg/dL Glucose 172 H (70-105) mg/dL Calcium 8.7 (8.6-10.3) mg/dL Albumin 3.3 L (3.5-5.7) g/dL Calcium panel 02/25/19 Range/Units 08:29 Calcium 8.7 (8.6-10.3) mg/dL Phosphorus 5.3 H (2.7-4.5) mg/dL Albumin 3.3 L (3.5-5.7) g/dL Pituitary panel 02/25/19 Range/Units 08:29 Sodium 132 L (136-145) mEq/L Potassium 4.9 (3.5-5.1) mEq/L Chloride 95 L (98-107) mEq/L Carbon Dioxide 26 (23-29) mEq/L BUN 46 H (6-20) mg/dL Creatinine 4.99 H (0.70-1.30) mg/dL Glucose 172 H (70-105) mg/dL Calcium 8.7 (8.6-10.3) mg/dL Adrenal panel 02/25/19 Range/Units 08:29 Sodium 132 L (136-145) mEq/L Potassium 4.9 (3.5-5.1) mEq/L Chloride 95 L (98-107) mEq/L Carbon Dioxide 26 (23-29) mEq/L BUN 46 H (6-20) mg/dL Creatinine 4.99 H (0.70-1.30) mg/dL Glucose 172 H (70-105) mg/dL Calcium 8.7 (8.6-10.3) mg/dL Albumin 3.3 L (3.5-5.7) g/dL All other labs normal. Consult Discharge Plan - Plan Referrals: Heather Proctor MD [Primary Care Provider] - <Helder Hatfield - Last Filed: 02/25/19 21:13> Date of Encounter: 02/25/19 - Assessment and Plan (1) Urinary retention Current Visit: Yes Status: Acute Assessment and plan: patient seen and examined in conjunction with PA. He states he had some LUTS over the past few months but drastically worsened recently resulting in re tention. indwelling cath in place at this time nurses had difficulty with cathing. I recommend leaving the cath in place for now (at least one week) before attempting a voiding trial. continue tamsulosin. In one week ok to attempt voiding trial. if continued difficulty urinating will proceed with outpatient cystoscpy for further evaluation. Will obtain PSA as outpatient. I suspect the patient has some degree of outlet obstruction combined with weakening of the bladder from recent health issues. pt needs to focus of building strength and rehabilitation. Patient can be discharged with the cath in place. Exam Initial Vital Signs Temp Pulse Resp BP Pulse Ox 98.5 F 79 17 161/115 89 02/23/19 13:19 02/23/19 13:19 02/23/19 13:19 02/23/19 13:02/23/19 13:19 Urology Results - Labs 02/25/19 08:29 02/25/19 08:29 Abnormal lab results WBC 15.7 K/mcL (4.3-11.1) H D 02/25/19 08:29 RBC 3.28 M/mcL (4.19-5.50) L 02/25/19 08:29 Hgb 9.2 g/dL (12.9-16.9) L 02/25/19 08:29 Hct 28.5 % (37.5-50.1) L 02/25/19 08:29 MCH 27.0 pg (28.0-33.3) L 02/24/19 05:41 MCHC 31.0 g/dL (31.6-35.5) L 02/24/19 05:41 RDW 16.4 % (11.5-14.5) H 02/25/19 08:29 Plt Count 422 K/mcL (140-400) H 02/25/19 08:29 MPV 9.2 fL (9.4-12.4) L 02/23/19 13:35 Neutrophils # 13.5 K/mcL (1.6-8.9) H 02/25/19 08:29 Eosinophils # 0.8 K/mcL (0.0-0.6) H 02/23/19 13:35 PT 36.9 Seconds (9.4-12.1) H 02/25/19 01:29 APTT 53.0 Seconds (26.0-36.0) H 02/23/19 13:35 ABG pH 7.24 pH Units (7.32-7.45) L 02/23/19 18:45 ABG pCO2 59 mmHg (35-45) H 02/23/19 18:45 ABG pO2 84 mmHg (85-104) L 02/23/19 18:45 ABG Total CO2 27 mEq/L (20-26) H 02/23/19 18:45 ABG O2 Saturation 94 % (95-98) L 02/23/19 18:45 ABG Base Excess -3 mEq/L (-2 to 3) L 02/23/19 18:45 Sodium 132 mEq/L (136-145) L 02/25/19 08:29 Potassium 5.3 mEq/L (3.5-5.1) H 02/24/19 05:41 Chloride 95 mEq/L (98-107) L 02/25/19 08:29 Carbon Dioxide 22 mEq/L (23-29) L 02/24/19 05:41 BUN 46 mg/dL (6-20) H 02/25/19 08:29 Creatinine 4.99 mg/dL (0.70-1.30) H 02/25/19 08:29 Est GFR ( Amer) 15 (> 60) L 02/25/19 08:29 Est GFR (Non-Af Amer) 12 (> 60) L 02/25/19 08:29 BUN/Creatinine Ratio 5 (6-26) L 02/23/19 13:35 Glucose 172 mg/dL (70-105) H 02/25/19 08:29 POC Glucose 131 mg/dL (70-99) H 02/23/19 16:55 Calculated Osmolality 276 (280-300) L 02/23/19 13:35 Calcium 8.5 mg/dL (8.6-10.3) L 02/24/19 05:41 Phosphorus 5.3 mg/dL (2.7-4.5) H 02/25/19 08:29 AST 12 Units/L (13-39) L 02/24/19 05:41 B-Natriuretic Peptide 143 pg/mL (Less than 100) H 02/23/19 13:35 Albumin 3.3 g/dL (3.5-5.7) L 02/25/19 08:29 Globulin 3.8 g/dL (2.4-3.5) H 02/24/19 05:41 Albumin/Globulin Ratio 0.8 (1.1-2.2) L 02/24/19 05:41 Urine Clarity Turbid (Clear) A 02/23/19 14:30 Urine Protein 30 mg/dL (Neg-Trace) H 02/23/19 14:30 Urine Blood Trace (Negative) H 02/23/19 14:30 Ur Leukocyte Esterase Moderate (Negative) H 02/23/19 14:30 Urine Microscopic WBC 15-30 per hpf (0-3) H 02/23/19 14:30 Ur Squamous Epith Cells Many per lpf (None-Few) H 02/23/19 14:30 Ur Renal Epithelial Cell Moderate per hpf (None-Few) H 02/23/19 14:30 Urine Bacteria Many per hpf (None-Few) H 02/23/19 14:30 Ur Culture Indicated? YES (NO) A 02/23/19 14:30 Diabetes panel 02/25/19 Range/Units 08:29 Sodium 132 L (136-145) mEq/L Potassium 4.9 (3.5-5.1) mEq/L Chloride 95 L (98-107) mEq/L Carbon Dioxide 26 (23-29) mEq/L BUN 46 H (6-20) mg/dL Creatinine 4.99 H (0.70-1.30) mg/dL Glucose 172 H (70-105) mg/dL Calcium 8.7 (8.6-10.3) mg/dL Albumin 3.3 L (3.5-5.7) g/dL Calcium panel 02/25/19 Range/Units 08:29 Calcium 8.7 (8.6-10.3) mg/dL Phosphorus 5.3 H (2.7-4.5) mg/dL Albumin 3.3 L (3.5-5.7) g/dL Pituitary panel 02/25/19 Range/Units 08:29 Sodium 132 L (136-145) mEq/L Potassium 4.9 (3.5-5.1) mEq/L Chloride 95 L (98-107) mEq/L Carbon Dioxide 26 (23-29) mEq/L BUN 46 H (6-20) mg/dL Creatinine 4.99 H (0.70-1.30) mg/dL Glucose 172 H (70-105) mg/dL Calcium 8.7 (8.6-10.3) mg/dL Adrenal panel 02/25/19 Range/Units 08:29 Sodium 132 L (136-145) mEq/L Potassium 4.9 (3.5-5.1) mEq/L Chloride 95 L (98-107) mEq/L Carbon Dioxide 26 (23-29) mEq/L BUN 46 H (6-20) mg/dL Creatinine 4.99 H (0.70-1.30) mg/dL Glucose 172 H (70-105) mg/dL Calcium 8.7 (8.6-10.3) mg/dL Albumin 3.3 L (3.5-5.7) g/dL All other labs normal.
[2019-02-25] MEDS ORDERED: 0.9 % Sodium Chloride 1,000 ML ONE (10:31)
[2019-02-25] MEDS ORDERED: *HR* Heparin 10,000 UNIT/10 ML VIAL IV PRN (10:39)
[2019-02-25] MEDS ORDERED: 0.9 % Sodium Chloride 250 ML IVC PRN (10:39)
[2019-02-25] MEDS: Budesonide/Formoterol 160/4.5 1 PUFF INH IH SCH ×2 (10:41→23:42)
[2019-02-25] MEDS ORDERED: 0.9 % Sodium Chloride 1,000 ML PRIME SCH (10:45)
--- NOTE | 2019-02-25 10:49 | Internal Med Progress Note ---
Hospitalist Progress Note - Encounter Date of Encounter: 02/25/19 Time of Encounter: 07:45 - Subjective Interval History: Hospital course reviewed. Patient was transferred out of the ICU yesterday after stabilization of oxygenation as well as blood pressure. Mental status also dramatically improved. He complained of urinary retention and was noted to have 475 mL on bladder scan hence straight catheter was done and is now waiting for Redmond catheter to be inserted. Otherwise, no fever/chills or nausea/vomiting. - Exam Vitals: Temp Pulse Resp BP Pulse Ox 98.1 F 79 18 147/83 93 02/25/19 07:05 02/25/19 07:05 02/25/19 10:44 02/25/19 07:05 02/25/19 10:44 Exam: General: Awake, alert, no acute distress Lungs: Scattered rhonchi, good air movement in all lung granados, no retractions or distress. CV: RRR, S1S2 Abdomen: soft, NT Ext; equal pulses; 1-2+ edema in LEs Neuro: A&O x3; no focal deficits noted - Assessment and Plan (1) Acute on chronic respiratory failure with hypoxia and hypercapnia Current Visit: Yes Status: Acute Assessment and Plan: due to a combination of fluid overload, polypharmacy, and mild COPD exacerbation was in ICU due to continuous BiPAP and hypotension, significantly improved appreciate pulm input, low suspicion for PNA but will continue empiric coverage given his presentation of encephapathy and hypotension on steroid and bronchodilators, leukocytosis likely related to steroid wean O2 as tolerated (2) Acute exacerbation of chronic obstructive airways disease Current Visit: Yes Status: Acute Assessment and Plan: contributing to the respiratory failure, abx, steroid, and bronchodilators as above (3) Toxic metabolic encephalopathy Current Visit: Yes Status: Acute Assessment and Plan: resolved, likely related to respiratory failure (4) Hypotension Current Visit: Yes Status: Resolved Assessment and Plan: was initially concerned for sepsis as a cause but significantly improved shortly after the reversal with narcan and tx for fluid overload hold off on sedatives and anti-HTNs (5) Complicated UTI (urinary tract infection) Current Visit: Yes Status: Acute Assessment and Plan: a/w urinary retention treating potential PNA with levaquin which should provide coverage for UTI as well urology consulted overnight (6) Urinary retention Current Visit: Yes Status: Acute Assessment and Plan: urology consult as above (7) ESRD (end stage renal disease) Current Visit: Yes Status: Chronic Assessment and Plan: since he is making urine (as evidence by retention), will resume bumex HD per nephrology (8) Pulmonary embolism Current Visit: Yes Status: Chronic Assessment and Plan: hx of recent PE on Coumadin INR 3.2 today, pharmacy to assist with dosing (9) Morbid obesity with BMI of 45.0-49.9, adult Current Visit: Yes Status: Acute Assessment and Plan: lifestyle modifications emphasized DVT Prophylaxis: Supratherapeutic INR - Time Spent with Patient Total time spent is greater than 50% in coordination of care (as documented) at patient's floor/unit and/or counseling patient: Greater than 35 minutes Plan of Care Discussed with: patient Internal Medicine: Result - Labs CBC & Chem 7: 02/25/19 08:29 02/25/19 08:29 Labs: Short CBC 02/25/19 Range/Units 08:29 WBC 15.7 H D (4.3-11.1) K/mcL Hgb 9.2 L (12.9-16.9) g/dL Hct 28.5 L (37.5-50.1) % Plt Count 422 H (140-400) K/mcL Neutrophils # 13.5 H (1.6-8.9) K/mcL BMP 02/25/19 08:29 Sodium 132 L Potassium 4.9 Chloride 95 L Carbon Dioxide 26 BUN 46 H Creatinine 4.99 H Glucose 172 H Calcium 8.7 Liver Function 02/25/19 Range/Units 08:29 Albumin 3.3 L (3.5-5.7) g/dL - ABG Interpretation ABG results: ABG ABG pH 7.24 pH Units (7.32-7.45) L 02/23/19 18:45 ABG pCO2 59 mmHg (35-45) H 02/23/19 18:45 ABG pO2 84 mmHg (85-104) L 02/23/19 18:45 ABG O2 Saturation 94 % (95-98) L 02/23/19 18:45 PT/INR, D-dimer PT 36.9 Seconds (9.4-12.1) H 02/25/19 01:29 - Impressions Impressions Head CT 02/23/19 13:29 IMPRESSION: No evidence of acute intracranial abnormality on a study limited as described above. D/ / 02/23/2019 15:28:13 Gerson Ritchie MD / [facility] Interpreting Provider: Gerson Ritchie MD Consult Discharge Plan - Plan Referrals: Heather Proctor MD [Primary Care Provider] - (4) Hypotension Qualifiers: Hypotension type: unspecified hypotension type Qualified Code(s): I95.9 - Hypotension, unspecified (8) Pulmonary embolism Qualifiers: Pulmonary embolism type: unspecified Chronicity: acute Acute cor pulmonale presence: without acute cor pulmonale Qualified Code(s): I26.99 - Other pulmonary embolism without acute cor pulmonale
[2019-02-25] MEDS ORDERED: levoFLOXacin 750 MG/150 ML 750 MG/150 ML BAG IVPB ONE (11:24)
[2019-02-25] MEDS ORDERED: Warfarin perPT PO PRN (11:30)
--- NOTE | 2019-02-25 12:14 | Nephrology Progress Note ---
Date of Encounter: 02/25/19 Time of Encounter: 12:13 - Assessment and Plan (1) ESRD (end stage renal disease) Current Visit: Yes Status: Chronic HD MWF. Renal vitamins. Renal dose medications. Renal diet. Additional dialysis and ultrafiltration as needed. UF ordered for today. (2) Acute on chronic respiratory failure with hypoxia and hypercapnia Current Visit: Yes Status: Acute The patient is currently on supplemental oxygen with no complaints of dyspnea and satting well on supplemental O2. We will defer overall management to the primary team. He has mild pleural effusions on his CT, hopeful to improve with HD. (3) Toxic metabolic encephalopathy Current Visit: Yes Status: Acute Appears resolved. (4) Altered mental status Current Visit: Yes Status: Acute Overall management to primary team. Qualifiers: Altered mental status type: unspecified Qualified Code(s): R41.82 - Altered mental status, unspecified (5) Hypotension Current Visit: Yes Status: Resolved This has resolved. His blood pressures much better. Clinically likely related to polypharmacy. Qualifiers: Hypotension type: unspecified hypotension type Qualified Code(s): I95.9 - Hypotension, unspecified (6) Urinary retention Current Visit: Yes Status: Acute Per urology. Subjective Principal diagnosis: hypotension Interval history: Pt seen and examined, family at bedside. Denies shortness of breath or chest pain. Denies nausea, vomiting, diarrhea. Pt c/o of urinary retention. Objective - Vital Signs Vital signs: Vital Signs Temp Pulse Resp BP Pulse Ox 02/25/19 11:05 98.7 F 81 17 120/61 02/25/19 10:44 18 93 02/25/19 07:05 98.1 F 79 16 147/83 92 02/25/19 02:56 98.1 F 78 135/63 94 02/24/19 23:15 98.2 F 86 118/57 97 02/24/19 23:03 20 92 02/24/19 19:08 97.7 F 86 129/78 91 02/24/19 18:51 97.9 F 18 135/91 02/24/19 18:30 111/74 02/24/19 18:15 123/72 02/24/19 18:00 119/68 02/24/19 17:45 115/71 02/24/19 17:30 119/73 02/24/19 17:15 114/61 09/02/19 17:00 124/72 02/24/19 16:45 117/71 02/24/19 16:30 113/65 02/24/19 16:15 109/64 02/24/19 16:00 107/74 02/24/19 15:45 119/70 02/24/19 15:30 131/85 02/24/19 15:15 150/93 02/24/19 15:00 97.8 F 20 133/71 Intake and Output 02/24/19 02/25/19 02/25/19 23:59 07:59 15:59 Intake Total 0 / 1110 0 / 480 480 / 480 Output Total 3600 / 4075 0 / 0 Balance -3600 / -2965 0 / 480 480 / 480 Intake: Oral 0 / 510 0 / 480 480 / 480 Output: Urine 0 / 0 0 / 0 Total Dialysis (HD) Output 3600 / 3600 Other: Meal Breakfast Percent of Meal Consumed 100% Stool Size Moderate Stool Consistency soft Stool Color Brown # Bowel Movements 1 Weight 139 kg Hemodialysis Net Fluid Removed 3000 (mL) Patient Weight 02/25/19 23:59 Weight 139 kg - General Appearance General appearance: Present: well-developed, well-nourished EENT: Present: ATNC, hearing intact, vision intact Neck: Present: supple Respiratory: Present: clear Cardiology: Present: edema (+1 edema noted to all four extremities.), normal S1, normal S2 Dialysis Vascular Access: Venous Catheter (DRSG C/D/I) Gastrointestinal: Present: normoactive bowel sounds, no tenderness, no guarding Integumentary: Present: no rash, warm and dry Neurologic: Present: alert and oriented x3 Musculoskeletal: Present: no deformities, no erythema Psychiatric: Present: mood/affect appropriate, cooperative - Lab 02/25/19 08:29 02/25/19 08:29 Most recent lab results 02/25/19 08:29 Calcium 8.7 Phosphorus 5.3 H Consult Discharge Plan - Plan Referrals: Heather Proctor MD [Primary Care Provider] -
[2019-02-25] MEDS: Bumetanide 1 MG TABLET PO SCH ×2 (13:05→16:45)
--- NOTE | 2019-02-25 13:54 | Urology Procedure Note ---
Date of Encounter: 02/25/19 Time of Encounter: 13:05 Procedures:Urology - Catheter Insertion (Urinary) Prophylactic antibiotics given: No Bladder Scan/Ultrasound used before catheterization: Yes (701ml) Estimated amount of urin (mLs): 1,200 Preparation: Povidone-Iodine (c) Type of catheter inserted: 2 way, coude tip Catheter Montserratian Size: 16 Topical anesthesia used: No Results: successfully catheterized-immediate flow Urine Appearance: Clear Patient tolerated procedure: well, no complications Complications: none Additional comments: I was called to patient's room by a nurse. PHOTOGRAPHY INTERN and nurse attempted straight catheterization without success. Patient lying in supine position, visibly uncomfortable. Patient was prepped and draped in normal sterile fashion. I inserted a 16-[place]serratian coude catheter into patient's urethra, and I met a significant amount of resistance proximally. I was able to gently advance the coude tip catheter into the patient's bladder, and I experienced an immediate return of transparent, clear yellow urine. I instilled 10 mL of sterile water into the catheter balloon. I affixed catheter to patient's right lower extremity. Urine output exceeded 1100 ML. Patient tolerated the procedure well without complication.
[2019-02-25] MEDS ORDERED: *HR* Warfarin 7.5 MG TABLET PO SCH (17:59)
[2019-02-25] MEDS ORDERED: *HR* Warfarin 2.5 MG TABLET PO ONE (18:00)
[2019-02-25] MEDS: Melatonin 3 MG TABLET PO SCH (19:42)
[2019-02-26] MEDS ORDERED: Simethicone 80 MG TAB.CHEW PO PRN (00:49)
[2019-02-26] MEDS: Ipratropium/Albuterol Neb 3 ML IH SCH ×4 (03:48→22:18)
[2019-02-26 04:00] LABS: Basophils % 0.2 %; Hematocrit 28.2 % (37.5-50.1); Hemoglobin 8.8 g/dL (12.9-16.9); Immature Granulocytes % 4.2 % (0-4); Lymphocytes # 1.4 K/mcL (0.6-4.6); Lymphocytes % 9.4 %; Mean Corpuscular HGB Conc 31.2 g/dL (31.6-35.5); Mean Corpuscular Hemoglobin 26.7 pg (28.0-33.3); Mean Corpuscular Volume 85.5 fL (83.0-100.0); Mean Platelet Volume 9.6 fL (9.4-12.4); Monocytes # 0.8 K/mcL (0.0-1.3); Monocytes % 5.5 %; Neutrophils # 12.1 K/mcL (1.6-8.9); Platelet Count 423 K/mcL (140-400); Red Cell Distribution Width 16.7 % (11.5-14.5); Segmented Neutrophils % 80.7 %
[2019-02-26 04:12] LABS: INR 3.5; Prothrombin Time 39.3 Seconds (9.4-12.1)
[2019-02-26 04:16] LABS: Calcium 8.5 mg/dL (8.6-10.3); Magnesium 1.7 mg/dL (1.6-2.6); Potassium 4.9 mEq/L (3.5-5.1)
[2019-02-26] MEDS: Bumetanide 1 MG TABLET PO SCH ×2 (08:06→19:05)
[2019-02-26] MEDS: *HR* HYDROcodone/Acet 5/325 mg TABLET PO PRN ×3 (08:06→23:54)
[2019-02-26] MEDS: MethylPREDNISolone 40 MG/ML VIAL IVP SCH ×2 (08:06→20:44)
[2019-02-26] MEDS ORDERED: 0.9 % Sodium Chloride 250 ML IVC PRN (08:08)
[2019-02-26] MEDS ORDERED: *HR* Heparin 10,000 UNIT/10 ML VIAL IV PRN (08:08)
[2019-02-26] MEDS ORDERED: 0.9 % Sodium Chloride 1,000 ML PRIME SCH (08:15)
--- NOTE | 2019-02-26 08:40 | Urology Progress Note ---
<Radha Bueno N - Last Filed: 02/26/19 08:37> Date of Encounter: 02/26/19 Time of Encounter: 07:45 - Assessment and Plan (1) Urinary retention Current Visit: Yes Status: Acute Assessment and plan: Patient is a 58-year-old male who presents the history of urinary retention. Patient initially elected to resume intermittent catheterization, but the nursing staff was unable to pass a straight catheter into his bladder. I was called to place an indwelling 16-Wolof coude catheter. Redmond catheter is currently indwelling and draining sufficiently. Patient was instructed to continue Flomax daily, and he may undergo a voiding trial within 1 week of discharge. Patient may undergo this voiding trial at his extended care facility or he may follow-up with urology as an outpatient. If patient experiences further difficulty in urination, he may require an outpatient cystoscopy. Progress Note Narrative: Patient seen and examined sitting upright in bed eating breakfast in no apparent distress. Redmond catheter is indwelling and draining transparent, clear yellow urine into bedside bag. Objective Initial Vital Signs Temp Pulse Resp BP Pulse Ox 98.5 F 79 17 161/115 89 02/23/19 13:19 02/23/19 13:19 02/23/19 13:19 02/23/19 13:19 02/23/19 13:19 - General physical appearance Present: no distress, no pain - Respiratory Present: normal expansion, normal respiratory effort - Abdomen Present: soft, non tender. Absent: distended - Genitourinary Urine Appearance: Present: Clear - Integumentary Present: no rash, no abnormal pigmentation - Musculoskeletal Present: normal posture - Psychiatric Present: oriented to time, oriented to person, oriented to place, speech is normal, memory intact - Labs 02/26/19 03:29 02/26/19 03:29 Diabetes panel 02/25/19 02/26/19 Range/Units 08:29 03:29 Sodium 132 L 132 L (136-145) mEq/L Potassium 4.9 4.9 (3.5-5.1) mEq/L Chloride 95 L 97 L (98-107) mEq/L Carbon Dioxide 26 25 (23-29) mEq/L BUN 46 H 58 H (6-20) mg/dL Creatinine 4.99 H 5.62 H (0.70-1.30) mg/dL Glucose 172 H 137 H (70-105) mg/dL Calcium 8.7 8.5 L (8.6-10.3) mg/dL Albumin 3.3 L (3.5-5.7) g/dL Calcium panel 02/25/19 02/26/19 Range/Units 08:29 03:29 Calcium 8.7 8.5 L (8.6-10.3) mg/dL Phosphorus 5.3 H (2.7-4.5) mg/dL Albumin 3.3 L (3.5-5.7) g/dL Pituitary panel 02/25/19 02/26/19 Range/Units 08:29 03:29 Sodium 132 L 132 L (136-145) mEq/L Potassium 4.9 4.9 (3.5-5.1) mEq/L Chloride 95 L 97 L (98-107) mEq/L Carbon Dioxide 26 25 (23-29) mEq/L BUN 46 H 58 H (6-20) mg/dL Creatinine 4.99 H 5.62 H (0.70-1.30) mg/dL Glucose 172 H 137 H (70-105) mg/dL Calcium 8.7 8.5 L (8.6-10.3) mg/dL Adrenal panel 02/25/19 02/26/19 Range/Units 08:29 03:29 Sodium 132 L 132 L (136-145) mEq/L Potassium 4.9 4.9 (3.5-5.1) mEq/L Chloride 95 L 97 L (98-107) mEq/L Carbon Dioxide 26 25 (23-29) mEq/L BUN 46 H 58 H (6-20) mg/dL Creatinine 4.99 H 5.62 H (0.70-1.30) mg/dL Glucose 172 H 137 H (70-105) mg/dL Calcium 8.7 8.5 L (8.6-10.3) mg/dL Albumin 3.3 L (3.5-5.7) g/dL Consult Discharge Plan - Plan Referrals: Heather Proctor MD [Primary Care Provider] - <Helder Hatfield - Last Filed: 02/27/19 07:10> Date of Encounter: 02/27/19 - Assessment and Plan (1) Urinary retention Current Visit: Yes Status: Acute Assessment and plan: pt seen conjunction with PA. Agree with A&P. discharge with cath in place with VT in urology office. Objective Initial Vital Signs Temp Pulse Resp BP Pulse Ox 98.5 F 79 17 161/115 89 02/23/19 13:02/23/19 13:02/23/19 13:02/23/19 13:02/23/19 13:19 - Labs 02/27/19 05:31 02/27/19 05:31 Diabetes panel 02/27/19 Range/Units 05:31 Sodium 134 L (136-145) mEq/L Potassium 4.8 (3.5-5.1) mEq/L Chloride 96 L (98-107) mEq/L Carbon Dioxide 27 (23-29) mEq/L BUN 50 H (6-20) mg/dL Creatinine 4.41 H (0.70-1.30) mg/dL Glucose 145 H (70-105) mg/dL Calcium 8.8 (8.6-10.3) mg/dL Calcium panel 02/27/19 Range/Units 05:31 Calcium 8.8 (8.6-10.3) mg/dL Pituitary panel 02/27/19 Range/Units 05:31 Sodium 134 L (136-145) mEq/L Potassium 4.8 (3.5-5.1) mEq/L Chloride 96 L (98-107) mEq/L Carbon Dioxide 27 (23-29) mEq/L BUN 50 H (6-20) mg/dL Creatinine 4.41 H (0.70-1.30) mg/dL Glucose 145 H (70-105) mg/dL Calcium 8.8 (8.6-10.3) mg/dL Adrenal panel 02/27/19 Range/Units 05:31 Sodium 134 L (136-145) mEq/L Potassium 4.8 (3.5-5.1) mEq/L Chloride 96 L (98-107) mEq/L Carbon Dioxide 27 (23-29) mEq/L BUN 50 H (6-20) mg/dL Creatinine 4.41 H (0.70-1.30) mg/dL Glucose 145 H (70-105) mg/dL Calcium 8.8 (8.6-10.3) mg/dL
--- NOTE | 2019-02-26 09:49 | Nephrology Progress Note ---
Date of Encounter: 02/26/19 Time of Encounter: 09:47 - Assessment and Plan (1) ESRD (end stage renal disease) Current Visit: Yes Status: Chronic HD MWF. Renal vitamins. Renal dose medications. Renal diet. Additional dialysis and ultrafiltration as needed. HD in progress for today, tolerating well. (2) Acute on chronic respiratory failure with hypoxia and hypercapnia Current Visit: Yes Status: Acute The patient is currently on supplemental oxygen with no complaints of dyspnea. Per primary. (3) Toxic metabolic encephalopathy Current Visit: Yes Status: Resolved Appears resolved. (4) Altered mental status Current Visit: Yes Status: Acute Overall management to primary team. Qualifiers: Altered mental status type: unspecified Qualified Code(s): R41.82 - Altered mental status, unspecified (5) Hypotension Current Visit: Yes Status: Resolved This has resolved. His blood pressures much better. Clinically likely related to polypharmacy. Qualifiers: Hypotension type: unspecified hypotension type Qualified Code(s): I95.9 - Hypotension, unspecified (6) Urinary retention Current Visit: Yes Status: Acute Per urology. Redmond cath placed. Subjective Principal diagnosis: hypotension Interval history: Pt seen and examined during HD, tolerating well. Denies chest pain or shortness of breath. Denies nausea, vomiting, diarrhea. Objective - Vital Signs Vital signs: Vital Signs Temp Pulse Resp BP Pulse Ox 02/26/19 06:38 97.8 F 73 16 143/61 95 02/26/19 03:23 97.9 F 89 16 153/83 94 02/25/19 23:43 16 93 02/25/19 22:33 98.2 F 85 16 148/72 93 02/25/19 18:36 98.2 F 84 16 145/68 95 02/25/19 16:50 88 16 136/73 92 02/25/19 16:02 18 95 02/25/19 15:55 97.9 F 20 133/71 02/25/19 15:40 116/66 02/25/19 15:25 111/67 02/25/19 15:10 132/77 02/25/19 14:55 135/77 02/25/19 14:40 135/72 02/25/19 14:25 119/62 02/25/19 14:10 119/60 02/25/19 13:55 127/65 02/25/19 13:40 97.6 F 18 132/67 02/25/19 11:05 98.7 F 81 17 120/61 02/25/19 10:44 18 93 Intake and Output 02/25/19 02/26/19 02/26/19 23:59 07:59 15:59 Intake Total 480 / 1560 0 / 240 240 / 240 Output Total 1150 / 3750 700 / 700 Balance -670 / -2190 0 / -460 -460 / -460 Intake: Oral 480 / 960 0 / 240 240 / 240 Output: Urine 250 / 250 Catheter 900 / 900 700 / 700 Other: Meal Dinner Percent of Meal Consumed 80% - General Appearance General appearance: Present: well-developed, well-nourished EENT: Present: ATNC, hearing intact, vision intact Neck: Present: supple Respiratory: Present: clear Cardiology: Present: edema (Trace bilat lower extremity edema noted.), normal S1, normal S2 Dialysis Vascular Access: Venous Catheter (DRSG C/D/I) Gastrointestinal: Present: normoactive bowel sounds, no tenderness, no guarding Integumentary: Present: no rash, warm and dry Neurologic: Present: alert and oriented x3 Musculoskeletal: Present: no deformities, no erythema Psychiatric: Present: mood/affect appropriate, cooperative - Lab 02/26/19 03:29 02/26/19 03:29 Most recent lab results 02/26/19 03:29 Calcium 8.5 L Magnesium 1.7 Consult Discharge Plan - Plan Referrals: Heather Proctor MD [Primary Care Provider] -
[2019-02-26] MEDS: Budesonide/Formoterol 160/4.5 1 PUFF INH IH SCH ×2 (11:57→22:18)
[2019-02-26 12:27] LABS: Hepatitis B Surface Antigen Nonreactive (Nonreactive)
--- NOTE | 2019-02-26 12:56 | Internal Med Progress Note ---
Hospitalist Progress Note - Encounter Date of Encounter: 02/26/19 Time of Encounter: 09:30 - Subjective Interval History: No acute events overnight. Had Bolton catheter inserted by urology after which he feels much better. Denies any chest pain, palpitation, worsening orthopnea, and PND. No fever overnight. - Exam Vitals: Temp Pulse Resp BP Pulse Ox 97.7 F 73 20 144/96 95 02/26/19 09:00 02/26/19 06:38 02/26/19 09:00 02/26/19 11:45 02/26/19 06:38 Exam: General: Awake, alert, no acute distress Lungs: Minimal rhonchi otherwise mostly clear to auscultation CV: RRR, S1S2 Abdomen: soft, NT Ext; equal pulses; 1-2+ edema in LEs Neuro: A&O x3; no focal deficits noted - Assessment and Plan (1) Acute on chronic respiratory failure with hypoxia and hypercapnia Current Visit: Yes Status: Acute Assessment and Plan: due to a combination of fluid overload, polypharmacy, and mild COPD exacerbation was in ICU due to continuous BiPAP and hypotension, significantly improved appreciate pulm input, low suspicion for PNA but will continue empiric coverage given his presentation of encephalopathy and hypotension on steroid and bronchodilators, leukocytosis likely related to steroid wean O2 as tolerated (2) Acute exacerbation of chronic obstructive airways disease Current Visit: Yes Status: Acute Assessment and Plan: contributing to the respiratory failure, abx, steroid, and bronchodilators as above (3) Toxic metabolic encephalopathy Current Visit: Yes Status: Resolved Assessment and Plan: resolved, likely related to respiratory failure (4) Hypotension Current Visit: Yes Status: Resolved Assessment and Plan: was initially concerned for sepsis as a cause but significantly improved shortly after the reversal with narcan and tx for fluid overload hold off on sedatives and anti-HTNs (5) Complicated UTI (urinary tract infection) Current Visit: Yes Status: Acute Assessment and Plan: a/w urinary retention treating potential PNA with levaquin which should provide coverage for UTI as well bolton inserted by Urology, on flomax. Outpatient voiding trial 1 week after discharge. (6) Urinary retention Current Visit: Yes Status: Acute Assessment and Plan: Bolton catheter inserted as above (7) ESRD (end stage renal disease) Current Visit: Yes Status: Chronic Assessment and Plan: since he is making urine (as evidence by retention), will resume bumex HD per nephrology (8) Pulmonary embolism Current Visit: Yes Status: Chronic Assessment and Plan: hx of recent PE on Coumadin INR 3.5 today, pharmacy to assist with dosing (9) Morbid obesity with BMI of 45.0-49.9, adult Current Visit: Yes Status: Acute Assessment and Plan: lifestyle modifications emphasized DVT Prophylaxis: Supratherapeutic INR - Summary of Assessment and Plan Summary of Assessment and Plan: Pending ECF placement - Time Spent with Patient Total time spent is greater than 50% in coordination of care (as documented) at patient's floor/unit and/or counseling patient: 25 - 35 minutes Plan of Care Discussed with: patient Internal Medicine: Result - Labs CBC & Chem 7: 02/26/19 03:29 02/26/19 03:29 Labs: Short CBC 02/26/19 Range/Units 03:29 WBC 15.0 H (4.3-11.1) K/mcL Hgb 8.8 L (12.9-16.9) g/dL Hct 28.2 L (37.5-50.1) % Plt Count 423 H (140-400) K/mcL Neutrophils # 12.1 H (1.6-8.9) K/mcL BMP 02/26/19 03:29 Sodium 132 L Potassium 4.9 Chloride 97 L Carbon Dioxide 25 BUN 58 H Creatinine 5.62 H Glucose 137 H Calcium 8.5 L - ABG Interpretation ABG results: ABG ABG pH 7.24 pH Units (7.32-7.45) L 02/23/19 18:45 ABG pCO2 59 mmHg (35-45) H 02/23/19 18:45 ABG pO2 84 mmHg (85-104) L 02/23/19 18:45 ABG O2 Saturation 94 % (95-98) L 02/23/19 18:45 PT/INR, D-dimer PT 39.3 Seconds (9.4-12.1) H 02/26/19 03:29 Consult Discharge Plan - Plan Referrals: Heather Proctor MD [Primary Care Provider] - (4) Hypotension Qualifiers: Hypotension type: unspecified hypotension type Qualified Code(s): I95.9 - Hypotension, unspecified (8) Pulmonary embolism Qualifiers: Pulmonary embolism type: unspecified Chronicity: acute Acute cor pulmonale presence: without acute cor pulmonale Qualified Code(s): I26.99 - Other pulmonary embolism without acute cor pulmonale
[2019-02-26] MEDS ORDERED: *HR* Warfarin 2.5 MG TABLET PO ONE (18:00)
[2019-02-26] MEDS: Melatonin 3 MG TABLET PO SCH (20:44)
[2019-02-27] MEDS: Ipratropium/Albuterol Neb 3 ML IH SCH ×2 (04:22→09:58)
[2019-02-27 05:49] LABS: Basophils # 0.1 K/mcL (0.0-0.2); Basophils % 0.8 %; Hematocrit 31.6 % (37.5-50.1); Immature Granulocytes % 5.3 % (0-4); Lymphocytes # 2.1 K/mcL (0.6-4.6); Lymphocytes % 14.2 %; Mean Corpuscular HGB Conc 31.6 g/dL (31.6-35.5); Mean Corpuscular Hemoglobin 27.5 pg (28.0-33.3); Mean Corpuscular Volume 87.1 fL (83.0-100.0); Mean Platelet Volume 9.5 fL (9.4-12.4); Monocytes % 7.1 %; Neutrophils # 10.6 K/mcL (1.6-8.9); Platelet Count 452 K/mcL (140-400); Red Blood Count 3.63 M/mcL (4.19-5.50); Red Cell Distribution Width 16.8 % (11.5-14.5); Segmented Neutrophils % 72.6 %; White Blood Count 14.6 K/mcL (4.3-11.1)
[2019-02-27 05:58] LABS: INR 2.6; Prothrombin Time 29.9 Seconds (9.4-12.1)
[2019-02-27 06:07] LABS: Calcium 8.8 mg/dL (8.6-10.3); Magnesium 1.7 mg/dL (1.6-2.6); Potassium 4.8 mEq/L (3.5-5.1)
[2019-02-27 06:26] LABS: Hypochromasia Present (Not Present); Platelet Estimate Normal (Normal)
[2019-02-27] MEDS: Bumetanide 1 MG TABLET PO SCH (08:17)
[2019-02-27] MEDS: MethylPREDNISolone 40 MG/ML VIAL IVP SCH (08:18)
[2019-02-27] MEDS ORDERED: levoFLOXacin 500 MG/100 ML 500 MG/100 ML BAG IVPB SCH (09:00)
--- NOTE | 2019-02-27 09:26 | Discharge Summary ---
- NOTES TO OUTPATIENT PROVIDER Notes to Outpatient Provider: Follow-up with urology 1 week after discharge for voiding trial. Follow up in anticoagulation clinic Orders not resulted at time of discharge: Pending orders 02/23/19 16:34 Culture,Blood [BC] Stat Date of Encounter: 02/27/19 Time of Encounter: 07:45 - Discharge Diagnosis (1) Acute on chronic respiratory failure with hypoxia and hypercapnia Priority: Primary Status: Acute (2) Acute exacerbation of chronic obstructive airways disease Priority: Secondary Status: Acute (3) Toxic metabolic encephalopathy Priority: Secondary Status: Resolved (4) Hypotension Priority: Secondary Status: Resolved Qualifiers: Hypotension type: unspecified hypotension type Qualified Code(s): I95.9 - Hypotension, unspecified (5) Complicated UTI (urinary tract infection) Priority: Secondary Status: Acute (6) Urinary retention Priority: Secondary Status: Acute (7) ESRD (end stage renal disease) Priority: Secondary Status: Chronic (8) Pulmonary embolism Priority: Secondary Status: Chronic Qualifiers: Pulmonary embolism type: unspecified Chronicity: acute Acute cor pulmonale presence: without acute cor pulmonale Qualified Code(s): I26.99 - Other pulmonary embolism without acute cor pulmonale (9) Morbid obesity with BMI of 45.0-49.9, adult Priority: Secondary Status: Acute Hospital course: Mr. Olguin is a 58 year old male with history of heart failure with preserved EF, ESRD on HD MWF, O2 dependent COPD, chornic low back pain, who was admitted for acute on chronic hypoxic respiratory failure, metabolic encephalopathy, and hypotension. Most likely due to polypharmacy including short-/long-acting opioids as well as anti HTNS. SIRS 1/4 however there was also a concern for early sepsis as etiology for hypotension due to complicated UTI +/- PNA. Required continuous BiPAP and was monitored in ICU for 1 night. Clinically improved with abx, steroids, bronchodilators. TO avoid sudden cessation of chronic opioids, short acting norco was given back to the pt which he tolerated well without encephaplopathy. His course was complicated by urinary retention for which he required bolton catheter insertion by Urology. He will need voiding trial at his follow up appt with Urology within 1 week after discharge. Lisinopril is discontinued and Imdur was resumed. Discharge discussed with: patient, family, nurse, case management - Time Spent with Patient Total time spent providing and/or coordinating discharge services: 36 mins - Discharge Medications Prescriptions: New Tamsulosin [Flomax] 0.4 mg PO DAILY #30 capsule levoFLOXacin [Levaquin] 500 mg PO Q48H #2 tablet HYDROcodone/Acet 5/325 mg [[place] 5-325 mg] 1 tab PO Q6HR PRN 5 Days #15 tablet PRN Reason: Moderate Pain predniSONE [PredniSONE] 40 mg PO DAILY #7 tablet Continued Bumetanide 2 mg PO BID PRN PRN Reason: SWELLING Isosorbide MONOnitrate (24 HR) [Imdur] 30 mg PO DAILY Fluticasone/Vilanterol [Breo Ellipta 100-25 Mcg INH] 1 puff IH DAILY Gabapentin [Neurontin] 600 mg PO TID Atorvastatin [Lipitor] 40 mg PO QPM Melatonin 5 mg PO HS Albuterol Sulfate [Proventil Inhaler] 2 puff IH Q4HR #1 hfa.aer.ad Quetiapine Fumarate [Seroquel] 25 mg PO HS Albuterol Neb [Proventil Neb] 2.5 mg IH Q8H PRN PRN Reason: Shortness Of Breath Escitalopram [Lexapro] 20 mg PO DAILY Renal Vitamin [Renal Caps Softgel] 1 mg PO DAILY Omeprazole [PriLOSEC] 40 mg PO DAILY@0730 #30 capsule. Ipratropium/Albuterol Neb [Duoneb] 3 ml IH BID PRN PRN Reason: SOB/WHEEZING Warfarin [Coumadin] 5 mg PO SUMOWEFR Warfarin [Coumadin] 7.5 mg PO TUTHSA OxyCODONE Immed Rel [Roxicodone 10 MG] 10 mg PO Q8H PRN 5 Days #15 tablet PRN Reason: Severe Pain Discontinued Lisinopril [Zestril] 10 mg PO DAILY OxyCODONE ER (12 HR) [OxyCONTIN] 10 mg PO Q12HR 2 Days #4 tab.er.12h Home Medications: Bumetanide 2 mg PO BID PRN 12/02/17 [History] Fluticasone/Vilanterol [Breo Ellipta 100-25 Mcg INH] 1 puff IH DAILY 12/03/17 [History] Isosorbide MONOnitrate (24 HR) [Imdur] 30 mg PO DAILY 12/03/17 [History] Atorvastatin [Lipitor] 40 mg PO QPM 06/08/18 [History] Gabapentin [Neurontin] 600 mg PO TID 06/08/18 [History] Melatonin 5 mg PO HS 06/08/18 [History] Albuterol Sulfate [Proventil Inhaler] 2 puff IH Q4HR #1 hfa.aer.ad 08/25/18 [Rx] Quetiapine Fumarate [Seroquel] 25 mg PO HS 01/23/19 [History] Albuterol Neb [Proventil Neb] 2.5 mg IH Q8H PRN 01/24/19 [History] Escitalopram [Lexapro] 20 mg PO DAILY 01/24/19 [History] Renal Vitamin [Renal Caps Softgel] 1 mg PO DAILY 02/10/19 [History] Omeprazole [PriLOSEC] 40 mg PO DAILY@0730 #30 capsule. 02/19/19 [Rx] Ipratropium/Albuterol Neb [Duoneb] 3 ml IH BID PRN 02/23/19 [History] Warfarin [Coumadin] 5 mg PO SUMOWEFR 02/23/19 [History] Warfarin [Coumadin] 7.5 mg PO TUTHSA 02/23/19 [History] HYDROcodone/Acet 5/325 mg [[place] 5-325 mg] 1 tab PO Q6HR PRN 5 Days #15 tablet 02/27/19 [Rx] OxyCODONE Immed Rel [Roxicodone 10 MG] 10 mg PO Q8H PRN 5 Days #15 tablet 02/27/19 [Rx] Tamsulosin [Flomax] 0.4 mg PO DAILY #30 capsule 02/27/19 [Rx] levoFLOXacin [Levaquin] 500 mg PO Q48H #2 tablet 02/27/19 [Rx] predniSONE [PredniSONE] 40 mg PO DAILY #7 tablet 02/27/19 [Rx] Allergies/Adverse Reactions: Allergy/AdvReac Type Severity Reaction Status Date / Time cephalexin [From Keflex] Allergy Hives Verified 02/10/19 10:22 Date of admission: 02/23/19 16:16 Primary care physician: Heather Proctor MD Consults: 02/23/19 17:58 Consult to Nurse Navigator [CONS] Routine Comment: 02/23/19 18:21 Consult to Nephrology [CONS] Routine Consulting Provider: Kidney Anna/LESLYE/MARIETTA/NATTY Reason for Consult: Dialysis pt Call Completed: No 02/24/19 11:45 Consult to Dialysis [CONS] ONCE 02/24/19 19:51 Consult to Urology [CONS] Routine Consulting Provider: Urology Anna Reason for Consult: Patient is having urinary retention and is being straight-cathed Qshift w/approximately 475 ml output or greater. Pts. family is concerned why he is having retention and difficulty urinating. Family wants a Urology consult. I appreciate the recommendations. Call Completed: Yes 02/25/19 10:45 Consult to Dialysis [CONS] ONCE 02/25/19 10:57 Consult to Occupational Therapy [CONS] Routine Comment: Evaluate, develop and implement POC Reason for Consult: hx of R ankle fracture, deconditioning Does patient have active BEDREST order?: No Is patient medically & hemodynamically stable?: Yes Consult to Physical Therapy [CONS] Routine Comment: Evaluate, develop and implement POC Reason for Consult: hx of R ankle fracture, deconditioning Does patient have active BEDREST order?: No Is patient medically & hemodynamically stable?: Yes 02/26/19 08:15 Consult to Dialysis [CONS] ONCE 02/26/19 09:27 Consult to Bus Person [CONS] Routine Reason for SW Consult: needs/wants ecf - Constitutional Vitals: Temp Pulse Resp BP Pulse Ox 98.6 F 68 19 142/72 94 02/27/19 07:14 02/27/19 07:14 02/27/19 07:14 02/27/19 07:14 02/27/19 05:06 Exam: General: Awake, alert, no acute distress Lungs: Minimal rhonchi otherwise mostly clear to auscultation CV: RRR, S1S2 Abdomen: soft, NT Ext; equal pulses; 1-2+ edema in LEs Neuro: A&O x3; no focal deficits noted - Patient Status Disposition: Transfer SNF Condition: Fair Overall status at discharge: patient is progressing back to baseline - Discharge Instructions Instructions: Chronic Obstructive Pulmonary Disease (DC), Acute Respiratory Distress Syndrome (DC), Urinary Tract Infection in Men (DC), Pulmonary Embolism (DC), Pneumonia (DC) Follow Up With: Heather Proctor MD [Primary Care Provider] - Helder Hatfield MD [Partnered Physician] - - Diet and Activity Activity: as per physical therapy Diet: low salt diet
--- NOTE | 2019-02-27 09:33 | Physician Discharge Referral ---
ExtendedCare Referral Info Institutional Level of Care: Skilled - Diagnosis (1) Acute on chronic respiratory failure with hypoxia and hypercapnia Priority: Primary Status: Acute (2) Acute exacerbation of chronic obstructive airways disease Priority: Secondary Status: Acute (3) Toxic metabolic encephalopathy Priority: Secondary Status: Resolved (4) Hypotension Priority: Secondary Status: Resolved (5) Complicated UTI (urinary tract infection) Priority: Secondary Status: Acute (6) Urinary retention Priority: Secondary Status: Acute (7) ESRD (end stage renal disease) Priority: Secondary Status: Chronic (8) Pulmonary embolism Priority: Secondary Status: Chronic (9) Morbid obesity with BMI of 45.0-49.9, adult Priority: Secondary Status: Acute Prognosis: Fair - Transfer Medications Prescriptions: Tamsulosin [Flomax] 0.4 mg PO DAILY #30 capsule levoFLOXacin [Levaquin] 500 mg PO Q48H #2 tablet HYDROcodone/Acet 5/325 mg [[place] 5-325 mg] 1 tab PO Q6HR PRN 5 Days #15 tablet PRN Reason: Moderate Pain predniSONE [PredniSONE] 40 mg PO DAILY #7 tablet OxyCODONE Immed Rel [Roxicodone 10 MG] 10 mg PO Q8H PRN 5 Days #15 tablet PRN Reason: Severe Pain Home Medications: Bumetanide 2 mg PO BID PRN 12/02/17 [History] Fluticasone/Vilanterol [Breo Ellipta 100-25 Mcg INH] 1 puff IH DAILY 12/03/17 [History] Isosorbide MONOnitrate (24 HR) [Imdur] 30 mg PO DAILY 12/03/17 [History] Atorvastatin [Lipitor] 40 mg PO QPM 06/08/18 [History] Gabapentin [Neurontin] 600 mg PO TID 06/08/18 [History] Melatonin 5 mg PO HS 06/08/18 [History] Albuterol Sulfate [Proventil Inhaler] 2 puff IH Q4HR #1 hfa.aer.ad 08/25/18 [Rx] Quetiapine Fumarate [Seroquel] 25 mg PO HS 01/23/19 [History] Albuterol Neb [Proventil Neb] 2.5 mg IH Q8H PRN 01/24/19 [History] Escitalopram [Lexapro] 20 mg PO DAILY 01/24/19 [History] Renal Vitamin [Renal Caps Softgel] 1 mg PO DAILY 02/10/19 [History] Omeprazole [PriLOSEC] 40 mg PO DAILY@0730 #30 capsule. 02/19/19 [Rx] Ipratropium/Albuterol Neb [Duoneb] 3 ml IH BID PRN 02/23/19 [History] Warfarin [Coumadin] 5 mg PO SUMOWEFR 02/23/19 [History] Warfarin [Coumadin] 7.5 mg PO TUTHSA 02/23/19 [History] HYDROcodone/Acet 5/325 mg [[place] 5-325 mg] 1 tab PO Q6HR PRN 5 Days #15 tablet 02/27/19 [Rx] OxyCODONE Immed Rel [Roxicodone 10 MG] 10 mg PO Q8H PRN 5 Days #15 tablet 02/27/19 [Rx] Tamsulosin [Flomax] 0.4 mg PO DAILY #30 capsule 02/27/19 [Rx] levoFLOXacin [Levaquin] 500 mg PO Q48H #2 tablet 02/27/19 [Rx] predniSONE [PredniSONE] 40 mg PO DAILY #7 tablet 02/27/19 [Rx] Allergies/Adverse Reactions: Allergy/AdvReac Type Severity Reaction Status Date / Time cephalexin [From Keflex] Allergy Hives Verified 02/10/19 10:22 - Respiratory Orders Oxygen / L per min (3-4L continuous) Smoking Cessation: Smoking cessation has been advised. For more information, call the [place] Tobacco Quit Line at 8-435-PMBK-NOW. - Advance Directives Code Status: Full Code - Rehabiliation Orders Rehab Orders: Evaluation for Physical Therapy, Evaluation for Occupational Therapy - Diet Orders Cardiac CERTIFICATION: I certify that the transfer of the above named patient to an Extended Care Facility is necessary for the continuing treatment of the diagnosis listed. The above information is true and accurate reflection of patient's current condition. Confidential - Redisclosure prohibited without a patient's written consent.
[2019-02-27] MEDS: Budesonide/Formoterol 160/4.5 1 PUFF INH IH SCH (09:58)
--- NOTE | 2019-02-27 11:17 | Electrocardiograph Report ---
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
[2019-02-27 11:28] VITALS: BP 132/75
--- NOTE | 2019-02-27 12:14 | Nephrology Progress Note ---
Date of Encounter: 02/27/19 Time of Encounter: 12:12 - Assessment and Plan (1) ESRD (end stage renal disease) Current Visit: Yes Status: Chronic HD MWF. Renal vitamins. Renal dose medications. Renal diet. Additional dialysis and ultrafiltration as needed. HD tomorrow at outpatient facility, encouraged compliance. (2) Acute on chronic respiratory failure with hypoxia and hypercapnia Current Visit: Yes Status: Acute The patient is currently on supplemental oxygen with no complaints of dyspnea. Per primary. (3) Toxic metabolic encephalopathy Current Visit: Yes Status: Resolved Appears resolved. (4) Altered mental status Current Visit: Yes Status: Acute Overall management to primary team. Qualifiers: Altered mental status type: unspecified Qualified Code(s): R41.82 - Altered mental status, unspecified (5) Hypotension Current Visit: Yes Status: Resolved This has resolved. His blood pressures much better. Clinically likely related to polypharmacy. Qualifiers: Hypotension type: unspecified hypotension type Qualified Code(s): I95.9 - Hypotension, unspecified (6) Urinary retention Current Visit: Yes Status: Acute Per urology. [place] cath placed, will f/u outpatient with urology. Subjective Principal diagnosis: hypotension Interval history: Pt seen and examined is overall doing well. Denies chest pain or shortness of breath. Denies nausea, vomiting, diarrhea. States he is ready to go to ECF today. Objective - Vital Signs Vital signs: Vital Signs Temp Pulse Resp BP Pulse Ox 02/27/19 11:24 98.6 F 72 18 132/75 02/27/19 10:03 18 96 02/27/19 07:14 98.6 F 68 19 142/72 02/27/19 05:06 99.0 F 73 14 129/75 94 02/27/19 01:16 98.3 F 71 14 128/71 93 02/26/19 21:52 98.3 F 78 17 132/69 93 02/26/19 21:00 96 02/26/19 16:32 97.6 F 80 18 149/88 92 02/26/19 15:54 14 94 02/26/19 12:45 97.5 F L 20 124/89 02/26/19 12:30 124/74 02/26/19 12:15 132/86 Intake and Output 02/26/19 02/27/19 02/27/19 23:59 07:59 15:59 Intake Total 340 / 340 Output Total 800 / 1000 200 / 1000 Balance -800 / -660 140 / -660 Intake: IV Fluids 100 / 100 Levaquin Premix 500mg/100mL 500 100 / 100 mg In 100 ml @ 100 mls/hr IVPB Q48H [facility] Rx#:[id number] Oral 240 / 240 Output: Catheter 800 / 1000 200 / 1000 Other: Meal Breakfast Percent of Meal Consumed 100% Weight 137.2 kg Patient Weight 02/27/19 23:59 Weight 137.2 kg - General Appearance General appearance: Present: well-developed, well-nourished EENT: Present: ATNC, hearing intact, vision intact Neck: Present: supple Respiratory: Present: clear Cardiology: Present: no edema, normal S1, normal S2 Dialysis Vascular Access: Venous Catheter (DRSG C/D/I) Gastrointestinal: Present: normoactive bowel sounds, no tenderness, no guarding Integumentary: Present: no rash, warm and dry Neurologic: Present: alert and oriented x3 Musculoskeletal: Present: no deformities, no erythema Psychiatric: Present: mood/affect appropriate, cooperative - Lab 02/27/19 05:31 02/27/19 05:31 Most recent lab results 02/27/19 05:31 Calcium 8.8 Magnesium 1.7 Consult Discharge Plan - Plan Instructions: Pulmonary Embolism (DC), Acute Respiratory Distress Syndrome (DC), Urinary Tract Infection in Men (DC), Chronic Obstructive Pulmonary Disease (DC), Pneumonia (DC) Referrals: Heather Proctor MD [Primary Care Provider] - Helder Hatfield MD [Partnered Physician] - Prescriptions: Tamsulosin [Flomax] 0.4 mg PO DAILY #30 capsule levoFLOXacin [Levaquin] 500 mg PO Q48H #2 tablet HYDROcodone/Acet 5/325 mg [[place] 5-325 mg] 1 tab PO Q6HR PRN 5 Days #15 tablet PRN Reason: Moderate Pain predniSONE [PredniSONE] 40 mg PO DAILY #7 tablet OxyCODONE Immed Rel [Roxicodone 10 MG] 10 mg PO Q8H PRN 5 Days #15 tablet PRN Reason: Severe Pain
[2019-02-27] MEDS: *HR* HYDROcodone/Acet 5/325 mg TABLET PO PRN (15:08)
[2019-02-27] MEDS ORDERED: *HR* Warfarin 7.5 MG TABLET PO ONE (18:00)
== END 2019-02-27 15:41 | DRG 189 ==
LOC: EMEROOARM 13:11 → SUATTDRO 16:16 → ICNU 16:16 → 2ANU 02-24 12:14
PROVIDERS: ADMIT Internal Medicine; ATTEND Internal Medicine

== ENCOUNTER 2019-04-20 21:00 | Observation (INO) ==
[2019-04-20 21:47] LABS: Bilirubin,Urine Negative (Negative); Blood,Urine Negative (Negative); Clarity,Urine Clear (Clear); Color,Urine Yellow (Yellow); Glucose,Urine (UA) Normal (Normal); Ketones,Urine Negative (Negative); Leukocyte Esterase,Urine Negative (Negative); Nitrite,Urine Negative (Negative); Protein,Urine Negative (Neg-Trace); Specific Gravity,Urine 1.006 (1.010-1.025); Urobilinogen,Urine Normal (Normal)
[2019-04-20 21:48] LABS: Basophils # 0.1 K/mcL (0.0-0.2); Basophils % 0.5 %; Eosinophils # 0.3 K/mcL (0.0-0.6); Eosinophils % 2.1 %; Hematocrit 34.7 % (37.5-50.1); Hemoglobin 11.2 g/dL (12.9-16.9); Immature Granulocytes % 0.8 % (0-4); Lymphocytes # 3.6 K/mcL (0.6-4.6); Lymphocytes % 25.3 %; Mean Corpuscular HGB Conc 32.3 g/dL (31.6-35.5); Mean Corpuscular Hemoglobin 29.4 pg (28.0-33.3); Mean Corpuscular Volume 91.1 fL (83.0-100.0); Mean Platelet Volume 9.7 fL (9.4-12.4); Monocytes # 0.8 K/mcL (0.0-1.3); Monocytes % 5.5 %; Neutrophils # 9.5 K/mcL (1.6-8.9); Platelet Count 301 K/mcL (140-400); Red Blood Count 3.81 M/mcL (4.19-5.50); Red Cell Distribution Width 17.8 % (11.5-14.5); Segmented Neutrophils % 65.8 %; White Blood Count 14.4 K/mcL (4.3-11.1)
[2019-04-20 22:07] LABS: INR 1.4; Prothrombin Time 16.4 Seconds (9.4-12.1)
[2019-04-20 22:10] LABS: Activated Partial Thrombo Time 36.6 Seconds (26.0-36.0); Alanine Aminotransferase 11 Units/L (7-52); Albumin 3.8 g/dL (3.5-5.7); Albumin/Globulin Ratio 1.2 (1.1-2.2); Alkaline Phosphatase 96 Units/L (34-104); Aspartate Amino Transferase 13 Units/L (13-39); BUN/Creatinine Ratio 13 (6-26); Bilirubin,Direct 0.1 mg/dL (0.0-0.2); Bilirubin,Indirect 0.2 mg/dL (0.0-1.0); Bilirubin,Total 0.3 mg/dL (0.3-1.0); Blood Urea Nitrogen 26 mg/dL (6-20); Calcium 8.5 mg/dL (8.6-10.3); Carbon Dioxide 32 mEq/L (23-29); Chloride 97 mEq/L (98-107); Globulin 3.1 g/dL (2.4-3.5); Glucose 80 mg/dL (70-105); Lipase 21 Units/L (11-82); Osmolality,Calculated 290 (280-300); Potassium 3.3 mEq/L (3.5-5.1); Sodium 138 mEq/L (136-145); Total Protein 6.9 g/dL (6.4-8.9); Troponin I < 0.03 ng/mL (< 0.04); eGFR For African Americans 41 (> 60); eGFR For Non-African Americans 34 (> 60)
[2019-04-20] MEDS ORDERED: *HR* Heparin 5,000 UNIT/ML VIAL IVP ONE (23:08)
[2019-04-20] MEDS ORDERED: *HR* Heparin 5,000 UNIT/ML VIAL IVP PRN ×2 (23:08)
[2019-04-20] MEDS: Heparin 25,000 UNIT/250 ML D5W 25,000 UNIT/250 ML IV.SOLN IVC SCH (23:55)
[2019-04-21] MEDS ORDERED: Naloxone 0.4 MG/ML INJ IVP PRN (00:37)
[2019-04-21] MEDS ORDERED: Ipratropium/Albuterol Neb 3 ML IH PRN ×2 (00:41→01:46)
[2019-04-21] MEDS ORDERED: Bumetanide 1 MG TABLET PO PRN (01:46)
[2019-04-21] MEDS ORDERED: Albuterol 2.5 MG/3 ML NEBULIZER IH PRN ×2 (01:46→13:46)
[2019-04-21 02:35] LABS: Adenovirus Not Detected (Not Detect); Bordetella Pertussis Not Detected (Not Detect); Chlamydophila pneumoniae Not Detected (Not Detect); Coronavirus 229E Not Detected (Not Detect); Coronavirus HKU1 Not Detected (Not Detect); Coronavirus NL63 Not Detected (Not Detect); Coronavirus OC43 Not Detected (Not Detect); Human Metapneumovirus Not Detected (Not Detect); Human Rhinovirus/Enterovirus Not Detected (Not Detect); Influenza A Subtype 2009 H1 Not Detected (Not Detect); Influenza A Untypeable Not Detected (Not Detect); Influenza B Not Detected (Not Detect); Mycoplasma pneumoniae Not Detected (Not Detect); Parainfluenza Virus 1 Not Detected (Not Detect); Parainfluenza Virus 2 Not Detected (Not Detect); Parainfluenza Virus 3 Not Detected (Not Detect); Parainfluenza Virus 4 Not Detected (Not Detect); Respiratory Syncytial Virus Not Detected (Not Detect)
[2019-04-21 06:54] LABS: INR 1.5; Prothrombin Time 17.2 Seconds (9.4-12.1)
[2019-04-21 06:55] LABS: Basophils # 0.1 K/mcL (0.0-0.2); Basophils % 0.4 %; Eosinophils # 0.4 K/mcL (0.0-0.6); Eosinophils % 3.1 %; Hematocrit 35.6 % (37.5-50.1); Hemoglobin 10.9 g/dL (12.9-16.9); Immature Granulocytes % 0.5 % (0-4); Lymphocytes # 3.6 K/mcL (0.6-4.6); Lymphocytes % 28.7 %; Mean Corpuscular HGB Conc 30.6 g/dL (31.6-35.5); Mean Corpuscular Hemoglobin 28.8 pg (28.0-33.3); Mean Corpuscular Volume 93.9 fL (83.0-100.0); Mean Platelet Volume 9.8 fL (9.4-12.4); Monocytes # 0.7 K/mcL (0.0-1.3); Monocytes % 5.8 %; Neutrophils # 7.7 K/mcL (1.6-8.9); Platelet Count 278 K/mcL (140-400); Red Blood Count 3.79 M/mcL (4.19-5.50); Red Cell Distribution Width 17.6 % (11.5-14.5); Segmented Neutrophils % 61.5 %; White Blood Count 12.5 K/mcL (4.3-11.1)
[2019-04-21 07:32] LABS: Alanine Aminotransferase 10 Units/L (7-52); Albumin 3.6 g/dL (3.5-5.7); Albumin/Globulin Ratio 1.2 (1.1-2.2); Alkaline Phosphatase 97 Units/L (34-104); Aspartate Amino Transferase 12 Units/L (13-39); BUN/Creatinine Ratio 13 (6-26); Bilirubin,Total 0.4 mg/dL (0.3-1.0); Blood Urea Nitrogen 25 mg/dL (6-20); Calcium 9.1 mg/dL (8.6-10.3); Carbon Dioxide 36 mEq/L (23-29); Chloride 97 mEq/L (98-107); Globulin 3.1 g/dL (2.4-3.5); Glucose 96 mg/dL (70-105); Magnesium 1.9 mg/dL (1.6-2.6); Osmolality,Calculated 298 (280-300); Phosphorous 4.2 mg/dL (2.7-4.5); Potassium 3.5 mEq/L (3.5-5.1); Sodium 142 mEq/L (136-145); Total Protein 6.7 g/dL (6.4-8.9); Troponin I < 0.03 ng/mL (< 0.04); eGFR For African Americans 44 (> 60); eGFR For Non-African Americans 36 (> 60)
[2019-04-21 07:54] LABS: Activated Partial Thrombo Time 198.7 Seconds (26.0-36.0)
[2019-04-21] MEDS ORDERED: Gabapentin 300 MG CAPSULE PO SCH (09:00)
[2019-04-21] MEDS: Isosorbide MONOnitrate (24 HR) 30 MG TAB.ER.24H PO SCH (09:40)
[2019-04-21] MEDS: Renal Vitamin 1 CAP CAPSULE PO SCH (09:40)
[2019-04-21] MEDS: *HR* OxyCODONE Immed Rel 5 MG TABLET PO PRN ×2 (09:55→17:46)
[2019-04-21] MEDS ORDERED: Budesonide/Formoterol 80/4.5 1 PUFF INH IH SCH (10:00)
[2019-04-21] MEDS: Gabapentin 300 MG CAPSULE PO SCH ×3 (10:17→19:37)
[2019-04-21] MEDS ORDERED: Perflutren Lipid Microsphere 1.3 ML in 0.9 % Sodium Chloride 8.7 ML IVP ONE (13:12)
[2019-04-21] MEDS ORDERED: Perflutren Lipid Microsphere 2 ML VIAL ONE (13:14)
[2019-04-21] MEDS: Ipratropium/Albuterol Neb 3 ML IH SCH ×2 (15:52→22:36)
[2019-04-21] MEDS: Heparin 25,000 UNIT/250 ML D5W 25,000 UNIT/250 ML IV.SOLN IVC SCH (16:50)
[2019-04-21] MEDS ORDERED: Warfarin perPT PO PRN (18:00)
[2019-04-21] MEDS ORDERED: *HR* Warfarin 3 MG TABLET PO ONE (18:00)
[2019-04-21] MEDS: Melatonin 3 MG TABLET PO SCH (19:37)
[2019-04-21] MEDS ORDERED: Budesonide/Formoterol 160/4.5 1 PUFF INH IH SCH (22:00)
[2019-04-22] MEDS: Ipratropium/Albuterol Neb 3 ML IH SCH ×4 (04:19→22:32)
[2019-04-22 06:44] LABS: INR 1.4
[2019-04-22 07:14] LABS: Basophils # 0.1 K/mcL (0.0-0.2); Basophils % 0.6 %; Eosinophils # 0.4 K/mcL (0.0-0.6); Hematocrit 33.7 % (37.5-50.1); Hemoglobin 10.8 g/dL (12.9-16.9); Immature Granulocytes % 0.6 % (0-4); Lymphocytes # 2.8 K/mcL (0.6-4.6); Mean Corpuscular Hemoglobin 29.3 pg (28.0-33.3); Mean Corpuscular Volume 91.3 fL (83.0-100.0); Mean Platelet Volume 9.7 fL (9.4-12.4); Monocytes # 0.7 K/mcL (0.0-1.3); Monocytes % 6.4 %; Neutrophils # 6.3 K/mcL (1.6-8.9); Platelet Count 253 K/mcL (140-400); Red Blood Count 3.69 M/mcL (4.19-5.50); Red Cell Distribution Width 17.3 % (11.5-14.5); Segmented Neutrophils % 61.4 %; White Blood Count 10.3 K/mcL (4.3-11.1)
[2019-04-22 07:48] LABS: Calcium 8.7 mg/dL (8.6-10.3); Potassium 3.2 mEq/L (3.5-5.1)
[2019-04-22] MEDS: Gabapentin 300 MG CAPSULE PO SCH ×3 (08:06→17:47)
[2019-04-22] MEDS: Renal Vitamin 1 CAP CAPSULE PO SCH (08:06)
[2019-04-22] MEDS: Isosorbide MONOnitrate (24 HR) 30 MG TAB.ER.24H PO SCH (08:07)
[2019-04-22 09:09] LABS: Hepatitis B Surface Antigen Nonreactive (Nonreactive)
[2019-04-22] MEDS: *HR* OxyCODONE Immed Rel 5 MG TABLET PO PRN ×2 (09:36→17:53)
[2019-04-22] MEDS: Heparin 25,000 UNIT/250 ML D5W 25,000 UNIT/250 ML IV.SOLN IVC SCH (09:37)
[2019-04-22] MEDS: Budesonide/Formoterol 160/4.5 1 PUFF INH IH SCH ×2 (11:14→22:32)
[2019-04-22 11:31] LABS: Hepatitis B Surface Antibody 12.29 mIU/mL
[2019-04-22] MEDS: *HR* HYDROcodone/Acet 5/325 mg TABLET PO PRN ×2 (14:30→20:23)
[2019-04-22] MEDS ORDERED: *HR* Warfarin 3 MG TABLET PO ONE (18:00)
[2019-04-22] MEDS: Melatonin 3 MG TABLET PO SCH (20:23)
[2019-04-23 00:50] LABS: INR 1.3
[2019-04-23 01:03] LABS: Calcium 8.5 mg/dL (8.6-10.3); Potassium 3.6 mEq/L (3.5-5.1)
[2019-04-23] MEDS: Heparin 25,000 UNIT/250 ML D5W 25,000 UNIT/250 ML IV.SOLN IVC SCH ×2 (01:19→01:25)
[2019-04-23] MEDS: Ipratropium/Albuterol Neb 3 ML IH SCH ×2 (04:39→10:59)
[2019-04-23] MEDS: Isosorbide MONOnitrate (24 HR) 30 MG TAB.ER.24H PO SCH (08:32)
[2019-04-23] MEDS: Renal Vitamin 1 CAP CAPSULE PO SCH (08:32)
[2019-04-23] MEDS: *HR* OxyCODONE Immed Rel 5 MG TABLET PO PRN (08:59)
[2019-04-23] MEDS ORDERED: *HR* Enoxaparin 150 MG/ML SYRINGE SQ SCH (10:00)
[2019-04-23] MEDS: Budesonide/Formoterol 160/4.5 1 PUFF INH IH SCH (10:59)
[2019-04-23 11:24] VITALS: BP 127/72
[2019-04-23 14:03] LABS: Total Volume 24 Hour,Urine 1.79 Liters (0.80-1.80)
[2019-04-23 14:04] LABS: Total Volume 24 Hour,Urine 1.79 Liters (0.80-1.80)
[2019-04-23 14:14] LABS: Protein/Creatinine Ratio,Urine 0.17 mg/mg (0.00-0.20)
[2019-04-23] MEDS: *HR* HYDROcodone/Acet 5/325 mg TABLET PO PRN (15:42)
[2019-04-23] MEDS ORDERED: *HR* Warfarin 5 MG TABLET PO ONE (18:00)
== END 2019-04-23 16:31 | disposition home or self-care (01) ==
LOC: 2ANU 21:00 → 3BNU 21:00 → EMEROOARM 21:00 → SUATTDRO 04-21 00:02 → 2ANU 04-21 01:05
PROVIDERS: ADMIT Internal Medicine; ATTEND Internal Medicine

== ENCOUNTER 2019-07-21 18:24 | Inpatient (IN) ==
[2019-07-21] MEDS ORDERED: Ipratropium/Albuterol Neb 3 ML IH STA (19:34)
[2019-07-21] MEDS ORDERED: Isovue-370 500 ML BOTTLE IVP ONE (19:36)
[2019-07-21 20:09] LABS: INR 2.1; Prothrombin Time 23.5 Seconds (9.4-12.1)
[2019-07-21 20:21] LABS: BUN/Creatinine Ratio 10 (6-26); Blood Urea Nitrogen 13 mg/dL (6-20); Calcium 8.5 mg/dL (8.6-10.3); Carbon Dioxide 32 mEq/L (23-29); Chloride 99 mEq/L (98-107); Glucose 91 mg/dL (70-105); Osmolality,Calculated 282 (280-300); Potassium 4.2 mEq/L (3.5-5.1); Sodium 136 mEq/L (136-145); eGFR For African Americans > 60 (> 60); eGFR For Non-African Americans 59 (> 60)
[2019-07-21 20:26] LABS: Basophils % 0.3 %; Eosinophils # 0.3 K/mcL (0.0-0.6); Eosinophils % 2.5 %; Hematocrit 32.7 % (37.5-50.1); Hemoglobin 10.3 g/dL (12.9-16.9); Immature Granulocytes % 0.7 % (0-4); Lymphocytes # 2.6 K/mcL (0.6-4.6); Lymphocytes % 19.7 %; Mean Corpuscular HGB Conc 31.5 g/dL (31.6-35.5); Mean Corpuscular Hemoglobin 28.7 pg (28.0-33.3); Mean Corpuscular Volume 91.1 fL (83.0-100.0); Mean Platelet Volume 9.7 fL (9.4-12.4); Monocytes # 0.8 K/mcL (0.0-1.3); Monocytes % 5.9 %; Neutrophils # 9.3 K/mcL (1.6-8.9); Platelet Count 308 K/mcL (140-400); Red Blood Count 3.59 M/mcL (4.19-5.50); Red Cell Distribution Width 14.6 % (11.5-14.5); Segmented Neutrophils % 70.9 %; White Blood Count 13.1 K/mcL (4.3-11.1)
[2019-07-21] MEDS ORDERED: predniSONE 20 MG TABLET PO ONE (20:32)
[2019-07-21 20:45] LABS: Alanine Aminotransferase 11 Units/L (7-52); Albumin 3.3 g/dL (3.5-5.7); Albumin/Globulin Ratio 1.1 (1.1-2.2); Alkaline Phosphatase 79 Units/L (34-104); Aspartate Amino Transferase 12 Units/L (13-39); Bilirubin,Indirect 0.3 mg/dL (0.0-1.0); Bilirubin,Total 0.3 mg/dL (0.3-1.0); Globulin 3.1 g/dL (2.4-3.5); Total Protein 6.4 g/dL (6.4-8.9)
[2019-07-21 23:20] LABS: Troponin I < 0.03 ng/mL (< 0.04)
[2019-07-21] MEDS ORDERED: Azithromycin 500 MG in 0.9 % Sodium Chloride 250 ML IVPB ONE (23:25)
[2019-07-21] MEDS ORDERED: levoFLOXacin 750 MG/150 ML 750 MG/150 ML BAG IVPB ONE (23:33)
[2019-07-22] MEDS ORDERED: Acetaminophen 325 MG TABLET PO PRN (02:58)
[2019-07-22] MEDS ORDERED: Naloxone 0.4 MG/ML INJ IVP PRN (02:58)
[2019-07-22] MEDS ORDERED: Benzonatate 100 MG CAPSULE PO PRN (03:15)
[2019-07-22] MEDS: Ipratropium/Albuterol Neb 3 ML IH SCH ×3 (03:44→11:07)
[2019-07-22] MEDS ORDERED: *HR* Warfarin 7.5 MG TABLET PO SCH (04:00)
[2019-07-22] MEDS ORDERED: *HR* OxyCODONE Immed Rel 5 MG TABLET PO PRN (04:07)
[2019-07-22 04:26] LABS: Basophils % 0.2 %; Hematocrit 32.7 % (37.5-50.1); Hemoglobin 10.5 g/dL (12.9-16.9); Immature Granulocytes % 1.2 % (0-4); Lymphocytes % 6.8 %; Mean Corpuscular HGB Conc 32.1 g/dL (31.6-35.5); Mean Corpuscular Volume 90.3 fL (83.0-100.0); Mean Platelet Volume 9.8 fL (9.4-12.4); Monocytes # 0.1 K/mcL (0.0-1.3); Monocytes % 0.7 %; Neutrophils # 13.3 K/mcL (1.6-8.9); Platelet Count 316 K/mcL (140-400); Red Blood Count 3.62 M/mcL (4.19-5.50); Red Cell Distribution Width 14.3 % (11.5-14.5); Segmented Neutrophils % 91.1 %; White Blood Count 14.6 K/mcL (4.3-11.1)
[2019-07-22 04:50] LABS: BUN/Creatinine Ratio 11 (6-26); Blood Urea Nitrogen 15 mg/dL (6-20); Calcium 8.4 mg/dL (8.6-10.3); Carbon Dioxide 28 mEq/L (23-29); Chloride 102 mEq/L (98-107); Glucose 200 mg/dL (70-105); Osmolality,Calculated 290 (280-300); Phosphorous 2.4 mg/dL (2.7-4.5); Potassium 4.4 mEq/L (3.5-5.1); Sodium 137 mEq/L (136-145); eGFR For African Americans > 60 (> 60); eGFR For Non-African Americans 54 (> 60)
[2019-07-22] MEDS ORDERED: levoFLOXacin 750 MG/150 ML 750 MG/150 ML BAG IVPB SCH (06:00)
[2019-07-22] MEDS: Isosorbide MONOnitrate (24 HR) 30 MG TAB.ER.24H PO SCH (07:49)
[2019-07-22] MEDS ORDERED: MethylPREDNISolone 40 MG/ML VIAL IVP SCH (08:00)
[2019-07-22 09:29] LABS: INR 1.8
[2019-07-22 10:10] LABS: Estimated Average Glucose 128 mg/dl
[2019-07-22] MEDS ORDERED: *HR* Warfarin 2.5 MG TABLET PO ONE ×2 (10:52→18:00)
[2019-07-22] MEDS ORDERED: Furosemide 40 MG/4 ML VIAL IVP ONE (11:27)
[2019-07-22] MEDS: *HR* OxyCODONE Immed Rel 5 MG TABLET PO PRN ×2 (13:06→18:59)
[2019-07-22] MEDS: Furosemide 40 MG/4 ML VIAL IVP SCH (17:24)
[2019-07-22] MEDS ORDERED: *HR* Warfarin 3 MG TABLET PO ONE (18:00)
[2019-07-22] MEDS ORDERED: Warfarin perPT PO PRN (18:00)
[2019-07-22] MEDS: Melatonin 3 MG TABLET PO SCH (19:50)
[2019-07-22] MEDS: QUEtiapine Fumarate 25 MG TABLET PO SCH (19:53)
[2019-07-22] MEDS: Budesonide/Formoterol 160/4.5 1 PUFF INH IH SCH (20:03)
[2019-07-22] MEDS: Ipratropium/Albuterol Neb 3 ML IH PRN (22:07)
[2019-07-23] MEDS: *HR* OxyCODONE Immed Rel 5 MG TABLET PO PRN ×4 (00:54→18:28)
[2019-07-23 02:30] LABS: Basophils % 0.2 %; Hematocrit 29.8 % (37.5-50.1); Hemoglobin 9.7 g/dL (12.9-16.9); Immature Granulocytes % 1.1 % (0-4); Lymphocytes # 2.3 K/mcL (0.6-4.6); Lymphocytes % 12.8 %; Mean Corpuscular HGB Conc 32.6 g/dL (31.6-35.5); Mean Corpuscular Hemoglobin 29.1 pg (28.0-33.3); Mean Corpuscular Volume 89.5 fL (83.0-100.0); Mean Platelet Volume 9.7 fL (9.4-12.4); Monocytes # 0.9 K/mcL (0.0-1.3); Monocytes % 5.1 %; Neutrophils # 14.7 K/mcL (1.6-8.9); Platelet Count 313 K/mcL (140-400); Red Blood Count 3.33 M/mcL (4.19-5.50); Red Cell Distribution Width 14.3 % (11.5-14.5); Segmented Neutrophils % 80.8 %; White Blood Count 18.2 K/mcL (4.3-11.1)
[2019-07-23 02:42] LABS: Calcium 8.3 mg/dL (8.6-10.3); Potassium 4.3 mEq/L (3.5-5.1)
[2019-07-23 02:59] LABS: INR 1.7; Prothrombin Time 18.9 Seconds (9.4-12.1)
[2019-07-23] MEDS ORDERED: *HR* Warfarin 5 MG TABLET PO SCH (03:56)
[2019-07-23] MEDS: Isosorbide MONOnitrate (24 HR) 30 MG TAB.ER.24H PO SCH (09:31)
[2019-07-23] MEDS: predniSONE 20 MG TABLET PO SCH (09:31)
[2019-07-23] MEDS: Azithromycin 250 MG TABLET PO SCH (09:31)
[2019-07-23] MEDS: Furosemide 40 MG/4 ML VIAL IVP SCH (09:42)
[2019-07-23] MEDS: Budesonide/Formoterol 160/4.5 1 PUFF INH IH SCH ×2 (10:23→20:03)
[2019-07-23] MEDS ORDERED: *HR* Warfarin 3 MG TABLET PO ONE (18:00)
[2019-07-23] MEDS ORDERED: *HR* Warfarin 4 MG TABLET PO ONE ×2 (18:00)
[2019-07-23] MEDS: Ipratropium/Albuterol Neb 3 ML IH PRN (18:24)
[2019-07-23] MEDS: *HR* Enoxaparin 150 MG/ML SYRINGE SQ SCH (18:30)
[2019-07-23] MEDS: Melatonin 3 MG TABLET PO SCH (20:15)
[2019-07-23] MEDS: QUEtiapine Fumarate 25 MG TABLET PO SCH (20:15)
[2019-07-23] MEDS: *HR* HYDROcodone/Acet 5/325 mg TABLET PO PRN (22:55)
[2019-07-24] MEDS: *HR* OxyCODONE Immed Rel 5 MG TABLET PO PRN ×4 (00:33→18:31)
[2019-07-24 00:47] LABS: Adenovirus Not Detected (Not Detect); Bordetella Pertussis Not Detected (Not Detect); Chlamydophila pneumoniae Not Detected (Not Detect); Coronavirus 229E Not Detected (Not Detect); Coronavirus HKU1 Not Detected (Not Detect); Coronavirus NL63 Not Detected (Not Detect); Coronavirus OC43 Not Detected (Not Detect); Human Metapneumovirus Not Detected (Not Detect); Human Rhinovirus/Enterovirus Not Detected (Not Detect); Influenza A Subtype 2009 H1 Not Detected (Not Detect); Influenza B Not Detected (Not Detect); Mycoplasma pneumoniae Not Detected (Not Detect); Parainfluenza Virus 1 Not Detected (Not Detect); Parainfluenza Virus 2 Not Detected (Not Detect); Parainfluenza Virus 3 Not Detected (Not Detect); Parainfluenza Virus 4 Not Detected (Not Detect); Respiratory Syncytial Virus Not Detected (Not Detect)
[2019-07-24 05:08] LABS: Basophils # 0.1 K/mcL (0.0-0.2); Basophils % 0.3 %; Eosinophils % 0.3 %; Hematocrit 30.6 % (37.5-50.1); Hemoglobin 9.6 g/dL (12.9-16.9); Immature Granulocytes % 1.2 % (0-4); Lymphocytes # 3.2 K/mcL (0.6-4.6); Lymphocytes % 20.4 %; Mean Corpuscular HGB Conc 31.4 g/dL (31.6-35.5); Mean Corpuscular Hemoglobin 29.4 pg (28.0-33.3); Mean Corpuscular Volume 93.9 fL (83.0-100.0); Mean Platelet Volume 9.7 fL (9.4-12.4); Monocytes % 6.1 %; Neutrophils # 11.2 K/mcL (1.6-8.9); Platelet Count 307 K/mcL (140-400); Red Blood Count 3.26 M/mcL (4.19-5.50); Red Cell Distribution Width 14.6 % (11.5-14.5); Segmented Neutrophils % 71.7 %; White Blood Count 15.6 K/mcL (4.3-11.1)
[2019-07-24 05:12] LABS: INR 1.5; Prothrombin Time 16.5 Seconds (9.4-12.1)
[2019-07-24 05:27] LABS: BUN/Creatinine Ratio 20 (6-26); Blood Urea Nitrogen 27 mg/dL (6-20); Calcium 8.2 mg/dL (8.6-10.3); Carbon Dioxide 33 mEq/L (23-29); Chloride 99 mEq/L (98-107); Glucose 114 mg/dL (70-105); Osmolality,Calculated 292 (280-300); Sodium 138 mEq/L (136-145); eGFR For African Americans > 60 (> 60); eGFR For Non-African Americans 53 (> 60)
[2019-07-24] MEDS: *HR* Enoxaparin 150 MG/ML SYRINGE SQ SCH ×2 (06:33→18:32)
[2019-07-24 08:53] LABS: Mycoplasma pneumoniae IgG 0.69 U/L (<=0.09)
[2019-07-24] MEDS: Azithromycin 250 MG TABLET PO SCH (09:22)
[2019-07-24] MEDS: Isosorbide MONOnitrate (24 HR) 30 MG TAB.ER.24H PO SCH (09:26)
[2019-07-24] MEDS: predniSONE 20 MG TABLET PO SCH (09:46)
[2019-07-24] MEDS: Budesonide/Formoterol 160/4.5 1 PUFF INH IH SCH ×3 (11:25→21:51)
[2019-07-24] MEDS: Ipratropium/Albuterol Neb 3 ML IH PRN (11:36)
[2019-07-24] MEDS ORDERED: Bumetanide 1 MG TABLET PO SCH (12:00)
[2019-07-24] MEDS ORDERED: *HR* Warfarin 7.5 MG TABLET PO ONE (18:00)
[2019-07-24] MEDS: Melatonin 3 MG TABLET PO SCH (20:14)
[2019-07-24] MEDS: QUEtiapine Fumarate 25 MG TABLET PO SCH (20:15)
[2019-07-25] MEDS: *HR* OxyCODONE Immed Rel 5 MG TABLET PO PRN ×4 (00:42→18:49)
[2019-07-25 05:30] LABS: Basophils % 0.3 %; Eosinophils % 0.1 %; Hematocrit 33.4 % (37.5-50.1); Hemoglobin 10.7 g/dL (12.9-16.9); Immature Granulocytes % 1.5 % (0-4); Lymphocytes # 3.1 K/mcL (0.6-4.6); Lymphocytes % 21.3 %; Mean Corpuscular Hemoglobin 28.9 pg (28.0-33.3); Mean Corpuscular Volume 90.3 fL (83.0-100.0); Mean Platelet Volume 9.7 fL (9.4-12.4); Monocytes # 0.9 K/mcL (0.0-1.3); Monocytes % 6.5 %; Neutrophils # 10.2 K/mcL (1.6-8.9); Platelet Count 366 K/mcL (140-400); Red Cell Distribution Width 14.6 % (11.5-14.5); Segmented Neutrophils % 70.3 %; White Blood Count 14.5 K/mcL (4.3-11.1)
[2019-07-25 05:34] LABS: INR 1.7; Prothrombin Time 18.8 Seconds (9.4-12.1)
[2019-07-25 05:54] LABS: Calcium 8.4 mg/dL (8.6-10.3); Potassium 4.2 mEq/L (3.5-5.1)
[2019-07-25] MEDS: *HR* Enoxaparin 150 MG/ML SYRINGE SQ SCH ×2 (06:40→18:48)
[2019-07-25] MEDS: Isosorbide MONOnitrate (24 HR) 30 MG TAB.ER.24H PO SCH (09:40)
[2019-07-25] MEDS: Azithromycin 250 MG TABLET PO SCH (09:41)
[2019-07-25] MEDS: predniSONE 20 MG TABLET PO SCH (09:41)
[2019-07-25] MEDS: Budesonide/Formoterol 160/4.5 1 PUFF INH IH SCH ×2 (10:56→20:18)
[2019-07-25] MEDS: Bumetanide 1 MG TABLET PO SCH ×2 (14:24→20:26)
[2019-07-25] MEDS ORDERED: *HR* Warfarin 3 MG TABLET PO ONE (18:00)
[2019-07-25] MEDS: Melatonin 3 MG TABLET PO SCH (20:26)
[2019-07-25] MEDS: QUEtiapine Fumarate 25 MG TABLET PO SCH (20:27)
[2019-07-26] MEDS: *HR* OxyCODONE Immed Rel 5 MG TABLET PO PRN ×4 (00:45→18:45)
[2019-07-26] MEDS: *HR* Enoxaparin 150 MG/ML SYRINGE SQ SCH ×2 (05:47→17:37)
[2019-07-26] MEDS: *HR* HYDROcodone/Acet 5/325 mg TABLET PO PRN ×3 (05:47→17:36)
[2019-07-26 06:55] LABS: Basophils # 0.1 K/mcL (0.0-0.2); Basophils % 0.5 %; Eosinophils # 0.1 K/mcL (0.0-0.6); Eosinophils % 0.8 %; Hematocrit 32.9 % (37.5-50.1); Hemoglobin 10.1 g/dL (12.9-16.9); Immature Granulocytes % 2.1 % (0-4); Lymphocytes # 3.7 K/mcL (0.6-4.6); Lymphocytes % 28.6 %; Mean Corpuscular HGB Conc 30.7 g/dL (31.6-35.5); Mean Corpuscular Hemoglobin 28.7 pg (28.0-33.3); Mean Corpuscular Volume 93.5 fL (83.0-100.0); Mean Platelet Volume 9.9 fL (9.4-12.4); Monocytes # 0.9 K/mcL (0.0-1.3); Monocytes % 6.8 %; Platelet Count 346 K/mcL (140-400); Red Blood Count 3.52 M/mcL (4.19-5.50); Red Cell Distribution Width 14.8 % (11.5-14.5); Segmented Neutrophils % 61.2 %
[2019-07-26 07:01] LABS: INR 1.8; Prothrombin Time 20.4 Seconds (9.4-12.1)
[2019-07-26 07:14] LABS: BUN/Creatinine Ratio 23 (6-26); Blood Urea Nitrogen 31 mg/dL (6-20); Calcium 8.2 mg/dL (8.6-10.3); Carbon Dioxide 36 mEq/L (23-29); Chloride 99 mEq/L (98-107); Glucose 95 mg/dL (70-105); Osmolality,Calculated 296 (280-300); Potassium 3.8 mEq/L (3.5-5.1); Sodium 140 mEq/L (136-145); eGFR For African Americans > 60 (> 60); eGFR For Non-African Americans 55 (> 60)
[2019-07-26] MEDS: Budesonide/Formoterol 160/4.5 1 PUFF INH IH SCH ×2 (07:42→20:43)
[2019-07-26] MEDS: Isosorbide MONOnitrate (24 HR) 30 MG TAB.ER.24H PO SCH (08:11)
[2019-07-26] MEDS: predniSONE 20 MG TABLET PO SCH (08:12)
[2019-07-26] MEDS: Bumetanide 1 MG TABLET PO SCH ×2 (08:15→22:05)
[2019-07-26] MEDS ORDERED: *HR* Warfarin 3 MG TABLET PO ONE (18:00)
[2019-07-26] MEDS: Melatonin 3 MG TABLET PO SCH (22:05)
[2019-07-26] MEDS: QUEtiapine Fumarate 25 MG TABLET PO SCH (22:11)
[2019-07-27] MEDS: *HR* OxyCODONE Immed Rel 5 MG TABLET PO PRN ×4 (00:22→18:22)
[2019-07-27] MEDS: *HR* Enoxaparin 150 MG/ML SYRINGE SQ SCH (05:50)
[2019-07-27 07:09] LABS: Basophils # 0.1 K/mcL (0.0-0.2); Basophils % 0.9 %; Eosinophils # 0.3 K/mcL (0.0-0.6); Eosinophils % 1.9 %; Hematocrit 35.8 % (37.5-50.1); Immature Granulocytes % 3.2 % (0-4); Lymphocytes # 4.4 K/mcL (0.6-4.6); Lymphocytes % 29.1 %; Mean Corpuscular HGB Conc 30.7 g/dL (31.6-35.5); Mean Corpuscular Hemoglobin 28.7 pg (28.0-33.3); Mean Corpuscular Volume 93.5 fL (83.0-100.0); Monocytes % 6.7 %; Neutrophils # 8.9 K/mcL (1.6-8.9); Platelet Count 369 K/mcL (140-400); Red Blood Count 3.83 M/mcL (4.19-5.50); Red Cell Distribution Width 14.8 % (11.5-14.5); Segmented Neutrophils % 58.2 %; White Blood Count 15.2 K/mcL (4.3-11.1)
[2019-07-27 07:15] LABS: INR 1.8; Prothrombin Time 20.7 Seconds (9.4-12.1)
[2019-07-27 07:31] LABS: Calcium 8.4 mg/dL (8.6-10.3)
[2019-07-27] MEDS ORDERED: Aminoglycoside Consult 1 EACH MC ONE (08:23)
[2019-07-27] MEDS: Isosorbide MONOnitrate (24 HR) 30 MG TAB.ER.24H PO SCH (10:05)
[2019-07-27] MEDS: predniSONE 20 MG TABLET PO SCH (10:05)
[2019-07-27] MEDS: *HR* HYDROcodone/Acet 5/325 mg TABLET PO PRN ×2 (10:06→20:27)
[2019-07-27] MEDS: Budesonide/Formoterol 160/4.5 1 PUFF INH IH SCH ×2 (10:24→20:33)
[2019-07-27] MEDS: Ipratropium/Albuterol Neb 3 ML IH PRN (15:41)
[2019-07-27] MEDS ORDERED: Warfarin 4 MG, Warfarin 3 MG PO ONE (18:00)
[2019-07-27] MEDS: Melatonin 3 MG TABLET PO SCH (20:11)
[2019-07-27] MEDS ORDERED: MELATONIN 30 MG PO SCH (21:00)
[2019-07-28] MEDS: *HR* OxyCODONE Immed Rel 5 MG TABLET PO PRN ×2 (00:25→06:25)
[2019-07-28 04:11] VITALS: BP 102/80
[2019-07-28 06:23] LABS: Basophils # 0.1 K/mcL (0.0-0.2); Basophils % 0.8 %; Eosinophils # 0.1 K/mcL (0.0-0.6); Hematocrit 32.2 % (37.5-50.1); Hemoglobin 10.4 g/dL (12.9-16.9); Immature Granulocytes % 3.7 % (0-4); Lymphocytes # 3.3 K/mcL (0.6-4.6); Lymphocytes % 22.9 %; Mean Corpuscular HGB Conc 32.3 g/dL (31.6-35.5); Mean Corpuscular Hemoglobin 29.3 pg (28.0-33.3); Mean Corpuscular Volume 90.7 fL (83.0-100.0); Mean Platelet Volume 9.7 fL (9.4-12.4); Monocytes # 0.9 K/mcL (0.0-1.3); Monocytes % 6.1 %; Neutrophils # 9.4 K/mcL (1.6-8.9); Platelet Count 325 K/mcL (140-400); Red Blood Count 3.55 M/mcL (4.19-5.50); Red Cell Distribution Width 14.8 % (11.5-14.5); Segmented Neutrophils % 65.5 %; White Blood Count 14.3 K/mcL (4.3-11.1)
[2019-07-28 06:24] LABS: INR 1.8; Prothrombin Time 19.9 Seconds (9.4-12.1)
[2019-07-28 06:41] LABS: BUN/Creatinine Ratio 27 (6-26); Blood Urea Nitrogen 36 mg/dL (6-20); Carbon Dioxide 33 mEq/L (23-29); Chloride 97 mEq/L (98-107); Glucose 114 mg/dL (70-105); Osmolality,Calculated 293 (280-300); Potassium 3.9 mEq/L (3.5-5.1); Sodium 137 mEq/L (136-145); eGFR For African Americans > 60 (> 60); eGFR For Non-African Americans 54 (> 60)
[2019-07-28] MEDS: Budesonide/Formoterol 160/4.5 1 PUFF INH IH SCH (08:10)
[2019-07-28] MEDS: Isosorbide MONOnitrate (24 HR) 30 MG TAB.ER.24H PO SCH (08:28)
[2019-07-28] MEDS ORDERED: predniSONE 20 MG TABLET PO SCH (09:00)
[2019-07-29] MEDS ORDERED: Ergocalciferol (VIT D2) 50,000 UNIT (1.25MG) CAP PO SCH (12:17)
== END 2019-07-28 10:45 | disposition home or self-care (01) | DRG 291 ==
LOC: 2NENU 18:24 → EMEROOARM 18:24 → SUATTDRO 07-22 01:07 → 2NENU 07-22 01:46 → SUATTDRO 07-22 02:58
PROVIDERS: ADMIT Family Medicine; ATTEND Student in an Organized Health Care Education/Training Program

== ENCOUNTER 2020-01-07 13:34 | Observation (INO) ==
[~2020-01-07 13:34] MED LIST: Anticoagulation Consult 1 Each MC ONE
[2020-01-07] MEDS ORDERED: Ipratropium/Albuterol Neb 3 ML IH ONE (13:53)
[2020-01-07] MEDS ORDERED: levoFLOXacin 750 MG TABLET PO ONE (13:53)
[2020-01-07] MEDS ORDERED: methylPREDNISolone 125 MG/2 ML VIAL IVP ONE (13:53)
[2020-01-07] MEDS ORDERED: Furosemide 40 MG/4 ML VIAL IVP ONE (13:53)
[2020-01-07 14:51] LABS: Basophils # 0.1 K/mcL (0.0-0.2); Basophils % 0.5 %; Eosinophils # 0.3 K/mcL (0.0-0.6); Eosinophils % 2.8 %; Hemoglobin 11.6 g/dL (12.9-16.9); Immature Granulocytes % 0.3 % (0-4); Lymphocytes # 2.7 K/mcL (0.6-4.6); Lymphocytes % 23.2 %; Mean Corpuscular HGB Conc 31.4 g/dL (31.6-35.5); Mean Corpuscular Hemoglobin 27.8 pg (28.0-33.3); Mean Corpuscular Volume 88.7 fL (83.0-100.0); Mean Platelet Volume 10.4 fL (9.4-12.4); Monocytes # 0.7 K/mcL (0.0-1.3); Monocytes % 5.8 %; Neutrophils # 7.8 K/mcL (1.6-8.9); Platelet Count 296 K/mcL (140-400); Red Blood Count 4.17 M/mcL (4.19-5.50); Red Cell Distribution Width 15.4 % (11.5-14.5); Segmented Neutrophils % 67.4 %; White Blood Count 11.7 K/mcL (4.3-11.1)
[2020-01-07] MEDS ORDERED: 0.9 % Sodium Chloride 1,000 ML IVC ONE (14:52)
[2020-01-07 15:00] LABS: INR 2.6; Prothrombin Time 29.2 Seconds (9.4-12.1)
[2020-01-07 15:03] LABS: Activated Partial Thrombo Time 35.4 Seconds (26.0-36.0)
[2020-01-07 15:20] LABS: BUN/Creatinine Ratio 15 (6-26); Blood Urea Nitrogen 17 mg/dL (6-20); Calcium 9.2 mg/dL (8.6-10.3); Carbon Dioxide 40 mEq/L (23-29); Chloride 93 mEq/L (98-107); Glucose 92 mg/dL (70-105); Osmolality,Calculated 287 (280-300); Potassium 3.6 mEq/L (3.5-5.1); Sodium 138 mEq/L (136-145); eGFR For African Americans > 60 (> 60); eGFR For Non-African Americans > 60 (> 60)
[2020-01-07 15:21] LABS: Troponin I < 0.03 ng/mL (< 0.04)
[2020-01-07] MEDS ORDERED: Furosemide 40 MG/4 ML VIAL ONE (15:23)
[2020-01-07] MEDS ORDERED: 0.9 % Sodium Chloride 1,000 ML ONE (15:23)
[2020-01-07] MEDS ORDERED: methylPREDNISolone 125 MG/2 ML VIAL ONE (15:23)
[2020-01-07] MEDS ORDERED: levoFLOXacin 750 MG/150 ML 750 MG/150 ML BAG IVPB SCH (17:30)
[2020-01-07] MEDS ORDERED: levoFLOXacin 750 MG/150 ML 750 MG/150 ML BAG IVPB ONE ×2 (17:56→17:59)
[2020-01-07] MEDS ORDERED: *HR* Promethazine 25 MG/ML VIAL IVP PRN (17:59)
[2020-01-07] MEDS ORDERED: Warfarin perPT PO PRN (18:00)
[2020-01-07 18:58] LABS: VBG HCO3 41 mEq/L (21-27); VBG PCO2 71 mmHg (41-51); VBG PH 7.37 pH Units (7.32-7.42); VBG PO2 64 mmHg (25-50)
[2020-01-07] MEDS ORDERED: *HR* Warfarin 5 MG TABLET PO ONE (19:20)
[2020-01-07] MEDS: Ipratropium 1 PUFF INHALER IH SCH ×2 (20:03→23:20)
[2020-01-07] MEDS ORDERED: Ringers Solution, Lactated 500 ML IVC ONE (20:14)
[2020-01-07] MEDS: *HR* OxyCODONE Immed Rel 5 MG TABLET PO PRN (20:38)
[2020-01-07] MEDS: Nicotine 21 MG PATCH.TD24 TD SCH (22:48)
[2020-01-08] MEDS: *HR* OxyCODONE Immed Rel 5 MG TABLET PO PRN ×4 (02:51→20:51)
[2020-01-08] MEDS: Ipratropium 1 PUFF INHALER IH SCH ×6 (03:44→23:59)
[2020-01-08 06:33] LABS: Hematocrit 37.7 % (37.5-50.1); Hemoglobin 11.8 g/dL (12.9-16.9); Mean Corpuscular HGB Conc 31.3 g/dL (31.6-35.5); Mean Corpuscular Hemoglobin 28.4 pg (28.0-33.3); Mean Corpuscular Volume 90.6 fL (83.0-100.0); Mean Platelet Volume 10.7 fL (9.4-12.4); Platelet Count 272 K/mcL (140-400); Red Blood Count 4.16 M/mcL (4.19-5.50); Red Cell Distribution Width 15.1 % (11.5-14.5); White Blood Count 12.1 K/mcL (4.3-11.1)
[2020-01-08 06:45] LABS: INR 3.3; Prothrombin Time 37.9 Seconds (9.4-12.1)
[2020-01-08 07:17] LABS: BUN/Creatinine Ratio 19 (6-26); Blood Urea Nitrogen 22 mg/dL (6-20); Calcium 8.3 mg/dL (8.6-10.3); Carbon Dioxide 37 mEq/L (23-29); Chloride 97 mEq/L (98-107); Glucose 112 mg/dL (70-105); Osmolality,Calculated 292 (280-300); Potassium 3.5 mEq/L (3.5-5.1); Sodium 139 mEq/L (136-145); eGFR For African Americans > 60 (> 60); eGFR For Non-African Americans > 60 (> 60)
[2020-01-08] MEDS ORDERED: Ipratropium/Albuterol Neb 3 ML IH PRN (07:20)
[2020-01-08] MEDS ORDERED: Dexamethasone 4 MG/ML VIAL IVP SCH ×2 (09:00)
[2020-01-08] MEDS ORDERED: levoFLOXacin 750 MG/150 ML 750 MG/150 ML BAG IVPB SCH (09:00)
[2020-01-08] MEDS: Bumetanide 1 MG TABLET PO SCH ×2 (09:03→16:42)
[2020-01-08] MEDS: Isosorbide MONOnitrate (24 HR) 30 MG TAB.ER.24H PO SCH (09:03)
[2020-01-08] MEDS: Nicotine 21 MG PATCH.TD24 TD SCH ×2 (09:24→09:38)
[2020-01-08] MEDS: levoFLOXacin 750 MG/150 ML 750 MG/150 ML BAG IVPB SCH (09:37)
[2020-01-08] MEDS: Dexamethasone 4 MG/ML VIAL IVP SCH (09:37)
[2020-01-08] MEDS ORDERED: (Diclofenac Sodium 1 APPL) TP PRN (12:17)
[2020-01-08] MEDS: *HR* HYDROcodone/Acet 10/325 mg TABLET PO PRN (18:19)
[2020-01-08] MEDS ORDERED: Melatonin 3 MG TABLET PO SCH (21:00)
[2020-01-09] MEDS: Ipratropium 1 PUFF INHALER IH SCH ×3 (03:49→11:46)
[2020-01-09] MEDS: *HR* OxyCODONE Immed Rel 5 MG TABLET PO PRN ×2 (04:05→10:51)
[2020-01-09] MEDS: levoFLOXacin 750 MG/150 ML 750 MG/150 ML BAG IVPB SCH (08:06)
[2020-01-09] MEDS: Dexamethasone 4 MG/ML VIAL IVP SCH (08:08)
[2020-01-09] MEDS: Bumetanide 1 MG TABLET PO SCH (08:09)
[2020-01-09] MEDS: *HR* HYDROcodone/Acet 10/325 mg TABLET PO PRN (08:09)
[2020-01-09] MEDS: Isosorbide MONOnitrate (24 HR) 30 MG TAB.ER.24H PO SCH (08:09)
[2020-01-09] MEDS: Nicotine 21 MG PATCH.TD24 TD SCH (08:10)
[2020-01-09 08:45] VITALS: BP 116/96
[2020-01-09 08:56] LABS: Basophils % 0.3 %; Eosinophils % 0.2 %; Hematocrit 40.6 % (37.5-50.1); Hemoglobin 12.6 g/dL (12.9-16.9); Immature Granulocytes % 0.6 % (0-4); Lymphocytes # 3.4 K/mcL (0.6-4.6); Lymphocytes % 24.5 %; Mean Corpuscular Hemoglobin 27.9 pg (28.0-33.3); Mean Platelet Volume 10.6 fL (9.4-12.4); Monocytes # 0.6 K/mcL (0.0-1.3); Monocytes % 4.4 %; Neutrophils # 9.8 K/mcL (1.6-8.9); Platelet Count 281 K/mcL (140-400); Red Blood Count 4.51 M/mcL (4.19-5.50); Red Cell Distribution Width 15.5 % (11.5-14.5)
[2020-01-09 09:19] LABS: Alanine Aminotransferase 9 Units/L (7-52); Albumin 3.7 g/dL (3.5-5.7); Albumin/Globulin Ratio 1.3 (1.1-2.2); Alkaline Phosphatase 104 Units/L (34-104); Aspartate Amino Transferase 12 Units/L (13-39); BUN/Creatinine Ratio 22 (6-26); Bilirubin,Total 0.3 mg/dL (0.3-1.0); Blood Urea Nitrogen 29 mg/dL (6-20); Calcium 8.7 mg/dL (8.6-10.3); Carbon Dioxide 40 mEq/L (23-29); Chloride 97 mEq/L (98-107); Globulin 2.8 g/dL (2.4-3.5); Glucose 93 mg/dL (70-105); Osmolality,Calculated 296 (280-300); Potassium 3.5 mEq/L (3.5-5.1); Sodium 140 mEq/L (136-145); Total Protein 6.5 g/dL (6.4-8.9); eGFR For African Americans > 60 (> 60); eGFR For Non-African Americans 56 (> 60)
[2020-01-09 09:27] LABS: INR 2.2; Prothrombin Time 25.2 Seconds (9.4-12.1)
[2020-01-09] MEDS ORDERED: *HR* Warfarin 3 MG TABLET PO ONE (11:52)
[2020-01-09] MEDS ORDERED: *HR* Warfarin 2.5 MG TABLET PO ONE (11:52)
[2020-01-10] MEDS ORDERED: levoFLOXacin 750 MG TABLET PO SCH (09:00)
== END 2020-01-09 13:22 | disposition home or self-care (01) ==
LOC: EMEROOARM 13:34 → 2NENU 13:34 → SUATTDRO 17:29 → 2NENU 18:45
PROVIDERS: ADMIT Internal Medicine; ATTEND Family Medicine

== ENCOUNTER 2021-02-13 11:18 | Observation (INO) ==
[2021-02-13] MEDS ORDERED: Aspirin 81 MG TAB.CHEW PO ONE (11:52)
[2021-02-13] MEDS ORDERED: Nitroglycerin 0.4 MG TAB.SUBL SL PRN (12:41)
[2021-02-13 12:43] LABS: Basophils # 0.1 K/mcL (0.0-0.2); Basophils % 0.5 %; Eosinophils # 0.2 K/mcL (0.0-0.6); Eosinophils % 1.3 %; Hematocrit 40.4 % (37.5-50.1); Hemoglobin 12.9 g/dL (12.9-16.9); Immature Granulocytes % 1.3 % (0-4); Lymphocytes # 2.7 K/mcL (0.6-4.6); Lymphocytes % 18.2 %; Mean Corpuscular HGB Conc 31.9 g/dL (31.6-35.5); Mean Corpuscular Hemoglobin 28.2 pg (28.0-33.3); Mean Corpuscular Volume 88.2 fL (83.0-100.0); Mean Platelet Volume 10.1 fL (9.4-12.4); Monocytes % 6.9 %; Neutrophils # 10.8 K/mcL (1.6-8.9); Platelet Count 266 K/mcL (140-400); Red Blood Count 4.58 M/mcL (4.19-5.50); Segmented Neutrophils % 71.8 %
[2021-02-13 13:00] LABS: INR 1.3; Prothrombin Time 15.2 Seconds (9.4-12.1)
[2021-02-13 13:03] LABS: Activated Partial Thrombo Time 29.1 Seconds (26.0-36.0)
[2021-02-13 13:04] LABS: BUN/Creatinine Ratio 21 (6-26); Blood Urea Nitrogen 22 mg/dL (8-23); Carbon Dioxide 35 mEq/L (23-29); Chloride 100 mEq/L (98-107); Glucose 92 mg/dL (70-105); Osmolality,Calculated 295 (280-300); Potassium 3.4 mEq/L (3.5-5.1); Sodium 141 mEq/L (136-145); eGFR For African Americans > 60 (> 60); eGFR For Non-African Americans > 60 (> 60)
[2021-02-13 13:11] LABS: Troponin I < 0.03 ng/mL (< 0.04)
[2021-02-13 13:50] LABS: Calcium 8.2 mg/dL (8.6-10.3)
[2021-02-13] MEDS ORDERED: Naloxone 0.4 MG/ML INJ IVP PRN (15:39)
[2021-02-13] MEDS ORDERED: Ondansetron 4 MG/2 ML VIAL IVP PRN (15:39)
[2021-02-13] MEDS ORDERED: Acetaminophen 325 MG TABLET PO PRN (15:39)
[2021-02-13] MEDS ORDERED: Perflutren Lipid Microsphere 1.3 ML in 0.9 % Sodium Chloride 8.7 ML IVP PRN (15:44)
[2021-02-13] MEDS: Ipratropium/Albuterol Neb 3 ML IH SCH ×2 (16:21→21:30)
[2021-02-13] MEDS: Bumetanide 1 MG TABLET PO SCH (16:45)
[2021-02-13] MEDS ORDERED: *HR* Warfarin 5 MG TABLET PO ONE (18:00)
[2021-02-13] MEDS ORDERED: Warfarin perPT PO PRN (18:00)
[2021-02-13] MEDS: MethylPREDNISolone 40 MG/ML VIAL IVP SCH (18:14)
[2021-02-13] MEDS: Nitroglycerin 0.4 MG TAB.SUBL SL PRN ×3 (18:33→19:43)
[2021-02-13] MEDS ORDERED: Morphine Sulfate 2 MG/ML SYRINGE IVP STA (19:48)
[2021-02-13] MEDS: Doxycycline 100 MG CAPSULE PO SCH (21:05)
[2021-02-13] MEDS: Budesonide/Formoterol 80/4.5 1 PUFF INH IH SCH (21:30)
[2021-02-13 23:18] LABS: Magnesium 2.1 mg/dL (1.6-2.6)
[2021-02-14 00:25] LABS: Basophils # 0.1 K/mcL (0.0-0.2); Basophils % 0.3 %; Eosinophils % 0.1 %; Hematocrit 41.2 % (37.5-50.1); Hemoglobin 13.4 g/dL (12.9-16.9); Immature Granulocytes % 1.5 % (0-4); Lymphocytes # 1.3 K/mcL (0.6-4.6); Lymphocytes % 7.9 %; Mean Corpuscular HGB Conc 32.5 g/dL (31.6-35.5); Mean Corpuscular Hemoglobin 28.6 pg (28.0-33.3); Mean Corpuscular Volume 87.8 fL (83.0-100.0); Monocytes # 0.2 K/mcL (0.0-1.3); Monocytes % 1.2 %; Neutrophils # 14.9 K/mcL (1.6-8.9); Platelet Count 282 K/mcL (140-400); Red Blood Count 4.69 M/mcL (4.19-5.50); Red Cell Distribution Width 15.9 % (11.5-14.5); White Blood Count 16.7 K/mcL (4.3-11.1)
[2021-02-14 00:33] LABS: INR 1.4; Prothrombin Time 16.3 Seconds (9.4-12.1)
[2021-02-14 00:50] LABS: Alanine Aminotransferase 12 Units/L (7-52); Albumin 3.5 g/dL (3.5-5.7); Albumin/Globulin Ratio 1.3 (1.1-2.2); Alkaline Phosphatase 73 Units/L (34-104); Aspartate Amino Transferase 14 Units/L (13-39); BUN/Creatinine Ratio 24 (6-26); Bilirubin,Total 0.3 mg/dL (0.3-1.0); Blood Urea Nitrogen 22 mg/dL (8-23); Calcium 8.3 mg/dL (8.6-10.3); Carbon Dioxide 30 mEq/L (23-29); Chloride 101 mEq/L (98-107); Chol/HDL Ratio 3.3 (0-4.9); Cholesterol 141 mg/dL (< 200); Globulin 2.8 g/dL (2.4-3.5); Glucose 163 mg/dL (70-105); HDL Cholesterol 43 mg/dL (40-59); LDL Cholesterol,Calculated 77 mg/dL (< 100); Osmolality,Calculated 293 (280-300); Potassium 4.1 mEq/L (3.5-5.1); Sodium 138 mEq/L (136-145); Total Protein 6.3 g/dL (6.4-8.9); Triglycerides 105 mg/dL (< 150); eGFR For African Americans > 60 (> 60); eGFR For Non-African Americans > 60 (> 60)
[2021-02-14] MEDS: MethylPREDNISolone 40 MG/ML VIAL IVP SCH (05:07)
[2021-02-14] MEDS: Ipratropium/Albuterol Neb 3 ML IH SCH ×3 (05:24→15:26)
[2021-02-14] MEDS ORDERED: Regadenoson 0.4 MG/5 ML SYRINGE IVP ONE (05:53)
[2021-02-14] MEDS ORDERED: Isosorbide MONOnitrate (24 HR) 30 MG TAB.ER.24H PO SCH (09:00)
[2021-02-14] MEDS ORDERED: Aspirin 81 MG TAB.CHEW PO SCH (09:00)
[2021-02-14] MEDS: Bumetanide 1 MG TABLET PO SCH (09:59)
[2021-02-14] MEDS: Doxycycline 100 MG CAPSULE PO SCH (10:00)
[2021-02-14] MEDS: Budesonide/Formoterol 80/4.5 1 PUFF INH IH SCH (10:27)
[2021-02-14 15:09] VITALS: BP 130/79; PULSE 63; TEMP 98.3; O2SAT 96
[2021-02-14] MEDS ORDERED: *HR* Warfarin 5 MG TABLET PO ONE (18:00)
== END 2021-02-14 16:07 | disposition home or self-care (01) ==
LOC: 3BNU 11:18 → EMEROOARM 11:18 → SUATTDRO 15:19 → 3BNU 16:00
PROVIDERS: ADMIT General Practice; ATTEND Registered Nurse

== ENCOUNTER 2022-02-19 14:46 | Observation (INO) ==
[2022-02-19 16:04] LABS: Basophils # 0.1 K/mcL (0.0-0.2); Basophils % 0.5 %; Eosinophils # 0.4 K/mcL (0.0-0.6); Eosinophils % 3.6 %; Hematocrit 37.6 % (37.5-50.1); Hemoglobin 12.1 g/dL (12.9-16.9); Immature Granulocytes % 0.8 % (0-4); Lymphocytes # 2.9 K/mcL (0.6-4.6); Lymphocytes % 23.3 %; Mean Corpuscular HGB Conc 32.2 g/dL (31.6-35.5); Mean Corpuscular Volume 83.9 fL (83.0-100.0); Mean Platelet Volume 9.8 fL (9.4-12.4); Monocytes # 0.7 K/mcL (0.0-1.3); Monocytes % 5.7 %; Neutrophils # 8.2 K/mcL (1.6-8.9); Platelet Count 256 K/mcL (140-400); Red Blood Count 4.48 M/mcL (4.19-5.50); Red Cell Distribution Width 17.9 % (11.5-14.5); Segmented Neutrophils % 66.1 %; White Blood Count 12.4 K/mcL (4.3-11.1)
[2022-02-19 16:17] LABS: Alanine Aminotransferase 19 Units/L (7-52); Albumin 3.2 g/dL (3.5-5.7); Albumin/Globulin Ratio 1.2 (1.1-2.2); Alkaline Phosphatase 64 Units/L (34-104); Aspartate Amino Transferase 13 Units/L (13-39); BUN/Creatinine Ratio 20 (6-26); Bilirubin,Direct 0.1 mg/dL (0.0-0.2); Bilirubin,Indirect 0.2 mg/dL (0.0-1.0); Bilirubin,Total 0.3 mg/dL (0.3-1.0); Blood Urea Nitrogen 22 mg/dL (8-23); Calcium 7.9 mg/dL (8.6-10.3); Carbon Dioxide 34 mEq/L (23-29); Chloride 100 mEq/L (98-107); Ethanol < 10 mg/dL (Less than 10); Globulin 2.6 g/dL (2.4-3.5); Glucose 123 mg/dL (70-105); Osmolality,Calculated 295 (280-300); Potassium 3.2 mEq/L (3.5-5.1); Sodium 140 mEq/L (136-145); Total Protein 5.8 g/dL (6.4-8.9)
[2022-02-19 16:18] LABS: Troponin I < 0.03 ng/mL (< 0.04)
[2022-02-19 18:01] LABS: VBG HCO3 37 mEq/L (21-27); VBG PCO2 75 mmHg (41-51); VBG PO2 41 mmHg (25-50)
[2022-02-19 18:01] LABS: Bilirubin,Urine Negative (Negative); Blood,Urine Negative (Negative); Clarity,Urine Clear (Clear); Color,Urine Yellow (Yellow); Glucose,Urine (UA) Normal (Normal); Ketones,Urine Negative (Negative); Leukocyte Esterase,Urine Negative (Negative); Nitrite,Urine Negative (Negative); PH,Urine 6.5 pH Units (5.0-8.0); Protein,Urine Trace mg/dL (Neg-Trace); Specific Gravity,Urine 1.023 (1.010-1.025); Urobilinogen,Urine Normal (Normal)
[2022-02-19 18:15] LABS: Amphetamine Screen,Urine Negative ng/mL (Cutoff=1000); Barbiturate Screen,Urine Negative ng/mL (Cutoff=200); Benzodiazepines Screen,Urine Negative ng/mL (Cutoff=200); Cannabinoid Screen,Urine Positive ng/mL (Cutoff = 50); Cocaine Screen,Urine Negative ng/mL (Cutoff= 300); Opiate Screen,Urine Negative ng/mL (Cutoff=300); Phencyclidine Screen,Urine Negative ng/mL (Cutoff=25)
[2022-02-19 18:39] LABS: Influenza A PCR Negative (Negative); Influenza B PCR Negative (Negative); Resp. Syncytial Virus PCR Negative (Negative)
[2022-02-19 18:47] LABS: SARS-CoV-2 by PCR (In House) Negative (Negative)
[2022-02-19] MEDS ORDERED: Acetaminophen 325 MG TABLET PO PRN (19:57)
[2022-02-19] MEDS ORDERED: Naloxone 0.4 MG/ML INJ IVP PRN (19:57)
[2022-02-19] MEDS ORDERED: Ondansetron 4 MG/2 ML VIAL IVP PRN (19:57)
[2022-02-19 20:34] LABS: ABG Base Excess 5 mEq/L (-2 to 3); ABG HCO3 31 mEq/L (21-27); ABG Oxygen Saturation 97 % (95-98); ABG PCO2 53 mmHg (35-45); ABG PH 7.38 pH Units (7.32-7.45); ABG PO2 95 mmHg (85-104); ABG TCO2 33 mEq/L (20-26)
[2022-02-19] MEDS ORDERED: Azithromycin 500 MG in 0.9 % Sodium Chloride 250 ML IVPB SCH (22:00)
[2022-02-19] MEDS ORDERED: Ipratropium/Albuterol Neb 3 ML IH PRN (22:02)
[2022-02-19] MEDS ORDERED: Iopamidol - 370 500 ML MLS IVP ONE (22:46)
[2022-02-19] MEDS ORDERED: levETIRAcetam 1,000 MG in 0.9 % Sodium Chloride 100 ML IVPB ONE (22:46)
[2022-02-20] MEDS: Ketorolac 30 MG/ML VIAL IVP PRN ×2 (01:20→16:44)
[2022-02-20] MEDS: Gabapentin 300 MG CAPSULE PO SCH ×3 (01:21→21:13)
[2022-02-20 01:50] LABS: Adenovirus Not Detected (Not Detect); Bordetella Pertussis Not Detected (Not Detect); Chlamydophila pneumoniae Not Detected (Not Detect); Coronavirus 229E Not Detected (Not Detect); Coronavirus HKU1 Not Detected (Not Detect); Coronavirus NL63 Not Detected (Not Detect); Coronavirus OC43 Not Detected (Not Detect); Human Metapneumovirus Not Detected (Not Detect); Human Rhinovirus/Enterovirus Not Detected (Not Detect); Influenza A Subtype 2009 H1 Not Detected (Not Detect); Influenza B Not Detected (Not Detect); Mycoplasma pneumoniae Not Detected (Not Detect); Parainfluenza Virus 1 Not Detected (Not Detect); Parainfluenza Virus 2 Not Detected (Not Detect); Parainfluenza Virus 3 Not Detected (Not Detect); Parainfluenza Virus 4 Not Detected (Not Detect); Respiratory Syncytial Virus Not Detected (Not Detect); SARS-CoV-2 Not Detected (Not Detect)
[2022-02-20 02:10] LABS: Hemoglobin 12.1 g/dL (12.9-16.9); Mean Corpuscular HGB Conc 31.8 g/dL (31.6-35.5); Mean Corpuscular Hemoglobin 26.7 pg (28.0-33.3); Mean Corpuscular Volume 83.9 fL (83.0-100.0); Mean Platelet Volume 9.9 fL (9.4-12.4); Platelet Count 251 K/mcL (140-400); Red Blood Count 4.53 M/mcL (4.19-5.50); Red Cell Distribution Width 17.9 % (11.5-14.5); White Blood Count 11.8 K/mcL (4.3-11.1)
[2022-02-20 02:18] LABS: INR 2.2; Prothrombin Time 24.2 Seconds (9.4-12.1)
[2022-02-20 02:32] LABS: Calcium 7.8 mg/dL (8.6-10.3); Potassium 3.4 mEq/L (3.5-5.1)
[2022-02-20] MEDS: Bumetanide 1 MG TABLET PO SCH ×2 (07:59→21:10)
[2022-02-20] MEDS: Isosorbide MONOnitrate (24 HR) 30 MG TAB.ER.24H PO SCH (07:59)
[2022-02-20] MEDS ORDERED: *HR* Warfarin 3 MG TABLET PO ONE (18:00)
[2022-02-20] MEDS ORDERED: Warfarin perPT PO PRN (18:00)
[2022-02-20] MEDS: levETIRAcetam 250 MG TABLET PO SCH (18:54)
[2022-02-20] MEDS ORDERED: NON-FORMULARY MEDICATION 1 EACH EACH (Melatonin 10 MG Tablet) PO SCH (21:00)
[2022-02-20] MEDS: Doxycycline 100 MG CAPSULE PO SCH (21:09)
[2022-02-21] MEDS: levETIRAcetam 250 MG TABLET PO SCH (05:16)
[2022-02-21 06:25] LABS: INR 1.6; Prothrombin Time 17.6 Seconds (9.4-12.1)
[2022-02-21] MEDS ORDERED: predniSONE 20 MG TABLET PO SCH (09:00)
[2022-02-21] MEDS: Isosorbide MONOnitrate (24 HR) 30 MG TAB.ER.24H PO SCH (09:20)
[2022-02-21] MEDS: Bumetanide 1 MG TABLET PO SCH (09:20)
[2022-02-21] MEDS: Doxycycline 100 MG CAPSULE PO SCH (09:20)
[2022-02-21] MEDS ORDERED: *HR* FentaNYL PATCH 25 MCG PATCH TD SCH (09:30)
[2022-02-21] MEDS ORDERED: BREZTRI PO SCH (10:00)
[2022-02-21 12:37] VITALS: BP 109/58; PULSE 84; TEMP 98; O2SAT 96
[2022-02-21] MEDS ORDERED: *HR* Warfarin 5 MG TABLET PO ONE (18:00)
[2022-02-21] MEDS ORDERED: *HR* Warfarin 2 MG TABLET PO ONE (18:00)
== END 2022-02-21 15:30 | disposition home or self-care (01) ==
LOC: EMEROOARM 14:46 → 2ANU 14:46 → SUATTDRO 20:21 → 2ANU 21:08
PROVIDERS: ADMIT Internal Medicine; ATTEND Internal Medicine